=== PATIENT | female | born 1985 | race Caucasian/White ===

== ENCOUNTER 2020-09-15 16:41 | Emergency (ER) | payer OTHER, SELFPAY ==
--- NOTE | ~2020-09-15 | CT_ITS ---
EXAMINATION: CT CHEST WITHOUT CONTRAST CLINICAL INFORMATION: abnormal CT abd, large pleural loculation COMPARISON: CT abdomen pelvis 09/15/2020. Chest x-ray 11/14/2017 TECHNIQUE: Multidetector volumetric CT imaging of the chest was done. Axial MIP volume rendering provided. Sagittal and coronal reformatted images were obtained. This CT examination was performed using dose optimization techniques as appropriate, variously including the following: *Automated exposure control *Adjustment of mA and/or kV according to patient size (this includes techniques or standardized protocols for targeted exams where dose is matched to indication/reason for exam; i.e. extremities or head) *Use of iterative reconstruction technique DLP: 353 mGy-cm FINDINGS: PLEURA/LUNGS: Redemonstration of the cystic structure at the posterior left medial pleural space. This measures approximately 10 x 7.7 cm. This has a density measurement of 13 Hounsfield units, just above simple fluid. The septations are not apparent on this noncontrast study, better seen on the prior CT abdomen study which did use IV contrast. There are pleural calcifications associated with this lesion at the posterior lower lung base. There is overlying left basilar dependent atelectasis. Lungs are otherwise normally aerated. No interstitial lung disease. No suspicious pleural lesions. No bronchiectasis. The central bronchial airways are open. MEDIASTINUM: No mediastinal mass or significant lymphadenopathy. Heart size is normal. No pericardial effusion. Thyroid is unremarkable. CHEST WALL/AXILLA: No axillary lymphadenopathy. There is a well-defined round nodule in the left breast just deep to the skin line. Measures 1.5 cm. This is at the 6:00 position to the nipple. This is about 6.5 cm from the nipple. There is an adjacent ovoid density in the same region measuring about 1 x 2 cm. Consider breast ultrasound for further evaluation. UPPER ABDOMEN: Unremarkable. OSSEOUS STRUCTURES: Unremarkable. CT/CT chest wo con IMPRESSION: 1. Redemonstration of a loculated pleural-based fluid collection posterior left lung base. There are associated small pleural calcifications. Compressive atelectasis at left lung base. 2. Nodule at about 6:00 position within the left breast. Ultrasound of breasts suggested for further assessment.
--- NOTE | ~2020-09-15 | CT_ITS ---
EXAMINATION: CT ABDOMEN AND PELVIS WITH CONTRAST CLINICAL INFORMATION: Left-sided abdominal pain COMPARISON: Ultrasound 08/05/2014, chest x-ray 11/14/2017, rib radiographs 10/24/2009 TECHNIQUE: Multidetector volumetric images were obtained from the superior aspect of the liver through the pubic symphysis following administration 85 mL of Omnipaque 350 intravenous contrast. Sagittal and coronal reformatted images were obtained on the technologist's workstation. Oral contrast: No This CT examination was performed using dose optimization techniques as appropriate, variously including the following: *Automated exposure control *Adjustment of mA and/or kV according to patient size (this includes techniques or standardized protocols for targeted exams where dose is matched to indication/reason for exam; i.e. extremities or head) *Use of iterative reconstruction technique DLP: 677 mGy-cm FINDINGS: LUNG BASES: There is a multiloculated/septated cystic structure in the left posterior medial pleural space. There are some peripheral calcifications and some overlying atelectasis. This measures 10.3 x 6.9 cm transaxial by 7.4 cm craniocaudal. Comparing the medical nurse topogram to prior rib radiograph 10/24/2009, this finding is new although there was abnormal fluid adjacent the spleen described on the ultrasound 08/05/2014. There is no feeding vessel from the aorta to suggest a sequestration. LIVER, GALLBLADDER, AND BILIARY TREE: There is ill-defined low density adjacent the fissure of the falciform ligament consistent with focal hepatic steatosis. No suspicious or concerning focal liver lesion. The hepatic and portal veins enhance normally. No biliary ductal dilatation. The gallbladder is unremarkable with no evidence of radiopaque gallstones, gallbladder wall thickening, or obvious pericholecystic inflammatory changes. PANCREAS: Normal. SPLEEN: Normal. ADRENAL GLANDS: No adrenal mass. KIDNEYS AND URETERS: The kidneys are normal in size, shape, and attenuation. No hydronephrosis, hydroureter, or calculi seen. No perinephric stranding. BLADDER: Unremarkable. GASTROINTESTINAL TRACT: The small and large bowel are unremarkable. The appendix is unremarkable. ABDOMINAL WALL: Small fat-containing umbilical hernia. LYMPH NODES: Normal. VASCULAR: Unremarkable. PELVIC VISCERA: The uterus and adnexa are unremarkable. OSSEOUS STRUCTURES: Severe degenerative disc disease at L5-S1. CT/CT abdomen pelvis w con IMPRESSION: No acute CT findings in the abdomen or pelvis. There is a multiloculated/septated cystic structure in left posterior medial pleural space, measuring 10.3 x 6.9 x 7.4 cm with septations and peripheral calcifications. This finding appears to be new from the rib radiographs 10/24/2009 but there was a cystic abnormality adjacent the spleen on the ultrasound 08/05/2014. Recommend clinical correlation. This could represent an infectious or inflammatory loculated pleural effusion. With the calcifications, unusual etiologies such as echinoccal or hydatid disease could be considered in the appropriate clinical setting.
[2020-09-15 18:53] VITALS: BP 122/69; PULSE 79; RESP 18; TEMP 36.2; O2SAT 100; BMI 32.3
[2020-09-15 19:35] LABS: MANUAL DIFF FLAG NO
[2020-09-15 19:38] LABS: Basophils Absolute Auto 0.1 X10*3/uL (0.0-0.2); Basophils Percent Auto 0.5 % (0-2); Eosinophils Absolute Auto 0.1 X10*3/uL (0.0-0.4); Hematocrit 41.7 % (37-47); Hemoglobin 13.8 g/dl (12.0-16.0); Imm Gran Abs Auto 0.03 X10*3/uL (0.00-0.03); Imm Gran Pct Auto 0.3 % (0.0-0.4); Lymphocytes Absolute Auto 3.5 X10*3/uL (1.2-4.9); Lymphocytes Percent Auto 31.8 % (20-40); Mean Corpuscular HGB Conc 33.1 g/dl (31.0-35.0); Mean Corpuscular Hemoglobin 31.6 pg (27.0-33.0); Mean Corpuscular Volume 95.4 fL (80-98); Monocytes Absolute Auto 0.8 X10*3/uL (0.1-1.2); Neutrophils Absolute Auto 6.5 X10*3/uL (2.0-8.3); Neutrophils Percent Auto 59.4 % (45-73); Platelet Count 374 X10*3/uL (160-400); Red Blood Count 4.37 X10*6/uL (4.20-5.50); Red Cell Distribution Width 13.2 % (11.0-16.0)
[2020-09-15 20:15] LABS: Alanine Aminotransferase 34 U/L (0-31); Albumin Level 4.3 g/dL (3.5-5.0); Alkaline Phosphatase 112 U/L (39-117); Anion Gap 12 (12-20); Aspartate Amino Transferase 21 U/L (5-31); Bilirubin Total 0.8 mg/dL (0.0-1.0); Blood Urea Nitrogen 11 mg/dL (9-16); Calcium 9.3 mg/dL (8.4-10.2); Carbon Dioxide 27 mmol/L (22-29); Chloride 104 mmol/L (96-108); Estimated Glomerular Filt Rate > 60; Glucose Random 75 mg/dL (60-115); Potassium 3.9 mmol/L (3.3-5.1); Sodium 139 mmol/L (135-145); Total Protein 7.2 g/dL (6.5-8.0)
--- NOTE | 2020-09-15 20:31 | ED.ABDPAIN ---
HPI - Abdominal Pain General Chief Complaint: Abdominal Pain Stated Complaint: abdominal pain Time Seen by Provider: 09/15/20 20:24 History of Present Illness HPI narrative: 34-year-old female with history of hypertension and seizures who presents to the emergency department with left upper abdominal pain/left flank pain for 1 week. Patient states over the last week her pain has been getting worse. Denies fevers, chest pain, cough, shortness of breath. Denies changes in bowel or bladder habits. Admits to nausea but denies vomiting. Due to concerning continued discomfort she felt she needed to be seen. Admits to daily marijuana use he is smoking denies any other drug or alcohol use. Denies chance of . Related Data Allergies Allergy/AdvReac Type Severity Reaction Status Date / Time No Known Allergies Allergy Unverified 01/13/20 15:27 Review of Systems Review of Systems Constitutional : No Weight loss, No Fever, No Chills, No Night Sweats, No Fatigue, No Malaise ENT/Mouth : No Hearing loss, No Ear Pain, No Nasal Congestion, No Sinus Pain, No Hoarseness, No sore throat, No Rhinorrhea, No Swallowing Difficulty Eyes: No Eye Pain, No Swelling, No Redness, No Foreign Body, No Discharge, No Vision Changes Cardiovascular : No Chest Pain, No SOB, No Dyspnea on Exertion, No Orthopnea, No Edema, No Palpitations Respiratory : No Cough, No Sputum, No Wheezing, No Smoke Exposure, No Dyspnea Gastrointestinal : + Nausea, No Vomiting, No Diarrhea, No Constipation, + abdominal Pain, +flank pain, No Hematochezia, No Melena Genitourinary : no irregular bleeding, No Dysuria, No Urinary Frequency, No Hematuria, No Urinary Incontinence, No Urgency, No Flank Pain, No Urinary Flow Changes, No Hesitancy Musculoskeletal : No joint pain, No Myalgias, No Joint Swelling Skin : No Skin Lesions, No rash Neuro : No Weakness, No Numbness, No Paresthesias, No Loss of Consciousness, No Dizziness, No Headache Psych : No Anxiety/Panic, No Depression, No SI/HI/AH/VH, No Social Issues, Heme/Lymph: No Bruising, No Bleeding,No Lymphadenopathy Endocrine : No Polyuria, No Polydipsia, No Temperature Intolerance Physical Exam Vital Signs: Vital Signs: Last Vital Signs Temp 97.2 F 09/15/20 18:53 Pulse 60 09/16/20 01:34 Resp 16 09/16/20 01:34 BP 124/73 09/16/20 01:34 Pulse Ox 98 09/16/20 01:34 Body Mass Index 32.3 vital signs have been reviewed as normal and appeared to be correct. Blood pressure normal. Heart rate normal. Respiration rate normal. Temperature normal. Oxygen saturation normal. Appearance: Alert. Oriented X3. Mild acute distress. Head: Normal external exam. Normocephalic. Atraumatic. No Ruiz signs noted. No raccoon eyes noted Eyes: PERRLA. EOMI. Conjunctiva and sclera normal. Eyelids normal. ENT: EAC normal. TM's Normal. Pharynx normal. Uvula midline. Moist mucous membranes. No trismus noted. No drooling noted. No muffled voice noted. Neck: Normal inspection. Neck supple. FROM. No adenopathy. Thyroid Normal. No meningeal signs. No neck mass noted. CVS: Normal heart rate and rhythm. Heart sound normal. No murmurs noted. Pulses normal throughout. Respiratory: No respiratory distress. Painless inspiration. Breath sounds normal. No wheezes/rales/rhonchi noted. Chest nontender. No accessory muscle usage noted or decreased air movement noted. Abdomen: Soft , moderate tenderness to left upper abdomen as well as left flank. No guarding or signs of peritonitis. Bowel sounds normal in all 4 quadrants. No distention noted. No organomegaly noted. No visible injury noted. Back: + left CVA tenderness. negative right CVA tenderness Full range of motion noted. Skin: Skin warm and dry. Normal skin color. Normal skin turgor. No rashes/lesions/lacerations noted. Extremities: No lower extremity edema. Extremities exhibit normal range of motion. Extremities nontender. Neuro: Oriented X 3. No motor deficit. No sensory deficit. Reflexes normal. Course Reevaluation(s) Reevaluation #1: CT scan of the abdomen pelvis with evidence of large abnormal appearing cystic structure in the left medial pleural space will proceed with CT chest noncon to further classify abnormal findings. Patient remains hemodynamically stable. Reevaluation #2: Patient's CT chests returning with confirmation complex pleural effusion in the left medial lung will consult thoracic surgery for additional recommendations patient remains hemodynamically stable will continue to monitor Reevaluation #3: Thoracic surgery feels the patient would benefit from transfer to [facility] as Dr. New is not on-call over the weekend here and patient will likely require pigtail placement for fluid drainage and cultures. Will contact [facility] to facilitate transfer. Patient remains hemodynamically stable Additional Reevaluation(s): Patient accepted to [facility] by Dr. Bearden. Will proceed with transfer patient remains hemodynamically stable. MDM - Abdominal Pain MDM Narrative Medical decision making narrative: Patient's vital signs are stable and she is afebrile patient presenting to the ED for a week of left upper quadrant/left flank abdominal pain. Patient denies any urinary symptoms or changes in bowel habits. Although concern does remain for kidney stone. Will check basic blood work as well as urinalysis. Patient will likely require CT imaging however will continue to monitor decide which type of imaging pending the above. Will medicate with IV morphine for pain, IV Zofran for nausea and IV fluids for hydration. Patient denies any chest pain, shortness of breath. Given the absence of fever lower suspicion for infectious etiology. Will continue to monitor and reassess pending the above. Medical Records Attestation: I reviewed the patient's medical records. Lab Data Attestation: I reviewed the patient's lab results. Result diagrams: 09/15/20 19:28 09/15/20 19:28 Labs: Lab Results 09/15/20 09/15/20 09/15/20 Range/Units 19:28 19:28 19:28 WBC 11.0 H (4.8-10.8) X10*3/uL RBC 4.37 (4.20-5.50) X10*6/uL Hgb 13.8 (12.0-16.0) g/dl Hct 41.7 (37-47) % MCV 95.4 (80-98) fL MCH 31.6 (27.0-33.0) pg MCHC 33.1 (31.0-35.0) g/dl RDW 13.2 (11.0-16.0) % Plt Count 374 (160-400) X10*3/uL MPV 9.0 L (9.4-12.3) fL Immature Gran % (Auto) 0.3 (0.0-0.4) % Neut % (Auto) 59.4 (45-73) % Lymph % (Auto) 31.8 (20-40) % Kent % (Auto) 7.0 (2-11) % Eos % (Auto) 1.0 (0-4) % Baso % (Auto) 0.5 (0-2) % Lymph # (Auto) 3.5 (1.2-4.9) X10*3/uL Kent # (Auto) 0.8 (0.1-1.2) X10*3/uL Eos # (Auto) 0.1 (0.0-0.4) X10*3/uL Baso # (Auto) 0.1 (0.0-0.2) X10*3/uL Abs Immat Gran (auto) 0.03 (0.00-0.03) X10*3/uL Absolute Neuts (auto) 6.5 (2.0-8.3) X10*3/uL Absolute Nucleated RBC 0.000 (0.0-0.012) X10*3/uL Nucleated RBC % (auto) 0.0 (0.0-0.2) /100WBC Hold Blue Top SEE NOTE Sodium 139 (135-145) mmol/L Potassium 3.9 (3.3-5.1) mmol/L Chloride 104 (96-108) mmol/L Carbon Dioxide 27 (22-29) mmol/L Anion Gap 12 (12-20) BUN 11 (9-16) mg/dL Creatinine 0.73 (0.5-1.4) mg/dL Estim Creat Clear Calc 122.0 Estimated GFR > 60 Random Glucose 75 (60-115) mg/dL Calcium 9.3 (8.4-10.2) mg/dL Total Bilirubin 0.8 (0.0-1.0) mg/dL AST 21 (5-31) U/L ALT 34 H (0-31) U/L Alkaline Phosphatase 112 (39-117) U/L Total Protein 7.2 (6.5-8.0) g/dL Albumin 4.3 (3.5-5.0) g/dL Lipase 11 (8-78) U/L Urine Color Urine Appearance Urine pH (5.0-8.0) Ur Specific Enfield (1.005-1.025) Urine Protein (NEG-TRACE) MG/DL Urine Glucose (UA) (NEG) MG/DL Urine Ketones (NEG) MG/DL Urine Blood (NEG) Urine Nitrite (NEG) Ur Leukocyte Esterase (NEG) Urine Test (NEGATIVE) 09/15/20 09/15/20 Range/Units 20:48 20:48 WBC (4.8-10.8) X10*3/uL RBC (4.20-5.50) X10*6/uL Hgb (12.0-16.0) g/dl Hct (37-47) % MCV (80-98) fL MCH (27.0-33.0) pg MCHC (31.0-35.0) g/dl RDW (11.0-16.0) % Plt Count (160-400) X10*3/uL MPV (9.4-12.3) fL Immature Gran % (Auto) (0.0-0.4) % Neut % (Auto) (45-73) % Lymph % (Auto) (20-40) % Kent % (Auto) (2-11) % Eos % (Auto) (0-4) % Baso % (Auto) (0-2) % Lymph # (Auto) (1.2-4.9) X10*3/uL Kent # (Auto) (0.1-1.2) X10*3/uL Eos # (Auto) (0.0-0.4) X10*3/uL Baso # (Auto) (0.0-0.2) X10*3/uL Abs Immat Gran (auto) (0.00-0.03) X10*3/uL Absolute Neuts (auto) (2.0-8.3) X10*3/uL Absolute Nucleated RBC (0.0-0.012) X10*3/uL Nucleated RBC % (auto) (0.0-0.2) /100WBC Hold Blue Top Sodium (135-145) mmol/L Potassium (3.3-5.1) mmol/L Chloride (96-108) mmol/L Carbon Dioxide (22-29) mmol/L Anion Gap (12-20) BUN (9-16) mg/dL Creatinine (0.5-1.4) mg/dL Estim Creat Clear Calc Estimated GFR Random Glucose (60-115) mg/dL Calcium (8.4-10.2) mg/dL Total Bilirubin (0.0-1.0) mg/dL AST (5-31) U/L ALT (0-31) U/L Alkaline Phosphatase (39-117) U/L Total Protein (6.5-8.0) g/dL Albumin (3.5-5.0) g/dL Lipase (8-78) U/L Urine Color YELLOW Urine Appearance CLEAR Urine pH 6.0 (5.0-8.0) Ur Specific Enfield >= 1.030 H (1.005-1.025) Urine Protein NEG (NEG-TRACE) MG/DL Urine Glucose (UA) NEG (NEG) MG/DL Urine Ketones 15 (NEG) MG/DL Urine Blood NEG (NEG) Urine Nitrite NEG (NEG) Ur Leukocyte Esterase NEG (NEG) Urine Test NEGATIVE (NEGATIVE) Discharge Plan Discharge Clinical Impression: Loculated pleural effusion, Chest wall pain Patient Disposition: [facility] Transfer Details: Transfer to [facility] -Accepted by Dr. Bearden Print Language: Faroese [facility] Past Medical History Attestation statement: The following information was validated with the patient. Source: old records reviewed and nursing notes reviewed Medical History (Updated 09/16/20 @ 01:53 by ALECIA Hilario) Hypertension Seizures Social History Social History Alcohol intake: never Smoking Status: Never smoker Use of substances other than those prescribed or required for medical reasons: No Advance Directives: No Advance Directives Information Provided: Yes
[2020-09-15 20:55] LABS: Glucose Urine UA NEG (NEG); Leukocyte Esterase Urine NEG (NEG); Nitrite Urine NEG (NEG); Specific Gravity - Urine >= 1.030 (1.005-1.025); Urine Blood NEG (NEG); Urine Ketones 15 MG/DL (NEG); Urine Protein NEG (NEG-TRACE)
[2020-09-15 20:56] LABS: Appearance Urine CLEAR; Color Urine YELLOW; UPreg QC Valid YES; Urine Pregnancy NEGATIVE (NEGATIVE)
[2020-09-15 21:05] LABS: Lipase 11 U/L (8-78)
[2020-09-15] MEDS: ondansetron HCL 4 MG/2 ML VIAL IVPUSH (21:06)
[2020-09-15] MEDS: 0.9 % Sodium Chloride 1,000 ML 999 ML IV (21:06)
[2020-09-15 21:07] VITALS: RESP 18
[2020-09-15] MEDS: Morphine Sulfate 4 MG/ML CARTRIDGE IVPUSH ×2 (21:07→23:20)
[2020-09-15] MEDS: iohexoL 350 MG/ML 100 ML INFUS..BTL IV (21:26)
--- NOTE | 2020-09-16 01:16 | PC.NURSE ---
Plan to transfer pt by ambulance to [facility] to consult with thoracic surgery.
--- NOTE | 2020-09-16 01:23 | PC.NURSE ---
Per ER PA, no BCX required prior to ABX administration.
[2020-09-16] MEDS: Piperacillin Sodium/Tazobactam 3.375 GM in 0.9 % Sodium Chloride 50 ML IV (01:26)
[2020-09-16 01:34] VITALS: BP 124/73; PULSE 60; RESP 16; O2SAT 98
[2020-09-16] MEDS: vancomycin HCL 1,500 MG in 0.9 % Sodium Chloride 500 ML 333.33 MG IV (01:56)
--- NOTE | 2020-09-16 02:06 | PC.NURSE ---
Report given to THUY Rios at [facility]. EMS at bedside preparing pt for transport.
== END 2020-09-16 02:14 | disposition short-term general hospital (02) ==
PROVIDERS: Emergency Medicine; Physician Assistant; Emergency Provider Student in an Organized Health Care Education/Training Program
DX: J90 Pleural effusion, not elsewhere classified (principal); R07.89 Other chest pain; R10.12 Left upper quadrant pain; Z79.899 Other long term (current) drug therapy
CPT/HCPCS: 36415; 71250; 74177; 80053; 81003; 81025; 83690; 85025; 96361; 96365; 96375; 99285; J2270; J2405; J2543; J3370; Q9967

== ENCOUNTER 2020-11-11 13:05 | Emergency (ER) | payer MEDICAID, SELFPAY ==
[2020-11-11 13:09] VITALS: BP 139/85; PULSE 89; RESP 20; TEMP 36.1; O2SAT 98; BMI 33.9
--- NOTE | 2020-11-11 13:20 | ED.ANXIETY ---
HPI - Anxiety General Chief Complaint: Anxiety Stated Complaint: anxiety Time Seen by Provider: 11/11/20 13:18 Source: patient Mode of arrival: ambulatory Limitations: no limitations History of Present Illness complaint: anxiety Onset (ago): day(s) Symptoms: sense of impending doom Severity: moderate Quality: constant Place: home and work History of similar episodes: Yes Provoking factors: work/job stress Relieving factors: nothing Exacerbating factors: thinking about event Associated symptoms: other (mild nausea this AM) Related Data Previous Rx's Medication Instructions Recorded hydroxyzine HCl 50 mg PO TID PRN #30 tab 11/11/20 Allergies Allergy/AdvReac Type Severity Reaction Status Date / Time No Known Allergies Allergy Unverified 01/13/20 15:27 Review of Systems Review of Systems: Constitutional : No Fever, No Chills ENT/Mouth : No Ear Pain, No Nasal Congestion, No sore throat Eyes: No Eye Pain, No Swelling, No Redness Cardiovascular : No Chest Pain, No SOB Respiratory : No Cough, No Sputum, No Dyspnea Gastrointestinal : No Vomiting, No Diarrhea, No Hematochezia, No Melena Genitourinary : No Dysuria, No Urinary Frequency, No Hematuria Musculoskeletal : No Myalgias Skin : No Skin Lesions, No rash Neuro : No Weakness, No Numbness, No Paresthesias, No Dizziness, No Headache Psych : positive Anxiety, positive Depression, no SI/HI \ PMFSH Past Medical History Attestation statement: The following information was validated with the patient. Medical History Anxiety Hypertension Seizures Social History Social History (Updated 11/11/20 @ 13:45 by Tricia Fagan DO) Alcohol intake: never Patient Tobacco Use Status: Never used Tobacco Advance Directives: No Advance Directives Information Provided: Yes Physical Exam Vital Signs: Vital Signs: Last Vital Signs Temp 96.9 F 11/11/20 13:09 Pulse 89 11/11/20 13:09 Resp 20 11/11/20 13:09 BP 139/85 11/11/20 13:09 Pulse Ox 98 11/11/20 13:09 Body Mass Index 33.9 Appearance: Alert. Oriented X3. No acute distress. Anxious and tearful Eyes: Pupils equal, round and reactive to light. ENT: Pharynx normal. Neck: Normal inspection. Neck supple. CVS: Normal heart rate and rhythm. Respiratory: No respiratory distress. Breath sounds normal. Abdomen: Soft and non-tender. Skin: Skin warm and dry. Normal skin color. Normal skin turgor. Extremities: No lower extremity edema. Neuro: Oriented X 3. No motor deficit. No sensory deficit. Psych: pos anxiety no SI/HI MDM - Anxiety MDM Narrative Medical decision making narrative: 34 yo female with hx of seizures and anxiety just Rx zoloft but due to stress at work here with panic attacks, did not take her keppra this AM as well due to stress, no SI/HI, does not want to go inpatient for psych just asking for PRN relief, will give atarax and dose her with her home keppra, plans to follow up as outpatient Discharge Plan Discharge Clinical Impression: Acute anxiety Patient Disposition: Home, Self-Care Instructions: Panic Attack (ED) Additional Instructions: return to ED for any worsening symptoms or concerns Prescriptions: New hydroxyzine HCl 50 mg tablet 50 mg PO TID PRN (Reason: anxiety) Qty: 30 RF: 0 Stand Alone Forms: Work/School Release
[2020-11-11] MEDS: hydrOXYzine HCL 50 MG TABLET PO (13:47)
[2020-11-11] MEDS: levETIRAcetam 1,000 MG TABLET 1000 MG PO (13:47)
== END 2020-11-11 14:29 | disposition home or self-care (01) ==
PROVIDERS: Emergency Provider Emergency Medicine
DX: F41.9 Anxiety disorder, unspecified (principal); I10 Essential (primary) hypertension
CPT/HCPCS: 99283

== ENCOUNTER 2021-02-10 13:19 | Emergency (ER) | payer MEDICAID, SELFPAY ==
[2021-02-10 13:50] VITALS: BP 109/58; PULSE 80; RESP 16; TEMP 36.7; O2SAT 98; BMI 33.9
== END 2021-02-10 18:09 | disposition left against medical advice (07) ==
PROVIDERS: Emergency Provider Emergency Medicine
DX: R07.9 Chest pain, unspecified (principal)
CPT/HCPCS: 99281; 99282

== ENCOUNTER 2021-08-28 13:32 | Emergency (ER) | payer OTHER, SELFPAY ==
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
[2021-08-28 13:48] VITALS: BP 137/74; BP 152/90; PULSE 103; PULSE 110; RESP 16; TEMP 36.7; O2SAT 100; O2SAT 97; BMI 35.5
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
[2021-08-28] MEDS: Ketorolac Tromethamine 30 MG/ML VIAL IM (15:27)
[2021-08-28] MEDS: Acetaminophen 325 MG TABLET 975 MG PO (15:27)
== END 2021-08-28 17:03 | disposition home or self-care (01) ==
PROVIDERS: Emergency Provider Emergency Medicine
DX: S16.1XXA Strain of muscle, fascia and tendon at neck level, initial encounter (principal); M25.512 Pain in left shoulder; R51.9 Headache, unspecified; V43.52XA Car driver injured in collision with other type car in traffic accident, initial encounter; Y93.9 Activity, unspecified; Y92.410 Unspecified street and highway as the place of occurrence of the external cause; Y99.9 Unspecified external cause status; Z79.899 Other long term (current) drug therapy
CPT/HCPCS: 70450; 72125; 73030; 96372; 99284; J1885

== ENCOUNTER 2022-01-12 08:47 | Emergency (ER) | payer MEDICAID, SELFPAY ==
--- NOTE | ~2022-01-12 | XR_ITS ---
EXAMINATION: XR CHEST CLINICAL INFORMATION: Chest pain COMPARISON: None TECHNIQUE: 2 views of the chest were obtained. FINDINGS: No significant abnormality is noted involving the heart, lungs, mediastinum, bony thorax or soft tissues. XR/XR chest 2V IMPRESSION: Unremarkable examination.
--- NOTE | 2022-01-12 08:50 | ECG_ITS ---
Test Reason : chest pain Blood Pressure : / mmHG Vent. Rate : 083 BPM Atrial Rate : 083 BPM P-R Int : 154 ms QRS Dur : 072 ms QT Int : 352 ms P-R-T Axes : 029 036 028 degrees QTc Int : 413 ms Normal sinus rhythm with sinus arrhythmia Low voltage QRS Borderline ECG When compared with ECG of 05-FEB-2018 18:53, Heart rate has decreased Referred By: Generic ED Physician Electronically Signed By:CARMELLA WATKINS
[2022-01-12 08:51] VITALS: BP 119/65; PULSE 100; RESP 16; TEMP 36; O2SAT 97; BMI 38.7
[2022-01-12 10:13] VITALS: BP 110/62; PULSE 86; RESP 19; TEMP 36.8; O2SAT 98
[2022-01-12 10:33] LABS: MANUAL DIFF FLAG NO
[2022-01-12 10:36] LABS: Basophils Absolute Auto 0.1 X10*3/uL (0.0-0.2); Basophils Percent Auto 0.5 % (0-2); Eosinophils Absolute Auto 0.2 X10*3/uL (0.0-0.4); Eosinophils Percent Auto 1.7 % (0-4); Hematocrit 46.2 % (37.0-47.0); Hemoglobin 15.4 g/dl (12.0-16.0); Imm Gran Abs Auto 0.05 X10*3/uL (0.00-0.03); Imm Gran Pct Auto 0.4 % (0.0-0.4); Lymphocytes Absolute Auto 2.6 X10*3/uL (1.2-4.9); Lymphocytes Percent Auto 20.9 % (20-40); Mean Corpuscular HGB Conc 33.3 g/dl (31.0-35.0); Mean Corpuscular Hemoglobin 31.6 pg (27.0-33.0); Mean Corpuscular Volume 94.9 fL (80.0-98.0); Mean Platelet Volume 9.2 fL (9.4-12.3); Monocytes Absolute Auto 0.8 X10*3/uL (0.1-1.2); Monocytes Percent Auto 6.3 % (2-11); Neutrophils Absolute Auto 8.7 x10*3/uL (2.0-8.3); Neutrophils Percent Auto 70.2 % (45-73); Platelet Count 376 X10*3/uL (160-400); Red Blood Count 4.87 X10*6/uL (4.20-5.50); Red Cell Distribution Width 13.3 % (11.0-16.0); White Blood Count 12.4 X10*3/uL (4.8-10.8)
--- NOTE | 2022-01-12 10:37 | ED.CHESTPAIN ---
HPI - Chest Pain General Chief Complaint: Chest Pain Stated Complaint: CHEST PAIN Time Seen by Provider: 01/12/22 09:22 Source: patient Mode of arrival: ambulatory Limitations: no limitations History of Present Illness HPI narrative: patient presents emergency department for evaluation of chest pain. Patient reports that chest pain has been present since last night. First noticed this while she was sitting and crocheting. It is described as an intermittent jabbing sensation lasting a few minutes and this resolves, however there is also a constant chest tightness that has been present since onset. Unable to identify exacerbating or alleviating factors. Pain at times radiates to the left arm, has associated nausea but no vomiting. Denies fevers, chills, cough, upper respiratory symptoms, shortness of breath, difficulty breathing, abdominal pain. Denies personal history of DVT/ PE, personal history of cancer, recent prolonged immobilization. Related Data Previous Rx's Medication Instructions Recorded hydroxyzine HCl 50 mg tablet 50 mg PO TID PRN anxiety #30 tabs 11/11/20 Allergies Allergy/AdvReac Type Severity Reaction Status Date / Time No Known Allergies Allergy Verified 01/12/22 08:51 Review of Systems Review of Systems: Constitutional : No Weight loss, No Fever, No Chills ENT/Mouth :? No sore throat, No Rhinorrhea Eyes: No Eye Pain, No Swelling Cardiovascular : pos Chest Pain, no SOB, no Dyspnea on Exertion, No Orthopnea, No Edema, No Palpitations Respiratory : No Cough, No Sputum Gastrointestinal : pos Nausea, No Vomiting, No Diarrhea, No abdominal Pain, No Hematochezia, No Melena Genitourinary : No Dysuria, No Urinary Frequency Musculoskeletal : No joint pain, No Myalgias, No Joint Swelling Skin : No Skin Lesions, No rash Neuro : No Weakness, No Numbness, No Dizziness, No Headache Psych : No Anxiety/Panic, No Depression Heme/Lymph: No Bruising, No Lymphadenopathy Endocrine : No Polyuria, No Polydipsia Yes all other systems are reviewed and are negative [facility] Past Medical History Attestation statement: The following information was validated with the patient. Source: old records reviewed Medical History Anxiety Hypertension Seizures Social History Social History Alcohol intake: current Alcohol intake frequency: holidays/special occasions only Patient Tobacco Use Status: Never used Tobacco Use of substances other than those prescribed or required for medical reasons: No Advance Directives: No Advance Directives Information Provided: No Physical Exam Vital Signs: Vital Signs: Last Vital Signs Temp 98.2 F 01/12/22 10:13 Pulse 86 01/12/22 10:13 Resp 19 01/12/22 10:13 BP 110/62 01/12/22 10:13 Pulse Ox 98 01/12/22 10:13 O2 Del Method 01/12/22 10:13 BMI result Body Mass Index 38.7 Appearance: Alert.?Oriented to person, place and time. No acute distress.?Normal affect. Eyes: Pupils equal, round and reactive to light.? ENT: Pharynx normal.?? Neck: Normal inspection.? Neck supple.?? CVS: Heart sounds normal. Normal heart rate and rhythm.? Pulses normal.?? Chest wall tenderness upon palpation. Respiratory: No respiratory distress.? Lung sounds clear to auscultation bilaterally?? Abdomen: Soft and non-tender. Normoactive bowel sounds. No pulsatile mass.?? Skin: Skin warm and dry.? Normal skin color.? ? Extremities: No lower extremity edema.? No calf ttp? Neuro: Moves all extremities spontaneously. Sensation intact bilaterally. CN II-XII intact. No focal neuro deficits. Ambulates with normal steady gait. Course Course Course Narrative: Patient is a 36-year-old female with a past medical history of hypertension, seizures, pleural effusion presenting to emergency department evaluation of chest pain. She is overall well-appearing. Physical exam is unremarkable lung sounds are clear, mild chest wall tenderness upon palpation, no crepitus. Vital signs are stable without tachycardia, tachypnea, hypoxia, or fever. Will obtain CBC to evaluate for leukocytosis/ anemia, CMP to evaluate for abnormal electrolytes /abnormal renal function/ abnormal hepatic function, EKG and troponin to evaluate for ischemia/ACS. Chest x-ray to evaluate for consolidation/ infiltrate/ mass/ pulmonary congestion. Disposition pending results Reevaluation(s) Reevaluation #1: Labs overall unremarkable. Mild leukocytosis likely secondary to inflammatory reaction. Troponin <3.5, EKG reveals normal sinus rhythm, no acute ischemic findings, unlikely ACS. Chest x-ray with no acute cardiopulmonary abnormalities. Not consistent with pleural effusion, consolidation, pneumonia. PERC negative, unlikely PE. Discussed these findings with patient. Advised discharge home, Tylenol/ ibuprofen as needed for pain, follow-up with primary care provider within 2 days. Reviewed worsening signs symptoms return back to emergency department for. All questions were answered, and patient was discharged home in stable condition. MDM - Chest Pain Medical Records Data Attestation: I reviewed the patient's medical records. Lab Data Attestation: I reviewed the patient's lab results. Result diagrams: 01/12/22 10:29 01/12/22 10:29 Labs: Lab Results 01/12/22 01/12/22 01/12/22 Range/Units 10:29 10: 10:29 WBC 12.4 H (4.8-10.8) X10*3/uL RBC 4.87 (4.20-5.50) X10*6/uL Hgb 15.4 (12.0-16.0) g/dl Hct 46.2 (37.0-47.0) % MCV 94.9 (80.0-98.0) fL MCH 31.6 (27.0-33.0) pg MCHC 33.3 (31.0-35.0) g/dl RDW 13.3 (11.0-16.0) % Plt Count 376 (160-400) X10*3/uL MPV 9.2 L (9.4-12.3) fL Immature Gran % (Auto) 0.4 (0.0-0.4) % Neut % (Auto) 70.2 (45-73) % Lymph % (Auto) 20.9 (20-40) % [place] % (Auto) 6.3 (2-11) % Eos % (Auto) 1.7 (0-4) % Baso % (Auto) 0.5 (0-2) % Lymph # (Auto) 2.6 (1.2-4.9) X10*3/uL [place] # (Auto) 0.8 (0.1-1.2) X10*3/uL Eos # (Auto) 0.2 (0.0-0.4) X10*3/uL Baso # (Auto) 0.1 (0.0-0.2) X10*3/uL Abs Immat Gran (auto) 0.05 H (0.00-0.03) X10*3/uL Absolute Neuts (auto) 8.7 H (2.0-8.3) x10*3/uL Absolute Nucleated RBC 0.000 (0.0-0.012) X10*3/uL Nucleated RBC % (auto) 0.0 (0.0-0.2) /100WBC Sodium 139 (135-145) mmol/L Potassium 4.1 (3.3-5.1) mmol/L Chloride 104 (96-108) mmol/L Carbon Dioxide 23 (22-29) mmol/L Anion Gap 16 (12-20) BUN 11 (9-16) mg/dL Creatinine 0.78 (0.5-1.4) mg/dL Estim Creat Clear Calc 123.3 Estimated GFR > 60 Random Glucose 107 (60-115) mg/dL Calcium 9.2 (8.4-10.2) mg/dL Total Bilirubin 0.5 (0.0-1.0) mg/dL AST 20 (5-31) U/L ALT 39 H (0-31) U/L Alkaline Phosphatase 111 (39-117) U/L Troponin I High Sens < 3.5 (<3.5-17.0) ng/L Total Protein 7.6 (6.5-8.0) g/dL Albumin 4.5 (3.5-5.0) g/dL Imaging Data Chest x-ray: Radiologist's impression: FINDINGS: No significant abnormality is noted involving the heart, lungs, mediastinum, bony thorax or soft tissues. XR/XR chest 2V IMPRESSION: Unremarkable examination. ECG Data ECG #1: Attestation: I personally reviewed and interpreted this ECG as follows: ECG interpretation date: 01/12/22 Prior ECG tracings: available for review Interpretation: Rate: 83 Rhythm:? normal sinus rhythm Normal P waves.? Normal NATALIE.?? Normal QRS complex.?? ST T wave :?? no ST elevation, no ST depression, no T-wave inversion qTC: 413 prior studies:? January 2018 The study has been interpreted contemporaneously by me. Discharge Plan Discharge Clinical Impression: Chest pain Patient Disposition: Home, Self-Care Instructions: Noncardiac Chest Pain (ED) Additional Instructions: Your blood work was all normal today. Your chest x-ray was normal. Your EKG was normal. You can take ibuprofen 200 mg, 3 tablets (600mg) every 6-8 hours as needed for pain, in addition to Tylenol 500 mg, 2 tablets (1,000mg) every 4-6 hours as needed for pain, but not to exceed 3 doses daily (3,000mg).? Please follow-up with your primary care doctor within 2 days regarding your pain. You may return to the emergency department with any new or worsening symptoms or concerns. Prescriptions: No Action hydroxyzine HCl 50 mg tablet 50 mg PO TID PRN (Reason: anxiety) Qty: 30 0RF Stand Alone Forms: Work/School Release Interventions: ED Discharge Assessment Last Done: 01/12/22 11:12 Discharge Date/Time: 01/12/22 11:12
[2022-01-12 10:51] LABS: Alanine Aminotransferase 39 U/L (0-31); Albumin Level 4.5 g/dL (3.5-5.0); Alkaline Phosphatase 111 U/L (39-117); Anion Gap 16 (12-20); Aspartate Amino Transferase 20 U/L (5-31); Bilirubin Total 0.5 mg/dL (0.0-1.0); Blood Urea Nitrogen 11 mg/dL (9-16); Calcium 9.2 mg/dL (8.4-10.2); Carbon Dioxide 23 mmol/L (22-29); Chloride 104 mmol/L (96-108); Creatinine Clr Calc Pharmacy 123.3; Estimated Glomerular Filt Rate > 60; Glucose Random 107 mg/dL (60-115); Potassium 4.1 mmol/L (3.3-5.1); Sodium 139 mmol/L (135-145); Total Protein 7.6 g/dL (6.5-8.0)
[2022-01-12 10:57] LABS: Troponin-I High Sensitivity < 3.5 ng/L (<3.5-17.0)
== END 2022-01-12 11:12 | disposition home or self-care (01) ==
PROVIDERS: Physician Assistant; Emergency Provider Internal Medicine
DX: R07.9 Chest pain, unspecified (principal); I10 Essential (primary) hypertension
CPT/HCPCS: 36415; 71046; 80053; 84484; 85025; 93005; 99283; 99284

== ENCOUNTER 2022-10-19 11:05 | Emergency (ER) | payer OTHER, SELFPAY ==
--- NOTE | 2022-10-19 11:12 | ED_ITS ---
HPI - Abdominal Pain General Chief Complaint: Abdominal Pain Stated Complaint: abd pain headache nausea Time Seen by Provider: 10/19/22 12:37 Source: patient, RN notes reviewed and old records reviewed Mode of arrival: ambulatory History of Present Illness HPI narrative: 36-year-old female with a past medical history of anxiety, HTN, seizures, ovarian cysts, presenting to the ED complaining of left lower quadrant abdominal pain, and nausea since last night. Admits pain mildly improved after BM yesterday. Denies fever, chills, vomiting, diarrhea/constipation, melena/hematochezia, hematuria/dysuria or vaginal bleeding/discharge MD elicited complaint: abdominal pain Related Data Previous Rx's Medication Instructions Recorded hydroxyzine HCl 50 mg tablet 50 mg PO TID PRN anxiety #30 tabs 11/11/20 Allergies Allergy/AdvReac Type Severity Reaction Status Date / Time No Known Allergies Allergy Verified 10/19/22 11:13 Review of Systems Review of Systems Constitutional: No Fever, No Chills, No Fatigue, No Malaise ENT/Mouth: No Ear Pain, No Nasal Congestion, No sore throat, No Rhinorrhea, No Swallowing Difficulty Eyes: No Eye Pain, No Swelling, No Redness Cardiovascular: No Chest Pain, No SOB, No Edema, No Palpitations Respiratory: No Cough, No Sputum, No Dyspnea Gastrointestinal: + Nausea, No Vomiting, No Diarrhea, No Constipation, + Abdominal pain, No Hematochezia, No Melena Genitourinary: No Dysuria, No Hematuria, No Flank Pain Musculoskeletal: No joint pain, No Myalgias, No Joint Swelling Skin: No Skin Lesions, No rash Neuro: No Weakness, No Headache Yes all other systems are reviewed and are negative Constitutional: Reports as per [facility] Past Medical History Attestation statement: The following information was validated with the patient. Source: old records reviewed Medical History Anxiety Hypertension Seizures Social History Social History Alcohol intake: current Alcohol intake frequency: holidays/special occasions only Patient Tobacco Use Status: Never used Tobacco Smoked in Last 30 Days: No Use of substances other than those prescribed or required for medical reasons: No Advance Directives: No Advance Directives Information Provided: No Patient : No Physical Exam ED Vital Signs: Vital Signs - 24 hr 10/19/22 11:13 10/19/22 12:52 Temperature 96.9 F 97.8 F Pulse Rate 70 72 Respiratory Rate 16 18 Blood Pressure 123/63 108/63 Pulse Oximetry 98 97 Oxygen Delivery Method Room Air Room Air BMI result Body Mass Index 32.3 Const General: cooperative, healthy appearing and no acute distress Orientation/consciousness: patient oriented x3 Limitations: no limitations HENMT Head: Yes normal to inspection and Yes atraumatic Ears: hearing grossly normal bilaterally General nose exam: Normal external nose present Face and sinus: Yes normal facial exam Eyes General: appearance normal, both eyes and all related structures EOM: EOMs intact bilaterally Neck Neck: Yes normal visual inspection and Yes no meningeal signs Resp Effort & Inspection: normal respiratory effort and no respiratory distress Cardio Rate: regular rate GI Inspection: Yes normal to inspection Palpation (GI): Soft to palpation, Tenderness to palpation present (GI) in the LLQ; with no rebound tenderness, no guarding and not rigid General: Yes no CVA tenderness Back/Spine/Pelvis Back: no CVA tenderness Skin Rashes: no rashes Wounds: no wounds Neuro General: patient oriented x3, tone normal and no meningeal signs Gait exam (Neuro): Normal gait present Extrem General: Yes normal to inspection Course Course Course Narrative: This is an RME: Additional HPI, ROS, PE not included below will be deferred to primary provider. Patient is a 36 year old female presents to ED with complaints of mid lower ABD pain, sudden onset last night, self resolved, and this morning awoke with pain again. Also c/o nausea, and headache. Denies constipation, diarrhea, vomiting, dysuria, urinary frequency, urgency, hesitancy, back/ flank pain. Reports similar pains in the past, unknown etiology. Reports currently on antibiotics for a dental infection (10 day course), 2 days remaining. -1422--mild leukocytosis of 10.9. Labs otherwise reassuring, chronically elevated ALT. UA and negative > CT when to take patient for imaging however patient now refusing states her symptoms have resolved and would like to be discharged home. Results discussed with patient including worrisome signs and symptoms and strict return precautions, and when to return to the emergency department. They verbalized understanding and feel safe for discharge at this time. Medical Decision Making Medical Decision Making MDM Narrative: 36-year-old female with a past medical history of anxiety, HTN, seizures, ovarian cysts, presenting to the ED complaining of left lower quadrant abdominal pain, and nausea since last night. On exam vital signs stable, NAD, nontoxic appearing, abdomen soft with LLQ tenderness, no rebound or guarding, no CVAT. Concern for diverticulitis vs possible appendicitis vs constipation vs colitis vs UTI. Lower suspicion for pyelo, ovarian cyst/torsion, or appendic itis/cholecystitis/lithiasis Plan: Labs, UA, CT AP, IVF, Toradol/Zofran, re-evaluate Please refer to course for remaining clinical decision making, interpretation of labs/imaging results, and discussions with consultants and/or family members. Differential Diagnosis Differential Diagnoses: The differential diagnosis associated with the presentation includes As above Admission/Observation Consideration of admission/observation: Escalation of care including ad mission/observation considered Lab Data [facility] Lab Attestation statement: I reviewed the patient's lab results. 10/19/22 11:32 10/19/22 11:32 Labs: Lab Results 10/19/22 10/19/22 10/19/22 Range/Units 11:32 11:32 11:33 WBC 10.9 H (4.8-10.8) X10*3/uL RBC 4.64 (4.20-5.50) X10*6/uL Hgb 14.6 (12.0-16.0) g/dl Hct 44.2 (37.0-47.0) % MCV 95.3 (80.0-98.0) fL MCH 31.5 (27.0-33.0) pg MCHC 33.0 (31.0-35.0) g/dl RDW 13.6 (11.0-16.0) % Plt Count 377 (160-400) X10*3/uL MPV 9.2 L (9.4-12.3) fL Immature Gran % (Auto) 0.4 (0.0-0.4) % Neut % (Auto) 64.8 (45-73) % Lymph % (Auto) 25.8 (20-40) % [place] % (Auto) 7.2 (2-11) % Eos % (Auto) 1.3 (0-4) % Baso % (Auto) 0.5 (0-2) % Lymph # (Auto) 2.8 (1.2-4.9) X10*3/uL [place] # (Auto) 0.8 (0.1-1.2) X10*3/uL Eos # (Auto) 0.1 (0.0-0.4) X10*3/uL Baso # (Auto) 0.1 (0.0-0.2) X10*3/uL Abs Immat Gran (auto) 0.04 H (0.00-0.03) X10*3/uL Absolute Neuts (auto) 7.1 (2.0-8.3) x10*3/uL Absolute Nucleated RBC 0.000 (0.0-0.012) X10*3/uL Nucleated RBC % (auto) 0.0 (0.0-0.2) /100WBC Sodium 140 (135-145) mmol/L Potassium 3.7 (3.3-5.1) mmol/L Chloride 107 (96-108) mmol/L Carbon Dioxide 24 (22-29) mmol/L Anion Gap 13 (12-20) BUN 10 (9-16) mg/dL Creatinine 0.68 (0.5-1.4) mg/dL Estim Creat Clear Calc 128.4 Estimated GFR > 60 Random Glucose 87 (60-115) mg/dL Calcium 8.9 (8.4-10.2) mg/dL Magnesium 2.0 (1.6-2.6) mg/dL Total Bilirubin 0.8 (0.0-1.0) mg/dL AST 23 (5-31) U/L ALT 48 H (0-31) U/L Alkaline Phosphatase 94 (39-117) U/L Total Protein 6.9 (6.5-8.0) g/dL Albumin 4.2 (3.5-5.0) g/dL Lipase 18 (8-78) U/L Urine Color Yellow Urine Appearance Clear Urine pH 7.5 (5.0-9.0) Ur Specific [place] 1.010 (1.005-1.025) Urine Protein Negative (Neg-Trace) mg/dL Urine Glucose (UA) Negative (Negative) mg/dL Urine Ketones Negative (Negative) mg/dL Urine Blood Negative (Negative) Urine Nitrite Negative (Negative) Ur Leukocyte Esterase Negative (Negative) Urine Test (NEGATIVE) 10/19/22 Range/Units 11:33 WBC (4.8-10.8) X10*3/uL RBC (4.20-5.50) X10*6/uL Hgb (12.0-16.0) g/dl Hct (37.0-47.0) % MCV (80.0-98.0) fL MCH (27.0-33.0) pg MCHC (31.0-35.0) g/dl RDW (11.0-16.0) % Plt Count (160-400) X10*3/uL MPV (9.4-12.3) fL Immature Gran % (Auto) (0.0-0.4) % Neut % (Auto) (45-73) % Lymph % (Auto) (20-40) % [place] % (Auto) (2-11) % Eos % (Auto) (0-4) % Baso % (Auto) (0-2) % Lymph # (Auto) (1.2-4.9) X10*3/uL [place] # (Auto) (0.1-1.2) X10*3/uL Eos # (Auto) (0.0-0.4) X10*3/uL Baso # (Auto) (0.0-0.2) X10*3/uL Abs Immat Gran (auto) (0.00-0.03) X10*3/uL Absolute Neuts (auto) (2.0-8.3) x10*3/uL Absolute Nucleated RBC (0.0-0.012) X10*3/uL Nucleated RBC % (auto) (0.0-0.2) /100WBC Sodium (135-145) mmol/L Potassium (3.3-5.1) mmol/L Chloride (96-108) mmol/L Carbon Dioxide (22-29) mmol/L Anion Gap (12-20) BUN (9-16) mg/dL Creatinine (0.5-1.4) mg/dL Estim Creat Clear Calc Estimated GFR Random Glucose (60-115) mg/dL Calcium (8.4-10.2) mg/dL Magnesium (1.6-2.6) mg/dL Total Bilirubin (0.0-1.0) mg/dL AST (5-31) U/L ALT (0-31) U/L Alkaline Phosphatase (39-117) U/L Total Protein (6.5-8.0) g/dL Albumin (3.5-5.0) g/dL Lipase (8-78) U/L Urine Color Urine Appearance Urine pH (5.0-9.0) Ur Specific [place] (1.005-1.025) Urine Protein (Neg-Trace) mg/dL Urine Glucose (UA) (Negative) mg/dL Urine Ketones (Negative) mg/dL Urine Blood (Negative) Urine Nitrite (Negative) Ur Leukocyte Esterase (Negative) Urine Test NEGATIVE (NEGATIVE) Radiology Impression Discussion of test interpretation with radiology: I have reviewed the radiologist's reading. External Record Review External record reviewed: Inpatient record, Office record, Outpatient record, Prior outpatient labs, Prior outpatient radiology, Primary care record and Outside ED record Tests considered The following testing was considered but not selected: As above Prescription Management I considered prescription management with: Pain Medication and Antibiotic Medications Administered Discontinued Medications Generic Name Dose Route Start Last Admin Trade Name Freq PRN Reason Stop Dose Admin Sodium Chloride 1,000 mls @ 999 mls/hr 10/19/22 13:00 10/19/22 13:17 Ns IV 10/19/22 14:00 999 mls/hr .Q1H1M QUNETIN Administration Ketorolac Tromethamine 15 mg 10/19/22 12:48 10/19/22 13:17 Ketorolac Tromethamine 15 Mg/Ml Vial IVPUSH 10/19/22 12:49 15 mg ONCE ONE Administration Ondansetron HCl 4 mg 10/19/22 12:48 10/19/22 13:17 Ondansetron Hcl 4 Mg/2 Ml Vial IVPUSH 10/19/22 12:49 4 mg ONCE ONE Administration Discharge Plan Discharge Clinical Impression: Abdominal pain Patient Disposition: Home, Self-Care Instructions: Abdominal Pain (ED) Additional Instructions: Your blood work and urine are reassuring Your refused a CT scan today If your symptoms recur, persist, worsen you have fever, persistent nausea/vomiting or diarrhea return to the emergency department Prescriptions: No Action hydroxyzine HCl 50 mg tablet 50 mg PO TID PRN (Reason: anxiety) Qty: 30 0RF Referrals: [facility] [Provider Group] (as needed) Eleuterio Richards PA-C [Primary Care Provider] - Interventions: ED Discharge Assessment Last Done: 10/19/22 14:31 Discharge Date/Time: 10/19/22 14:31
[2022-10-19 11:13] VITALS: BP 123/63; PULSE 70; RESP 16; TEMP 36.1; O2SAT 98; BMI 32.3
[2022-10-19 11:39] LABS: MANUAL DIFF FLAG NO
[2022-10-19 11:40] LABS: Basophils Absolute Auto 0.1 X10*3/uL (0.0-0.2); Basophils Percent Auto 0.5 % (0-2); Eosinophils Absolute Auto 0.1 X10*3/uL (0.0-0.4); Eosinophils Percent Auto 1.3 % (0-4); Hematocrit 44.2 % (37.0-47.0); Hemoglobin 14.6 g/dl (12.0-16.0); Imm Gran Abs Auto 0.04 X10*3/uL (0.00-0.03); Imm Gran Pct Auto 0.4 % (0.0-0.4); Lymphocytes Absolute Auto 2.8 X10*3/uL (1.2-4.9); Lymphocytes Percent Auto 25.8 % (20-40); Mean Corpuscular Hemoglobin 31.5 pg (27.0-33.0); Mean Corpuscular Volume 95.3 fL (80.0-98.0); Mean Platelet Volume 9.2 fL (9.4-12.3); Monocytes Absolute Auto 0.8 X10*3/uL (0.1-1.2); Monocytes Percent Auto 7.2 % (2-11); Neutrophils Absolute Auto 7.1 x10*3/uL (2.0-8.3); Neutrophils Percent Auto 64.8 % (45-73); Platelet Count 377 X10*3/uL (160-400); Red Blood Count 4.64 X10*6/uL (4.20-5.50); Red Cell Distribution Width 13.6 % (11.0-16.0); White Blood Count 10.9 X10*3/uL (4.8-10.8)
[2022-10-19 11:42] LABS: Appearance Urine Clear; Color Urine Yellow; Glucose Urine UA Negative (Negative); Leukocyte Esterase Urine Negative (Negative); Nitrite Urine Negative (Negative); PH 7.5 (5.0-9.0); Urine Blood Negative (Negative); Urine Ketones Negative (Negative); Urine Protein Negative (Neg-Trace)
[2022-10-19 12:03] LABS: Alanine Aminotransferase 48 U/L (0-31); Albumin Level 4.2 g/dL (3.5-5.0); Alkaline Phosphatase 94 U/L (39-117); Anion Gap 13 (12-20); Aspartate Amino Transferase 23 U/L (5-31); Bilirubin Total 0.8 mg/dL (0.0-1.0); Blood Urea Nitrogen 10 mg/dL (9-16); Calcium 8.9 mg/dL (8.4-10.2); Carbon Dioxide 24 mmol/L (22-29); Chloride 107 mmol/L (96-108); Creatinine Clr Calc Pharmacy 128.4; Estimated Glomerular Filt Rate > 60; Glucose Random 87 mg/dL (60-115); Lipase 18 U/L (8-78); Potassium 3.7 mmol/L (3.3-5.1); Sodium 140 mmol/L (135-145); Total Protein 6.9 g/dL (6.5-8.0)
[2022-10-19 12:05] LABS: UPreg QC Valid YES; Urine Pregnancy NEGATIVE (NEGATIVE)
--- OUTSIDE RECORDS SUMMARY | 2022-10-19 12:44 | XMS_ITS | Continuity of Care Document ---
Author Name Unknown Organization [facility] Address [address] [place] [address]- Care Team Providers Care Therapeutic Sales Specialist Name Role Phone Eleuterio Capellan Primary Care Physi sampson Encounter [facility] Date(s): 09/16/22 - 10/16/22 [facility] [address] [place] [address]- Attending Physician: Admtr, [id number] Admitting Physician: Admtr, Ar8 Referring Physician: Admtr, Ar8 Allergies, Adverse Reactions, Alerts No Known Allergies Immunizations Given and Recorded Vaccine Date Status Refusal Reason influenza virus vaccine, inactivated 04/03/22 Give n influenza virus vaccine, inactivated 1 02/13/21 Gi kriss SARS-CoV-2 (COVID-19) mRNA-1273 vaccine 03/31/21 R ecorded SARS-CoV-2 (COVID-19) mRNA-1273 vaccine 09/24/20 R ecorded SARS-CoV-2 (COVID-19) mRNA-1273 vaccine 08/27/20 R ecorded tetanus/diphtheria/pertussis, acel(Tdap) 11/06/20 Given 1Result Comment: [facility]# ON THE [address]OX [phone] Medications clindamycin topical 2% cream See Instructions, Apply to affected areas twice daily., # 40 Gm, 1 Refills, Maintenance, 09/11/22 12:34:00 EDT, [facility], Partial fill upon patient request if the prescription is for a schedule II opioid drug., Apply to affected areas... Start Date: 09/11/22 Status: Ordered Freestyle Lite Lancets See Instructions, # 200 each, Refills 11, Tot. Refills 11, Maintenance, DX: R73.03 TEST BS 1-3 TIMES A WEEK, 04/15/22 15:12:00 EST, Supply, 168, cm, 04/04/22 13:15:00 EST, Height, 92.4, kg, 10/02/20 9:03:00 EDT, Dry Weight Start Date: 04/15/22 Stop Date: 04/10/23 Status: Ordered Freestyle Lite Monitor See Instructions, # 1 each, Refills 0, Tot. Refills 0, Maintenance, DX: R73.03 TEST BS 1-3 TIMES A WEEK, 03/09/21 14:43:00 EST, Supply, 168, cm, 03/09/21 12:58:00 EST, Height, 92.4, kg, 10/02/20 9:03:00 EDT, Dry Weight Start Date: 03/09/21 Status: Ordered Freestyle Lite Test Strips See Instructions, # 200 each, Refills 11, Tot. Refills 11, Maintenance, DX: R73.03 TEST BS 1-3 TIMES A WEEK, 04/15/22 15:11:00 EST, Supply, 168, cm, 04/04/22 13:15:00 EST, Height, 92.4, kg, 10/02/20 9:03:00 EDT, Dry Weight Start Date: 04/15/22 Stop Date: 04/10/23 Status: Ordered levETIRAcetam 1000 mg oral tablet See Instructions, TAKE ONE TABLET BY MOUTH TWICE A DAY, # 60 tablet, 2 Refills, Maintenance, 09/11/22 11:57:00 EDT, [facility], 168, cm, 09/11/22 11:28:00 EDT, Height, 92.4, kg, 10/02/20 9:03:00 EDT, Dry Weight Start Date: 09/11/22 Status: Ordered loratadine 10 mg oral tablet 10 mg, 1, tablet, By Mouth, Daily, # 30 tablet, Refills 5, Tot. Refills 5, Maintenance, 09/11/22 11:57:00 EDT, Route to Pharmacy Electronically, [facility], Partial fill upon patient request if the prescription is for a schedule II opioi... Start Date: 09/11/22 Status: Ordered meclizine 25 mg oral tablet 1 tablet = 25 mg, By Mouth, 3 times a day, PRN for dizziness, # 15 tablet, 0 Refills, Maintenance, 04/04/22 13:29:00 EST, Tablet, [facility], Partial fill upon patient request if the prescription is for a schedule II opioid drug., 168, c... Start Date: 04/04/22 Status: Ordered omeprazole 20 mg oral delayed release tablet 1 tablet = 20 mg, By Mouth, 2 times a day, # 30 tablet, 0 Refills, Maintenance, 02/27/21 10:32:00 EDT, EC Tablet, [facility], Partial fill upon patient request if the prescription is for a schedule II opioid drug., 168, cm, 02/27/21 9:52... Start Date: 02/27/21 Status: Ordered riboflavin 400 mg oral capsule 1 capsule = 400 mg, By Mouth, Daily, # 30 capsule, 5 Refills, Maintenance, 04/03/22 16:30:00 EST, [facility], Partial fill upon patient request if the prescription is for a scheduleII opioid drug., 168, cm, 04/03/22 15:19:00 EST, Height... Start Date: 04/03/22 Status: Ordered rosuvastatin 10 mg oral tablet 1 tablet, By Mouth, Daily, # 30 tablet, 5 Refills, Maintenance, 09/11/22 11:57:00 EDT, [facility], 168, cm, 09/11/22 11:28:00 EDT, Height, 92.4, kg, 10/02/20 9:03:00 EDT, Dry Weight Start Date: 09/11/22 Status: Ordered Ventolin HFA 108 mcg/inh inhalation aerosol with adapter 2 puffs, Inhalation, 4 times a day, PRN for wheezing, # 18 Gm, 2 Refills, Maintenance, 09/02/22 16:26:00 EDT, Aerosol, [facility], Partial fill upon patient request if the prescription is for a schedule II opioid drug., 168, cm, 06/06/22... Start Date: 09/02/22 Status: Ordered Problem List Condition Confirmation Course Effective Dates Status Health Status Informant Anxiety Confirmed Active Asthma Confirmed Active Familial hypercholesteremia Confirmed 02/27/21 Active Chronic GERD Confirmed Active Hidradenitis suppurativa Confirmed Active Insomnia Confirmed Active Migraine headache Confirmed Active Obese class I Confirmed Active Obesity Confirmed Active [place]-Schlatter's disease Confirmed Active Pilonidal cyst Confirmed Active Seizure Confirmed Active Fatty liver Confirmed Active Vertigo Confirmed Active Social History Social History Type Response Smoking Status Former smoker, quit more than 30 days ago entered on: 11/06/20 Sex Patient Care team information Care Team Personnel Name: Eleuterio Capellan Position: [facility] PCO Associate Professional Member Role: PCP Address: Address: [address] [place] [address] [place] [address]- Care Team Related Persons Name: ROCIO GAINES Address: home [address] [place] [address] Name: RANDALL AHN Address: [place] [address]
--- OUTSIDE RECORDS SUMMARY | 2022-10-19 12:44 | XMS_ITS | Continuity of Care Document ---
Author Name Unknown Organization [facility] Address [address] [place] [address]- Care Team Providers Care Flat Cutter Name Role Phone Eleuterio Capellan Primary Care Physi sampson Encounter [facility] Date(s): 01/16/22 - 02/15/22 [facility] [address] [place] [address]- Allergies, Adverse Reactions, Alerts No Known Allergies Immunizations Given and Recorded Vaccine Date Status Refusal Reason SARS-CoV-2 (COVID-19) mRNA-1273 vaccine 03/31/21 R ecorded SARS-CoV-2 (COVID-19) mRNA-1273 vaccine 09/24/20 R ecorded SARS-CoV-2 (COVID-19) mRNA-1273 vaccine 08/27/20 R ecorded influenza virus vaccine, inactivated 1 02/13/21 Gi kriss tetanus/diphtheria/pertussis, acel(Tdap) 11/06/20 Given 1Result Comment: [facility]# ON THE [address]OX [phone] Medications Freestyle Lite Lancets See Instructions, # 200 each, Refills 5, Tot. Refills 5, Maintenance, DX: R73.03 TEST BS 1-3 TIMES A WEEK, 03/09/21 14:49:00 EST, Supply, 168, cm, 03/09/21 12:58:00 EST, Height, 92.4, kg, 10/02/20 9:03:00 EDT, Dry Weight Start Date: 03/09/21 Stop Date: 09/05/21 Status: Ordered Freestyle Lite Monitor See Instructions, # 1 each, Refills 0, Tot. Refills 0, Maintenance, DX: R73.03 TEST BS 1-3 TIMES A WEEK, 03/09/21 14:43:00 EST, Supply, 168, cm, 03/09/21 12:58:00 EST, Height, 92.4, kg, 10/02/20 9:03:00 EDT, Dry Weight Start Date: 03/09/21 Status: Ordered Freestyle Lite Test Strips See Instructions, # 200 each, Refills 5, Tot. Refills 5, Maintenance, DX: R73.03 TEST BS 1-3 TIMES A WEEK, 03/09/21 14:49:00 EST, Supply, 168, cm, 03/09/21 12:58:00 EST, Height, 92.4, kg, 10/02/20 9:03:00 EDT, Dry Weight Start Date: 03/09/21 Stop Date: 09/05/21 Status: Ordered levETIRAcetam 1000 mg oral tablet 1 tablet = 1,000 mg, By Mouth, 2 times a day, # 60 tablet, 2 Refills, Maintenance, 10/04/21 18:56:00 EDT, Tablet, [facility], Partial fill upon patient request if the prescription is for a schedule II opioid drug., 168, cm, 06/11/21 15:5... Start Date: 10/04/21 Status: Ordered loratadine 10 mg oral tablet 10 mg, 1, tablet, By Mouth, Daily, # 30 tablet, Refills 11, Tot. Refills 11, Maintenance, 01/17/22 8:31:00 EDT, Route to Pharmacy Electronically, [facility], Partial fill upon patient request if the prescription is for a schedule II opio... Start Date: 01/17/22 Status: Ordered naproxen 500 mg oral tablet 1 tablet = 500 mg, By Mouth, 2 times a day, # 60 tablet, 0 Refills, Acute 03/27/22 21:00:00 EST, 01/22/22 14:39:00 EDT, Tablet, [facility], Partial fill upon patient request if the prescription is for a schedule II opioid drug., 168, cm,... Start Date: 01/22/22 Stop Date: 03/27/22 Status: Ordered omeprazole 20 mg oral delayed release tablet 1 tablet = 20 mg, By Mouth, 2 times a day, # 30 tablet, 0 Refills, Maintenance, 02/27/21 10:32:00 EDT, EC Tablet, [facility], Partial fill upon patient request if the prescription is for a schedule II opioid drug., 168, cm, 02/27/21 9:52... Start Date: 02/27/21 Status: Ordered ProAir HFA 90 mcg/inh inhalation aerosol with adapter 2, puffs, Inhalation, Every 6 hours, PRN, # 1 each, Refills 2, Tot. Refills 2, Maintenance, 01/17/22 8:29:00 EDT, Aerosol, Route to Pharmacy Electronically, [id number], [facility], 168, cm, 01/17/22 8:13:00 EDT,... Start Date: 01/17/22 Status: Ordered rosuvastatin 10 mg oral tablet 1 tablet = 10 mg, By Mouth, Daily, # 30 tablet, 5 Refills, Maintenance, 01/17/22 8:46:00 EDT, Tablet, [facility], Partial fill upon patient request if the prescription is for a schedule II opioid drug., 168, cm, 01/17/22 8:13:00 EDT, Hei... Start Date: 01/17/22 Status: Ordered Problem List Condition Confirmation Course Effective Dates Status Health Status Informant Anxiety Confirmed Active Asthma Confirmed Active Breast lump left Confirmed 02/27/21 Active Chest wall pain Confirmed Active Chronic headaches Confirmed Active Dizziness Confirmed Active Familial hypercholesteremia Confirmed 02/27/21 Active Chronic GERD Confirmed Active Hypercholesterolemia Confirmed Active Hyperlipemia Confirmed Active Impaired fasting glucose Confirmed 02/27/21 Active Insomnia Confirmed Active Lump in armpit Confirmed Active Migraine headache Confirmed Active Obese class I Confirmed Active Obesity Confirmed Active [place]-Schlatter's disease Confirmed Active Immunity status testing Confirmed Active Pilonidal cyst Confirmed Active Seizure Confirmed Active Snores Confirmed Active Fatty liver Confirmed Active Poor dentition Confirmed Active Screening for tuberculosis Confirmed Active Social History Social History Type Response Smoking Status Former smoker, quit more than 30 days ago entered on: 11/06/20 Sex Patient Care team information Personnel Name: Eleuterio Capellan Address: Address: [address] [place], [place] [address], [place] [address]
--- OUTSIDE RECORDS SUMMARY | 2022-10-19 12:44 | XMS_ITS | Continuity of Care Document ---
Author Name Unknown Organization [facility] Address [address] [place] [address]- Care Team Providers Care Supervisor Wood Crew Name Role Phone Not on Staff, PCP Primary Care Physician Unavail able Encounter [facility] [place](s[place] 09/16/20 - 09/16/[address] [address]- Encounter Diagnosis Lung mass(Final) - 09/16/20 Discharge Disposition: A-D/C Home Attending Physician: Stas Urban DO Admitting Physician: Stas Urban DO Referring Physician: Not on Staff, Referring MD Allergies, Adverse Reactions, Alerts Substance Reaction Severity Status NKA Active Medications Keppra 500 mg oral tablet 2 tablet = 1,000 mg, By Mouth, 2 times a day, # 360 tablet, 0 Refills, Maintenance, 09/16/20 7:55:00 EDT, Tablet, Partial fill upon patient request if the prescription is for a schedule II opioid drug. Start Date: 09/16/20 Status: Ordered MorPHINE Inj 4 mg, Injection, IV Push Slowly, STAT, 09/16/20 10:02:00 EDT, Stop date 09/16/20 10:02:00 EDT Start Date: 09/16/20 Stop Date: 09/16/20 Status: Completed Results Radiology Reports * Exam Date Time Procedure Performing Provider Status 09/16/20 9:04 AM Chest 2 Views Frontal and Lat Matt Clayton; Ewa (Verified) Notes: (Chest 2 Views Frontal and Lat) Reason For Exam: Chest Pain;Other: RESULT: Chest 2 Views Frontal and Lat Examination: Chest performed on 09/16/2020. History: Shortness of breath and chest pain Findings: Frontal and lateral views of the chest are submitted without comparison. The cardiac and mediastinal silhouettes are within normal limits. There is a rounded masslike posterior mediastinal opacity, best seen on the lateral view, projecting at the left lung base on the frontal radiograph. The osseous and soft tissue structures are unremarkable. Impression: Masslike opacity at the left lung base. While this could represent an infectious process such as round pneumonia, a posterior mediastinal mass cannot be excluded. Cross-sectional imaging may be obtained for further evaluation. A Yellow message has been communicated via the QBE system on 09/16/2020 9:09 AM, Message ID [id number]. WSN: [id number] Ordering Physician: Dusty Kaye Dictated By: Deepti Haddad MD Dictated Date/Time: 09/16/20 9:09 am Reviewed By: Deepti Haddad MD Signed By: Deepti Haddad MD Signed Date/Time: 09/16/20 9:09 am Transcribed By: EUGENIO Transcribed Date/Time: 09/16/20 9:07 am Vital Signs Most recent to oldest [Reference Range]: 1 2 3 Oxygen Saturation [94-100 %] 98 % (09/16/20 3:07 PM) 99 % (09/16/20 12:00 PM) 98 % (09/16/20 10:09 AM) Pulse Rate [55-90 bpm] 68 bpm (09/16/20 3:07 PM) 65 bpm (09/16/20 12:00 PM) 64 bpm (09/16/20 10:09 AM) Blood Pressure [90-138/55-84 mm Hg] 120/60mm Hg (09/16/20 3:07 PM) 119/57mm Hg (09/16/20 12:00 PM) 110/66mm Hg (09/16/20 10:09 AM) Respiratory Rate [16-30 br/min] 16 br/min (09/16/20 3:07 PM) 14 br/min *L* (09/16/20 12:00 PM) 18 br/min (09/16/20 11:03 AM) Temperature [96.8-100.4 DegF] 97.5 DegF (09/16/20 10:09 AM) 98.2 DegF (09/16/20 8:12 AM) Mode of Delivery (Oxygen) Room air (09/16/20 3:07 PM) Room air (09/16/20 12:00 PM) Room air (09/16/20 10:09 AM) Blood pressure sites Arm, left (09/16/20 3:07 PM) Arm, left (09/16/20 12:00 PM) Arm, right (09/16/20 10:09 AM) Temperature Route Oral (09/16/20 10:09 AM) Oral (09/16/20 8:12 AM)
--- OUTSIDE RECORDS SUMMARY | 2022-10-19 12:44 | XMS_ITS | Continuity of Care Document ---
Author Name Unknown Organization [facility] Juan Address [address] [place] [address]- Care Team Providers Care Rn Chronic Name Role Phone Marlys HERNANDEZ, Octavia Primary Care Physician [place] [facility] [place]21 [facility] Adult [address] [place] [address]- Allergies, Adverse Reactions, Alerts No Known Allergies Immunizations Given and Recorded Vaccine Date Status Refusal Reason SARS-CoV-2 (COVID-19) mRNA-1273 vaccine 03/31/21 R ecorded SARS-CoV-2 (COVID-19) mRNA-1273 vaccine 09/24/20 R ecorded SARS-CoV-2 (COVID-19) mRNA-1273 vaccine 08/27/20 R ecorded influenza virus vaccine, inactivated 1 02/13/21 Gi kriss tetanus/diphtheria/pertussis, acel(Tdap) 11/06/20 Given 1Result Comment: [facility]# ON THE [address] 51907-627-25 Medications diclofenac 1% topical gel 1 application, Topically, 4 times a day, # 100 Gm, 0 Refills, Maintenance, 11/22/20 8:28:00 EDT, Gel, [facility], Partial fill upon patient request if the prescription is for a schedule II opioid drug., 168, cm, 11/22/20 7:54:00 EDT, Hei... Start Date: 11/22/20 Status: Ordered Diflucan 150 mg oral tablet See Instructions, 1 tablet By Mouth , If symptoms not improve in 72 hours can take another, # 2 tablet, 0 Refills, Maintenance, 04/17/21 14:42:00 EST, Tablet, [facility], Partial fill upon patient request if the prescription is for a justine... Start Date: 04/17/21 Status: Ordered Freestyle Lite Lancets See Instructions, [...] a day, # 60 tablet, 0 Refills, Maintenance, 01/25/21 14:32:00 EDT, Tablet, [facility], Partial fill upon patient request if the prescription is for a schedule II opioid drug., 168, cm, 12/12/20 16:2... Start Date: 01/25/21 Status: Ordered naproxen 250 mg oral tablet 1, tablet, By Mouth, 2 times a day with meals, # 28 tablet, Refills 0, Route to Pharmacy Electronically, [facility], 168, cm, 03/09/21 12:58:00 EST, Height, 92.4, kg, 10/02/20 9:03:00 EDT, Dry Weight Start Date: 03/12/21 Status: Ordered omeprazole 20 mg oral delayed release tablet 1 tablet = 20 mg, By Mouth, 2 times a day, # 30 tablet, 0 Refills, Maintenance, 02/27/21 10:32:00 EDT, EC Tablet, [facility], Partial fill upon patient request if the prescription is for a schedule II opioid drug., 168, cm, 02/27/21 9:52... Start Date: 02/27/21 Status: Ordered ProAir HFA 90 mcg/inh inhalation aerosol with adapter 2, puffs, Inhalation, Every 6 hours, PRN, # 8.5 Gm, Refills 2, Tot. Refills 2, Maintenance, 11/06/20 14:25:00 EDT, Aerosol, Route to Pharmacy Electronically, [id number], [facility], 168, cm, 11/06/20 14:02:00 ED... Start Date: 11/06/20 Status: Ordered rosuvastatin 10 mg oral tablet 1 tablet = 10 mg, By Mouth, Daily, # 30 tablet, 5 Refills, Maintenance, 03/14/21 8:10:00 EST, Tablet, [facility], Partial fill upon patient request if the prescription is for a schedule II opioid drug., 168, cm, 03/09/21 12:58:00 EST, He... Start Date: 03/14/21 Status: Ordered Problem List Condition Effective Dates Status Health Status Inform ant Anxiety(Confirmed) Active Asthma(Confirmed) Active Breast lump left(Confirmed) 02/27/21 Active Chest wall pain(Confirmed) Active Chronic headaches(Confirmed) Active Dizziness(Confirmed) Active Familial hypercholesteremia(Confirmed) 02/27/21 Active Chronic GERD(Confirmed) Active Hypercholesterolemia(Confirmed) Active Hyperlipemia(Confirmed) Active Impaired fasting glucose(Confirmed) 02/27/21 Active Insomnia(Confirmed) Active Lump in armpit(Confirmed) Active Migraine headache(Confirmed) Active Obese class II(Confirmed) Active Obesity(Confirmed) Active Carlos-Schlatter's disease(Confirmed) Active Immunity status testing(Confirmed) Active Pilonidal cyst(Confirmed) Active Seizure(Confirmed) Active Snores(Confirmed) Active Fatty liver(Confirmed) Active Poor dentition(Confirmed) Active Screening for tuberculosis(Confirmed) Active Social History Social History Type Response Smoking Status Former smoker, quit more than 30 days ago entered on: 11/06/20 Sex
--- OUTSIDE RECORDS SUMMARY | 2022-10-19 12:44 | XMS_ITS | Continuity of Care Document ---
Author Name Unknown Organization [facility] Juan Address [address] [place] [address]- Care Team Providers Care Bag Bailer Name Role Phone Marlys HERNANDEZ, Octavia Primary Care Physician [phone] [place] [facility] [place] 03/12/21 - 04/11/21 [facility] Adult [address] [place] [address]- Allergies, Adverse Reactions, Alerts Substance Reaction Severity Status NKA Active Immunizations Given and Recorded Vaccine Date Status Refusal Reason SARS-CoV-2 (COVID-19) mRNA-1273 vaccine 03/31/21 R ecorded SARS-CoV-2 (COVID-19) mRNA-1273 vaccine 09/24/20 R ecorded SARS-CoV-2 (COVID-19) mRNA-1273 vaccine 08/27/20 R ecorded influenza virus vaccine, inactivated 1 02/13/21 Gi kriss tetanus/diphtheria/pertussis, acel(Tdap) 11/06/20 Given 1Result Comment: [facility]# ON THE [address] 68367-646-17 Medications Augmentin 875 mg-125 mg oral tablet 1 tablet, By Mouth, Every 12 hours, for 7 days, # 14 tablet, 0 Refills, Acute 04/16/21 13:58:00 EST, 04/09/21 13:58:00 EST, Tablet, [facility], Partial fill upon patient request if the prescription is for a schedule II opioid drug., 168,... Start Date: 04/09/21 Stop Date: 04/16/21 Status: Ordered diclofenac 1% topical gel 1 application, Topically, 4 times a day, # 100 Gm, 0 Refills, Maintenance, 11/22/20 8:28:00 EDT, Gel, [facility], Partial fill upon patient request if the prescription is for a schedule II opioid drug., 168, cm, 11/22/20 7:54:00 EDT, Hei... Start Date: 11/22/20 Status: Ordered Freestyle Lite Lancets See Instructions, [...] 14:25:00 EDT, Aerosol, Route to Pharmacy Electronically, [id number], [facility], 168, cm, 11/06/20 14:02:00 ED... Start Date: 11/06/20 Status: Ordered rosuvastatin 10 mg oral tablet 1 tablet = 10 mg, By Mouth, Daily, # 30 tablet, 5 Refills, Maintenance, 03/14/21 8:10:00 EST, Tablet, [facility], [...] Active Obese class II(Confirmed) Active Obesity(Confirmed) Active [place]-Schlatter's disease(Confirmed) Active Immunity status testing(Confirmed) Active Pilonidal cyst(Confirmed) Active Seizure(Confirmed) Active Snores(Confirmed) Active Fatty liver(Confirmed) Active Poor dentition(Confirmed) Active Screening for tuberculosis(Confirmed) Active Social History Social History Type Response Smoking Status Former smoker, quit more than 30 days ago entered on: 11/06/20 Sex
--- OUTSIDE RECORDS SUMMARY | 2022-10-19 12:44 | XMS_ITS | Continuity of Care Document ---
Author Name Unknown Organization [facility] Juan Address [address] [place] [address]- Care Team Providers Care Pharmacy Resource Tech Name Role Phone Marlys HERNANDEZ, Octavia Primary Care Physician [phone] Encounter [facility] [place] Date(s): 12/13/20 - 01/12/21 [facility] Adult [address] [place] [address]- Allergies, Adverse Reactions, Alerts Substance Reaction Severity Status NKA Active Immunizations Given and Recorded Vaccine Date Status Refusal Reason tetanus/diphtheria/pertussis, acel(Tdap) 11/06/20 Given SARS-CoV-2 (COVID-19) mRNA-1273 vaccine 09/24/20 R ecorded SARS-CoV-2 (COVID-19) mRNA-1273 vaccine 08/27/20 R ecorded Medications diclofenac 1% topical gel 1 application, Topically, 4 times a day, # 100 Gm, 0 Refills, Maintenance, 11/22/20 8:28:00 EDT, Gel, [facility], Partial fill upon patient request if the prescription is for a schedule II opioid drug., 168, cm, 11/22/20 7:54:00 EDT, Hei... Start Date: 11/22/20 Status: Ordered Keppra 500 mg oral tablet 2 tablet = 1,000 mg, By Mouth, 2 times a day, # 360 tablet, 0 Refills, Maintenance, 09/16/20 7:55:00 EDT, Tablet, Partial fill upon patient request if the prescription is for a schedule II opioid drug. Start Date: 09/16/20 Status: Ordered ProAir HFA 90 mcg/inh inhalation aerosol with adapter 2, puffs, Inhalation, Every 6 hours, PRN, # 8.5 Gm, Refills 2, Tot. Refills 2, Maintenance, 11/06/20 14:25:00 EDT, Aerosol, Route to Pharmacy Electronically, [id number], [facility], 168, cm, 11/06/20 14:02:00 ED... Start Date: 11/06/20 Status: Ordered Zoloft 25 mg oral tablet 1 tablet = 25 mg, By Mouth, Daily, # 30 tablet, 0 Refills, Maintenance, 11/06/20 14:34:00 EDT, Tablet, [facility], Partial fill upon patient request if the prescription is for a schedule II opioid drug., 168, cm, 11/06/20 14:02:00 EDT, H... Start Date: 11/06/20 Status: Ordered Problem List Condition Effective Dates Status Health Status Inform ant Anxiety(Confirmed) Active Asthma(Confirmed) Active Chronic GERD(Confirmed) Active Hyperlipemia(Confirmed) Active Insomnia(Confirmed) Active Migraine headache(Confirmed) Active Obesity(Confirmed) Active Carlos-Schlatter's disease(Confirmed) Active Encounter to establish care(Confirmed) Active Seizure(Confirmed) Active Snores(Confirmed) Active Poor dentition(Confirmed) Active Social History Social History Type Response Smoking Status Former smoker, quit more than 30 days ago entered on: 11/06/20 Sex
--- OUTSIDE RECORDS SUMMARY | 2022-10-19 12:44 | XMS_ITS | Continuity of Care Document ---
Author Name Unknown Organization [facility] [place] Juan Address [address] [place] [address]- Care Team Providers Care Tire Man Name Role Phone Marlys HERNANDEZ, Octavia Primary Care Physician [place] [facility] [place] 10/04/21 - 11/03/21 [facility] [place] Adult [address] [place] [address]- Allergies, Adverse Reactions, Alerts No Known Allergies Immunizations Given and Recorded Vaccine Date Status Refusal Reason SARS-CoV-2 (COVID-19) mRNA-1273 vaccine 03/31/21 R ecorded SARS-CoV-2 (COVID-19) mRNA-1273 vaccine 09/24/20 R ecorded SARS-CoV-2 (COVID-19) mRNA-1273 vaccine 08/27/20 R ecorded influenza virus vaccine, inactivated 1 02/13/21 Gi kriss tetanus/diphtheria/pertussis, acel(Tdap) 11/06/20 Given 1Result Comment: [facility]# ON THE [address] 87095-264-57 Medications cyclobenzaprine 10 mg oral tablet 10 mg, By Mouth, Every 8 hours, PRN, Muscle Spasms, # 21 tablet, Refills 0, Tot. Refills 0, Maintenance, Pain , Moderate, 06/11/21 16:25:00 EST, Route to Pharmacy Electronically, [facility], Partial fill upon patient request if the presc... Start Date: 06/11/21 Status: Ordered diclofenac 1% topical gel 1 [...] 06/11/21 15:5... Start Date: 10/04/21 Status: Ordered naproxen 500 mg (as sodium) oral tablet, extended release 1 tablet = 500 mg, By Mouth, 2 times a day, PRN as needed for arthritis, Take 1 tablet every 12 hours as needed for pain, # 30 tablet, 0 Refills, Maintenance, 06/11/21 16:31:00 EST, ER Tablet, [facility], Partial fill upon patient reques... Start Date: 06/11/21 Status: Ordered naproxen 500 mg oral tablet 1 tablet, By Mouth, Every 12 hours, WITH FOOD., # 15 tablet, 0 Refills, [facility], 168, cm, 04/09/21 13:38:00 EST, Height, 92.4, kg, 10/02/20 9:03:00 EDT, Dry Weight Start Date: 05/21/21 Status: Ordered omeprazole 20 mg oral delayed release tablet 1 tablet = 20 mg, By Mouth, 2 times a day, # 30 tablet, 0 Refills, Maintenance, 02/27/21 10:32:00 EDT, EC Tablet, [facility], Partial fill upon patient request if the prescription is for a schedule II opioid drug., 168, cm, 02/27/21 9:52... Start Date: 02/27/21 Status: Ordered ProAir HFA 90 mcg/inh inhalation aerosol with adapter 2, puffs, Inhalation, Every 6 hours, PRN, # 8.5 Gm, Refills 2, Tot. Refills 2, Maintenance, 11/06/20 14:25:00 EDT, Aerosol, Route to Pharmacy Electronically, [id number], [facility], 168, cm, 11/06/20 14:02:00 ED... Start Date: 11/06/20 Status: Ordered rosuvastatin 10 mg oral tablet 1 tablet = 10 mg, By Mouth, Daily, # 30 tablet, 5 Refills, Maintenance, 03/14/21 8:10:00 EST, Tablet, [facility], Partial fill upon patient request if the prescription is for a schedule II opioid drug., 168, cm, 03/09/21 12:58:00 EST, Margarito... Start Date: 03/14/21 Status: Ordered Problem List [...] Active Obese class II(Confirmed) Active Obesity(Confirmed) Active [place]-Schlatter's disease(Confirmed) Active Immunity status testing(Confirmed) Active Pilonidal cyst(Confirmed) Active Seizure(Confirmed) Active Snores(Confirmed) Active Fatty liver(Confirmed) Active Poor dentition(Confirmed) Active Screening for tuberculosis(Confirmed) Active Social History Social History Type Response Smoking Status Former smoker, quit more than 30 days ago entered on: 11/06/20 Sex
--- OUTSIDE RECORDS SUMMARY | 2022-10-19 12:44 | XMS_ITS | Continuity of Care Document ---
Author Name Unknown Organization [facility] Juan Address [address] [place] [address]- Care Team Providers Care Door Framer Name Role Phone Marlys HERNANDEZ, Octavia Primary Care Physician [phone] Encounter [facility] [place] Date(s): 12/10/21 - 01/09/22 [facility] Adult [address] [place] [address]- Allergies, Adverse Reactions, Alerts No Known Allergies Immunizations Given and Recorded Vaccine Date Status Refusal Reason SARS-CoV-2 (COVID-19) mRNA-1273 vaccine 03/31/21 R ecorded SARS-CoV-2 (COVID-19) mRNA-1273 vaccine 09/24/20 R ecorded SARS-CoV-2 (COVID-19) mRNA-1273 vaccine 08/27/20 R ecorded influenza virus vaccine, inactivated 1 02/13/21 Gi kriss tetanus/diphtheria/pertussis, acel(Tdap) 11/06/20 Given 1Result Comment: [facility]# ON THE [address] 18378-907-63 Medications cyclobenzaprine 10 mg oral tablet 10 [...] # 15 tablet, 0 Refills, [facility], 168, cm, 04/09/21 13:38:00 EST, Height, 92.4, kg, 10/02/20 9:03:00 EDT, Dry Weight Start Date: 05/21/21 Status: Ordered omeprazole 20 mg oral delayed release tablet 1 tablet = 20 mg, By Mouth, 2 times a day, # 30 tablet, 0 Refills, Maintenance, 02/27/21 10:32:00 EDT, EC Tablet, [facility], Partial fill upon patient request if the prescription is for a schedule II opioid drug., 168, cm, 02/27/21 9:52... Start Date: 02/27/21 Status: Ordered ProAir HFA 90 mcg/inh inhalation aerosol with adapter 2, puffs, Inhalation, Every 6 hours, PRN, # 8.5 Gm, Refills 2, Tot. Refills 2, Maintenance, 11/06/20 14:25:00 EDT, Aerosol, Route to Pharmacy Electronically, [id number], [facility], 168, cm, 11/06/20 14:02:00 ED... [...] Active Obese class II(Confirmed) Active Obesity(Confirmed) Active [place]-Schlatter's disease(Confirmed) Active Immunity status testing(Confirmed) Active Pilonidal cyst(Confirmed) Active Seizure(Confirmed) Active Snores(Confirmed) Active Fatty liver(Confirmed) Active Poor dentition(Confirmed) Active Screening for tuberculosis(Confirmed) Active Social History Social History Type Response Smoking Status Former smoker, quit more than 30 days ago entered on: 11/06/20 Sex Care Team Personnel Name: Octavia Frankel NP Address: [address] [place] [id number]
--- OUTSIDE RECORDS SUMMARY | 2022-10-19 12:44 | XMS_ITS | Continuity of Care Document ---
Author Name Unknown Organization [facility] Address Unknown Care Team Providers Care Product/Device Technologist Name Role Phone Octavia Frankel NP Primary Care Physician [phone] Encounter [facility] [place] Date(s): 04/09/21 - 05/09/21 [facility] Allergies, Adverse Reactions, Alerts Substance Reaction Severity Status NKA Active Immunizations Given and Recorded Vaccine Date Status Refusal Reason SARS-CoV-2 (COVID-19) mRNA-1273 vaccine 03/31/21 R ecorded SARS-CoV-2 (COVID-19) mRNA-1273 vaccine 09/24/20 R ecorded SARS-CoV-2 (COVID-19) mRNA-1273 vaccine 08/27/20 R ecorded influenza virus vaccine, inactivated 1 02/13/21 Gi kriss tetanus/diphtheria/pertussis, acel(Tdap) 11/06/20 Given 1Result Comment: [facility]# ON THE [address]OX [phone] Medications diclofenac 1% topical gel 1 application, [...] 14:25:00 EDT, Aerosol, Route to Pharmacy Electronically, [id number], [facility], 168, cm, 11/06/20 14:02:00 ED... Start Date: 11/06/20 Status: Ordered rosuvastatin 10 mg oral tablet 1 tablet = 10 mg, By Mouth, Daily, # 30 tablet, 5 Refills, Maintenance, 03/14/21 8:10:00 EST, Tablet, [facility], Partial fill upon patient request [...] Active Obese class II(Confirmed) Active Obesity(Confirmed) Active [place]-Schlatter's disease(Confirmed) Active Immunity status testing(Confirmed) Active Pilonidal cyst(Confirmed) Active Seizure(Confirmed) Active Snores(Confirmed) Active Fatty liver(Confirmed) Active Poor dentition(Confirmed) Active Screening for tuberculosis(Confirmed) Active Social History Social History Type Response Smoking Status Former smoker, quit more than 30 days ago entered on: 11/06/20 Sex
--- OUTSIDE RECORDS SUMMARY | 2022-10-19 12:44 | XMS_ITS | Continuity of Care Document ---
Author Name Unknown Organization [facility] Pedrito Brooke Juan lt Address [address] [place] [address]- Care Team Providers Care Front End Loader Driver Name Role Phone Eleuterio Capellan Primary Care Physi sampson [place] [facility] [place]22 [facility] Adult [address] [place] [address]- Attending Physician: Eleuterio Capellan Allergies, Adverse Reactions, Alerts No Known Allergies Immunizations Given and Recorded Vaccine Date Status Refusal Reason influenza virus vaccine, inactivated 04/03/22 Give n influenza virus vaccine, inactivated 1 02/13/21 Gi kriss SARS-CoV-2 (COVID-19) mRNA-1273 vaccine 03/31/21 R ecorded SARS-CoV-2 (COVID-19) mRNA-1273 vaccine 09/24/20 R ecorded SARS-CoV-2 (COVID-19) mRNA-1273 vaccine 08/27/20 R ecorded tetanus/diphtheria/pertussis, acel(Tdap) 11/06/20 Given 1Result Comment: [facility]# ON THE [address] [phone] Medications Freestyle Lite Lancets See Instructions, # [...] Date: 04/15/22 Stop Date: 04/10/23 Status: Ordered Keppra 1000 mg oral tablet 1 tablet = 1,000 mg, By Mouth, 2 times a day, # 60 tablet, 2 Refills, Maintenance, 04/04/22 15:05:00 EST, Tablet, [facility], Partial fill upon patient request if the prescription is for a schedule II opioid drug., 168, cm, 04/04/22 13:1... Start Date: 04/04/22 Status: Ordered loratadine 10 mg oral tablet 10 mg, 1, tablet, By Mouth, Daily, # 30 tablet, Refills 11, Tot. Refills 11, Maintenance, 01/17/22 8:31:00 EDT, Route to Pharmacy Electronically, [facility], Partial fill upon patient request if the prescription is for a schedule II opio... Start Date: 01/17/22 Status: Ordered meclizine 25 mg oral tablet [...] is for a schedule II opioid drug., Fabián, yareli, 02/27/21 9:52... Start Date: 02/27/21 Status: Ordered predniSONE 20 mg oral tablet See Instructions, 3 tabs daily x1d, 2 tabs daily x 4d, 1 tab daily x 4d, 1/2 tab daily x 4d, # 17 tablet, 0 Refills, Acute 05/20/22 9:52:00 EST, 04/19/22 9:52:00 EST, [facility], Partial fill upon patient request if the prescription is f... Start Date: 04/19/22 Stop Date: 05/20/22 Status: Ordered riboflavin 400 mg oral capsule 1 capsule = 400 mg, By Mouth, Daily, # 30 capsule, 5 Refills, Maintenance, 04/03/22 16:30:00 EST, [facility], Partial fill upon patient request if the prescription is for a scheduleII opioid drug., 168, yareli, 04/03/22 15:19:00 EST, Height... Start Date: 04/03/22 Status: Ordered rosuvastatin 10 mg oral tablet 1 tablet = 10 mg, By Mouth, Daily, # 30 tablet, 5 Refills, Maintenance, 01/17/22 8:46:00 EDT, Tablet, [facility], Partial fill upon patient request if the prescription is for a schedule II opioid drug., 168, cm, 01/17/22 8:13:00 EDT, Hei... Start Date: 01/17/22 Status: Ordered Ventolin HFA 108 mcg/inh inhalation aerosol with adapter 2 puffs, Inhalation, 4 times a day, PRN for wheezing, # 18 Gm, 0 Refills, Maintenance, 03/20/22 11:52:00 EST, Aerosol, [facility], Partial fill upon patient request if the prescription is for a schedule II opioid drug., Fabián, cm, 01/17/22... Start Date: 03/20/22 Status: Ordered Problem List Condition Confirmation Course Effective Dates Status Health Status Informant Anxiety Confirmed Active Asthma Confirmed Active Familial hypercholesteremia Confirmed 02/27/21 Active Chronic GERD Confirmed Active Hidradenitis suppurativa Confirmed Active Insomnia Confirmed Active Migraine headache Confirmed Active Obese class I Confirmed Active Obesity Confirmed Active [place]-Schlatter's disease Confirmed Active Pilonidal cyst Confirmed Active Seizure Confirmed Active Fatty liver Confirmed Active Vertigo Confirmed Active Social History Social History Type Response Smoking Status Former smoker, quit more than 30 days ago entered on: 11/06/20 Sex Patient Care team information Care Team Personnel Name: Eleuterio Capellan Position: [facility] PCO Associate Professional Member Role: PCP Address: Address: [address] [place] [address] [place] [address]- Care Team Related Persons Name: ROCIO GAINES Address: home [address] [place] [address] Name: RANDALL AHN Address: [place] [address]
--- OUTSIDE RECORDS SUMMARY | 2022-10-19 12:45 | XMS_ITS | Continuity of Care Document ---
Author Name Unknown Organization [facility] [place] Juan Address [address] [place] [address]- Care Team Providers Care Volunteer Manager Name Role Phone Marlys HERNANDEZ, Octavia Primary Care Physician [place] [facility] [place] 03/09/21 - 04/08/21 [facility] [place] Adult [address] [place] [address]- Allergies, Adverse Reactions, Alerts Substance Reaction Severity Status NKA Active Immunizations Given and Recorded Vaccine Date Status Refusal Reason influenza virus vaccine, inactivated 1 02/13/21 Gi kriss tetanus/diphtheria/pertussis, acel(Tdap) 11/06/20 Given SARS-CoV-2 (COVID-19) mRNA-1273 vaccine 09/24/20 R ecorded SARS-CoV-2 (COVID-19) mRNA-1273 vaccine 08/27/20 R ecorded 1Result Comment: [facility]# ON THE [address] 90606-037-14 Medications diclofenac 1% topical gel 1 application, [...] 0, Route to Pharmacy Electronically, [facility], 168, cm, 03/09/21 12:58:00 EST, [...] 14:25:00 EDT, Aerosol, Route to Pharmacy Electronically, [id number], [facility], 168, cm, [...] Familial hypercholesteremia(Confirmed) 02/27/21 Active Chronic GERD(Confirmed) Active Hyperlipemia(Confirmed) Active Impaired fasting glucose(Confirmed) 02/27/21 Active Insomnia(Confirmed) Active Lump in armpit(Confirmed) Active Migraine headache(Confirmed) Active Obese class II(Confirmed) Active Obesity(Confirmed) Active [place]-Schlatter's disease(Confirmed) Active Immunity status testing(Confirmed) Active Pilonidal cyst(Confirmed) Active Seizure(Confirmed) Active Snores(Confirmed) Active Fatty liver(Confirmed) Active Poor dentition(Confirmed) Active Screening for tuberculosis(Confirmed) Active Social History Social History Type Response Smoking Status Former smoker, quit more than 30 days ago entered on: 11/06/20 Sex
--- OUTSIDE RECORDS SUMMARY | 2022-10-19 12:45 | XMS_ITS | Continuity of Care Document ---
Author Name Unknown Organization [facility] Juan Address [address] [place] [address]- Care Team Providers Care Cookie Breaker Name Role Phone Marlys HERNANDEZ, Octavia Primary Care Physician Encounter [facility] [place] Date(s): 11/06/20 - 01/11/21 [facility] Adult [address] [place] [address]- Attending Physician: Octavia Frankel NP Referring Physician: Alisha LOZADA, Castillo Collado Allergies, Adverse Reactions, Alerts Substance Reaction Severity [...] 14:25:00 EDT, Aerosol, Route to Pharmacy Electronically, [id number], [facility], 168, cm, [...] Insomnia(Confirmed) Active Migraine headache(Confirmed) Active Obesity(Confirmed) Active [place]-Schlatter's disease(Confirmed) Active Encounter to establish care(Confirmed) Active Seizure(Confirmed) Active Snores(Confirmed) Active Poor dentition(Confirmed) Active Social History Social History Type Response Smoking Status Former smoker, quit more than 30 days ago entered on: 11/06/20 Sex
--- OUTSIDE RECORDS SUMMARY | 2022-10-19 12:45 | XMS_ITS | Continuity of Care Document ---
Author Name Unknown Organization [facility] [place] Juan lt Address [address] [place] [address]- Care Team Providers Care Automated Manufacturing Instructor Name Role Phone Eleuterio Capellan Primary Care Physi sampson [place] [facility] [place] [facility] Adult [address] [place] [address]- Attending Physician: Eleuterio Capellan Allergies, Adverse Reactions, Alerts No Known Allergies Immunizations Given and Recorded Vaccine Date Status Refusal Reason influenza virus vaccine, inactivated 04/03/22 Give n influenza virus vaccine, inactivated 1 02/13/21 Gi kriss SARS-CoV-2 (COVID-19) mRNA-1273 vaccine 03/31/21 R ecorded SARS-CoV-2 (COVID-19) mRNA-1273 vaccine 09/24/20 R ecorded SARS-CoV-2 (COVID-19) mRNA-1273 vaccine 08/27/20 R ecorded tetanus/diphtheria/pertussis, acel(Tdap) 11/06/20 Given 1Result Comment: [facility]# ON THE [address] [phone] Medications Freestyle Lite Lancets See Instructions, # [...] 168, c... Start Date: 04/04/22 Status: Ordered nystatin topical 575731 u/gm powder 1 application, Topically, 2 times a day, # 30 Gm, 0 Refills, Acute 05/04/22 16:31:00 EST, 04/03/22 16:31:00 EST, Powder, [facility], Partial fill upon patient request if the prescription is for a schedule II opioid drug., 1 application T... Start Date: 04/03/22 Stop Date: 05/04/22 Status: Ordered omeprazole 20 mg oral delayed [...] a schedule II opioid drug., 168, cm, 01/17/22... Start Date: 03/20/22 Status: Ordered Problem List Condition Confirmation Course Effective Dates Status Health Status Informant Anxiety Confirmed Active Asthma Confirmed Active Familial hypercholesteremia Confirmed 02/27/21 Active Chronic GERD Confirmed Active Hidradenitis suppurativa Confirmed Active Insomnia Confirmed Active Migraine headache Confirmed Active Obese class I Confirmed Active Obesity Confirmed Active [place]-Schlatter's disease Confirmed Active Pilonidal cyst Confirmed Active Seizure Confirmed Active Fatty liver Confirmed Active Vertigo Confirmed Active Vital Signs Most recent to oldest [Reference Range]: 1 Height 168 cm (04/19/22 9:11 AM) Weight 96.5 kg (04/19/22 9:11 AM) Oxygen Saturation [94-100 %] 96 % (04/19/22 9:11 AM) Pulse Rate [55-90 bpm] 92 bpm *H* (04/19/22 9:11 AM) Body Mass Index [18.5-24.99 kg/m2] 34.19 kg/m2 *>HHI* (04/19/22 9:11 AM) Blood Pressure [90-138/55-84 mm Hg] 103/ 70mm Hg (04/19/22 9:11 AM) Temperature [96.8-100.4 DegF] 96.9 DegF (04/19/22 9:11 AM) Mode of Delivery (Oxygen) Room air (04/19/22 9:11 AM) Blood pressure sites Arm, right (04/19/22 9:11 AM) Temperature Route Temporal (04/19/22 9:11 AM) Weight Obtained Via Standing scale (04/19/22 9:11 AM) Social History Social History Type Response Smoking Status Former smoker, quit more than 30 days ago entered on: 11/06/20 Sex Note * Tresa Castillo: PERFORM, SIGN, VERIFY Event Display: Patient Education/Instruction Authored Date: [id number] [facility] *DONNELL Caballero Clinical Summary Name APPLE GAINES Age 36 Years 1985 PCP Eleuterio Capellan PCP Visit Date 04/19/2022 09:07:00 Additional Instructions: Scheduled Appointments?? Future Appointments ?No Future Appointments Scheduled Follow-Up Instructions ?? With: Address: When: Eleuterio Capellan Within 1 month Diagnosis Unspecified asthma with (acute) exacerbation Medications: Please continue your medications until treatment is completed or stopped by your provider. Discuss any questions related to medications with your provider. New Medications [facility], [address], [place] [id number], [phone] PredniSONE (predniSONE 20 mg oral tablet) 3 tabs daily x1d, 2 tabs daily x 4d, 1 tab daily x 4d, 1/2 tab daily x 4d. Refills: 0. Next Dose: Medications to Continue with No Changes These medications were not printed or sent to your pharmacy Albuterol (Ventolin HFA 108 mcg/inh inhalation aerosol with adapter) 2 puff(s) Inhalation 4 times aday as needed for wheezing. Refills: 0. Next Dose: Durable Medical Equipment (Freestyle Lite Lancets) DX: R73.03 TEST BS 1-3 TIMES A WEEK. Refills: 11. Next Dose: Durable Medical Equipment (Freestyle Lite Monitor) DX: R73.03 TEST BS 1-3 TIMES A WEEK. Refills: 0. Next Dose: Durable Medical Equipment (Freestyle Lite Test Strips) DX: R73.03 TEST BS 1-3 TIMES A WEEK. Refills: 11. Next Dose: levETIRAcetam (Keppra 1000 mg oral tablet) 1 tab(s) Oral twice a day. Refills: 2. Next Dose: Loratadine (loratadine 10 mg oral tablet) 1 tab(s) Oral Daily. Refills: 11. Next Dose: Meclizine (meclizine 25 mg oral tablet) 1 tab(s) Oral 3 times a day as needed for dizziness. Refills: 0. Next Dose: Nystatin Topical (nystatin topical 418567 u/gm powder) 1 olegario Topically twice a day. Refills: 0. Next Dose: Omeprazole (omeprazole 20 mg oral delayed release tablet) 1 tab(s) Oral twice a day. Refills: 0. Next Dose: Riboflavin (riboflavin 400 mg oral capsule) 1 capsule Oral Daily. Refills: 5. Next Dose: Rosuvastatin (rosuvastatin 10 mg oral tablet) 1 tab(s) Oral Daily. Refills: 5. Next Dose: Allergy Info:?? NKA Medications Given This Visit Future Orders ?Chest 2 Views Frontal and Lat? Order Date:04/19/22?- Complete on or after?04/19/22 Vital Signs Height 168 cm Weight 96.5 kg BMI 34.19 kg/m2 Blood Pressure 103 mm Hg/70 mm Hg Temperature 96.9 DegF Pulse Rate 92 bpm Respiratory Rate 02 Sat Mode of Delivery 96 %/Room air You can now view a summary of your hospital visit from the comfort of your home through a free online portal called [employer]. [employer] is a website that allows you to securely view your medical information including discharge summary, medications and follow-up visits. ??You can alsosend a secure electronic message to your doctor???s office to request appointments, renew medications or just ask a question. You can enroll at [email or web address] or register during your next office visit. Disclaimer:?? The information provided is of a general nature and is intended to be used in conjunction with the recommendations and advice of your health care practitioner. ??Every effort has been made to ensure that the information provided is accurate and complete at the time it is provided to you however, as your needs change, or, as new ??information becomes available, different or additional instructions may be required. If you have questions, please consult with your primary care provider or pharmacist, as appropriate. ??This information is not intended to serve as substitution for assessment and evaluation by a qualified health care provider. If you do not have a primary care provider, you may find a [facility] provider by calling [email or web address] Link at [phone]. For information about the plan of care including goals and instructions for your diagnosis, please see the patient education orders section of this document. Patient Education Materials?? The content of this educational material or handout may have been modified, supplemented, or adapted from its original content and format to support your individualized medical care. * Iris Torrez RN: VERIFY, PERFORM, SIGN Event Display: Clinical Summary Authored Date: Patient: APPLE GAINES Age: 36 years Sex: Female : 1985 Associated Diagnoses: None Author: Iris Torrez RN Visit Information Type of Visit Action Taken: albuterol sulfate 2.5mg /3ml given in office [id number] pt tolerated well From: Eleuterio Capellan To: Iris Torrez RN; Sent: 04/19/2022 10:17:35 EST Subject: General Message Caller Name: APPLE GAINES; Caller Number: C Ct, Gave verbal orders for in office nebulizer for this patient. Here's written request. Thanks! . Patient Care team information Care Team Personnel Name: Eleuterio Capellan Position: S PCO Associate Professional Member Role: PCP Address: Address: [address] [place] [address]- Care Team Related Persons Name: ROCIO GAINES Address: home [address] [place] [address] Name: RANDALL AHN Address: [place] [address]
--- OUTSIDE RECORDS SUMMARY | 2022-10-19 12:45 | XMS_ITS | Continuity of Care Document ---
Author Name Unknown Organization [facility] ter Address [address] [place] [address]- Care Team Providers Care Carrier Loader Name Role Phone Octavia Frankel NP Primary Care Physician [place] [facility] [place] - 04/04/[address] [address] Attending Physician: All HERNANDEZ, Aida Epps Admitting Physician: All HERNANDEZ, Aida Epps Referring Physician: All HERNANDEZ, Aida Epps Allergies, Adverse Reactions, Alerts Substance Reaction Severity Status NKA Active Immunizations Given and Recorded Vaccine Date Status Refusal Reason influenza virus vaccine, inactivated 1 02/13/21 Gi kriss tetanus/diphtheria/pertussis, acel(Tdap) 11/06/20 Given SARS-CoV-2 (COVID-19) mRNA-1273 vaccine 09/24/20 R ecorded SARS-CoV-2 (COVID-19) mRNA-1273 vaccine 08/27/20 R ecorded 1Result Comment: [facility]# ON THE [address] 66148-838-20 Medications diclofenac 1% topical gel 1 application, [...] Refills, Maintenance, 02/27/21 10:32:00 EDT, EC Tablet, [facility], Partial fill upon patient request if the prescription is for a schedule II opioid drug., Fabián, yareli, 02/27/21 9:52... Start Date: 02/27/21 Status: Ordered ProAir HFA 90 mcg/inh inhalation aerosol with adapter 2, puffs, Inhalation, Every 6 hours, PRN, # 8.5 Gm, Refills 2, Tot. Refills 2, Maintenance, 11/06/20 14:25:00 EDT, Aerosol, Route to Pharmacy Electronically, [id number], [facility], 168, cm, 11/06/20 14:02:00 ED... Start Date: 11/06/20 Status: Ordered rosuvastatin 10 mg oral tablet 1 tablet = 10 mg, By Mouth, Daily, # 30 tablet, 5 Refills, Maintenance, 03/14/21 8:10:00 EST, Tablet, [facility], Partial fill upon patient request if the prescription is for a schedule II opioid drug., 168, yareli, 03/09/21 12:58:00 EST, He... Start Date: 03/14/21 [...] Active Obese class II(Confirmed) Active Obesity(Confirmed) Active [place]-Schlatter's disease(Confirmed) Active Immunity status testing(Confirmed) Active Pilonidal cyst(Confirmed) Active Seizure(Confirmed) Active Snores(Confirmed) Active Fatty liver(Confirmed) Active Poor dentition(Confirmed) Active Screening for tuberculosis(Confirmed) Active Social History Social History Type Response Smoking Status Former smoker, quit more than 30 days ago entered on: 11/06/20 Sex
--- OUTSIDE RECORDS SUMMARY | 2022-10-19 12:45 | XMS_ITS | Continuity of Care Document ---
Author Name Unknown Organization [facility] Address [address] [place] [address], [address] [place] [address]- Care Team Providers Care Street Sweeper Name Role Phone Octavia Frankel NP Primary Care Physician [place] [facility] [place] [place] - 11/18/20 [facility] [address] [place] [address], [address] [place], [place] [address] Attending Physician: AdmFabian martinez Admitting Physician: AdmFabian martinez Referring Physician: Admtr ArGabby Allergies, Adverse Reactions, Alerts Substance Reaction Severity Status NKA Active Immunizations Given and Recorded Vaccine Date Status Refusal Reason tetanus/diphtheria/pertussis, acel(Tdap) 11/06/20 Given SARS-CoV-2 (COVID-19) mRNA-1273 vaccine 09/24/20 R ecorded SARS-CoV-2 (COVID-19) mRNA-1273 vaccine 08/27/20 R ecorded Medications gabapentin 300 mg oral capsule 300 mg, 1, capsule, By Mouth, 3 times a day, # 63 capsule, Refills 0, Tot. Refills 0, Maintenance, 10/03/20 10:20:00 EDT, Route to Pharmacy Electronically, [facility], Partial fill uponpatient request if the prescription is for a schedu... Start Date: 10/03/20 Stop Date: 10/24/20 Status: Ordered Keppra 500 mg oral tablet [...] 14:25:00 EDT, Aerosol, Route to Pharmacy Electronically, [id number], [facility], 168, cm, [...] Insomnia(Confirmed) Active Migraine headache(Confirmed) Active Obesity(Confirmed) Active [place]-Schlatter's disease(Confirmed) Active Encounter to establish care(Confirmed) Active Seizure(Confirmed) Active Snores(Confirmed) Active Poor dentition(Confirmed) Active Social History Social History Type Response Smoking Status Former smoker, quit more than 30 days ago entered on: 11/06/20 Sex
--- OUTSIDE RECORDS SUMMARY | 2022-10-19 12:45 | XMS_ITS | Continuity of Care Document ---
Author Name Unknown Organization [facility] Juan Address [address] [place] [address]- Care Team Providers Care Public Safety Teacher Name Role Phone Marlys HERNANDEZ, Octavia Primary Care Physician [place] [facility] [place] Date(s): 01/25/21 - 02/24/21 [facility] Adult [address] [place] [address]- Allergies, Adverse Reactions, Alerts Substance Reaction Severity Status NKA Active Immunizations Given and Recorded Vaccine Date Status Refusal Reason influenza virus vaccine, inactivated 1 02/13/21 Gi kriss tetanus/diphtheria/pertussis, acel(Tdap) 11/06/20 Given SARS-CoV-2 (COVID-19) mRNA-1273 vaccine 09/24/20 R ecorded SARS-CoV-2 (COVID-19) mRNA-1273 vaccine 08/27/20 R ecorded 1Result Comment: [facility]# ON THE [address] [phone] Medications diclofenac 1% topical gel 1 application, Topically, 4 times a day, # 100 Gm, 0 Refills, Maintenance, 11/22/20 8:28:00 EDT, Gel, [facility], Partial fill upon patient request if the prescription is for a schedule II opioid drug., 168, cm, 11/22/20 7:54:00 EDT, Hei... Start Date: 11/22/20 Status: Ordered levETIRAcetam 1000 mg oral tablet 1 tablet = 1,000 mg, By Mouth, 2 times a day, # 60 tablet, 0 Refills, Maintenance, 01/25/21 14:32:00 EDT, Tablet, [facility], Partial fill upon patient request if the prescription is for a schedule II opioid drug., 168, cm, 12/12/20 16:2... Start Date: 01/25/21 Status: Ordered ProAir HFA 90 mcg/inh inhalation aerosol with adapter 2, puffs, Inhalation, Every 6 hours, PRN, # 8.5 Gm, Refills 2, Tot. Refills 2, Maintenance, 11/06/20 14:25:00 EDT, Aerosol, Route to Pharmacy Electronically, [id number], [facility], 168, yareli, 11/06/20 14:02:00 ED... Start Date: 11/06/20 Status: Ordered Zoloft 25 mg oral tablet 1 tablet = 25 mg, By Mouth, Daily, # 30 tablet, 0 Refills, Maintenance, 11/06/20 14:34:00 EDT, Tablet, [facility], Partial fill upon patient request if the prescription is for a schedule II opioid drug., 168yareli, 11/06/20 14:02:00 EDT, H... Start Date: 11/06/20 Status: Ordered Problem List Condition Effective Dates Status Health Status Inform ant Anxiety(Confirmed) Active Asthma(Confirmed) Active Chronic GERD(Confirmed) Active Hyperlipemia(Confirmed) Active Insomnia(Confirmed) Active Migraine headache(Confirmed) Active Obesity(Confirmed) Active [place]-Schlatter's disease(Confirmed) Active Encounter to establish care(Confirmed) Active Seizure(Confirmed) Active Snores(Confirmed) Active Poor dentition(Confirmed) Active Social History Social History Type Response Smoking Status Former smoker, quit more than 30 days ago entered on: 11/06/20 Sex
--- OUTSIDE RECORDS SUMMARY | 2022-10-19 12:45 | XMS_ITS | Continuity of Care Document ---
Author Name Unknown Organization [facility] Juan Address [address] [place] [address]- Care Team Providers Care Food Management Aide Name Role Phone Marlys HERNANDEZ, Octavia Primary Care Physician [phone] [place] [facility] [place]21 [facility] Adult [address] [place] [address]- Attending Physician: Maggi Nelson NP Referring Physician: Octavia Frankel NP Allergies, Adverse Reactions, Alerts Substance Reaction Severity Status NKA Active Immunizations Given and Recorded Vaccine Date Status Refusal Reason influenza virus vaccine, inactivated 1 02/13/21 Gi kriss tetanus/diphtheria/pertussis, acel(Tdap) 11/06/20 Given SARS-CoV-2 (COVID-19) mRNA-1273 vaccine 09/24/20 R ecorded SARS-CoV-2 (COVID-19) mRNA-1273 vaccine 08/27/20 R ecorded 1Result Comment: [facility]# ON THE [address] 64640-461-85 Medications diclofenac 1% topical gel 1 application, [...] 14:25:00 EDT, Aerosol, Route to Pharmacy Electronically, [id number], [facility], 168, cm, [...] Poor dentition(Confirmed) Active Screening for tuberculosis(Confirmed) Active Vital Signs Most recent to oldest [Reference Range]: 1 Height 168 cm (03/09/21 12:58 PM) Weight 99.3 kg (03/09/21 12:58 PM) Oxygen Saturation [94-100 %] 99 % (03/09/21 12:58 PM) Pulse Rate [55-90 bpm] 93 bpm *H* (03/09/21 12:58 PM) Body Mass Index [18.5-24.99] 35.18 *>HHI* (03/09/21 12:58 PM) Blood Pressure [90-138/55-84 mm Hg] 98/7 2mm Hg (03/09/21 12:58 PM) Temperature [96.8-100.4 DegF] 98.5 DegF (03/09/21 12:58 PM) Mode of Delivery (Oxygen) Room air (03/09/21 12:58 PM) Blood pressure sites Arm, left (03/09/21 12:58 PM) Temperature Route Oral (03/09/21 12:58 PM) Weight Obtained Via Standing scale (03/09/21 12:58 PM) Social History Social History Type Response Smoking Status Former smoker, quit more than 30 days ago entered on: 11/06/20 Sex
--- OUTSIDE RECORDS SUMMARY | 2022-10-19 12:45 | XMS_ITS | Continuity of Care Document ---
Author Name Unknown Organization [facility] Juan Address [address] [place] [address]- Care Team Providers Care Online Banking Specialist Name Role Phone Marlys HERNANDEZ, Octavia Primary Care Physician [phone] [place] [facility] [place]/17/21 - 05/17/21 [facility] Adult [address] [place] [address]- Allergies, Adverse Reactions, Alerts No Known Allergies Immunizations Given and Recorded Vaccine Date Status Refusal Reason SARS-CoV-2 (COVID-19) mRNA-1273 vaccine 03/31/21 R ecorded SARS-CoV-2 (COVID-19) mRNA-1273 vaccine 09/24/20 R ecorded SARS-CoV-2 (COVID-19) mRNA-1273 vaccine 08/27/20 R ecorded influenza virus vaccine, inactivated 1 02/13/21 Gi kriss tetanus/diphtheria/pertussis, acel(Tdap) 11/06/20 Given 1Result Comment: [facility]# ON THE BOX 30581-026-15 Medications diclofenac 1% topical gel 1 application, [...] Refills, Maintenance, 02/27/21 10:32:00 EDT, EC Tablet, [facility], Partial fill upon patient request if the prescription is for a schedule II opioid drug., 168, cm, 02/27/21 9:52... Start Date: 02/27/21 Status: Ordered ProAir HFA 90 mcg/inh inhalation aerosol with adapter 2, puffs, Inhalation, Every 6 hours, PRN, # 8.5 Gm, Refills 2, Tot. Refills 2, Maintenance, 11/06/20 14:25:00 EDT, Aerosol, Route to Pharmacy Electronically, [id number], [facility], 168, cm, 11/06/20 14:02:00 ED... Start Date: 11/06/20 Status: Ordered rosuvastatin 10 mg oral tablet 1 tablet = 10 mg, By Mouth, Daily, # 30 tablet, 5 Refills, Maintenance, 03/14/21 8:10:00 EST, Tablet, [facility], Partial fill upon patient request [...]
--- OUTSIDE RECORDS SUMMARY | 2022-10-19 12:45 | XMS_ITS | Continuity of Care Document ---
Author Name Unknown Organization [facility] Juan Address [address] [place] [address]- Care Team Providers Care Natural Fabricator Name Role Phone Marlys HERNANDEZ, Octavia Primary Care Physician Encounter [facility] [place] Date(s): 03/09/21 - 04/26/21 [facility] Adult [address] [place] [address]- Attending Physician: Octavia Frankel NP Referring Physician: Castillo Brito MD Allergies, Adverse Reactions, Alerts Substance Reaction Severity Status NKA Active Immunizations Given and Recorded Vaccine Date Status Refusal Reason SARS-CoV-2 (COVID-19) mRNA-1273 vaccine 03/31/21 R ecorded SARS-CoV-2 (COVID-19) mRNA-1273 vaccine 09/24/20 R ecorded SARS-CoV-2 (COVID-19) mRNA-1273 vaccine 08/27/20 R ecorded influenza virus vaccine, inactivated 1 02/13/21 Gi kriss tetanus/diphtheria/pertussis, acel(Tdap) 11/06/20 Given 1Result Comment: [facility]# ON THE [address] 12149-011-97 Medications diclofenac 1% topical gel 1 application, [...] 14:25:00 EDT, Aerosol, Route to Pharmacy Electronically, [id number], [facility], 168, cm, [...] Active Obese class II(Confirmed) Active Obesity(Confirmed) Active [place]-Schlatter's disease(Confirmed) Active Immunity status testing(Confirmed) Active Pilonidal cyst(Confirmed) Active Seizure(Confirmed) Active Snores(Confirmed) Active Fatty liver(Confirmed) Active Poor dentition(Confirmed) Active Screening for tuberculosis(Confirmed) Active Social History Social History Type Response Smoking Status Former smoker, quit more than 30 days ago entered on: 11/06/20 Sex
--- OUTSIDE RECORDS SUMMARY | 2022-10-19 12:45 | XMS_ITS | Continuity of Care Document ---
Author Name Unknown Organization [facility] Juan Address [address] [place] [address]- Care Team Providers Care Resaw Tailer Name Role Phone Eleuterio Capellan Primary Care Physi sampson Encounter [facility] [place] ACCT R [id number] Date(s): 04/04/22 - 04/11/22 [facility] Adult [address] [place] [address]- Encounter Diagnosis Vertigo(Discharge Diagnosis) - 04/04/22 Attending Physician: Octavia Frankel NP Allergies, Adverse Reactions, Alerts No Known Allergies Immunizations Given and Recorded Vaccine Date Status Refusal Reason influenza virus vaccine, inactivated 04/03/22 Give n influenza virus vaccine, inactivated 1 02/13/21 Gi kriss SARS-CoV-2 (COVID-19) mRNA-1273 vaccine 03/31/21 R ecorded SARS-CoV-2 (COVID-19) mRNA-1273 vaccine 09/24/20 R ecorded SARS-CoV-2 (COVID-19) mRNA-1273 vaccine 08/27/20 R ecorded tetanus/diphtheria/pertussis, acel(Tdap) 11/06/20 Given 1Result Comment: [facility] [place]# ON THE [address] 42434-391-45 Medications Freestyle Lite Lancets See Instructions, # [...] Date: 03/09/21 Stop Date: 09/05/21 Status: Ordered Keppra 1000 mg oral tablet [...] Start Date: 04/04/22 Status: Ordered nystatin topical 909187 u/gm powder 1 application, Topically, 2 times [...] is for a schedule II opioid drug., yareli Lockwood, 02/27/21 9:52... Start Date: 02/27/21 Status: Ordered riboflavin 400 mg oral capsule 1 capsule = 400 mg, By Mouth, Daily, # 30 capsule, 5 Refills, Maintenance, 04/03/22 16:30:00 EST, [facility], Partial fill upon patient request if the prescription is for a scheduleII opioid drug., yareli Lockwood, 04/03/22 15:19:00 EST, Height... Start Date: 04/03/22 Status: Ordered rosuvastatin 10 mg oral tablet 1 tablet = 10 mg, By Mouth, Daily, # 30 tablet, 5 Refills, Maintenance, 01/17/22 8:46:00 EDT, Tablet, [facility], Partial fill upon patient request if the prescription is for a schedule II opioid drug., yareli Lockwood, 01/17/22 8:13:00 EDT, Hei... Start Date: 01/17/22 Status: Ordered Ventolin HFA 108 mcg/inh inhalation aerosol with adapter 2 puffs, Inhalation, 4 times a day, PRN for wheezing, # 18 Gm, 0 Refills, Maintenance, 03/20/22 11:52:00 EST, Aerosol, [facility], Partial fill upon patient request if the prescription is for a schedule II opioid drug., yareli Lockwood, 01/17/22... Start Date: 03/20/22 Status: Ordered Problem List Condition Confirmation Course Effective Dates Status Health Status Informant Anxiety Confirmed Active Asthma Confirmed Active Familial hypercholesteremia Confirmed 02/27/21 Active Chronic GERD Confirmed Active Hidradenitis suppurativa Confirmed Active Insomnia Confirmed Active Migraine headache Confirmed Active Obese class I Confirmed Active Obesity Confirmed Active [place]-Schlatter's disease Confirmed Active Pilonidal cyst Confirmed Active Seizure Confirmed Active Fatty liver Confirmed Active Vertigo Confirmed Active Diagnosis Diagnosis Type Effective Dates Health Status Clini riky Service Informant Vertigo Discharge Diagnosis 04/04/22 Vital Signs Most recent to oldest [Reference Range]: 1 Height 168 cm (04/04/22 1:15 PM) Social History Social History Type Response Smoking Status Former smoker, quit more than 30 days ago entered on: 11/06/20 Sex Patient Care team information Care Team Personnel Name: Eleuterio Capellan Position: [facility] Associate Professional Member Role: PCP Address: Address: [address] [place] [address] [place] [address]- Care Team Related Persons Name: ROCIO GAINES Address: home [address] [place] [address] Name: RANDALL AHN Address: [place] [address]
--- OUTSIDE RECORDS SUMMARY | 2022-10-19 12:45 | XMS_ITS | Continuity of Care Document ---
Author Name Unknown Organization [facility] Juan Address [address] [place] [address]- Care Team Providers Care Assistant Professor Of History Name Role Phone Marlys HERNANDEZ, Octavia Primary Care Physician [phone] [place] [facility] [place]21 - 07/08/21 [facility] Adult [address] [place] [address]- Allergies, Adverse Reactions, Alerts No Known Allergies Immunizations Given and Recorded Vaccine Date Status Refusal Reason SARS-CoV-2 (COVID-19) mRNA-1273 vaccine 03/31/21 R ecorded SARS-CoV-2 (COVID-19) mRNA-1273 vaccine 09/24/20 R ecorded SARS-CoV-2 (COVID-19) mRNA-1273 vaccine 08/27/20 R ecorded influenza virus vaccine, inactivated 1 02/13/21 Gi kriss tetanus/diphtheria/pertussis, acel(Tdap) 11/06/20 Given 1Result Comment: [facility]# ON THE [address]OX 67055-612-41 Medications cyclobenzaprine 10 mg oral tablet 10 [...] 16:2... Start Date: 01/25/21 Status: Ordered naproxen 500 mg (as sodium) [...] # 15 tablet, 0 Refills, [facility], 168, cm, 04/09/21 13:38:00 EST, [...] 14:25:00 EDT, Aerosol, Route to Pharmacy Electronically, [id number], [facility], 168, cm, [...] Active Obese class II(Confirmed) Active Obesity(Confirmed) Active [place]-Schlatter's disease(Confirmed) Active Immunity status testing(Confirmed) Active Pilonidal cyst(Confirmed) Active Seizure(Confirmed) Active Snores(Confirmed) Active Fatty liver(Confirmed) Active Poor dentition(Confirmed) Active Screening for tuberculosis(Confirmed) Active Social History Social History Type Response Smoking Status Former smoker, quit more than 30 days ago entered on: 11/06/20 Sex
--- OUTSIDE RECORDS SUMMARY | 2022-10-19 12:45 | XMS_ITS | Continuity of Care Document ---
Author Name Unknown Organization [facility] Address [address] [address]- Care Team Providers Care High School Librarian Name Role Phone Marlys HERNANDEZ, Octavia Primary Care Physician [phone] Encounter [facility] [place] Date(s): 03/12/21 - 03/19/21 [facility] [address] [address]- Attending Physician: Octavia Frankel NP Admitting Physician: Octavia Frankel NP Referring Physician: Octavia Frankel NP Allergies, Adverse Reactions, Alerts Substance Reaction Severity Status NKA Active Immunizations Given and Recorded Vaccine Date Status Refusal Reason influenza virus vaccine, inactivated 1 02/13/21 Gi kriss tetanus/diphtheria/pertussis, acel(Tdap) 11/06/20 Given SARS-CoV-2 (COVID-19) mRNA-1273 vaccine 09/24/20 R ecorded SARS-CoV-2 (COVID-19) mRNA-1273 vaccine 08/27/20 R ecorded 1Result Comment: [facility]# ON THE [address] 05960-839-43 Medications diclofenac 1% topical gel 1 application, [...] 14:25:00 EDT, Aerosol, Route to Pharmacy Electronically, [id number], [facility], 168, yareli, 11/06/20 14:02:00 ED... Start Date: 11/06/20 Status: Ordered rosuvastatin 10 mg oral tablet 1 tablet = 10 mg, By Mouth, Daily, # 30 tablet, 5 Refills, Maintenance, 03/14/21 8:10:00 EST, Tablet, [facility], Partial fill upon patient request [...] Active Obese class II(Confirmed) Active Obesity(Confirmed) Active [place]-Schlatter's disease(Confirmed) Active Immunity status testing(Confirmed) Active Pilonidal cyst(Confirmed) Active Seizure(Confirmed) Active Snores(Confirmed) Active Fatty liver(Confirmed) Active Poor dentition(Confirmed) Active Screening for tuberculosis(Confirmed) Active Social History Social History Type Response Smoking Status Former smoker, quit more than 30 days ago entered on: 11/06/20 Sex
--- OUTSIDE RECORDS SUMMARY | 2022-10-19 12:45 | XMS_ITS | Continuity of Care Document ---
Author Name Unknown Organization [facility] Juan Address [address] [place] [address]- Care Team Providers Care Lan Engineer Name Role Phone Eleuterio Capellan Primary Care Physi sampson En[place] [facility] [place] [id number] Date(s): 03/05/22 - 04/12/22 [facility] Adult [address] [place] [address]- Attending Physician: Eleuterio Capellan Referring Physician: Octavia Frankel NP Allergies, Adverse Reactions, Alerts No Known Allergies Immunizations Given and Recorded Vaccine Date Status Refusal Reason influenza virus vaccine, inactivated 04/03/22 Give n influenza virus vaccine, inactivated 1 02/13/21 Gi kriss SARS-CoV-2 (COVID-19) mRNA-1273 vaccine 03/31/21 R ecorded SARS-CoV-2 (COVID-19) mRNA-1273 vaccine 09/24/20 R ecorded SARS-CoV-2 (COVID-19) mRNA-1273 vaccine 08/27/20 R ecorded tetanus/diphtheria/pertussis, acel(Tdap) 11/06/20 Given 1Result Comment: [facility]# ON THE [address] 47183-640-88 Medications Freestyle Lite Lancets See Instructions, # [...] Start Date: 04/04/22 Status: Ordered nystatin topical 517608 u/gm powder 1 application, Topically, 2 times [...] class I Confirmed Active Obesity Confirmed Active [place]-Schlatter's disease Confirmed Active Pilonidal cyst Confirmed Active Seizure Confirmed Active Fatty liver Confirmed Active Vertigo Confirmed Active Social History Social History Type Response Smoking Status Former smoker, quit more than 30 days ago entered on: 11/06/20 Sex Patient Care team information Care Team Personnel Name: Eleuterio Capellan Position: [facility] PCO Associate Professional Member Role: PCP Address: Address: [address] [place] [address] [place] [address]- Care Team Related Persons Name: ROCIO GAINES Address: home [address] [place] [address] Name: RANDALL AHN Address: [place] [address]
--- OUTSIDE RECORDS SUMMARY | 2022-10-19 12:45 | XMS_ITS | Continuity of Care Document ---
Author Name Unknown Organization [facility] Address [address] [place], [place] [address]memo guardado, [address] [place] [address]- Care Team Providers Care Top Taper Machine Name Role Phone Not on Staff, PCP Primary Care Physician Unavail able [place] [facility] [place] 09[place]28[place]20 [facility] [address] [place] [address] Drive, [address] [place], [place] [address] Attending Physician: Roma Parsons MD Allergies, Adverse Reactions, Alerts Substance Reaction Severity Status NKA Active Medications Ativan 0.5 mg oral tablet 0.5 tablet = 0.25 mg, By Mouth, 2 times a day, PRN as needed for anxiety, Take half a tablet up to two times a day, as needed for anxiety., # 5 tablet, 0 Refills, Acute 10/02/20 16:43:00 EDT, 09/28/20 16:43:00 EDT, Tablet, [facility], Pa... Start Date: 09/28/20 Stop Date: 10/02/20 Status: Ordered Keppra 500 mg oral tablet 2 tablet = 1,000 mg, By Mouth, 2 times a day, # 360 tablet, 0 Refills, Maintenance, 09/16/20 7:55:00 EDT, Tablet, Partial fill upon patient request if the prescription is for a schedule II opioid drug. Start Date: 09/16/20 Status: Ordered Vital Signs Most recent to oldest [Reference Range]: 1 Weight 95.45 kg (09/21/20 4:45 PM) Oxygen Saturation [94-100 %] 98 % (09/21/20 4:45 PM) Pulse Rate [55-90 bpm] 97 bpm *H* (09/21/20 4:45 PM) Blood Pressure [90-138/55-84 mm Hg] 118/ 74mm Hg (09/21/20 4:45 PM) Temperature [96.8-100.4 DegF] 98.6 DegF (09/21/20 4:45 PM) Mode of Delivery (Oxygen) Room air (09/21/20 4:45 PM) Blood pressure sites Arm, right (09/21/20 4:45 PM) Temperature Route Temporal (09/21/20 4:45 PM) Weight Obtained Via Patient/family state d (09/21/20 4:45 PM)
--- OUTSIDE RECORDS SUMMARY | 2022-10-19 12:45 | XMS_ITS | Continuity of Care Document ---
Author Name Unknown Organization [facility] Juan Address [address] [place] [address]- Care Team Providers Care Supervisor Drapery Hanging Name Role Phone Marlys HERNANDEZ, Octavia Primary Care Physician [phone] [place] [facility] [place]s): 12/17/21 - 01/16/22 [facility] [place] Adult [address] [place] [address]- Allergies, Adverse Reactions, Alerts No Known Allergies Immunizations Given and Recorded Vaccine Date Status Refusal Reason SARS-CoV-2 (COVID-19) mRNA-1273 vaccine 03/31/21 R ecorded SARS-CoV-2 (COVID-19) mRNA-1273 vaccine 09/24/20 R ecorded SARS-CoV-2 (COVID-19) mRNA-1273 vaccine 08/27/20 R ecorded influenza virus vaccine, inactivated 1 02/13/21 Gi kriss tetanus/diphtheria/pertussis, acel(Tdap) 11/06/20 Given 1Result Comment: [facility]# ON THE [address] 54007-270-83 Medications cyclobenzaprine 10 mg oral tablet 10 [...] # 15 tablet, 0 Refills, [facility], 168, cm, 04/09/21 13:38:00 EST, Height, 92.4, kg, 10/02/20 9:03:00 EDT, Dry Weight Start Date: 05/21/21 Status: Ordered omeprazole 20 mg oral delayed release tablet 1 tablet = 20 mg, By Mouth, 2 times a day, # 30 tablet, 0 Refills, Maintenance, 02/27/21 10:32:00 EDT, EC Tablet, [facility], Partial fill upon patient request if the prescription is for a schedule II opioid drug., 168, cm, 02/27/21 9:52... Start Date: 02/27/21 Status: Ordered ProAir HFA 90 mcg/inh inhalation aerosol with adapter 2, puffs, Inhalation, Every 6 hours, PRN, # 8.5 Gm, Refills 2, Tot. Refills 2, Maintenance, 11/06/20 14:25:00 EDT, Aerosol, Route to Pharmacy Electronically, [id number], [facility], 168, cm, 11/06/20 14:02:00 ED... [...] Active Obese class II(Confirmed) Active Obesity(Confirmed) Active [place]-Schlatter's disease(Confirmed) Active Immunity status testing(Confirmed) Active Pilonidal cyst(Confirmed) Active Seizure(Confirmed) Active Snores(Confirmed) Active Fatty liver(Confirmed) Active Poor dentition(Confirmed) Active Screening for tuberculosis(Confirmed) Active Social History Social History Type Response Smoking Status Former smoker, quit more than 30 days ago entered on: 11/06/20 Sex Care Team Personnel Name: Octavia Frankel NP Address: [address] [place] [id number]
--- OUTSIDE RECORDS SUMMARY | 2022-10-19 12:45 | XMS_ITS | Continuity of Care Document ---
Author Name Unknown Organization [facility] Juan Address [address] [place] [address]- Care Team Providers Care Cleaner Housekeeping Name Role Phone Marlys HERNANDEZ, Octavia Primary Care Physician [place] [facility] [place](s): 10/01/21 - 10/31/21 [facility] Adult [address] [place] [address]- Allergies, Adverse Reactions, Alerts No Known Allergies Immunizations Given and Recorded Vaccine Date Status Refusal Reason SARS-CoV-2 (COVID-19) mRNA-1273 vaccine 03/31/21 R ecorded SARS-CoV-2 (COVID-19) mRNA-1273 vaccine 09/24/20 R ecorded SARS-CoV-2 (COVID-19) mRNA-1273 vaccine 08/27/20 R ecorded influenza virus vaccine, inactivated 1 02/13/21 Gi kriss tetanus/diphtheria/pertussis, acel(Tdap) 11/06/20 Given 1Result Comment: [facility]# ON THE BOX 68508-521-61 Medications cyclobenzaprine 10 mg oral tablet 10 [...] # 15 tablet, 0 Refills, [facility], 168, cm, 04/09/21 13:38:00 EST, Height, 92.4, kg, 10/02/20 9:03:00 EDT, Dry Weight Start Date: 05/21/21 Status: Ordered omeprazole 20 mg oral delayed release tablet 1 tablet = 20 mg, By Mouth, 2 times a day, # 30 tablet, 0 Refills, Maintenance, 02/27/21 10:32:00 EDT, EC Tablet, [facility], Partial fill upon patient request if the prescription is for a schedule II opioid drug., 168, cm, 02/27/21 9:52... Start Date: 02/27/21 Status: Ordered ProAir HFA 90 mcg/inh inhalation aerosol with adapter 2, puffs, Inhalation, Every 6 hours, PRN, # 8.5 Gm, Refills 2, Tot. Refills 2, Maintenance, 11/06/20 14:25:00 EDT, Aerosol, Route to Pharmacy Electronically, [id number], [facility], 168, cm, 11/06/20 14:02:00 ED... [...] Active Obese class II(Confirmed) Active Obesity(Confirmed) Active [place]-Schlatter's disease(Confirmed) Active Immunity status testing(Confirmed) Active Pilonidal cyst(Confirmed) Active Seizure(Confirmed) Active Snores(Confirmed) Active Fatty liver(Confirmed) Active Poor dentition(Confirmed) Active Screening for tuberculosis(Confirmed) Active Social History Social History Type Response Smoking Status Former smoker, quit more than 30 days ago entered on: 11/06/20 Sex
--- OUTSIDE RECORDS SUMMARY | 2022-10-19 12:45 | XMS_ITS | Continuity of Care Document ---
Author Name Unknown Organization [facility] Juan lt Address [address] [place] [address]- Care Team Providers Care Quality Process Lead Name Role Phone Eleuterio Capellan Primary Care Physi sampson Encounter [facility] [place] Date(s): 06/19/22 - 07/19/22 [facility] Adult [address] [place] [address]- Attending Physician: AdmFabian martinez Admitting Physician: AdmtrFabian Referring Physician: Admtr, Ar8 Allergies, Adverse Reactions, Alerts No Known Allergies Immunizations Given and Recorded Vaccine Date Status Refusal Reason influenza virus vaccine, inactivated 04/03/22 Give n influenza virus vaccine, inactivated 1 02/13/21 Gi kriss SARS-CoV-2 (COVID-19) mRNA-1273 vaccine 03/31/21 R ecorded SARS-CoV-2 (COVID-19) mRNA-1273 vaccine 09/24/20 R ecorded SARS-CoV-2 (COVID-19) mRNA-1273 vaccine 08/27/20 R ecorded tetanus/diphtheria/pertussis, acel(Tdap) 11/06/20 Given 1Result Comment: [facility]# ON THE [address] 48933-819-79 Medications Freestyle Lite Lancets See Instructions, # [...] Daily, # 30 tablet, 5 Refills, Maintenance, 05/22/22 15:38:00 EST, [facility], 168, cm, 04/19/22 9:11:00 EST, Height, 92.4, kg, 10/02/20 9:03:00 EDT, Dry Weight Start Date: 05/22/22 Status: Ordered tiZANidine 4 mg oral tablet 4 mg, 1, tablet, By Mouth, Every 8 hours, # 30 tablet, Refills 0, Tot. Refills 0, Maintenance, 07/02/22 16:22:00 EST, Route to Pharmacy Electronically, [facility], Partial fill uponpatient request if the prescription is for a schedule I... Start Date: 07/02/22 Status: Ordered Ventolin HFA 108 mcg/inh inhalation aerosol with adapter 2 puffs, Inhalation, 4 times a day, PRN for wheezing, # 18 Gm, 2 Refills, Maintenance, 06/06/22 13:28:00 EST, Aerosol, [facility], Partial fill upon patient request if the prescription is for a schedule II opioid drug., 168, cm, 06/06/22... Start Date: 06/06/22 Status: Ordered Problem List Condition Confirmation Course [...] Care Team Personnel Name: Eleuterio Capellan Position: [facility] PCO Associate Professional Member Role: PCP Address: Address: [address] [place] [address] [place] [address]- Care Team Related Persons Name: ROCIO GAINES Address: home [address] [place] [address] Name: RANDALL AHN Address: [place] [address]
--- OUTSIDE RECORDS SUMMARY | 2022-10-19 12:45 | XMS_ITS | Continuity of Care Document ---
Author Name Unknown Organization [facility] Juan lt Address [address] [place] [address]- Care Team Providers Care Hospital Superintendent Name Role Phone Eleuterio Capellan Primary Care Physi sampson [place] [facility] [place] 03/20/22 - 04/19/22 [facility] Adult [address] [place] [address]- Allergies, Adverse Reactions, Alerts No Known Allergies Immunizations Given and Recorded Vaccine Date Status Refusal Reason influenza virus vaccine, inactivated 04/03/22 Give n influenza virus vaccine, inactivated 1 02/13/21 Gi kriss SARS-CoV-2 (COVID-19) mRNA-1273 vaccine 03/31/21 R ecorded SARS-CoV-2 (COVID-19) mRNA-1273 vaccine 09/24/20 R ecorded SARS-CoV-2 (COVID-19) mRNA-1273 vaccine 08/27/20 R ecorded tetanus/diphtheria/pertussis, acel(Tdap) 11/06/20 Given 1Result Comment: [facility]# ON THE [address] 32913-026-08 Medications Freestyle Lite Lancets See Instructions, # [...] Start Date: 04/04/22 Status: Ordered nystatin topical 269693 u/gm powder 1 application, Topically, 2 times [...] class I Confirmed Active Obesity Confirmed Active [place]-Schlatter's disease Confirmed Active Pilonidal cyst Confirmed Active Seizure Confirmed Active Fatty liver Confirmed Active Vertigo Confirmed Active Social History Social History Type Response Smoking Status Former smoker, quit more than 30 days ago entered on: 11/06/20 Sex Patient Care team information Care Team Personnel Name: Eleuterio Capellan Position: S PCO Associate Professional Member Role: PCP Address: Address: [address] [facility] [place] [address]- Care Team Related Persons Name: ROCIO GAINES Address: home [address] [place] [address] Name: RANDALL AHN Address: [place] [address]
--- OUTSIDE RECORDS SUMMARY | 2022-10-19 12:45 | XMS_ITS | Continuity of Care Document ---
Author Name Unknown Organization [facility] Address [address] [place] [address]- Care Team Providers Care Health And Wellness Instructor Name Role Phone Not on Staff, PCP Primary Care Physician Unavail able Encounter [facility] Date(s): 09/29/20 - 10/29/20 [facility] [address] [place] [address] Allergies, Adverse Reactions, Alerts Substance Reaction Severity Status NKA Active Medications gabapentin 300 mg oral capsule 300 mg, 1, capsule, By Mouth, 3 times a day, # 63 capsule, Refills 0, Tot. Refills 0, Maintenance, 10/03/20 10:20:00 EDT, Route to Pharmacy Electronically, [facility], Partial fill uponpatient request [...]
--- OUTSIDE RECORDS SUMMARY | 2022-10-19 12:45 | XMS_ITS | Continuity of Care Document ---
Author Name Unknown Organization [facility] Juan Address [address] [place] [address]- Care Team Providers Care Lurer Name Role Phone Eleuterio Capellan Primary Care Physi sampson Encounter [facility] Date(s): 01/17/22 - 02/16/22 [facility] Adult [address] [place] [address]- Attending Physician: Admtr, Ar8 Admitting Physician: Admtr, Ar8 Referring Physician: Admtr, Ar8 Allergies, Adverse Reactions, Alerts No Known Allergies Immunizations Given and Recorded Vaccine Date Status Refusal Reason SARS-CoV-2 (COVID-19) mRNA-1273 vaccine 03/31/21 R ecorded SARS-CoV-2 (COVID-19) mRNA-1273 vaccine 09/24/20 R ecorded SARS-CoV-2 (COVID-19) mRNA-1273 vaccine 08/27/20 R ecorded influenza virus vaccine, inactivated 1 02/13/21 Gi kriss tetanus/diphtheria/pertussis, acel(Tdap) 11/06/20 Given 1Result Comment: [facility]# ON THE [address] 60196-459-70 Medications Freestyle Lite Lancets See Instructions, # [...] 8:29:00 EDT, Aerosol, Route to Pharmacy Electronically, [id number], [facility], 168, cm, 01/17/22 8:13:00 EDT,... Start Date: 01/17/22 Status: Ordered rosuvastatin 10 mg oral tablet 1 tablet = 10 mg, By Mouth, Daily, # 30 tablet, 5 Refills, Maintenance, 01/17/22 8:46:00 EDT, Tablet, [facility], Partial fill upon patient request if the prescription is for a schedule II opioid drug., 168, yareli, 01/17/22 8:13:00 EDT, Hei... Start Date: 01/17/22 [...] class I Confirmed Active Obesity Confirmed Active [place]-Schlatter's disease Confirmed Active Immunity status testing Confirmed Active Pilonidal cyst Confirmed Active Seizure Confirmed Active Snores Confirmed Active Fatty liver Confirmed Active Poor dentition Confirmed Active Screening for tuberculosis Confirmed Active Social History Social History Type Response Smoking Status Former smoker, quit more than 30 days ago entered on: 11/06/20 Sex Patient Care team information Personnel Name: Eleuterio Capellan Address: Address: [address] [facility] [place], [place] [address]
--- OUTSIDE RECORDS SUMMARY | 2022-10-19 12:45 | XMS_ITS | Continuity of Care Document ---
Author Name Unknown Organization [facility] Juan Address [address] [place] [address]- Care Team Providers Care Consulting Manager Name Role Phone Octavia Frankel NP Primary Care Physician Encounter [facility] [place] Date(s): 01/25/21 - 03/01/21 [facility] Adult [address] [place] [address]- Attending Physician: Octavia Frankel NP Allergies, Adverse Reactions, Alerts Substance Reaction Severity Status NKA Active Immunizations Given and Recorded Vaccine Date Status Refusal Reason influenza virus vaccine, inactivated 1 02/13/21 Gi kriss tetanus/diphtheria/pertussis, acel(Tdap) 11/06/20 Given SARS-CoV-2 (COVID-19) mRNA-1273 vaccine 09/24/20 R ecorded SARS-CoV-2 (COVID-19) mRNA-1273 vaccine 08/27/20 R ecorded 1Result Comment: [facility]# ON THE [address] 77227-281-11 Medications diclofenac 1% topical gel 1 application, [...] a schedule II opioid drug., yareli Lockwood, 12/12/20 16:2... Start Date: 01/25/21 Status: Ordered naproxen 500 mg (as sodium) oral tablet, extended release 1 tablet = 500 mg, By Mouth, 2 times a day, PRN as needed for arthritis, Take 1 tablet every 12 hours as needed for pain, # 15 tablet, 0 Refills, Maintenance, 02/27/21 13:30:00 EDT, ER Tablet, [facility], Partial fill upon patient reques... Start Date: 02/27/21 Status: Ordered naproxen 500 mg oral tablet 1 tablet = 500 mg, By Mouth, Every 12 hours, # 15 tablet, 0 Refills, Acute 03/16/21 10:00:00 EST, 02/28/21 15:34:00 EDT, [facility], Partial fill upon patient request if the prescription is for a schedule II opioid drug., yareli Lockwood, ... Start Date: 02/28/21 Stop Date: 03/16/21 Status: Ordered omeprazole 20 mg oral delayed [...] 14:25:00 EDT, Aerosol, Route to Pharmacy Electronically, [id number], [facility], yareli Lockwood, 11/06/20 14:02:00 ED... Start Date: 11/06/20 Status: [...] Lump in armpit(Confirmed) Active Migraine headache(Confirmed) Active Obesity(Confirmed) Active [place]-Schlatter's disease(Confirmed) Active Immunity status testing(Confirmed) Active Pilonidal cyst(Confirmed) Active Seizure(Confirmed) Active Snores(Confirmed) Active Fatty liver(Confirmed) Active Poor dentition(Confirmed) Active Screening for tuberculosis(Confirmed) Active Social History Social History Type Response Smoking Status Former smoker, quit more than 30 days ago entered on: 11/06/20 Sex
--- OUTSIDE RECORDS SUMMARY | 2022-10-19 12:46 | XMS_ITS | Continuity of Care Document ---
Author Name Unknown Organization [facility] Address Unknown Care Team Providers Care Lawyers Name Role Phone Octavia Frankel NP Primary Care Physician [phone] Encounter [facility] Date(s): 03/28/21 - 04/27/21 [facility] Attending Physician: Admtr, Fabian Admitting Physician: Admtr, Ar8 Referring Physician: Admtr, Ar8 Allergies, Adverse Reactions, Alerts Substance Reaction Severity Status NKA Active Immunizations Given and Recorded Vaccine Date Status Refusal Reason SARS-CoV-2 (COVID-19) mRNA-1273 vaccine 03/31/21 R ecorded SARS-CoV-2 (COVID-19) mRNA-1273 vaccine 09/24/20 R ecorded SARS-CoV-2 (COVID-19) mRNA-1273 vaccine 08/27/20 R ecorded influenza virus vaccine, inactivated 1 02/13/21 Gi kriss tetanus/diphtheria/pertussis, acel(Tdap) 11/06/20 Given 1Result Comment: [facility]# ON THE [address] 60855-246-05 Medications diclofenac 1% topical gel 1 application, [...] tablet, Refills 0, Route to Pharmacy Electronically, [facility], 168, cm, 03/09/21 12:58:00 EST, [...] 14:25:00 EDT, Aerosol, Route to Pharmacy Electronically, [id number], [facility], 168, cm, 11/06/20 14:02:00 ED... Start Date: 11/06/20 Status: Ordered rosuvastatin 10 mg oral tablet 1 tablet = 10 mg, By Mouth, Daily, # 30 tablet, 5 Refills, Maintenance, 03/14/21 8:10:00 EST, Tablet, [facility], Partial fill upon patient request [...]
--- OUTSIDE RECORDS SUMMARY | 2022-10-19 12:46 | XMS_ITS | Continuity of Care Document ---
Author Name Unknown Organization [facility] Juan Address [address] [place] [address]- Care Team Providers Care Affirmative Action Officer Name Role Phone Octavia Frankel NP Primary Care Physician [phone] Encounter [facility] Date(s): 12/18/21 - 12/25/21 [facility] Adult [address] [place] [address]- Encounter Diagnosis Cough(Discharge Diagnosis) - 12/18/21 Attending Physician: Octavia Frankel NP Allergies, Adverse Reactions, Alerts No Known Allergies Immunizations Given and Recorded Vaccine Date Status Refusal Reason SARS-CoV-2 (COVID-19) mRNA-1273 vaccine 03/31/21 R ecorded SARS-CoV-2 (COVID-19) mRNA-1273 vaccine 09/24/20 R ecorded SARS-CoV-2 (COVID-19) mRNA-1273 vaccine 08/27/20 R ecorded influenza virus vaccine, inactivated 1 02/13/21 Gi kriss tetanus/diphtheria/pertussis, acel(Tdap) 11/06/20 Given 1Result Comment: [facility]# ON THE [address] 96726-832-79 Medications cyclobenzaprine 10 mg oral tablet 10 [...] a schedule II opioid drug., Fabián, cm, 06/11/21 15:5... Start Date: 10/04/21 Status: [...] 14:25:00 EDT, Aerosol, Route to Pharmacy Electronically, [id number], [facility], 168, cm, [...] Poor dentition(Confirmed) Active Screening for tuberculosis(Confirmed) Active Diagnosis Diagnosis Type Effective Dates Health Status Clini riky Service Informant Cough Discharge Diagnosis 12/18/21 Vital Signs Most recent to oldest [Reference Range]: 1 Height 168 cm (12/18/21 9:49 AM) Social History Social History Type Response Smoking Status Former smoker, quit more than 30 days ago entered on: 11/06/20 Sex Care Team Personnel Name: Octavia Frankel NP Address: [address] [place] [address] [place], [place] [address]
--- OUTSIDE RECORDS SUMMARY | 2022-10-19 12:46 | XMS_ITS | Continuity of Care Document ---
Author Name Unknown Organization [facility] Address [address] [place] [address]- Care Team Providers Care Teacher Early Childhood Development Name Role Phone Marlys HERNANDEZ, Octavia Primary Care Physician [phone] Encounter [facility] Date(s): 12/29/20 - 01/28/21 [facility] [address] [place] [address]- Allergies, Adverse Reactions, Alerts Substance Reaction Severity [...] a schedule II opioid drug., yareli Lockwood, 11/22/20 7:54:00 EDT, Hei... Start Date: 11/22/20 [...] 14:25:00 EDT, Aerosol, Route to Pharmacy Electronically, [id number], [facility], 168, cm, [...] Insomnia(Confirmed) Active Migraine headache(Confirmed) Active Obesity(Confirmed) Active [place]-Schlatter's disease(Confirmed) Active Encounter to establish care(Confirmed) Active Seizure(Confirmed) Active Snores(Confirmed) Active Poor dentition(Confirmed) Active Social History Social History Type Response Smoking Status Former smoker, quit more than 30 days ago entered on: 11/06/20 Sex
--- OUTSIDE RECORDS SUMMARY | 2022-10-19 12:46 | XMS_ITS | Continuity of Care Document ---
Author Name Unknown Organization [facility] Address [address] [place] [address] Dar[address]ado, [address] [place] [address]- Care Team Providers Care Fish Cutter Name Role Phone Not on Staff, PCP Primary Care Physician Unavail able Encounter [facility] Date(s): 09/28/20 - 10/28/20 [facility] [address] [place] [address], [address] [place], [place] [address] Allergies, Adverse Reactions, Alerts Substance Reaction Severity Status NKA Active Medications gabapentin 300 mg oral capsule 300 mg, 1, capsule, By Mouth, 3 times a day, # 63 capsule, Refills 0, Tot. Refills 0, Maintenance, 10/03/20 10:20:00 EDT, Route to Pharmacy Electronically, [facility], Partial fill uponpatient request [...]
--- OUTSIDE RECORDS SUMMARY | 2022-10-19 12:46 | XMS_ITS | Continuity of Care Document ---
Author Name Unknown Organization [facility] Address Unknown Care Team Providers Care Home Aide Name Role Phone Marlys HERNANDEZ, Octavia Primary Care Physician [phone] [place] [facility] [place] 03/01/21 - 04/27/21 [facility] Attending Physician: Wendy Carr NP Referring Physician: Octavia Frankel NP Allergies, Adverse Reactions, Alerts Substance Reaction Severity Status NKA Active Immunizations Given and Recorded Vaccine Date Status Refusal Reason SARS-CoV-2 (COVID-19) mRNA-1273 vaccine 03/31/21 R ecorded SARS-CoV-2 (COVID-19) mRNA-1273 vaccine 09/24/20 R ecorded SARS-CoV-2 (COVID-19) mRNA-1273 vaccine 08/27/20 R ecorded influenza virus vaccine, inactivated 1 02/13/21 Gi kriss tetanus/diphtheria/pertussis, acel(Tdap) 11/06/20 Given 1Result Comment: [facility]# ON THE [address] 83661-563-14 Medications diclofenac 1% topical gel 1 application, [...] Refills, Maintenance, 02/27/21 10:32:00 EDT, EC Tablet, [facility], Partial fill upon patient request if the prescription is for a schedule II opioid drug., 168, cm, 02/27/21 9:52... Start Date: 02/27/21 Status: Ordered ProAir HFA 90 mcg/inh inhalation aerosol with adapter 2, puffs, Inhalation, Every 6 hours, PRN, # 8.5 Gm, Refills 2, Tot. Refills 2, Maintenance, 11/06/20 14:25:00 EDT, Aerosol, Route to Pharmacy Electronically, [id number], [facility], 168, cm, 11/06/20 14:02:00 ED... Start Date: 11/06/20 Status: Ordered rosuvastatin 10 mg oral tablet 1 tablet = 10 mg, By Mouth, Daily, # 30 tablet, 5 Refills, Maintenance, 03/14/21 8:10:00 EST, Tablet, [facility], Partial fill upon patient request [...] Active Obese class II(Confirmed) Active Obesity(Confirmed) Active [place]-Schlatter's disease(Confirmed) Active Immunity status testing(Confirmed) Active Pilonidal cyst(Confirmed) Active Seizure(Confirmed) Active Snores(Confirmed) Active Fatty liver(Confirmed) Active Poor dentition(Confirmed) Active Screening for tuberculosis(Confirmed) Active Social History Social History Type Response Smoking Status Former smoker, quit more than 30 days ago entered on: 11/06/20 Sex
--- OUTSIDE RECORDS SUMMARY | 2022-10-19 12:46 | XMS_ITS | Continuity of Care Document ---
Author Name Unknown Organization [facility] Juan Address [address] [place] [address]- Care Team Providers Care Chief Of Vital Statistics Name Role Phone Marlys HERNANDEZ, Octavia Primary Care Physician Encounter [facility] [place] Date(s): 04/16/21 - 05/16/21 [facility] Adult [address] [place] [address]- Attending Physician: Admtr, Jamin8 Admitting Physician: Admtr Ar8 Referring Physician: Admtr, Ar8 Allergies, Adverse Reactions, Alerts No Known Allergies Immunizations Given and Recorded Vaccine Date Status Refusal Reason SARS-CoV-2 (COVID-19) mRNA-1273 vaccine 03/31/21 R ecorded SARS-CoV-2 (COVID-19) mRNA-1273 vaccine 09/24/20 R ecorded SARS-CoV-2 (COVID-19) mRNA-1273 vaccine 08/27/20 R ecorded influenza virus vaccine, inactivated 1 02/13/21 Gi kriss tetanus/diphtheria/pertussis, acel(Tdap) 11/06/20 Given 1Result Comment: [facility]# ON THE [address] 87641-130-37 Medications diclofenac 1% topical gel 1 application, [...] 14:25:00 EDT, Aerosol, Route to Pharmacy Electronically, [id number], [facility], 168, cm, [...] Active Obese class II(Confirmed) Active Obesity(Confirmed) Active [place]-Schlatter's disease(Confirmed) Active Immunity status testing(Confirmed) Active Pilonidal cyst(Confirmed) Active Seizure(Confirmed) Active Snores(Confirmed) Active Fatty liver(Confirmed) Active Poor dentition(Confirmed) Active Screening for tuberculosis(Confirmed) Active Social History Social History Type Response Smoking Status Former smoker, quit more than 30 days ago entered on: 11/06/20 Sex
--- OUTSIDE RECORDS SUMMARY | 2022-10-19 12:46 | XMS_ITS | Continuity of Care Document ---
Author Name Unknown Organization [facility] Juan Address [address] [place] [address]- Care Team Providers Care Hog Confinement System Manager Name Role Phone Marlys HERNANDEZ, Octavia Primary Care Physician [phone] Encounter [facility] Date(s): 12/14/21 - 01/13/22 [facility] Adult [address] [place] [address]- Allergies, Adverse Reactions, Alerts No Known Allergies Immunizations Given and Recorded Vaccine Date Status Refusal Reason SARS-CoV-2 (COVID-19) mRNA-1273 vaccine 03/31/21 R ecorded SARS-CoV-2 (COVID-19) mRNA-1273 vaccine 09/24/20 R ecorded SARS-CoV-2 (COVID-19) mRNA-1273 vaccine 08/27/20 R ecorded influenza virus vaccine, inactivated 1 02/13/21 Gi kriss tetanus/diphtheria/pertussis, acel(Tdap) 11/06/20 Given 1Result Comment: [facility]# ON THE [address] 23763-309-79 Medications cyclobenzaprine 10 mg oral tablet 10 [...] # 15 tablet, 0 Refills, [facility], 168, cm, 04/09/21 13:38:00 EST, Height, 92.4, kg, 10/02/20 9:03:00 EDT, Dry Weight Start Date: 05/21/21 Status: Ordered omeprazole 20 mg oral delayed release tablet 1 tablet = 20 mg, By Mouth, 2 times a day, # 30 tablet, 0 Refills, Maintenance, 02/27/21 10:32:00 EDT, EC Tablet, [facility], Partial fill upon patient request if the prescription is for a schedule II opioid drug., 168, cm, 02/27/21 9:52... Start Date: 02/27/21 Status: Ordered ProAir HFA 90 mcg/inh inhalation aerosol with adapter 2, puffs, Inhalation, Every 6 hours, PRN, # 8.5 Gm, Refills 2, Tot. Refills 2, Maintenance, 11/06/20 14:25:00 EDT, Aerosol, Route to Pharmacy Electronically, [id number], [facility], 168, cm, 11/06/20 14:02:00 ED... [...] Active Obese class II(Confirmed) Active Obesity(Confirmed) Active [place]-Schlatter's disease(Confirmed) Active Immunity status testing(Confirmed) Active Pilonidal cyst(Confirmed) Active Seizure(Confirmed) Active Snores(Confirmed) Active Fatty liver(Confirmed) Active Poor dentition(Confirmed) Active Screening for tuberculosis(Confirmed) Active Social History Social History Type Response Smoking Status Former smoker, quit more than 30 days ago entered on: 11/06/20 Sex Care Team Personnel Name: Octavia Frankel NP Address: [address] [place] [address]
--- OUTSIDE RECORDS SUMMARY | 2022-10-19 12:46 | XMS_ITS | Continuity of Care Document ---
Author Name Unknown Organization [facility] Juan Address [address] [place] [address]- Care Team Providers Care Dry Transfer Worker Name Role Phone Marlys HERNANDEZ, Octavia Primary Care Physician Encounter [facility] Date(s): 08/30/21 - 09/29/21 [facility] Adult [address] [place] [address]- Allergies, Adverse Reactions, Alerts No Known Allergies Immunizations Given and Recorded Vaccine Date Status Refusal Reason SARS-CoV-2 (COVID-19) mRNA-1273 vaccine 03/31/21 R ecorded SARS-CoV-2 (COVID-19) mRNA-1273 vaccine 09/24/20 R ecorded SARS-CoV-2 (COVID-19) mRNA-1273 vaccine 08/27/20 R ecorded influenza virus vaccine, inactivated 1 02/13/21 Gi kriss tetanus/diphtheria/pertussis, acel(Tdap) 11/06/20 Given 1Result Comment: [facility]# ON THE [address] 39036-082-64 Medications cyclobenzaprine 10 mg oral tablet 10 [...] 2 times a day, # 60 tablet, 1 Refills, Maintenance, 07/23/21 12:24:00 EDT, Tablet, [facility], Partial fill upon patient request if the prescription is for a schedule II opioid drug., 168, cm, 06/11/21 15:5... Start Date: 07/23/21 Status: Ordered naproxen 500 mg (as sodium) [...] a schedule II opioid drug., Fabián, cm, 02/27/21 9:52... Start Date: 02/27/21 Status: Ordered ProAir HFA 90 mcg/inh inhalation aerosol with adapter 2, puffs, Inhalation, Every 6 hours, PRN, # 8.5 Gm, Refills 2, Tot. Refills 2, Maintenance, 11/06/20 14:25:00 EDT, Aerosol, Route to Pharmacy Electronically, [id number], [facility], 168, cm, 11/06/20 14:02:00 ED... Start Date: 11/06/20 Status: Ordered rosuvastatin 10 mg oral tablet 1 tablet = 10 mg, By Mouth, Daily, # 30 tablet, 5 Refills, Maintenance, 03/14/21 8:10:00 EST, Tablet, [facility], Partial fill upon patient request if the prescription is for a schedule II opioid drug., 168, cm, 03/09/21 12:58:00 E[place]ito... Start Date: 03/14/21 Status: Ordered Problem List [...]
--- OUTSIDE RECORDS SUMMARY | 2022-10-19 12:46 | XMS_ITS | Continuity of Care Document ---
Author Name Unknown Organization [facility] Juan Address [address] [place] [address]- Care Team Providers Care Director Of Accounts Receivable Name Role Phone Octavia Frankel NP Primary Care Physician [phone] [place] [facility] [place](s[place] 10/01/21 - 11/01/21 [facility] Adult [address] [place] [address]- Attending Physician: Octavia Frankel NP Allergies, Adverse Reactions, Alerts No Known Allergies Immunizations Given and Recorded Vaccine Date Status Refusal Reason SARS-CoV-2 (COVID-19) mRNA-1273 vaccine 03/31/21 R ecorded SARS-CoV-2 (COVID-19) mRNA-1273 vaccine 09/24/20 R ecorded SARS-CoV-2 (COVID-19) mRNA-1273 vaccine 08/27/20 R ecorded influenza virus vaccine, inactivated 1 02/13/21 Gi kriss tetanus/diphtheria/pertussis, acel(Tdap) 11/06/20 Given 1Result Comment: [place]# ON THE BOX 17232-751-45 Medications cyclobenzaprine 10 mg oral tablet 10 [...] 14:25:00 EDT, Aerosol, Route to Pharmacy Electronically, [id number], [facility], 168, cm, [...]
--- OUTSIDE RECORDS SUMMARY | 2022-10-19 12:46 | XMS_ITS | Continuity of Care Document ---
Author Name Unknown Organization [facility] Juan Address [address] [place] [address]- Care Team Providers Care It Applications Analyst Name Role Phone Marlys HERNANDEZ, Octavia Primary Care Physician [phone] Encounter [facility] [place] Date(s): 11/22/20 - 11/29/20 [facility] Adult [address] [place] [address]- Encounter Diagnosis Lower back pain(Discharge Diagnosis) - 11/22/20 Suprapubic pressure(Discharge Diagnosis) - 11/22/20 Attending Physician: Argenis Waggoner NP Referring Physician: Octavia Frankel NP Allergies, [...] opioid drug. Start Date: 09/16/20 Status: Ordered naproxen 250 mg oral tablet 250 mg, 1, tablet, By Mouth, 2 times a day, for 14 days, with food, # 28 tablet, Refills 0, Tot. Refills 0, Acute 12/06/20 8:26:00 EDT, 11/22/20 8:26:00 EDT, Route to Pharmacy Electronically, [facility], Partial fill upon patient request... Start Date: 11/22/20 Stop Date: 12/06/20 Status: Ordered ProAir HFA 90 mcg/inh inhalation aerosol with adapter 2, puffs, Inhalation, Every 6 hours, PRN, # 8.5 Gm, Refills 2, Tot. Refills 2, Maintenance, 11/06/20 14:25:00 EDT, Aerosol, Route to Pharmacy Electronically, [id number], [facility], 168, cm, 11/06/20 14:02:00 ED... Start Date: 11/06/20 Status: Ordered Zoloft 25 mg oral tablet 1 tablet = 25 mg, By Mouth, Daily, # 30 tablet, 0 Refills, Maintenance, 11/06/20 14:34:00 EDT, Tablet, [facility], Partial fill upon patient request if the prescription is for a schedule II opioid drug., 168, cm, 11/06/20 14:02:00 EDT, H... Start Date: 11/06/20 Status: Ordered Problem List Condition Effective Dates Status Health Status Inform ant Anxiety(Confirmed) Active Asthma(Confirmed) Active Chronic GERD(Confirmed) Active Hyperlipemia(Confirmed) Active Insomnia(Confirmed) Active Migraine headache(Confirmed) Active Obesity(Confirmed) Active [place]-Schlatter's disease(Confirmed) Active Encounter to establish care(Confirmed) Active Seizure(Confirmed) Active Snores(Confirmed) Active Poor dentition(Confirmed) Active Diagnosis Diagnosis Type Effective Dates Health Status Clinical Service Informant Lower back pain Discharge Diagnosis 11/22/20 Suprapubic pressure Discharge Diagnosis 11/22/20 Vital Signs Most recent to oldest [Reference Range]: 1 Height 168 cm (11/22/20 7:54 AM) Weight 96.3 kg (11/22/20 7:54 AM) Oxygen Saturation [94-100 %] 98 % (11/22/20 7:54 AM) Pulse Rate [55-90 bpm] 88 bpm (11/22/20 7:54 AM) Body Mass Index [18.5-24.99] 34.12 *>HHI* (11/22/20 7:54 AM) Blood Pressure [90-138/55-84 mm Hg] 112/ 80mm Hg (11/22/20 7:54 AM) Mode of Delivery (Oxygen) Room air (11/22/20 7:54 AM) Blood pressure sites Arm, left (11/22/20 7:54 AM) Weight Obtained Via Standing scale (11/22/20 7:54 AM) Social History Social History Type Response Smoking Status Former smoker, quit more than 30 days ago entered on: 11/06/20 Sex
--- OUTSIDE RECORDS SUMMARY | 2022-10-19 12:46 | XMS_ITS | Continuity of Care Document ---
Author Name Unknown Organization [facility] Address [address] [place] [address]- Care Team Providers Care Bicycle Ii Assembler Name Role Phone Marlys HERNANDEZ, Octavia Primary Care Physician [place] [facility] [place] 11/12/21 - 12/12/21 [facility] Adult [address] [place] [address]- Allergies, Adverse Reactions, Alerts No Known Allergies Immunizations Given and Recorded Vaccine Date Status Refusal Reason SARS-CoV-2 (COVID-19) mRNA-1273 vaccine 03/31/21 R ecorded SARS-CoV-2 (COVID-19) mRNA-1273 vaccine 09/24/20 R ecorded SARS-CoV-2 (COVID-19) mRNA-1273 vaccine 08/27/20 R ecorded influenza virus vaccine, inactivated 1 02/13/21 Gi kriss tetanus/diphtheria/pertussis, acel(Tdap) 11/06/20 Given 1Result Comment: [facility]# ON THE BOX 44772-850-88 Medications cyclobenzaprine 10 mg oral tablet 10 [...] 14:25:00 EDT, Aerosol, Route to Pharmacy Electronically, [id number], [facility], 168, cm, 11/06/20 14:02:00 ED... Start Date: 11/06/20 Status: Ordered rosuvastatin 10 mg oral tablet 1 tablet = 10 mg, By Mouth, Daily, # 30 tablet, 5 Refills, Maintenance, 03/14/21 8:10:00 EST, Tablet, [facility], Partial fill upon patient request if the prescription is for a schedule II opioid drug., 168, cm, 03/09/21 12:58:00 Shilpa DAWSON. Start Date: 03/14/21 Status: Ordered Problem List [...] Active Obese class II(Confirmed) Active Obesity(Confirmed) Active [place]-Schlatter's disease(Confirmed) Active Immunity status testing(Confirmed) Active Pilonidal cyst(Confirmed) Active Seizure(Confirmed) Active Snores(Confirmed) Active Fatty liver(Confirmed) Active Poor dentition(Confirmed) Active Screening for tuberculosis(Confirmed) Active Social History Social History Type Response Smoking Status Former smoker, quit more than 30 days ago entered on: 11/06/20 Sex
--- OUTSIDE RECORDS SUMMARY | 2022-10-19 12:46 | XMS_ITS | Continuity of Care Document ---
Author Name Unknown Organization [facility] ter Address [address] [place] [address]- Care Team Providers Care Factory Maintenance Manager Name Role Phone Octavia Frankel NP Primary Care Physician [place] [facility] [place] Date(s): 02/06/21 - 03/14/[address] [address] Attending Physician: Alla Molina MD Admitting Physician: Alla Molina MD Referring Physician: Alla Molina MD Allergies, Adverse Reactions, Alerts Substance Reaction Severity Status NKA Active Immunizations Given and Recorded Vaccine Date Status Refusal Reason influenza virus vaccine, inactivated 1 02/13/21 Gi kriss tetanus/diphtheria/pertussis, acel(Tdap) 11/06/20 Given SARS-CoV-2 (COVID-19) mRNA-1273 vaccine 09/24/20 R ecorded SARS-CoV-2 (COVID-19) mRNA-1273 vaccine 08/27/20 R ecorded 1Result Comment: [facility]# ON THE BOX 64652-575-27 Medications diclofenac 1% topical gel 1 application, [...] WEEK, 03/09/21 14:49:00 EST, Supply, 168, cm, 11/12/21 12:58:00 EST, Height, 92.4, kg, 10/02/20 9:03:00 [...] Refills, Maintenance, 02/27/21 10:32:00 EDT, EC Tablet, [facility], Partial fill upon patient request if the prescription is for a schedule II opioid drug., Fabiányareli, 02/27/21 9:52... Start Date: 02/27/21 Status: Ordered ProAir HFA 90 mcg/inh inhalation aerosol with adapter 2, puffs, Inhalation, Every 6 hours, PRN, # 8.5 Gm, Refills 2, Tot. Refills 2, Maintenance, 11/06/20 14:25:00 EDT, Aerosol, Route to Pharmacy Electronically, [id number], [facility], 168, yareli, 11/06/20 14:02:00 ED... Start Date: 11/06/20 Status: Ordered rosuvastatin 10 mg oral tablet 1 tablet = 10 mg, By Mouth, Daily, # 30 tablet, 5 Refills, Maintenance, 03/14/21 8:10:00 EST, Tablet, [facility], Partial fill upon patient request if the prescription is for a schedule II opioid drug., Fabián, yareli, 03/09/21 12:58:00 EST, He... Start Date: [...]
--- OUTSIDE RECORDS SUMMARY | 2022-10-19 12:46 | XMS_ITS | Continuity of Care Document ---
Author Name Unknown Organization [facility] Juan Address [address] [place] [address]- Care Team Providers Care Fire Alarm Repairer Name Role Phone Octavia Frankel NP Primary Care Physician Encounter [facility] [place] Date(s): 11/06/20 - 11/13/20 [facility] Adult [address] [place] [address]- Encounter Diagnosis Encounter to establish care(Discharge Diagnosis) - 11/06/20 [place]-Schlatter's disease(Discharge Diagnosis) - 11/06/20 Chronic GERD(Discharge Diagnosis) - 11/06/20 Obesity(Discharge Diagnosis) - 11/06/20 Poor dentition(Discharge Diagnosis) - 11/06/20 Seizure(Discharge Diagnosis) - 11/06/20 Asthma(Discharge Diagnosis) - 11/06/20 Snores(Discharge Diagnosis) - 11/06/20 Insomnia(Discharge Diagnosis) - 11/06/20 Hyperlipemia(Discharge Diagnosis) - 11/06/20 Migraine headache(Discharge Diagnosis) - 11/06/20 Anxiety(Discharge Diagnosis) - 11/06/20 Attending Physician: Octavia Frankel NP Allergies, Adverse [...] 10/03/20 10:20:00 EDT, Route to Pharmacy Electronically, [facility], Partial fill uponpatient request if [...] 14:25:00 EDT, Aerosol, Route to Pharmacy Electronically, [id number], [facility], 168, cm, [...] Effective Dates Health Status Clinical Service Informant Encounter to establish care Discharge Diagnosis 11/06/20 Migraine headache Discharge Diagnosis 11/06/20 Seizure Discharge Diagnosis 11/06/20 Hyperlipemia Discharge Diagnosis 11/06/20 Insomnia Discharge Diagnosis 11/06/20 Snores Discharge Diagnosis 11/06/20 Asthma Discharge Diagnosis 11/06/20 Chronic GERD Discharge Diagnosis 11/06/20 [place]-Schlatter's disease Discharge Diagnosis 11/06/20 Anxiety Discharge Diagnosis 11/06/20 Obesity Discharge Diagnosis 11/06/20 Poor dentition Discharge Diagnosis 11/06/20 Vital Signs Most recent to oldest [Reference Range]: 1 Height 168 cm (11/06/20 2:02 PM) Weight 95.5 kg (11/06/20 2:02 PM) Oxygen Saturation [94-100 %] 99 % (11/06/20 2:02 PM) Pulse Rate [55-90 bpm] 90 bpm (11/06/20 2:02 PM) Body Mass Index [18.5-24.99] 33.84 *>HHI* (11/06/20 2:02 PM) Blood Pressure [90-138/55-84 mm Hg] 116/ 78mm Hg (11/06/20 2:02 PM) Temperature [96.8-100.4 DegF] 98.2 DegF (11/06/20 2:02 PM) Blood pressure sites Arm, right (11/06/20 2:02 PM) Social History Social History Type Response Smoking Status Former smoker, quit more than 30 days ago entered on: 11/06/20 Sex
--- OUTSIDE RECORDS SUMMARY | 2022-10-19 12:46 | XMS_ITS | Continuity of Care Document ---
Author Name Unknown Organization [facility] Juan Address [address] [place] [address]- Care Team Providers Care Ham Sawyer Name Role Phone Eleuterio Capellan Primary Care Physi sampson [place] [facility] [place] - 04/10/22 [facility] Adult [address] [place] [address]- Encounter Diagnosis Asthma(Discharge Diagnosis) - 04/03/22 Chronic GERD(Discharge Diagnosis) - 04/03/22 Familial hypercholesteremia(Discharge Diagnosis) - 04/03/22 Obese class I(Discharge Diagnosis) - 04/03/22 Seizure(Discharge Diagnosis) - 04/03/22 Annual physical exam(Discharge Diagnosis) - 04/03/22 PCOS (polycystic ovarian syndrome)(Discharge Diagnosis) - 04/03/22 Hidradenitis suppurativa(Discharge Diagnosis) - 04/03/22 Migraine headache(Discharge Diagnosis) - 04/03/22 Candidiasis, intertriginous(Discharge Diagnosis) - 04/03/22 Attending Physician: Eleuterio Capellan Allergies, Adverse Reactions, Alerts No Known Allergies Immunizations Given and Recorded Vaccine Date Status Refusal Reason influenza virus vaccine, inactivated 04/03/22 Give n influenza virus vaccine, inactivated 1 02/13/21 Gi kriss SARS-CoV-2 (COVID-19) mRNA-1273 vaccine 03/31/21 R ecorded SARS-CoV-2 (COVID-19) mRNA-1273 vaccine 09/24/20 R ecorded SARS-CoV-2 (COVID-19) mRNA-1273 vaccine 08/27/20 R ecorded tetanus/diphtheria/pertussis, acel(Tdap) 11/06/20 Given 1Result Comment: [facility]# ON THE BOX 18711-581-68 Medications Freestyle Lite Lancets See Instructions, # [...] Start Date: 04/04/22 Status: Ordered nystatin topical 062084 u/gm powder 1 application, Topically, 2 times [...] prescription is for a scheduleII opioid drug., Fabián, cm, 04/03/22 15:19:00 EST, Height... Start Date: 04/03/22 Status: Ordered rosuvastatin 10 mg oral tablet 1 tablet = 10 mg, By Mouth, Daily, # 30 tablet, 5 Refills, Maintenance, 01/17/22 8:46:00 EDT, Tablet, [facility], Partial fill upon patient request if the prescription is for a schedule II opioid drug., Fabián cm, 01/17/22 8:13:00 EDTJung... Start Date: 01/17/22 Status: Ordered Ventolin HFA [...] class I Confirmed Active Obesity Confirmed Active [place]-Schlatter's disease Confirmed Active Pilonidal cyst Confirmed Active Seizure Confirmed Active Fatty liver Confirmed Active Vertigo Confirmed Active Diagnosis Diagnosis Type Effective Dates Health Status Clinical Service Informant Asthma Discharge Diagnosis 04/03/22 Chronic GERD Discharge Diagnosis 04/03/22 Familial hypercholesteremia Discharge Diagnosis 04/03/22 Obese class I Discharge Diagnosis 04/03/22 Seizure Discharge Diagnosis 04/03/22 Annual physical exam Discharge Diagnosis 04/03/22 PCOS (polycystic ovarian syndrome) Discharge Diagnosis 04/03/22 Hidradenitis suppurativa Discharge Diagnosis 04/03/22 Migraine headache Discharge Diagnosis 04/03/22 Candidiasis, intertriginous Discharge Diagnosis 04/03/22 Vital Signs Most recent to oldest [Reference Range]: 1 Height 168 cm (04/03/22 3:19 PM) Weight 98.5 kg (04/03/22 3:19 PM) Oxygen Saturation [94-100 %] 100 % (04/03/22 3:19 PM) Pulse Rate [55-90 bpm] 102 bpm *H* (04/03/22 3:19 PM) Body Mass Index [18.5-24.99 kg/m2] 34.9 kg/m2 *>HHI* (04/03/22 3:19 PM) Blood Pressure [90-138/55-84 mm Hg] 109/ 67mm Hg (04/03/22 3:19 PM) Temperature [96.8-100.4 DegF] 97.4 DegF (04/03/22 3:19 PM) Mode of Delivery (Oxygen) Room air (04/03/22 3:19 PM) Blood pressure sites Arm, right (04/03/22 3:19 PM) Temperature Route Temporal (04/03/22 3:19 PM) Weight Obtained Via Standing scale (04/03/22 3:19 PM) Social History Social History Type Response Smoking Status Former smoker, quit more than 30 days ago entered on: 11/06/20 Sex Patient Care team information Care Team Personnel Name: Eleuterio Capellan Position: [facility] Associate Professional Member Role: PCP Address: Address: [address] [place] [address]- Care Team Related Persons Name: ROCIO GAINES Address: home [address] [place] [address] Name: RANDALL AHN Address: [place] [address]
--- OUTSIDE RECORDS SUMMARY | 2022-10-19 12:46 | XMS_ITS | Continuity of Care Document ---
Author Name Unknown Organization [facility] Juan Address [address] [place] [address]- Care Team Providers Care Web Solutions Architect Name Role Phone Eleuterio Capellan Primary Care Physi sampson [place] [facility] [place] 01/21/22 - 02/20/22 [facility] Adult [address] [place] [address]- Allergies, Adverse Reactions, Alerts No Known Allergies Immunizations Given and Recorded Vaccine Date Status Refusal Reason SARS-CoV-2 (COVID-19) mRNA-1273 vaccine 03/31/21 R ecorded SARS-CoV-2 (COVID-19) mRNA-1273 vaccine 09/24/20 R ecorded SARS-CoV-2 (COVID-19) mRNA-1273 vaccine 08/27/20 R ecorded influenza virus vaccine, inactivated 1 02/13/21 Gi kriss tetanus/diphtheria/pertussis, acel(Tdap) 11/06/20 Given 1Result Comment: [facility]# ON THE BOX 25754-846-92 Medications Freestyle Lite Lancets See Instructions, # [...] 8:29:00 EDT, Aerosol, Route to Pharmacy Electronically, [id number], [facility], 168, cm, 01/17/22 [...] class I Confirmed Active Obesity Confirmed Active [place]-Schlatter's disease Confirmed Active Immunity status testing Confirmed Active Pilonidal cyst Confirmed Active Seizure Confirmed Active Snores Confirmed Active Fatty liver Confirmed Active Poor dentition Confirmed Active Screening for tuberculosis Confirmed Active Social History Social History Type Response Smoking Status Former smoker, quit more than 30 days ago entered on: 11/06/20 Sex Patient Care team information Personnel Name: Eleuterio Capellan Address: Address: [address] [place] [address], [place] [address]-
--- OUTSIDE RECORDS SUMMARY | 2022-10-19 12:46 | XMS_ITS | Continuity of Care Document ---
Author Name Unknown Organization [facility] ter Address [address] [place] [address]- Care Team Providers Care Acid Pump Operator Name Role Phone Octavia Frankel NP Primary Care Physician [place] [facility] [place] - 04/14/[address] [address] Attending Physician: All HERNANDEZ, Aida Epps Admitting [...] kriss tetanus/diphtheria/pertussis, acel(Tdap) 11/06/20 Given 1Result Comment: [facility]# ON THE BOX 25160-884-12 Medications Augmentin 875 mg-125 mg oral tablet [...] 14:25:00 EDT, Aerosol, Route to Pharmacy Electronically, [id number], [facility], 168, cm, [...] Active Obese class II(Confirmed) Active Obesity(Confirmed) Active [place]-Schlatter's disease(Confirmed) Active Immunity status testing(Confirmed) Active Pilonidal cyst(Confirmed) Active Seizure(Confirmed) Active Snores(Confirmed) Active Fatty liver(Confirmed) Active Poor dentition(Confirmed) Active Screening for tuberculosis(Confirmed) Active Social History Social History Type Response Smoking Status Former smoker, quit more than 30 days ago entered on: 11/06/20 Sex
--- OUTSIDE RECORDS SUMMARY | 2022-10-19 12:46 | XMS_ITS | Continuity of Care Document ---
Author Name Unknown Organization [facility] Juan Address [address] [place] [address]- Care Team Providers Care Online Project Manager Name Role Phone Eleuterio Capellan Primary Care Physi sampson Encounter [facility] [place] Date(s): 07/30/22 - 08/29/22 [facility] Adult [address] [place] [address]- Allergies, Adverse Reactions, Alerts No Known Allergies Immunizations Given and Recorded Vaccine Date Status Refusal Reason influenza virus vaccine, inactivated 04/03/22 Give n influenza virus vaccine, inactivated 1 02/13/21 Gi kriss SARS-CoV-2 (COVID-19) mRNA-1273 vaccine 03/31/21 R ecorded SARS-CoV-2 (COVID-19) mRNA-1273 vaccine 09/24/20 R ecorded SARS-CoV-2 (COVID-19) mRNA-1273 vaccine 08/27/20 R ecorded tetanus/diphtheria/pertussis, acel(Tdap) 11/06/20 Given 1Result Comment: [facility]# ON THE BOX 39754-223-44 Medications Freestyle Lite Lancets See Instructions, # [...] DAY, # 60 tablet, 2 Refills, Maintenance, 07/30/22 12:37:00 EDT, [facility], 168, cm, 06/06/22 12:52:00 EST, Height, 92.4, kg, 10/02/20 9:03:00 EDT, Dry Weight Start Date: 07/30/22 Status: Ordered loratadine 10 mg oral tablet 10 mg, 1, tablet, By Mouth, Daily, # 30 tablet, Refills 5, Tot. Refills 5, Maintenance, 08/21/22 6:47:00 EDT, Route to Pharmacy Electronically, [facility], Partial fill upon patientrequest if the prescription is for a schedule II opioid... Start Date: 08/21/22 Status: Ordered meclizine 25 mg oral tablet [...] Associate Professional Member Role: PCP Address: Address: [address] [place] [address] Adult [place], [place] [address] Care Team Related Persons Name: ROCIO GAINES Address: home [address] [place] [address] Name: RANDALL AHN Address: [place] [address]
--- OUTSIDE RECORDS SUMMARY | 2022-10-19 12:46 | XMS_ITS | Continuity of Care Document ---
Author Name Unknown Organization [facility] Juan Address [address] [place] [address]- Care Team Providers Care Decommissioning Well Site Manager Name Role Phone Marlys HERNANDEZ, Octavia Primary Care Physician Encounter [facility] [place] Date(s): 10/02/21 - 11/01/21 [facility] Adult [address] [place] [address]- Attending Physician: AdmJamin [email or web address] Admitting Physician: AdmtrFabian Referring Physician: Admtr, Ar8 Allergies, Adverse Reactions, Alerts No Known Allergies Immunizations Given and Recorded Vaccine Date Status Refusal Reason SARS-CoV-2 (COVID-19) mRNA-1273 vaccine 03/31/21 R ecorded SARS-CoV-2 (COVID-19) mRNA-1273 vaccine 09/24/20 R ecorded SARS-CoV-2 (COVID-19) mRNA-1273 vaccine 08/27/20 R ecorded influenza virus vaccine, inactivated 1 02/13/21 Gi kriss tetanus/diphtheria/pertussis, acel(Tdap) 11/06/20 Given 1Result Comment: [facility]# ON THE BOX 64072-504-30 Medications cyclobenzaprine 10 mg oral tablet 10 [...] 14:25:00 EDT, Aerosol, Route to Pharmacy Electronically, [id number], [facility], 168, cm, [...] Active Obese class II(Confirmed) Active Obesity(Confirmed) Active [place]-Schlatter's disease(Confirmed) Active Immunity status testing(Confirmed) Active Pilonidal cyst(Confirmed) Active Seizure(Confirmed) Active Snores(Confirmed) Active Fatty liver(Confirmed) Active Poor dentition(Confirmed) Active Screening for tuberculosis(Confirmed) Active Social History Social History Type Response Smoking Status Former smoker, quit more than 30 days ago entered on: 11/06/20 Sex
--- OUTSIDE RECORDS SUMMARY | 2022-10-19 12:46 | XMS_ITS | Continuity of Care Document ---
Author Name Unknown Organization [facility] Juan Address [address] [place] [address]- Care Team Providers Care Auto Body Mechanic Name Role Phone Octavia Frankel NP Primary Care Physician [place] [facility] [place]/27/21 - 03/06/21 [facility] Adult [address] [place] [address]- Encounter Diagnosis Chronic GERD(Discharge Diagnosis) - 02/27/21 Pilonidal cyst(Discharge Diagnosis) - 02/27/21 Dizziness(Discharge Diagnosis) - 02/27/21 Chronic headaches(Discharge Diagnosis) - 02/27/21 Chest wall pain(Discharge Diagnosis) - 02/27/21 Immunity status testing(Discharge Diagnosis) - 02/27/21 Lump in armpit(Discharge Diagnosis) - 02/27/21 Screening for tuberculosis(Discharge Diagnosis) - 02/27/21 Attending Physician: Octavia Frankel NP Allergies, Adverse Reactions, Alerts Substance Reaction Severity Status NKA Active Immunizations Given and Recorded Vaccine Date Status Refusal Reason influenza virus vaccine, inactivated 1 02/13/21 Gi kriss tetanus/diphtheria/pertussis, acel(Tdap) 11/06/20 Given SARS-CoV-2 (COVID-19) mRNA-1273 vaccine 09/24/20 R ecorded SARS-CoV-2 (COVID-19) mRNA-1273 vaccine 08/27/20 R ecorded 1Result Comment: [facility]# ON THE [address] 93452-661-84 Medications diclofenac 1% topical gel 1 application, [...] 14:25:00 EDT, Aerosol, Route to Pharmacy Electronically, [id number], [facility], 168, cm, [...] armpit(Confirmed) Active Migraine headache(Confirmed) Active Obesity(Confirmed) Active [place]-Schlatter's disease(Confirmed) Active Immunity status testing(Confirmed) Active Pilonidal cyst(Confirmed) Active Seizure(Confirmed) Active Snores(Confirmed) Active Fatty liver(Confirmed) Active Poor dentition(Confirmed) Active Screening for tuberculosis(Confirmed) Active Diagnosis Diagnosis Type Effective Dates Health Status Clinical Service Informant Chronic GERD Discharge Diagnosis 02/27/21 Pilonidal cyst Discharge Diagnosis 02/27/21 Dizziness Discharge Diagnosis 02/27/21 Chronic headaches Discharge Diagnosis 02/27/21 Chest wall pain Discharge Diagnosis 02/27/21 Immunity status testing Discharge Diagnosis 02/27/21 Lump in armpit Discharge Diagnosis 02/27/21 Screening for tuberculosis Discharge Diagnosis 02/27/21 Vital Signs Most recent to oldest [Reference Range]: 1 Height 168 cm (02/27/21 9:52 AM) Weight 100.8 kg (02/27/21 9:52 AM) Oxygen Saturation [94-100 %] 98 % (02/27/21 9:52 AM) Pulse Rate [55-90 bpm] 66 bpm (02/27/21 9:52 AM) Body Mass Index [18.5-24.99] 35.71 *>HHI* (02/27/21 9:52 AM) Blood Pressure [90-138/55-84 mm Hg] 109/ 59mm Hg (02/27/21 9:52 AM) Blood pressure sites Arm, right (02/27/21 9:52 AM) Social History Social History Type Response Smoking Status Former smoker, quit more than 30 days ago entered on: 11/06/20 Sex
--- OUTSIDE RECORDS SUMMARY | 2022-10-19 12:46 | XMS_ITS | Continuity of Care Document ---
Author Name Unknown Organization [facility] Juan Address [address] [place] [address]- Care Team Providers Care Package Checker Name Role Phone Eleuterio Capellan Primary Care Physi sampson Encounter [facility] Date(s): 01/22/22 - 02/21/22 [facility] Adult [address] [place] [address]- Allergies, Adverse Reactions, Alerts No Known Allergies Immunizations Given and Recorded Vaccine Date Status Refusal Reason SARS-CoV-2 (COVID-19) mRNA-1273 vaccine 03/31/21 R ecorded SARS-CoV-2 (COVID-19) mRNA-1273 vaccine 09/24/20 R ecorded SARS-CoV-2 (COVID-19) mRNA-1273 vaccine 08/27/20 R ecorded influenza virus vaccine, inactivated 1 02/13/21 Gi kriss tetanus/diphtheria/pertussis, acel(Tdap) 11/06/20 Given 1Result Comment: [facility]# ON THE BOX 05962-107-59 Medications Freestyle Lite Lancets See Instructions, # [...] 8:29:00 EDT, Aerosol, Route to Pharmacy Electronically, [id number], [facility], 168, cm, 01/17/22 [...] class I Confirmed Active Obesity Confirmed Active [place]-Schlatter's disease Confirmed Active Immunity status testing Confirmed Active Pilonidal cyst Confirmed Active Seizure Confirmed Active Snores Confirmed Active Fatty liver Confirmed Active Poor dentition Confirmed Active Screening for tuberculosis Confirmed Active Social History Social History Type Response Smoking Status Former smoker, quit more than 30 days ago entered on: 11/06/20 Sex Patient Care team information Personnel Name: Eleuterio Capellan Address: Address: [address] [place] [address], [place] [address]-
--- OUTSIDE RECORDS SUMMARY | 2022-10-19 12:46 | XMS_ITS | Continuity of Care Document ---
Author Name Unknown Organization [facility] Juna Address [address] [place] [address]- Care Team Providers Care Shaper Hand Name Role Phone Marlys HERNANDEZ, Octavia Primary Care Physician [phone] Encounter [facility] [place] Date(s): 02/13/21 - 03/15/21 [facility] Adult [address] [place] [address]- Allergies, Adverse Reactions, Alerts Substance Reaction Severity Status NKA Active Immunizations Given and Recorded Vaccine Date Status Refusal Reason influenza virus vaccine, inactivated 1 02/13/21 Gi kriss tetanus/diphtheria/pertussis, acel(Tdap) 11/06/20 Given SARS-CoV-2 (COVID-19) mRNA-1273 vaccine 09/24/20 R ecorded SARS-CoV-2 (COVID-19) mRNA-1273 vaccine 08/27/20 R ecorded 1Result Comment: [facility]# ON THE [address] 54558-998-77 Medications diclofenac 1% topical gel 1 application, [...] 0, Route to Pharmacy Electronically, [facility], 168, cm, 03/09/21 12:58:00 EST, [...] 14:25:00 EDT, Aerosol, Route to Pharmacy Electronically, [id number], [facility], 168, cm, [...] Active Obese class II(Confirmed) Active Obesity(Confirmed) Active [place]-Schlatter's disease(Confirmed) Active Immunity status testing(Confirmed) Active Pilonidal cyst(Confirmed) Active Seizure(Confirmed) Active Snores(Confirmed) Active Fatty liver(Confirmed) Active Poor dentition(Confirmed) Active Screening for tuberculosis(Confirmed) Active Social History Social History Type Response Smoking Status Former smoker, quit more than 30 days ago entered on: 11/06/20 Sex
--- OUTSIDE RECORDS SUMMARY | 2022-10-19 12:46 | XMS_ITS | Continuity of Care Document ---
Author Name Unknown Organization [facility] Juan Address [address] [place] [address]- Care Team Providers Care Adjunct Professor Of Law Name Role Phone Eleuterio Capellan Primary Care Physi sampson En[place] [facility] [place] Date(s): 06/17/22 - 07/17/22 [facility] Adult [address] [place] [address]- Allergies, Adverse Reactions, Alerts No Known Allergies Immunizations Given and Recorded Vaccine Date Status Refusal Reason influenza virus vaccine, inactivated 04/03/22 Give n influenza virus vaccine, inactivated 1 02/13/21 Gi kriss SARS-CoV-2 (COVID-19) mRNA-1273 vaccine 03/31/21 R ecorded SARS-CoV-2 (COVID-19) mRNA-1273 vaccine 09/24/20 R ecorded SARS-CoV-2 (COVID-19) mRNA-1273 vaccine 08/27/20 R ecorded tetanus/diphtheria/pertussis, acel(Tdap) 11/06/20 Given 1Result Comment: [facility]# [address] THE [address] 86998-351-95 Medications Freestyle Lite Lancets See Instructions, # [...] Associate Professional Member Role: PCP Address: Address: [address] [place] [address] Adult Medicine [place], [place] [address] Care Team Related Persons Name: ROCIO GAINES Address: home [address] [place] [address] Name: RANDALL AHN Address: [place] [address]
--- OUTSIDE RECORDS SUMMARY | 2022-10-19 12:46 | XMS_ITS | Continuity of Care Document ---
Author Name Unknown Organization [facility] Juan lt Address [address] [place] [address]- Care Team Providers Care Information Management Officer Name Role Phone Eleuterio Capellan Primary Care Physi sampson Encounter [facility] [place] Date(s): 04/16/22 - 05/16/22 [facility] Adult [address] [place] [address]- Allergies, Adverse Reactions, Alerts No Known Allergies Immunizations Given and Recorded Vaccine Date Status Refusal Reason influenza virus vaccine, inactivated 04/03/22 Give n influenza virus vaccine, inactivated 1 02/13/21 Gi kriss SARS-CoV-2 (COVID-19) mRNA-1273 vaccine 03/31/21 R ecorded SARS-CoV-2 (COVID-19) mRNA-1273 vaccine 09/24/20 R ecorded SARS-CoV-2 (COVID-19) mRNA-1273 vaccine 08/27/20 R ecorded tetanus/diphtheria/pertussis, acel(Tdap) 11/06/20 Given 1Result Comment: [facility]# ON THE [address] 58512-047-99 Medications Freestyle Lite Lancets See Instructions, # [...] class I Confirmed Active Obesity Confirmed Active [place]-Schlatter's disease Confirmed Active Pilonidal cyst Confirmed Active Seizure Confirmed Active Fatty liver Confirmed Active Vertigo Confirmed Active Social History Social History Type Response Smoking Status Former smoker, quit more than 30 days ago entered on: 11/06/20 Sex Patient Care team information Care Team Personnel Name: Eleuterio Capellan Position: S PCO Associate Professional Member Role: PCP Address: Address: [address] [place] [address] [place] [address]- Care Team Related Persons Name: ROCIO GAINES Address: home [address] [place] [address] Name: RANDALL AHN Address: [place] [address]
--- OUTSIDE RECORDS SUMMARY | 2022-10-19 12:46 | XMS_ITS | Continuity of Care Document ---
Author Name Unknown Organization [facility] Juan Address [address] [place] [address]- Care Team Providers Care Securities Attorney Name Role Phone Eleuterio Capellan Primary Care Physi sampson Encounter [facility] [place] Date(s): 06/17/22 - 07/19/22 [facility] Adult [address] [place] [address]- Attending Physician: Eleuterio Capellan Allergies, Adverse Reactions, Alerts No Known Allergies Immunizations Given and Recorded Vaccine Date Status Refusal Reason influenza virus vaccine, inactivated 04/03/22 Give n influenza virus vaccine, inactivated 1 02/13/21 Gi kriss SARS-CoV-2 (COVID-19) mRNA-1273 vaccine 03/31/21 R ecorded SARS-CoV-2 (COVID-19) mRNA-1273 vaccine 09/24/20 R ecorded SARS-CoV-2 (COVID-19) mRNA-1273 vaccine 08/27/20 R ecorded tetanus/diphtheria/pertussis, acel(Tdap) 11/06/20 Given 1Result Comment: [facility]# ON THE [address] 33390-228-57 Medications Freestyle Lite Lancets See Instructions, # [...] Care Team Personnel Name: Eleuterio Capellan Position: [facility] PCO Associate Professional Member Role: PCP Address: Address: [address] [place] [address] [place] [address]- Care Team Related Persons Name: ROCIO GAINES Address: home [address] [place] [address] Name: RANDALL AHN Address: [place] [address]
--- OUTSIDE RECORDS SUMMARY | 2022-10-19 12:46 | XMS_ITS | Continuity of Care Document ---
Author Name Unknown Organization [facility] Address [address] [place] [address] [address], [address] [place] [address]- Care Team Providers Care Coin Machine Assembler Name Role Phone Not on Staff, PCP Primary Care Physician Unavail able En[place] [facility] [place] Date(s): 10/19/20 - 10/26/20 [facility] [address] [place] [address], [address] [place], [place] [address] Attending Physician: Roma Parsons MD Allergies, Adverse Reactions, Alerts Substance Reaction Severity Status NKA Active Medications gabapentin 300 mg oral capsule 300 mg, 1, capsule, By Mouth, 3 times a day, # 63 capsule, Refills 0, Tot. Refills 0, Maintenance, 10/03/20 10:20:00 EDT, Route to Pharmacy Electronically, [facility], Partial fill uponpatient request [...] oldest [Reference Range]: 1 Height 168 cm (10/19/20 12:51 PM) Weight 95.6 kg (10/19/20 12:51 PM) Oxygen Saturation [94-100 %] 98 % (10/19/20 12:51 PM) Pulse Rate [55-90 bpm] 91 bpm *H* (10/19/20 12:51 PM) Body Mass Index [18.5-24.99] 33.87 *>HHI* (10/19/20 12:51 PM) Blood Pressure [90-138/55-84 mm Hg] 120/ 76mm Hg (10/19/20 12:51 PM) Temperature [96.8-100.4 DegF] 97.9 DegF (10/19/20 12:51 PM) Mode of Delivery (Oxygen) Room air (10/19/20 12:51 PM) Blood pressure sites Arm, right (10/19/20 12:51 PM) Temperature Route Temporal (10/19/20 12:51 PM) Weight Obtained Via Standing scale (10/19/20 12:51 PM)
--- OUTSIDE RECORDS SUMMARY | 2022-10-19 12:46 | XMS_ITS | Continuity of Care Document ---
Author Name Unknown Organization [facility] Address [address] [place] [address]- Care Team Providers Care Implementation Analyst Name Role Phone Eleuterio Capellan Primary Care Physi sampson En[facility] [place] Date(s): 08/26/22 - 09/25/22 [facility] [address] [place], [place] [address] Allergies, Adverse Reactions, Alerts No Known Allergies Immunizations Given and Recorded Vaccine Date Status Refusal Reason influenza virus vaccine, inactivated 04/03/22 Give n influenza virus vaccine, inactivated 1 02/13/21 Gi kriss SARS-CoV-2 (COVID-19) mRNA-1273 vaccine 03/31/21 R ecorded SARS-CoV-2 (COVID-19) mRNA-1273 vaccine 09/24/20 R ecorded SARS-CoV-2 (COVID-19) mRNA-1273 vaccine 08/27/20 R ecorded tetanus/diphtheria/pertussis, acel(Tdap) 11/06/20 Given 1Result Comment: [facility]# ON THE BOX 37813-608-68 Medications clindamycin topical 2% cream See Instructions, Apply to affected areas twice daily., # 40 Gm, 1 Refills, Maintenance, 09/11/22 12:34:00 EDT, [facility], Partial fill upon patient request if the prescription is for a schedule II opioid drug., Apply to affected areas... Start Date: 09/11/22 Status: Ordered cyclobenzaprine 10 mg oral tablet 10 mg, 1, tablet, By Mouth, 3 times a day, PRN, # 42 tablet, Refills 0, Tot. Refills 0, Acute 10/12/22 12:00:00 EDT, Spasm for spasm, 09/11/22 11:59:00 EDT, Route to Pharmacy Electronically, [facility], Partial fill upon patient reques... Start Date: 09/11/22 Stop Date: 10/12/22 Status: Ordered Freestyle Lite Lancets See Instructions, [...] class I Confirmed Active Obesity Confirmed Active [place]-Schlatter's disease Confirmed Active Pilonidal cyst Confirmed Active Seizure Confirmed Active Fatty liver Confirmed Active Vertigo Confirmed Active Social History Social History Type Response Smoking Status Former smoker, quit more than 30 days ago entered on: 11/06/20 Sex Patient Care team information Care Team Personnel Name: Eleuterio Capellan Position: S PCO Associate Professional Member Role: PCP Address: Address: [address] [place] [address] [place] [address]- Care Team Related Persons Name: ROCIO GAINES Address: home [address] [place] [address] Name: RANDALL AHN Address: [place] [address]
--- OUTSIDE RECORDS SUMMARY | 2022-10-19 12:46 | XMS_ITS | Continuity of Care Document ---
Author Name Unknown Organization [facility] Juan Address [address] [place] [address]- Care Team Providers Care Mortgage Manager Name Role Phone Marlys HERNANDEZ, Octavia Primary Care Physician Encounter [facility] [place] Date(s): 02/13/21 - 03/15/21 [facility] Adult [address] [place] [address]- Allergies, Adverse Reactions, Alerts Substance Reaction Severity Status NKA Active Immunizations Given and Recorded Vaccine Date Status Refusal Reason influenza virus vaccine, inactivated 1 02/13/21 Gi kriss tetanus/diphtheria/pertussis, acel(Tdap) 11/06/20 Given SARS-CoV-2 (COVID-19) mRNA-1273 vaccine 09/24/20 R ecorded SARS-CoV-2 (COVID-19) mRNA-1273 vaccine 08/27/20 R ecorded 1Result Comment: [facility]# ON THE BOX 76688-247-72 Medications diclofenac 1% topical gel 1 application, [...] 14:25:00 EDT, Aerosol, Route to Pharmacy Electronically, [id number], [facility], 168, cm, [...] Active Obese class II(Confirmed) Active Obesity(Confirmed) Active [place]-Schlatter's disease(Confirmed) Active Immunity status testing(Confirmed) Active Pilonidal cyst(Confirmed) Active Seizure(Confirmed) Active Snores(Confirmed) Active Fatty liver(Confirmed) Active Poor dentition(Confirmed) Active Screening for tuberculosis(Confirmed) Active Social History Social History Type Response Smoking Status Former smoker, quit more than 30 days ago entered on: 11/06/20 Sex
--- OUTSIDE RECORDS SUMMARY | 2022-10-19 12:46 | XMS_ITS | Continuity of Care Document ---
Author Name Unknown Organization [facility] Juan Address [address] [place] [address]- Care Team Providers Care Yeast Fermentation Attendant Name Role Phone Eleuterio Capellan Primary Care Physi sampson [place] [facility] [place](s[place] 07/02/22 - 08/01/22 [facility] Adult [address] [place] [address]- Allergies, Adverse Reactions, Alerts No Known Allergies Immunizations Given and Recorded Vaccine Date Status Refusal Reason influenza virus vaccine, inactivated 04/03/22 Give n influenza virus vaccine, inactivated 1 02/13/21 Gi kriss SARS-CoV-2 (COVID-19) mRNA-1273 vaccine 03/31/21 R ecorded SARS-CoV-2 (COVID-19) mRNA-1273 vaccine 09/24/20 R ecorded SARS-CoV-2 (COVID-19) mRNA-1273 vaccine 08/27/20 R ecorded tetanus/diphtheria/pertussis, acel(Tdap) 11/06/20 Given 1Result Comment: [facility]# ON THE [address] 57011-037-26 Medications Freestyle Lite Lancets See Instructions, # [...] class I Confirmed Active Obesity Confirmed Active [place]-Schlatter's disease Confirmed Active Pilonidal cyst Confirmed Active Seizure Confirmed Active Fatty liver Confirmed Active Vertigo Confirmed Active Social History Social History Type Response Smoking Status Former smoker, quit more than 30 days ago entered on: 11/06/20 Sex Patient Care team information Care Team Personnel Name: Eleuterio Capellan Position: S PCO Associate Professional Member Role: PCP Address: Address: [address] [place] [address] Medicine [place], [place] [address] Care Team Related Persons Name: ROCIO GAINES Address: home [address] [place] [address] Name: RANDALL AHN Address: [place] [address]
--- OUTSIDE RECORDS SUMMARY | 2022-10-19 12:46 | XMS_ITS | Continuity of Care Document ---
Author Name Unknown Organization [facility] Address [address] [place] [address]- Care Team Providers Care Bankruptcy Attorney Name Role Phone Eleuterio Capellan Primary Care Physi sampson En[place] [facility] [place] Date(s): 04/23/22 - 05/23/22 [facility] [address] [place] [address] [id number] Allergies, Adverse Reactions, Alerts No Known Allergies Immunizations Given and Recorded Vaccine Date Status Refusal Reason influenza virus vaccine, inactivated 04/03/22 Give n influenza virus vaccine, inactivated 1 02/13/21 Gi kriss SARS-CoV-2 (COVID-19) mRNA-1273 vaccine 03/31/21 R ecorded SARS-CoV-2 (COVID-19) mRNA-1273 vaccine 09/24/20 R ecorded SARS-CoV-2 (COVID-19) mRNA-1273 vaccine 08/27/20 R ecorded tetanus/diphtheria/pertussis, acel(Tdap) 11/06/20 Given 1Result Comment: [facility]# ON THE BOX 13106-813-99 Medications Freestyle Lite Lancets See Instructions, # [...] Dry Weight Start Date: 05/22/22 Status: Ordered Ventolin HFA 108 mcg/inh inhalation [...] class I Confirmed Active Obesity Confirmed Active [place]-Schlatter's disease Confirmed Active Pilonidal cyst Confirmed Active Seizure Confirmed Active Fatty liver Confirmed Active Vertigo Confirmed Active Social History Social History Type Response Smoking Status Former smoker, quit more than 30 days ago entered on: 11/06/20 Sex Patient Care team information Care Team Personnel Name: Eleuterio Capellan Position: S PCO Associate Professional Member Role: PCP Address: Address: [address] [place] [address]- [place] Care Team Related Persons Name: ROCIO GAINES Address: home [address] [place] [address] Name: RANDALL AHN Address: [place] [address]
--- OUTSIDE RECORDS SUMMARY | 2022-10-19 12:46 | XMS_ITS | Continuity of Care Document ---
Author Name Unknown Organization [facility] Juan Address [address] [place] [address]- Care Team Providers Care Cruise Consultant Name Role Phone Marlys HERNANDEZ, Octavia Primary Care Physician [phone] Encounter [facility] [place] Date(s): 12/17/21 - 01/16/22 [facility] Adult [address] [place] [address]- Allergies, Adverse Reactions, Alerts No Known Allergies Immunizations Given and Recorded Vaccine Date Status Refusal Reason SARS-CoV-2 (COVID-19) mRNA-1273 vaccine 03/31/21 R ecorded SARS-CoV-2 (COVID-19) mRNA-1273 vaccine 09/24/20 R ecorded SARS-CoV-2 (COVID-19) mRNA-1273 vaccine 08/27/20 R ecorded influenza virus vaccine, inactivated 1 02/13/21 Gi kriss tetanus/diphtheria/pertussis, acel(Tdap) 11/06/20 Given 1Result Comment: [facility]# ON THE BOX 78241-175-98 Medications cyclobenzaprine 10 mg oral tablet 10 [...] # 15 tablet, 0 Refills, [facility], 168, cm, 04/09/21 13:38:00 EST, Height, 92.4, kg, 10/02/20 9:03:00 EDT, Dry Weight Start Date: 05/21/21 Status: Ordered omeprazole 20 mg oral delayed release tablet 1 tablet = 20 mg, By Mouth, 2 times a day, # 30 tablet, 0 Refills, Maintenance, 02/27/21 10:32:00 EDT, EC Tablet, [facility], Partial fill upon patient request if the prescription is for a schedule II opioid drug., 168, cm, 02/27/21 9:52... Start Date: 02/27/21 Status: Ordered ProAir HFA 90 mcg/inh inhalation aerosol with adapter 2, puffs, Inhalation, Every 6 hours, PRN, # 8.5 Gm, Refills 2, Tot. Refills 2, Maintenance, 11/06/20 14:25:00 EDT, Aerosol, Route to Pharmacy Electronically, [id number], [facility], 168, cm, 11/06/20 14:02:00 ED... [...] Active Obese class II(Confirmed) Active Obesity(Confirmed) Active [place]-Schlatter's disease(Confirmed) Active Immunity status testing(Confirmed) Active Pilonidal cyst(Confirmed) Active Seizure(Confirmed) Active Snores(Confirmed) Active Fatty liver(Confirmed) Active Poor dentition(Confirmed) Active Screening for tuberculosis(Confirmed) Active Social History Social History Type Response Smoking Status Former smoker, quit more than 30 days ago entered on: 11/06/20 Sex Care Team Personnel Name: Octavia Frankel NP Address: [address] [place] [id number]
--- OUTSIDE RECORDS SUMMARY | 2022-10-19 12:46 | XMS_ITS | Continuity of Care Document ---
Author Name Unknown Organization [facility] Address [address] [place] [address]- Care Team Providers Care Telegraph Plant Maintainer Name Role Phone Marlys HERNANDEZ, Octavia Primary Care Physician [place] [facility] [place] 12/14/20 - 01/13/[address] [address]- Allergies, Adverse Reactions, Alerts Substance Reaction Severity [...] 14:25:00 EDT, Aerosol, Route to Pharmacy Electronically, [id number], [facility], 168, cm, [...]
--- OUTSIDE RECORDS SUMMARY | 2022-10-19 12:46 | XMS_ITS | Continuity of Care Document ---
Author Name Unknown Organization [facility] Juan Address [address] [place] [address]- Care Team Providers Care Hotel Reservationist Name Role Phone Marlys HERNANDEZ, Octavia Primary Care Physician [phone] [place] [facility] [place](s[place] 06/11/21 - 07/11/21 [facility] Adult [address] [place] [address]- Attending Physician: Admtr, Ar8 Admitting Physician: Admtr, [...] Given 1Result Comment: [facility]# ON THE [address] [phone] Medications cyclobenzaprine 10 mg oral tablet 10 [...] 14:25:00 EDT, Aerosol, Route to Pharmacy Electronically, [id number], [facility], 168, cm, 11/06/20 14:02:00 ED... Start Date: 11/06/20 Status: Ordered rosuvastatin 10 mg oral tablet 1 tablet = 10 mg, By Mouth, Daily, # 30 tablet, 5 Refills, Maintenance, 03/14/21 8:10:00 EST, Tablet, [facility], Partial fill upon patient request if the prescription is for a schedule II opioid drug., 168, cm, 03/09/21 12:58:00 EST, [facility].. Start Date: 03/14/21 Status: Ordered Problem List [...]
--- OUTSIDE RECORDS SUMMARY | 2022-10-19 12:46 | XMS_ITS | Continuity of Care Document ---
Author Name Unknown Organization [facility] Juan Address [address] [place] [address]- Care Team Providers Care Director Of Teaching And Learning Name Role Phone Marlys HERNANDEZ, Octavia Primary Care Physician Encounter [facility] Date(s): 03/09/21 - 04/08/21 [facility] Adult [address] [place] [address]- Allergies, Adverse Reactions, Alerts Substance Reaction Severity Status NKA Active Immunizations Given and Recorded Vaccine Date Status Refusal Reason influenza virus vaccine, inactivated 1 02/13/21 Gi kriss tetanus/diphtheria/pertussis, acel(Tdap) 11/06/20 Given SARS-CoV-2 (COVID-19) mRNA-1273 vaccine 09/24/20 R ecorded SARS-CoV-2 (COVID-19) mRNA-1273 vaccine 08/27/20 R ecorded 1Result Comment: [facility]# ON THE [address] 02209-517-72 Medications diclofenac 1% topical gel 1 application, [...] 14:25:00 EDT, Aerosol, Route to Pharmacy Electronically, [id number], [facility], 168, cm, [...] Active Obese class II(Confirmed) Active Obesity(Confirmed) Active [place]-Schlatter's disease(Confirmed) Active Immunity status testing(Confirmed) Active Pilonidal cyst(Confirmed) Active Seizure(Confirmed) Active Snores(Confirmed) Active Fatty liver(Confirmed) Active Poor dentition(Confirmed) Active Screening for tuberculosis(Confirmed) Active Social History Social History Type Response Smoking Status Former smoker, quit more than 30 days ago entered on: 11/06/20 Sex
--- OUTSIDE RECORDS SUMMARY | 2022-10-19 12:47 | XMS_ITS | Continuity of Care Document ---
Author Name Unknown Organization [facility] Juan Address [address] [place] [address]- Care Team Providers Care Crime Lab Technician Name Role Phone Marlys HERNANDEZ, Octavia Primary Care Physician [phone] Encounter [facility] Date(s): 02/26/21 - 03/28/21 [facility] Adult [address] [place] [address]- Allergies, Adverse Reactions, Alerts Substance Reaction Severity Status NKA Active Immunizations Given and Recorded Vaccine Date Status Refusal Reason influenza virus vaccine, inactivated 1 02/13/21 Gi kriss tetanus/diphtheria/pertussis, acel(Tdap) 11/06/20 Given SARS-CoV-2 (COVID-19) mRNA-1273 vaccine 09/24/20 R ecorded SARS-CoV-2 (COVID-19) mRNA-1273 vaccine 08/27/20 R ecorded 1Result Comment: [facility]# ON THE [address] [phone] Medications diclofenac 1% topical gel 1 application, [...] 14:25:00 EDT, Aerosol, Route to Pharmacy Electronically, [id number], [facility], 168, cm, 11/06/20 14:02:00 ED... Start Date: 11/06/20 Status: Ordered rosuvastatin 10 mg oral tablet 1 tablet = 10 mg, By Mouth, Daily, # 30 tablet, 5 Refills, Maintenance, 03/14/21 8:10:00 EST, Tablet, [facility], Partial fill upon patient request [...] Active Obese class II(Confirmed) Active Obesity(Confirmed) Active [place]-Schlatter's disease(Confirmed) Active Immunity status testing(Confirmed) Active Pilonidal cyst(Confirmed) Active Seizure(Confirmed) Active Snores(Confirmed) Active Fatty liver(Confirmed) Active Poor dentition(Confirmed) Active Screening for tuberculosis(Confirmed) Active Social History Social History Type Response Smoking Status Former smoker, quit more than 30 days ago entered on: 11/06/20 Sex
--- OUTSIDE RECORDS SUMMARY | 2022-10-19 12:47 | XMS_ITS | Continuity of Care Document ---
Author Name Unknown Organization [facility] Juan Address [address] [place] [address]- Care Team Providers Care Shank Tapper Name Role Phone Marlys HERNANDEZ, Octavia Primary Care Physician Encounter [facility] [place] Date(s): 04/09/21 - 05/16/21 [facility] Adult [address] [place] [address]- Attending Physician: Octavia Frankel NP Referring Physician: Castillo Brito MD Allergies, Adverse Reactions, Alerts No Known Allergies Immunizations Given and Recorded Vaccine Date Status Refusal Reason SARS-CoV-2 (COVID-19) mRNA-1273 vaccine 03/31/21 R ecorded SARS-CoV-2 (COVID-19) mRNA-1273 vaccine 09/24/20 R ecorded SARS-CoV-2 (COVID-19) mRNA-1273 vaccine 08/27/20 R ecorded influenza virus vaccine, inactivated 1 02/13/21 Gi kriss tetanus/diphtheria/pertussis, acel(Tdap) 11/06/20 Given 1Result Comment: [facility]# ON THE [address] 39867-381-27 Medications diclofenac 1% topical gel 1 application, [...] 14:25:00 EDT, Aerosol, Route to Pharmacy Electronically, [id number], [facility], 168, cm, [...] Active Obese class II(Confirmed) Active Obesity(Confirmed) Active [place]-Schlatter's disease(Confirmed) Active Immunity status testing(Confirmed) Active Pilonidal cyst(Confirmed) Active Seizure(Confirmed) Active Snores(Confirmed) Active Fatty liver(Confirmed) Active Poor dentition(Confirmed) Active Screening for tuberculosis(Confirmed) Active Social History Social History Type Response Smoking Status Former smoker, quit more than 30 days ago entered on: 11/06/20 Sex
--- OUTSIDE RECORDS SUMMARY | 2022-10-19 12:47 | XMS_ITS | Continuity of Care Document ---
Author Name Unknown Organization [facility] Juan Address [address] [place] [address]- Care Team Providers Care Airplane Designer Name Role Phone Marlys HERNANDEZ, Octavia Primary Care Physician [phone] [place] [facility] [place] 04/09/21 - 05/09/21 [facility] Adult [address] [place] [address]- Allergies, Adverse Reactions, Alerts Substance Reaction Severity Status NKA Active Immunizations Given and Recorded Vaccine Date Status Refusal Reason SARS-CoV-2 (COVID-19) mRNA-1273 vaccine 03/31/21 R ecorded SARS-CoV-2 (COVID-19) mRNA-1273 vaccine 09/24/20 R ecorded SARS-CoV-2 (COVID-19) mRNA-1273 vaccine 08/27/20 R ecorded influenza virus vaccine, inactivated 1 02/13/21 Gi kriss tetanus/diphtheria/pertussis, acel(Tdap) 11/06/20 Given 1Result Comment: [facility]# ON THE [address] 93362-868-06 Medications diclofenac 1% topical gel 1 application, [...] 14:25:00 EDT, Aerosol, Route to Pharmacy Electronically, [id number], [facility], 168, cm, 11/06/20 14:02:00 [...]
--- OUTSIDE RECORDS SUMMARY | 2022-10-19 12:47 | XMS_ITS | Continuity of Care Document ---
Author Name Unknown Organization [facility] Juan Address [address] [place] [address]- Care Team Providers Care Investigations Consultant Name Role Phone Eleuterio Capellan Primary Care Physi sampson [place] [facility] 03/14[place]22 - 04/13/22 [facility] Adult [address] [place] [address]- Allergies, Adverse Reactions, Alerts No Known Allergies Immunizations Given and Recorded Vaccine Date Status Refusal Reason influenza virus vaccine, inactivated 04/03/22 Give n influenza virus vaccine, inactivated 1 02/13/21 Gi kriss SARS-CoV-2 (COVID-19) mRNA-1273 vaccine 03/31/21 R ecorded SARS-CoV-2 (COVID-19) mRNA-1273 vaccine 09/24/20 R ecorded SARS-CoV-2 (COVID-19) mRNA-1273 vaccine 08/27/20 R ecorded tetanus/diphtheria/pertussis, acel(Tdap) 11/06/20 Given 1Result Comment: [facility]# ON THE [address] 99329-482-60 Medications Freestyle Lite Lancets See Instructions, # [...] Start Date: 04/04/22 Status: Ordered nystatin topical 126657 u/gm powder 1 application, Topically, 2 times [...] class I Confirmed Active Obesity Confirmed Active [place]-Schlatter's disease Confirmed Active Pilonidal cyst Confirmed Active Seizure Confirmed Active Fatty liver Confirmed Active Vertigo Confirmed Active Social History Social History Type Response Smoking Status Former smoker, quit more than 30 days ago entered on: 11/06/20 Sex Patient Care team information Care Team Personnel Name: Eleuterio Capellan Position: [facility] PCO Associate Professional Member Role: PCP Address: Address: [address] [place] [address] [place] [address]- Care Team Related Persons Name: ROCIO GAINES Address: home [address] [place] [address] Name: RANDALL AHN Address: [place] [address]
--- OUTSIDE RECORDS SUMMARY | 2022-10-19 12:47 | XMS_ITS | Continuity of Care Document ---
Author Name Unknown Organization [facility] Juan lt Address [address] [place] [address]- Care Team Providers Care Propagator Name Role Phone Eleuterio Capellan Primary Care Physi sampson [place] [facility] [place] Date(s): 03/20/22 - 04/24/22 [facility] Adult [address] [place] [address]- Attending Physician: Eleuterio Capellan Allergies, Adverse Reactions, Alerts No Known Allergies Immunizations Given and Recorded Vaccine Date Status Refusal Reason influenza virus vaccine, inactivated 04/03/22 Give n influenza virus vaccine, inactivated 1 02/13/21 Gi kriss SARS-CoV-2 (COVID-19) mRNA-1273 vaccine 03/31/21 R ecorded SARS-CoV-2 (COVID-19) mRNA-1273 vaccine 09/24/20 R ecorded SARS-CoV-2 (COVID-19) mRNA-1273 vaccine 08/27/20 R ecorded tetanus/diphtheria/pertussis, acel(Tdap) 11/06/20 Given 1Result Comment: [facility]# ON THE [address] 95354-625-65 Medications Freestyle Lite Lancets See Instructions, # [...] Start Date: 04/04/22 Status: Ordered nystatin topical 868714 u/gm powder 1 application, Topically, 2 times [...] class I Confirmed Active Obesity Confirmed Active [place]-Schlatter's disease Confirmed Active Pilonidal cyst Confirmed Active Seizure Confirmed Active Fatty liver Confirmed Active Vertigo Confirmed Active Social History Social History Type Response Smoking Status Former smoker, quit more than 30 days ago entered on: 11/06/20 Sex Patient Care team information Care Team Personnel Name: Eleuterio Capellan Position: [facility] PCO Associate Professional Member Role: PCP Address: Address: [address] [facility] [place] [address]- Care Team Related Persons Name: ROCIO GAINES Address: home [address] [place] [address] Name: RANDALL AHN Address: [place] [address]
--- OUTSIDE RECORDS SUMMARY | 2022-10-19 12:47 | XMS_ITS | Continuity of Care Document ---
Author Name Unknown Organization [facility] Address [address] [place] [address]- Care Team Providers Care Residential Property Manager Name Role Phone Octavia Frankel NP Primary Care Physician Encounter 02/27/21 - 03/06/21 [facility] [address] [place], [place] [address] Attending Physician: Octavia Frankel NP Admitting Physician: Octavia Frankel NP Referring Physician: Octavia Frankel NP Allergies, Adverse Reactions, Alerts Substance Reaction Severity Status NKA Active Immunizations Given and Recorded Vaccine Date Status Refusal Reason influenza virus vaccine, inactivated 1 02/13/21 Gi kriss tetanus/diphtheria/pertussis, acel(Tdap) 11/06/20 Given SARS-CoV-2 (COVID-19) mRNA-1273 vaccine 09/24/20 R ecorded SARS-CoV-2 (COVID-19) mRNA-1273 vaccine 08/27/20 R ecorded 1Result Comment: [facility]# ON THE [address] 86728-060-97 Medications diclofenac 1% topical gel 1 application, [...] 14:25:00 EDT, Aerosol, Route to Pharmacy Electronically, [id number], [facility], [place]li [place], 11/06/20 14:02:00 ED... [...]
--- OUTSIDE RECORDS SUMMARY | 2022-10-19 12:47 | XMS_ITS | Continuity of Care Document ---
Author Name Unknown Organization [facility] Juan Address [address] [place] [address]- Care Team Providers Care Quality Controller Name Role Phone Marlys HERNANDEZ, Octavia Primary Care Physician [phone] [place] [facility] [place] 01/25/21 - 02/24/21 [facility] Adult [address] [place] [address]- Allergies, Adverse Reactions, Alerts Substance Reaction Severity Status NKA Active Immunizations Given and Recorded Vaccine Date Status Refusal Reason influenza virus vaccine, inactivated 1 02/13/21 Gi kriss tetanus/diphtheria/pertussis, acel(Tdap) 11/06/20 Given SARS-CoV-2 (COVID-19) mRNA-1273 vaccine 09/24/20 R ecorded SARS-CoV-2 (COVID-19) mRNA-1273 vaccine 08/27/20 R ecorded 1Result Comment: [facility]# ON THE [address] 25972-473-43 Medications diclofenac 1% topical gel 1 application, [...] 14:25:00 EDT, Aerosol, Route to Pharmacy Electronically, [id number], [facility], 168, yareli, [...] Insomnia(Confirmed) Active Migraine headache(Confirmed) Active Obesity(Confirmed) Active [place]-Schlatter's disease(Confirmed) Active Encounter to establish care(Confirmed) Active Seizure(Confirmed) Active Snores(Confirmed) Active Poor dentition(Confirmed) Active Social History Social History Type Response Smoking Status Former smoker, quit more than 30 days ago entered on: 11/06/20 Sex
--- OUTSIDE RECORDS SUMMARY | 2022-10-19 12:47 | XMS_ITS | Continuity of Care Document ---
Author Name Unknown Organization [facility] Address [address] [place] [address]- Care Team Providers Care State Auditor Name Role Phone Marlys HERNANDEZ, Octavia Primary Care Physician [phone] Encounter [facility] [place] Date(s): 05/04/21 - 06/03/[address] [address]- Attending Physician: Fabian Castanon Admitting Physician: AdmFabian martinez Referring Physician: AdmtrFabian Allergies, Adverse Reactions, Alerts No Known Allergies Immunizations Given and Recorded Vaccine Date Status Refusal Reason SARS-CoV-2 (COVID-19) mRNA-1273 vaccine 03/31/21 R ecorded SARS-CoV-2 (COVID-19) mRNA-1273 vaccine 09/24/20 R ecorded SARS-CoV-2 (COVID-19) mRNA-1273 vaccine 08/27/20 R ecorded influenza virus vaccine, inactivated 1 02/13/21 Gi kriss tetanus/diphtheria/pertussis, acel(Tdap) 11/06/20 Given 1Result Comment: [facility]# ON THE [address] 55154-435-76 Medications diclofenac 1% topical gel 1 application, [...] Date: 01/25/21 Status: Ordered naproxen 500 mg oral tablet [...] 14:25:00 EDT, Aerosol, Route to Pharmacy Electronically, [id number], [facility], 168, cm, [...]
--- OUTSIDE RECORDS SUMMARY | 2022-10-19 12:47 | XMS_ITS | Continuity of Care Document ---
Author Name Unknown Organization [facility] Juan Address [address] [place] [address]- Care Team Providers Care Berry Picker Machine Operator Name Role Phone Eleuterio Capellan Primary Care Physi sampson Encounter [facility] Date(s): 01/17/22 - 02/16/22 [facility] Adult [address] [place] [address]- Allergies, Adverse Reactions, Alerts No Known Allergies Immunizations Given and Recorded Vaccine Date Status Refusal Reason SARS-CoV-2 (COVID-19) mRNA-1273 vaccine 03/31/21 R ecorded SARS-CoV-2 (COVID-19) mRNA-1273 vaccine 09/24/20 R ecorded SARS-CoV-2 (COVID-19) mRNA-1273 vaccine 08/27/20 R ecorded influenza virus vaccine, inactivated 1 02/13/21 Gi kriss tetanus/diphtheria/pertussis, acel(Tdap) 11/06/20 Given 1Result Comment: [facility]# ON THE [address] 78955-884-88 Medications Freestyle Lite Lancets See Instructions, # [...] 8:29:00 EDT, Aerosol, Route to Pharmacy Electronically, [id number], [facility], 168, cm, 01/17/22 [...] class I Confirmed Active Obesity Confirmed Active [place]-Schlatter's disease Confirmed Active Immunity status testing Confirmed Active Pilonidal cyst Confirmed Active Seizure Confirmed Active Snores Confirmed Active Fatty liver Confirmed Active Poor dentition Confirmed Active Screening for tuberculosis Confirmed Active Social History Social History Type Response Smoking Status Former smoker, quit more than 30 days ago entered on: 11/06/20 Sex Patient Care team information Personnel Name: Eleuterio Capellan Address: Address: [address] [place], [place] [address], [place] [address]
--- OUTSIDE RECORDS SUMMARY | 2022-10-19 12:47 | XMS_ITS | Continuity of Care Document ---
Author Name Unknown Organization [facility] Juan Address [address] [place] [address]- Care Team Providers Care Scout Sniper Name Role Phone Eleuterio Capellan Primary Care Physi sampson Encounter [facility] [place] Date(s): 05/22/22 - 06/21/22 [facility] Adult [address] [place] [address]- Allergies, Adverse Reactions, Alerts No Known Allergies Immunizations Given and Recorded Vaccine Date Status Refusal Reason influenza virus vaccine, inactivated 04/03/22 Give n influenza virus vaccine, inactivated 1 02/13/21 Gi kriss SARS-CoV-2 (COVID-19) mRNA-1273 vaccine 03/31/21 R ecorded SARS-CoV-2 (COVID-19) mRNA-1273 vaccine 09/24/20 R ecorded SARS-CoV-2 (COVID-19) mRNA-1273 vaccine 08/27/20 R ecorded tetanus/diphtheria/pertussis, acel(Tdap) 11/06/20 Given 1Result Comment: [facility]# ON THE B[address] 63975-094-88 Medications Freestyle Lite Lancets See Instructions, # [...] class I Confirmed Active Obesity Confirmed Active [place]-Schlatter's disease Confirmed Active Pilonidal cyst Confirmed Active Seizure Confirmed Active Fatty liver Confirmed Active Vertigo Confirmed Active Social History Social History Type Response Smoking Status Former smoker, quit more than 30 days ago entered on: 11/06/20 Sex Patient Care team information Care Team Personnel Name: Eleuterio Capellan Position: [facility] PCO Associate Professional Member Role: PCP Address: Address: [address] [facility] [place] [address]- Care Team Related Persons Name: ROCIO GAINES Address: home [address] [place] [address] Name: RANDALL AHN Address: [place] [address]
--- OUTSIDE RECORDS SUMMARY | 2022-10-19 12:47 | XMS_ITS | Continuity of Care Document ---
Author Name Unknown Organization [facility] Juan Address [address] [place] [address]- Care Team Providers Care Cloth Sander Name Role Phone Marlys HERNANDEZ, Octavia Primary Care Physician [phone] Encounter [facility] Date(s): 01/21/21 - 02/20/21 [facility] Adult [address] [place] [address]- Allergies, Adverse Reactions, Alerts Substance Reaction Severity Status NKA Active Immunizations Given and Recorded Vaccine Date Status Refusal Reason influenza virus vaccine, inactivated 1 02/13/21 Gi kriss tetanus/diphtheria/pertussis, acel(Tdap) 11/06/20 Given SARS-CoV-2 (COVID-19) mRNA-1273 vaccine 09/24/20 R ecorded SARS-CoV-2 (COVID-19) mRNA-1273 vaccine 08/27/20 R ecorded 1Result Comment: [facility]# ON THE BOX 90418-706-20 Medications diclofenac 1% topical gel 1 application, [...] a schedule II opioid drug., 168, yareli, 12/12/20 16:2... Start Date: 01/25/21 Status: Ordered ProAir HFA 90 mcg/inh inhalation aerosol with adapter 2, puffs, Inhalation, Every 6 hours, PRN, # 8.5 Gm, Refills 2, Tot. Refills 2, Maintenance, 11/06/20 14:25:00 EDT, Aerosol, Route to Pharmacy Electronically, [id number], [facility], 168, yareli, 11/06/20 14:02:00 ED... Start Date: 11/06/20 Status: Ordered Zoloft 25 mg oral tablet 1 tablet = 25 mg, By Mouth, Daily, # 30 tablet, 0 Refills, Maintenance, 11/06/20 14:34:00 EDT, Tablet, [facility], Partial fill upon patient request if the prescription is for a schedule II opioid drug., 168, yareli, 11/06/20 14:02:00 EDT, H... Start Date: 11/06/20 [...]
--- OUTSIDE RECORDS SUMMARY | 2022-10-19 12:47 | XMS_ITS | Continuity of Care Document ---
Author Name Unknown Organization [facility] Juan Address [address] [place] [address]- Care Team Providers Care Fashion Consultant Name Role Phone Eleuterio Capellan Primary Care Physi sampson Encounter [facility] Date(s): 01/16/22 - 02/15/22 [facility] Adult [address] [place] [address]- Allergies, Adverse Reactions, Alerts No Known Allergies Immunizations Given and Recorded Vaccine Date Status Refusal Reason SARS-CoV-2 (COVID-19) mRNA-1273 vaccine 03/31/21 R ecorded SARS-CoV-2 (COVID-19) mRNA-1273 vaccine 09/24/20 R ecorded SARS-CoV-2 (COVID-19) mRNA-1273 vaccine 08/27/20 R ecorded influenza virus vaccine, inactivated 1 02/13/21 Gi kriss tetanus/diphtheria/pertussis, acel(Tdap) 11/06/20 Given 1Result Comment: [facility]# ON THE BOX 88349-973-53 Medications Freestyle Lite Lancets See Instructions, # [...] 8:29:00 EDT, Aerosol, Route to Pharmacy Electronically, [id number], [facility], 168, cm, 01/17/22 [...] class I Confirmed Active Obesity Confirmed Active [place]-Schlatter's disease Confirmed Active Immunity status testing Confirmed Active Pilonidal cyst Confirmed Active Seizure Confirmed Active Snores Confirmed Active Fatty liver Confirmed Active Poor dentition Confirmed Active Screening for tuberculosis Confirmed Active Social History Social History Type Response Smoking Status Former smoker, quit more than 30 days ago entered on: 11/06/20 Sex Patient Care team information Personnel Name: Eleuterio Capellan Address: Address: [address] [place], [place] [address], [place] [address]
--- OUTSIDE RECORDS SUMMARY | 2022-10-19 12:47 | XMS_ITS | Continuity of Care Document ---
Author Name Unknown Organization [facility] ter Address [address] [place] [address]- Care Team Providers Care Platform Consultant Name Role Phone Not on Staff, PCP Primary Care Physician Unavail able Encounter [facility] [place] Date(s): 10/02/20 - 10/03/[address] [address]- Discharge Disposition: A-D/C Home Attending Physician: Roma Parsons MD Admitting Physician: Roma Parsons MD Referring Physician: Roma Parsons MD Allergies, Adverse Reactions, Alerts Substance Reaction Severity Status NKA Active Medications acetaminophen 325 mg oral tablet 975 mg, 3, tablet, By Mouth, Every 8 hours, for 7 days, # 63 tablet, Refills 0, Tot. Refills 0, Acute 10/10/20 10:20:00 EDT, 10/03/20 10:20:00 EDT, Route to Pharmacy Electronically, [facility], Partial fill upon patient request if the pr... Start Date: 10/03/20 Stop Date: 10/10/20 Status: Ordered docusate-senna 50 mg-187 mg oral tablet 1 tablet, By Mouth, 2 times a day, for 7 days, # 14 tablet, 0 Refills, Acute 10/10/20 10:20:00 EDT,10/03/20 10:20:00 EDT, Tablet, [facility], Partial fill upon patient request if the prescription is for a schedule II opioid drug., 1 tab... Start Date: 10/03/20 Stop Date: 10/10/20 Status: Ordered gabapentin 300 mg oral capsule 300 mg, 1, capsule, By Mouth, 3 times a day, # 63 capsule, Refills 0, Tot. Refills 0, Maintenance, 10/03/20 10:20:00 EDT, Route to Pharmacy Electronically, [facility], Partial fill uponpatient request if the prescription is for a schedu... Start Date: 10/03/20 Stop Date: 10/24/20 Status: Ordered Gabapentin Capsule 300 mg, Capsule, By Mouth, 10/03/20 15:00:00 EDT Start Date: 10/03/20 Stop Date: 10/03/20 Status: Completed Keppra 500 mg oral tablet 2 tablet = 1,000 mg, By Mouth, 2 times a day, # 360 tablet, 0 Refills, Maintenance, 09/16/20 7:55:00 EDT, Tablet, Partial fill upon patient request if the prescription is for a schedule II opioid drug. Start Date: 09/16/20 Status: Ordered oxyCODONE 5 mg oral tablet 5 mg, 1, tablet, By Mouth, Every 4 hours, PRN, for 7 days, # 42 tablet, Refills 0, Tot. Refills 0, Acute 10/10/20 10:20:00 EDT, Pain , Moderate, 10/03/20 10:20:00 EDT, Route to Pharmacy Electronically, [facility], Partial fill upon patie... Start Date: 10/03/20 Stop Date: 10/10/20 Status: Ordered OxyCODONE IR Tablet 5 mg, Tablet, By Mouth, patient may refuse, Hold for: Sedation or Sleep, 10/03/20 14:00:00 EDT Start Date: 10/03/20 Stop Date: 10/03/20 Status: Completed Results Radiology Reports * Exam Date Time Procedure Performing Provider Status 10/03/20 6:48 AM Chest 2 Views Frontal and Lat Mariama Tavares; Auth (Verified) Notes: (Chest 2 Views Frontal and Lat) Reason For Exam: s/p left VATS mediastinal mass resection;Postop RESULT: Chest 2 Views Frontal and Lat Chest 2 Views Frontal and Lat REASON: Postop; s p left VATS mediastinal mass resection; Clinical Question(s): Pleural Effusion COMPARISON: 10/02/2020 FINDINGS: LINES AND TUBES: Unchanged apically directed left thoracostomy tube. LUNGS AND PLEURA: Slight left basilar airspace opacity Trace left pleural effusion. No pleural effusion. No pneumothorax. HEART, MEDIASTINUM AND YENNI: Heart is normal in size. Normal upper mediastinal and hilar contour. BONES AND SOFT TISSUES: No acute abnormality. IMPRESSION: Unchanged apically directed left thoracostomy tube. No pneumothorax. Trace left effusion and adjacent airspace disease, may be atelectasis. I have personally reviewed the images and I agree with this report. WSN: [id number] Ordering Physician: Yennifer Goode Dictated By: Rohan Minor DO Dictated Date/Time: 10/03/20 11:12 a Reviewed By: Sulaiman Beard MD Signed By: Sulaiman Beard MD Signed Date/Time: 10/03/20 11:17 am Transcribed By: EUGENIO Transcribed Date/Time: 10/03/20 10:58 am * Exam Date Time Procedure Performing Provider Status 10/02/20 2:02 PM Chest Portable Matt Clayton; Auth (Verified) Notes: (Chest Portable) Reason For Exam: Postop RESULT: Chest Portable Chest Portable CLINICAL INDICATION: Postop resection of left lower lobe cystic lesion. COMPARISON: Chest x-ray and chest CT, 09/16/2020. FINDINGS: There is a left-sided chest tube with tip in the left upper lung field. The cardiac silhouette is within normal limits. Prior left lower lobe mass has been resected. There is no pleural effusion, focal consolidation, or definite pneumothorax. No acute osseous abnormality is noted. IMPRESSION: Status post resection of left lower lobe mass. There is a left chest tube in place without definitepneumothorax. WSN: [id number] Ordering Physician: Yennifer Goode Dictated By: Rebeca Estevez MD Dictated Date/Time: 10/02/20 2:29 pm Reviewed By: Rebeca Estevez MD Signed By: Rebeca Estevez MD Signed Date/Time: 10/02/20 2:29 pm Transcribed By: EUGENIO Transcribed Date/Time: 10/02/20 2:25 pm Vital Signs Most recent to oldest [Reference Range]: 1 2 3 Height 168 cm (10/02/20 8:26 AM) 168 cm (09/29/20 11:54 AM) Weight 92.4 kg (10/02/20 8:26 AM) 95.5 kg (09/29/20 11:54 AM) Oxygen Saturation [94-100 %] 96 % (10/03/20 11:00 AM) 100 % (10/03/20 7:00 AM) 98 % (10/03/20 2:50 AM) Pulse Rate [55-90 bpm] 75 bpm (10/03/20 11:00 AM) 63 bpm (10/03/20 7:00 AM) 97 bpm *H* (10/03/20 2:50 AM) Body Mass Index [18.5-24.99] 32.74 *>HHI* (10/02/20 8:26 AM) 33.84 *>HHI* (09/29/20 11:54 AM) Blood Pressure [90-138/55-84 mm Hg] 120/68mm Hg (10/03/20 11:00 AM) 123/78mm Hg (10/03/20 7:00 AM) 109/77mm Hg (10/03/20 2:50 AM) Respiratory Rate [16-30 br/min] 20 br/min (10/03/20 1:15 PM) 20 br/min (10/03/20 1:15 PM) 18 br/min (10/03/20 11:00 AM) Temperature [96.8-100.4 DegF] 98 DegF (10/03/20 11:00 AM) 98.1 DegF (10/03/20 7:00 AM) 98.4 DegF (10/03/20 2:50 AM) Liters per Minute 6 L/min (10/02/20 1:30 PM) Mode of Delivery (Oxygen) Room air (10/03/20 11:00 AM) Room air (10/03/20 7:00 AM) Room air (10/03/20 2:50 AM) Blood pressure sites Arm, left (10/03/20 11:00 AM) Arm, left (10/03/20 7:00 AM) Arm, left (10/03/20 2:50 AM) Temperature Route Oral (10/03/20 11:00 AM) Oral (10/03/20 7:00 AM) Oral (10/03/20 2:50 AM) Dry Weight 92.4 kg (10/02/20 8:26 AM) 95.5 kg (09/29/20 11:54 AM) Weight Obtained Via Standing scale (10/02/20 8:26 AM) Patient/family stated (09/29/20 11:54 AM) Dry Weight Obtained Via Standing scale (10/02/20 8:26 AM) Patient/family stated (09/29/20 11:54 AM)
--- OUTSIDE RECORDS SUMMARY | 2022-10-19 12:47 | XMS_ITS | Continuity of Care Document ---
Author Name Unknown Organization [facility] Juan Address [address] [place] [address]- Care Team Providers Care Cheesemaker Name Role Phone Eleuterio Capellan Primary Care Physi sampson Encounter [facility] [place] Date(s): 07/02/22 - 08/01/22 [facility] Adult [address] [place] [address]- Allergies, Adverse Reactions, Alerts No Known Allergies [...] Comment: [facility]# [address] THE [address] 02350-637-61 Medications Freestyle Lite Lancets See Instructions, # [...] class I Confirmed Active Obesity Confirmed Active [place]-Schlatter's disease Confirmed Active Pilonidal cyst Confirmed Active Seizure Confirmed Active Fatty liver Confirmed Active Vertigo Confirmed Active Social History Social History Type Response Smoking Status Former smoker, quit more than 30 days ago entered on: 11/06/20 Sex Patient Care team information Care Team Personnel Name: Eleuterio Capellan Position: S PCO Associate Professional Member Role: PCP Address: Address: [address] [place] [address] [place], [place] [address] Care Team Related Persons Name: ROCIO GAINES Address: home [address] [place] [address] Name: RANDALL AHN Address: [place] [address]
--- OUTSIDE RECORDS SUMMARY | 2022-10-19 12:47 | XMS_ITS | Continuity of Care Document ---
Author Name Unknown Organization [facility] Address [address] [place] [address] [address], [address] [place] [address]- Care Team Providers Care Wet Roller Name Role Phone Not on Staff, PCP Primary Care Physician Unavail able Encounter [facility] [place] Date(s): 10/05/20 - 11/04/20 [facility] [address] [place] [address], [address] [place] [address]- Allergies, Adverse Reactions, Alerts Substance Reaction Severity Status NKA Active Medications gabapentin 300 mg oral capsule 300 mg, 1, capsule, By Mouth, 3 times a day, # 63 capsule, Refills 0, Tot. Refills 0, Maintenance, 10/03/20 10:20:00 EDT, Route to Pharmacy Electronically, [facility], Partial fill uponpatient request if [...]
--- OUTSIDE RECORDS SUMMARY | 2022-10-19 12:47 | XMS_ITS | Continuity of Care Document ---
Author Name Unknown Organization [facility] Juan Address [address] [place] [address]- Care Team Providers Care United [place] Attorney Name Role Phone Marlys HERNANDEZ, Octavia Primary Care Physician Encounter [facility] Date(s): 12/17/21 - 01/16/22 [facility] Adult [address] [place] [address]- Allergies, Adverse Reactions, Alerts No Known Allergies Immunizations Given and Recorded Vaccine Date Status Refusal Reason SARS-CoV-2 (COVID-19) mRNA-1273 vaccine 03/31/21 R ecorded SARS-CoV-2 (COVID-19) mRNA-1273 vaccine 09/24/20 R ecorded SARS-CoV-2 (COVID-19) mRNA-1273 vaccine 08/27/20 R ecorded influenza virus vaccine, inactivated 1 02/13/21 Gi kriss tetanus/diphtheria/pertussis, acel(Tdap) 11/06/20 Given 1Result Comment: [facility]# ON THE [address] 10493-684-40 Medications cyclobenzaprine 10 mg oral tablet 10 [...] # 15 tablet, 0 Refills, [facility], 168, cm, 04/09/21 13:38:00 EST, Height, 92.4, kg, 10/02/20 9:03:00 EDT, Dry Weight Start Date: 05/21/21 Status: Ordered omeprazole 20 mg oral delayed release tablet 1 tablet = 20 mg, By Mouth, 2 times a day, # 30 tablet, 0 Refills, Maintenance, 02/27/21 10:32:00 EDT, EC Tablet, [facility], Partial fill upon patient request if the prescription is for a schedule II opioid drug., 168, cm, 02/27/21 9:52... Start Date: 02/27/21 Status: Ordered ProAir HFA 90 mcg/inh inhalation aerosol with adapter 2, puffs, Inhalation, Every 6 hours, PRN, # 8.5 Gm, Refills 2, Tot. Refills 2, Maintenance, 11/06/20 14:25:00 EDT, Aerosol, Route to Pharmacy Electronically, [id number], [facility], 168, cm, 11/06/20 14:02:00 ED... [...] Active Obese class II(Confirmed) Active Obesity(Confirmed) Active [place]-Schlatter's disease(Confirmed) Active Immunity status testing(Confirmed) Active Pilonidal cyst(Confirmed) Active Seizure(Confirmed) Active Snores(Confirmed) Active Fatty liver(Confirmed) Active Poor dentition(Confirmed) Active Screening for tuberculosis(Confirmed) Active Social History Social History Type Response Smoking Status Former smoker, quit more than 30 days ago entered on: 11/06/20 Sex Care Team Personnel Name: Octavia Frankel NP Address: [address] [place] [id number]
--- OUTSIDE RECORDS SUMMARY | 2022-10-19 12:47 | XMS_ITS | Continuity of Care Document ---
Author Name Unknown Organization [facility] Address [address] [address]- Care Team Providers Care Neonatal Nurse Practitioner Name Role Phone Octavia Frankel NP Primary Care Physician [place] [facility] [place] [id number] Date(s): 03/12/21 - 04/11/21 [facility] [address] [address]- Attending Physician: Admtr, Jamin8 Admitting Physician: Admtr, Jamin8 Referring Physician: Admtr, Ar8 Allergies, Adverse Reactions, Alerts Substance Reaction Severity Status NKA Active Immunizations Given and Recorded Vaccine Date Status Refusal Reason SARS-CoV-2 (COVID-19) mRNA-1273 vaccine 03/31/21 R ecorded SARS-CoV-2 (COVID-19) mRNA-1273 vaccine 09/24/20 R ecorded SARS-CoV-2 (COVID-19) mRNA-1273 vaccine 08/27/20 R ecorded influenza virus vaccine, inactivated 1 02/13/21 Gi kriss tetanus/diphtheria/pertussis, acel(Tdap) 11/06/20 Given 1Result Comment: [facility]# ON THE [address] 57229-719-43 Medications Augmentin 875 mg-125 mg oral tablet [...] 14:25:00 EDT, Aerosol, Route to Pharmacy Electronically, [id number], [facility], 168, cm, [...]
--- OUTSIDE RECORDS SUMMARY | 2022-10-19 12:47 | XMS_ITS | Continuity of Care Document ---
Author Name Unknown Organization [facility] Juan Address [address] [place] [address]- Care Team Providers Care Services Account Manager Name Role Phone Marlys HERNANDEZ, Octavia Primary Care Physician [phone] Encounter [facility] Date(s): 01/26/21 - 02/25/21 [facility] Adult [address] [place] [address]- Allergies, Adverse Reactions, Alerts Substance Reaction Severity Status NKA Active Immunizations Given and Recorded Vaccine Date Status Refusal Reason influenza virus vaccine, inactivated 1 02/13/21 Gi kriss tetanus/diphtheria/pertussis, acel(Tdap) 11/06/20 Given SARS-CoV-2 (COVID-19) mRNA-1273 vaccine 09/24/20 R ecorded SARS-CoV-2 (COVID-19) mRNA-1273 vaccine 08/27/20 R ecorded 1Result Comment: [facility]# ON THE [address] 21709-617-78 Medications diclofenac 1% topical gel 1 application, [...] 14:25:00 EDT, Aerosol, Route to Pharmacy Electronically, [id number], [facility], 168, yareli, [...] Insomnia(Confirmed) Active Migraine headache(Confirmed) Active Obesity(Confirmed) Active [place]-Schlatter's disease(Confirmed) Active Encounter to establish care(Confirmed) Active Seizure(Confirmed) Active Snores(Confirmed) Active Poor dentition(Confirmed) Active Social History Social History Type Response Smoking Status Former smoker, quit more than 30 days ago entered on: 11/06/20 Sex
--- OUTSIDE RECORDS SUMMARY | 2022-10-19 12:47 | XMS_ITS | Continuity of Care Document ---
Author Name Unknown Organization [facility] Juan Address [address] [place] [address]- Care Team Providers Care Assistant Executive Housekeeper Name Role Phone Eleuterio Capellan Primary Care Physi sampson Encounter [facility] R [id number] Date(s): 04/19/22 - 06/20/22 [facility] Adult [address] [place] [address]- Attending Physician: Eleuterio Capellan Referring Physician: Marco Hoang MD Allergies, Adverse Reactions, Alerts No Known Allergies Immunizations Given and Recorded Vaccine Date Status Refusal Reason influenza virus vaccine, inactivated 04/03/22 Give n influenza virus vaccine, inactivated 1 02/13/21 Gi kriss SARS-CoV-2 (COVID-19) mRNA-1273 vaccine 03/31/21 R ecorded SARS-CoV-2 (COVID-19) mRNA-1273 vaccine 09/24/20 R ecorded SARS-CoV-2 (COVID-19) mRNA-1273 vaccine 08/27/20 R ecorded tetanus/diphtheria/pertussis, acel(Tdap) 11/06/20 Given 1Result Comment: [facility]# ON THE [address] 26608-616-49 Medications Freestyle Lite Lancets See Instructions, # [...] class I Confirmed Active Obesity Confirmed Active [place]-Schlatter's disease Confirmed Active Pilonidal cyst Confirmed Active Seizure Confirmed Active Fatty liver Confirmed Active Vertigo Confirmed Active Social History Social History Type Response Smoking Status Former smoker, quit more than 30 days ago entered on: 11/06/20 Sex Patient Care team information Care Team Personnel Name: Eleuterio Capellan Position: S PCO Associate Professional Member Role: PCP Address: Address: [address] [place] [address]- Care Team Related Persons Name: ROCIO GAINES Address: home [address] [place] [address] Name: RANDALL AHN Address: [place] [address]
--- OUTSIDE RECORDS SUMMARY | 2022-10-19 12:47 | XMS_ITS | Continuity of Care Document ---
Author Name Unknown Organization [facility] Juan Address [address] [place] [address]- Care Team Providers Care Optical Systems Engineer Name Role Phone Marlys HERNANDEZ, Octavia Primary Care Physician [phone] Encounter [facility] Date(s): 02/28/21 - 03/30/21 [facility] Adult [address] [place] [address]- Allergies, Adverse Reactions, Alerts Substance Reaction Severity Status NKA Active Immunizations Given and Recorded Vaccine Date Status Refusal Reason influenza virus vaccine, inactivated 1 02/13/21 Gi kriss tetanus/diphtheria/pertussis, acel(Tdap) 11/06/20 Given SARS-CoV-2 (COVID-19) mRNA-1273 vaccine 09/24/20 R ecorded SARS-CoV-2 (COVID-19) mRNA-1273 vaccine 08/27/20 R ecorded 1Result Comment: [facility]# ON THE [address] 24381-450-00 Medications diclofenac 1% topical gel 1 application, [...] 14:25:00 EDT, Aerosol, Route to Pharmacy Electronically, [id number], [facility], 168, cm, 11/06/20 14:02:00 ED... Start Date: 11/06/20 Status: Ordered rosuvastatin 10 mg oral tablet 1 tablet = 10 mg, By Mouth, Daily, # 30 tablet, 5 Refills, Maintenance, 03/14/21 8:10:00 EST, Tablet, [facility], Partial fill upon patient request [...] Active Obese class II(Confirmed) Active Obesity(Confirmed) Active [place]-Schlatter's disease(Confirmed) Active Immunity status testing(Confirmed) Active Pilonidal cyst(Confirmed) Active Seizure(Confirmed) Active Snores(Confirmed) Active Fatty liver(Confirmed) Active Poor dentition(Confirmed) Active Screening for tuberculosis(Confirmed) Active Social History Social History Type Response Smoking Status Former smoker, quit more than 30 days ago entered on: 11/06/20 Sex
--- OUTSIDE RECORDS SUMMARY | 2022-10-19 12:47 | XMS_ITS | Continuity of Care Document ---
Author Name Unknown Organization [facility] Juan Address [address] [place] [address]- Care Team Providers Care Lining Machine Operator Name Role Phone Marlys HERNANDEZ, Octavia Primary Care Physician En[place] [facility] [place](s): 01/17/22 - 01/24/22 [facility] Adult [address] [place] [address]- Encounter Diagnosis Lumbar radiculopathy(Discharge Diagnosis) - 01/17/22 Hypercholesterolemia(Discharge Diagnosis) - 01/17/22 Asthma(Discharge Diagnosis) - 01/17/22 Low back pain(Discharge Diagnosis) - 01/17/22 Attending Physician: Feliz HERNANDEZ, Gaye Hernandez Allergies, Adverse Reactions, Alerts No Known Allergies Immunizations Given and Recorded Vaccine Date Status Refusal Reason SARS-CoV-2 (COVID-19) mRNA-1273 vaccine 03/31/21 R ecorded SARS-CoV-2 (COVID-19) mRNA-1273 vaccine 09/24/20 R ecorded SARS-CoV-2 (COVID-19) mRNA-1273 vaccine 08/27/20 R ecorded influenza virus vaccine, inactivated 1 02/13/21 Gi kriss tetanus/diphtheria/pertussis, acel(Tdap) 11/06/20 Given 1Result Comment: [facility]# ON THE [address] 51588-529-78 Medications cyclobenzaprine 10 mg oral tablet 10 mg, 1, tablet, By Mouth, 3 times a day, PRN, for 10 days, # 30 tablet, Refills 0, Tot. Refills 0, Acute 01/27/22 8:28:00 EDT, for spasm, 01/17/22 8:28:00 EDT, Route to Pharmacy Electronically, [facility], Partial fill upon patient req... Start Date: 01/17/22 Stop Date: 01/27/22 Status: Ordered Freestyle Lite Lancets See Instructions, [...] 8:29:00 EDT, Aerosol, Route to Pharmacy Electronically, [id number], [facility], 168, cm, 01/17/22 [...] class I Confirmed Active Obesity Confirmed Active [place]-Schlatter's disease Confirmed Active Immunity status testing Confirmed Active Pilonidal cyst Confirmed Active Seizure Confirmed Active Snores Confirmed Active Fatty liver Confirmed Active Poor dentition Confirmed Active Screening for tuberculosis Confirmed Active Diagnosis Diagnosis Type Effective Dates Health Status Clinical Service Informant Lumbar radiculopathy Discharge Diagnosis 01/17/22 Non-Specified Hypercholesterolemia Discharge Diagnosis 01/17/22 Asthma Discharge Diagnosis 01/17/22 Low back pain Discharge Diagnosis 01/17/22 Vital Signs Most recent to oldest [Reference Range]: 1 Height 168 cm (01/17/22 8:13 AM) Weight 98.5 kg (01/17/22 8:13 AM) Oxygen Saturation [94-100 %] 97 % (01/17/22 8:13 AM) Pulse Rate [55-90 bpm] 81 bpm (01/17/22 8:13 AM) Body Mass Index [18.5-24.99 kg/m2] 34.9 kg/m2 *>HHI* (01/17/22 8:13 AM) Blood Pressure [90-138/55-84 mm Hg] 103/ 71mm Hg (01/17/22 8:13 AM) Temperature [96.8-100.4 DegF] 97.1 DegF (01/17/22 8:13 AM) Blood pressure sites Arm, right (01/17/22 8:13 AM) Temperature Route Temporal (01/17/22 8:13 AM) Weight Obtained Via Standing scale (01/17/22 8:13 AM) Social History Social History Type Response Smoking Status Former smoker, quit more than 30 days ago entered on: 11/06/20 Sex Patient Care team information Personnel Name: Octavia Frankel NP Address: Address: [address] [place] [address]-
--- OUTSIDE RECORDS SUMMARY | 2022-10-19 12:47 | XMS_ITS | Continuity of Care Document ---
Author Name Unknown Organization [facility] Address [address] [place] [address]- Care Team Providers Care Media Assistant Name Role Phone Marlys HERNANDEZ, Octavia Primary Care Physician En[place] [facility] [place] Date(s): 02/03/21 - 06/03/[address] [address]- Attending Physician: Alla Molina MD Admitting Physician: Alla Molina MD Referring Physician: Octavia Frankel NP Allergies, Adverse Reactions, Alerts No Known Allergies Immunizations Given and Recorded Vaccine Date Status Refusal Reason SARS-CoV-2 (COVID-19) mRNA-1273 vaccine 03/31/21 R ecorded SARS-CoV-2 (COVID-19) mRNA-1273 vaccine 09/24/20 R ecorded SARS-CoV-2 (COVID-19) mRNA-1273 vaccine 08/27/20 R ecorded influenza virus vaccine, inactivated 1 02/13/21 Gi kriss tetanus/diphtheria/pertussis, acel(Tdap) 11/06/20 Given 1Result Comment: [facility]# ON THE [address] 21499-131-83 Medications diclofenac 1% topical gel 1 application, [...] 14:25:00 EDT, Aerosol, Route to Pharmacy Electronically, [id number], [facility], 168, cm, [...] Active Obese class II(Confirmed) Active Obesity(Confirmed) Active [place]-Schlatter's disease(Confirmed) Active Immunity status testing(Confirmed) Active Pilonidal cyst(Confirmed) Active Seizure(Confirmed) Active Snores(Confirmed) Active Fatty liver(Confirmed) Active Poor dentition(Confirmed) Active Screening for tuberculosis(Confirmed) Active Social History Social History Type Response Smoking Status Former smoker, quit more than 30 days ago entered on: 11/06/20 Sex
--- OUTSIDE RECORDS SUMMARY | 2022-10-19 12:47 | XMS_ITS | Continuity of Care Document ---
Author Name Unknown Organization [facility] Juan Address [address] [place] [address]- Care Team Providers Care Winding Inspector Name Role Phone Marlys HERNANDEZ, Octavia Primary Care Physician [phone] Encounter [facility] [place] Date(s): 02/28/21 - 03/30/21 [facility] Adult [address] [place] [address]- Allergies, Adverse Reactions, Alerts Substance Reaction Severity Status NKA Active Immunizations Given and Recorded Vaccine Date Status Refusal Reason influenza virus vaccine, inactivated 1 02/13/21 Gi kriss tetanus/diphtheria/pertussis, acel(Tdap) 11/06/20 Given SARS-CoV-2 (COVID-19) mRNA-1273 vaccine 09/24/20 R ecorded SARS-CoV-2 (COVID-19) mRNA-1273 vaccine 08/27/20 R ecorded 1Result Comment: [facility]# [address] THE [address] 70171-403-94 Medications diclofenac 1% topical gel 1 application, [...] 14:25:00 EDT, Aerosol, Route to Pharmacy Electronically, [id number], [facility], 168, cm, 11/06/20 14:02:00 ED... Start Date: 11/06/20 Status: Ordered rosuvastatin 10 mg oral tablet 1 tablet = 10 mg, By Mouth, Daily, # 30 tablet, 5 Refills, Maintenance, 03/14/21 8:10:00 EST, Tablet, [facility], Partial fill upon patient request [...] Active Obese class II(Confirmed) Active Obesity(Confirmed) Active Hen[place]-Schlatter's disease(Confirmed) Active Immunity status testing(Confirmed) Active Pilonidal cyst(Confirmed) Active Seizure(Confirmed) Active Snores(Confirmed) Active Fatty liver(Confirmed) Active Poor dentition(Confirmed) Active Screening for tuberculosis(Confirmed) Active Social History Social History Type Response Smoking Status Former smoker, quit more than 30 days ago entered on: 11/06/20 Sex
--- OUTSIDE RECORDS SUMMARY | 2022-10-19 12:47 | XMS_ITS | Continuity of Care Document ---
Author Name Unknown Organization [facility] Juan Address [address] [place] [address]- Care Team Providers Care Briar Shop Supervisor Name Role Phone Marlys HERNANDEZ, Octavia Primary Care Physician [place] [facility] [place] 02[place]13[place]21 - 02/20/21 [facility] Adult [address] [place] [address]- Encounter Diagnosis Chest wall pain(Discharge Diagnosis) - 02/13/21 Attending Physician: Not on Staff, Attending MD Allergies, Adverse Reactions, Alerts Substance Reaction Severity Status NKA Active Immunizations Given and Recorded Vaccine Date Status Refusal Reason influenza virus vaccine, inactivated 1 02/13/21 Gi kriss tetanus/diphtheria/pertussis, acel(Tdap) 11/06/20 Given SARS-CoV-2 (COVID-19) mRNA-1273 vaccine 09/24/20 R ecorded SARS-CoV-2 (COVID-19) mRNA-1273 vaccine 08/27/20 R ecorded 1Result Comment: [facility]# ON THE [address] 73916-524-46 Medications diclofenac 1% topical gel 1 application, [...] 14:25:00 EDT, Aerosol, Route to Pharmacy Electronically, [id number], [facility], 168, cm, [...] Insomnia(Confirmed) Active Migraine headache(Confirmed) Active Obesity(Confirmed) Active Malcom-Schlatter's disease(Confirmed) Active Encounter to establish care(Confirmed) Active Seizure(Confirmed) Active Snores(Confirmed) Active Poor dentition(Confirmed) Active Diagnosis Diagnosis Type Effective Dates Health Status Cl inical Service Informant Chest wall pain Discharge Diagnosis 02/13/21 Vital Signs Most recent to oldest [Reference Range]: 1 Height 168 cm (02/13/21 3:07 PM) Weight 100.3 kg (02/13/21 3:07 PM) Pulse Rate [55-90 bpm] 78 bpm (02/13/21 3:07 PM) Body Mass Index [18.5-24.99] 35.54 *>HHI* (02/13/21 3:07 PM) Blood Pressure [90-138/55-84 mm Hg] 102/ 64mm Hg (02/13/21 3:07 PM) Temperature [96.8-100.4 DegF] 97.9 DegF (02/13/21 3:07 PM) Blood pressure sites Arm, left (02/13/21 3:07 PM) Temperature Route Oral (02/13/21 3:07 PM) Weight Obtained Via Standing scale (02/13/21 3:07 PM) Social History Social History Type Response Smoking Status Former smoker, quit more than 30 days ago entered on: 11/06/20 Sex
--- OUTSIDE RECORDS SUMMARY | 2022-10-19 12:47 | XMS_ITS | Continuity of Care Document ---
Author Name Unknown Organization [facility] [place] Juan Address [address] [place] [address]- Care Team Providers Care Alignment Specialist Name Role Phone Marlys HERNANDEZ, Octavia Primary Care Physician Encounter [facility] [place] Date(s): 12/18/20 - 01/17/21 [facility] [place] Adult [address] [place] [address]- Attending Physician: Admtr, Jamin8 Admitting Physician: AdmtrFabian Referring Physician: Admtr, Ar8 [...] 14:25:00 EDT, Aerosol, Route to Pharmacy Electronically, [id number], [facility], 168, cm, [...]
--- OUTSIDE RECORDS SUMMARY | 2022-10-19 12:47 | XMS_ITS | Continuity of Care Document ---
Author Name Unknown Organization [facility] Juan lt Address [address] [place] [address]- Care Team Providers Care Fast Food Restaurant Manager Name Role Phone Eleuterio Capellan Primary Care Physi sampson Encounter [facility] [place] Date(s): 08/30/22 - 09/29/22 [facility] Adult [address] [place] [address]- Allergies, Adverse Reactions, Alerts No Known Allergies Immunizations Given and Recorded Vaccine Date Status Refusal Reason influenza virus vaccine, inactivated 04/03/22 Give n influenza virus vaccine, inactivated 1 02/13/21 Gi kriss SARS-CoV-2 (COVID-19) mRNA-1273 vaccine 03/31/21 R ecorded SARS-CoV-2 (COVID-19) mRNA-1273 vaccine 09/24/20 R ecorded SARS-CoV-2 (COVID-19) mRNA-1273 vaccine 08/27/20 R ecorded tetanus/diphtheria/pertussis, acel(Tdap) 11/06/20 Given 1Result Comment: [facility]# ON THE [address] 83088-799-01 Medications clindamycin topical 2% cream See Instructions, [...] class I Confirmed Active Obesity Confirmed Active [place]-Schlatter's disease Confirmed Active Pilonidal cyst Confirmed Active Seizure Confirmed Active Fatty liver Confirmed Active Vertigo Confirmed Active Social History Social History Type Response Smoking Status Former smoker, quit more than 30 days ago entered on: 11/06/20 Sex Patient Care team information Care Team Personnel Name: Eleuterio Capellan Position: S PCO Associate Professional Member Role: PCP Address: Address: [address] [place] [address] [place] [address]- Care Team Related Persons Name: ROCIO GAINES Address: home [address] [place] [address] Name: RANDALL AHN Address: [place] [address]
--- OUTSIDE RECORDS SUMMARY | 2022-10-19 12:47 | XMS_ITS | Continuity of Care Document ---
Author Name Unknown Organization [facility] Juan Address [address] [place] [address]- Care Team Providers Care Pressroom Worker Name Role Phone Marlys HERNANDEZ, Octavia Primary Care Physician [phone] En[place] [facility] [place] Date(s): 03/21/21 - 04/20/21 [facility] Adult [address] [place] [address]- Allergies, Adverse Reactions, Alerts Substance Reaction Severity Status NKA Active Immunizations Given and Recorded Vaccine Date Status Refusal Reason SARS-CoV-2 (COVID-19) mRNA-1273 vaccine 03/31/21 R ecorded SARS-CoV-2 (COVID-19) mRNA-1273 vaccine 09/24/20 R ecorded SARS-CoV-2 (COVID-19) mRNA-1273 vaccine 08/27/20 R ecorded influenza virus vaccine, inactivated 1 02/13/21 Gi kriss tetanus/diphtheria/pertussis, acel(Tdap) 11/06/20 Given 1Result Comment: [facility]# ON THE [address] 69410-623-22 Medications diclofenac 1% topical gel 1 application, [...] 14:25:00 EDT, Aerosol, Route to Pharmacy Electronically, [id number], [facility], 168, cm, 11/06/20 14:02:00 [...]
--- OUTSIDE RECORDS SUMMARY | 2022-10-19 12:47 | XMS_ITS | Continuity of Care Document ---
Author Name Unknown Organization [facility] Address [address] [place] [address]- Care Team Providers Care Speech Pathology Teacher Name Role Phone Marlys HERNANDEZ, Octavia Primary Care Physician Encounter [facility] Date(s): 03/25/21 - 04/24/21 [facility] [address] [place] [id number] Allergies, Adverse Reactions, Alerts Substance Reaction Severity Status NKA Active Immunizations Given and Recorded Vaccine Date Status Refusal Reason SARS-CoV-2 (COVID-19) mRNA-1273 vaccine 03/31/21 R ecorded SARS-CoV-2 (COVID-19) mRNA-1273 vaccine 09/24/20 R ecorded SARS-CoV-2 (COVID-19) mRNA-1273 vaccine 08/27/20 R ecorded influenza virus vaccine, inactivated 1 02/13/21 Gi kriss tetanus/diphtheria/pertussis, acel(Tdap) 11/06/20 Given 1Result Comment: [facility]# ON THE [address] 28986-735-82 Medications diclofenac 1% topical gel 1 application, [...] 14:25:00 EDT, Aerosol, Route to Pharmacy Electronically, [id number], [facility], 168, cm, 11/06/20 14:02:00 ED... Start Date: 11/06/20 Status: Ordered rosuvastatin 10 mg oral tablet 1 tablet = 10 mg, By Mouth, Daily, # 30 tablet, 5 Refills, Maintenance, 03/14/21 8:10:00 EST, Tablet, [facility], Partial fill upon patient request [...]
--- OUTSIDE RECORDS SUMMARY | 2022-10-19 12:47 | XMS_ITS | Continuity of Care Document ---
Author Name Unknown Organization [facility] Juan Address [address] [place] [address]- Care Team Providers Care Algologist Name Role Phone Marlys HERNANDEZ, Octavia Primary Care Physician En[place] [facility] [place] Date(s): 08/02/21 - 09/01/21 [facility] Adult [address] [place] [address]- Allergies, Adverse Reactions, Alerts No Known Allergies Immunizations Given and Recorded Vaccine Date Status Refusal Reason SARS-CoV-2 (COVID-19) mRNA-1273 vaccine 03/31/21 R ecorded SARS-CoV-2 (COVID-19) mRNA-1273 vaccine 09/24/20 R ecorded SARS-CoV-2 (COVID-19) mRNA-1273 vaccine 08/27/20 R ecorded influenza virus vaccine, inactivated 1 02/13/21 Gi kriss tetanus/diphtheria/pertussis, acel(Tdap) 11/06/20 Given 1Result Comment: [facility]# ON THE [address] 85843-652-14 Medications cyclobenzaprine 10 mg oral tablet 10 [...] 14:25:00 EDT, Aerosol, Route to Pharmacy Electronically, [id number], [facility], 168, cm, [...] Active Obese class II(Confirmed) Active Obesity(Confirmed) Active [place]-Schlatter's disease(Confirmed) Active Immunity status testing(Confirmed) Active Pilonidal cyst(Confirmed) Active Seizure(Confirmed) Active Snores(Confirmed) Active Fatty liver(Confirmed) Active Poor dentition(Confirmed) Active Screening for tuberculosis(Confirmed) Active Social History Social History Type Response Smoking Status Former smoker, quit more than 30 days ago entered on: 11/06/20 Sex
--- OUTSIDE RECORDS SUMMARY | 2022-10-19 12:47 | XMS_ITS | Continuity of Care Document ---
Author Name Unknown Organization [facility] Juan Address [address] [place] [address]- Care Team Providers Care Swaging Machine Operator Name Role Phone Marlys HERNANDEZ, Octavia Primary Care Physician [phone] [place] [facility] [place] 04/09/21 - 04/16/21 [facility] Adult [address] [place] [address]- Encounter Diagnosis Abscess of leg(Discharge Diagnosis) - 04/09/21 Attending Physician: Joe Paniagua MD Referring Physician: Argenis Waggoner NP Allergies, Adverse Reactions, Alerts Substance Reaction Severity Status NKA Active Immunizations Given and Recorded Vaccine Date Status Refusal Reason SARS-CoV-2 (COVID-19) mRNA-1273 vaccine 03/31/21 R ecorded SARS-CoV-2 (COVID-19) mRNA-1273 vaccine 09/24/20 R ecorded SARS-CoV-2 (COVID-19) mRNA-1273 vaccine 08/27/20 R ecorded influenza virus vaccine, inactivated 1 02/13/21 Gi kriss tetanus/diphtheria/pertussis, acel(Tdap) 11/06/20 Given 1Result Comment: [facility]# ON THE [address] 33981-116-82 Medications diclofenac 1% topical gel 1 application, [...] 14:25:00 EDT, Aerosol, Route to Pharmacy Electronically, [id number], [facility], 168, cm, [...] Dates Health Status Cl inical Service Informant Abscess of leg Discharge Diagnosis 04/09/21 Vital Signs Most recent to oldest [Reference Range]: 1 Height 168 cm (04/09/21 1:38 PM) Weight 99.4 kg (04/09/21 1:38 PM) Oxygen Saturation [94-100 %] 100 % (04/09/21 1:38 PM) Pulse Rate [55-90 bpm] 99 bpm *H* (04/09/21 1:38 PM) Body Mass Index [18.5-24.99] 35.22 *>HHI* (04/09/21 1:38 PM) Blood Pressure [90-138/55-84 mm Hg] 102/ 64mm Hg (04/09/21 1:38 PM) Temperature [96.8-100.4 DegF] 97.8 DegF (04/09/21 1:38 PM) Blood pressure sites Arm, left (04/09/21 1:38 PM) Social History Social History Type Response Smoking Status Former smoker, quit more than 30 days ago entered on: 11/06/20 Sex
--- OUTSIDE RECORDS SUMMARY | 2022-10-19 12:47 | XMS_ITS | Continuity of Care Document ---
Author Name Unknown Organization [facility] Juan Address [address] [place] [address]- Care Team Providers Care Chicken Cleaner Name Role Phone Eleuterio Capellan Primary Care Physi sampson [place] [facility] [place]22 - 06/30/22 [facility] Adult [address] [place] [address]- Allergies, Adverse Reactions, Alerts No Known Allergies Immunizations Given and Recorded Vaccine Date Status Refusal Reason influenza virus vaccine, inactivated 04/03/22 Give n influenza virus vaccine, inactivated 1 02/13/21 Gi kriss SARS-CoV-2 (COVID-19) mRNA-1273 vaccine 03/31/21 R ecorded SARS-CoV-2 (COVID-19) mRNA-1273 vaccine 09/24/20 R ecorded SARS-CoV-2 (COVID-19) mRNA-1273 vaccine 08/27/20 R ecorded tetanus/diphtheria/pertussis, acel(Tdap) 11/06/20 Given 1Result Comment: [facility]# ON THE [address] 76465-508-02 Medications Freestyle Lite Lancets See Instructions, # [...] class I Confirmed Active Obesity Confirmed Active [place]-Schlatter's disease Confirmed Active Pilonidal cyst Confirmed Active Seizure Confirmed Active Fatty liver Confirmed Active Vertigo Confirmed Active Social History Social History Type Response Smoking Status Former smoker, quit more than 30 days ago entered on: 11/06/20 Sex Patient Care team information Care Team Personnel Name: Eleuterio Capellan Position: [facility] PCO Associate Professional Member Role: PCP Address: Address: [address] [facility] [place] [address]- Care Team Related Persons Name: ROCIO GAINES Address: home [address] [place] [address] Name: RANDALL AHN Address: [place] [address]
--- OUTSIDE RECORDS SUMMARY | 2022-10-19 12:47 | XMS_ITS | Continuity of Care Document ---
Author Name Unknown Organization [facility] Juan Address [address] [place] [address]- Care Team Providers Care Mobile Equipment Servicer Name Role Phone Marlys HERNANDEZ, Octavia Primary Care Physician [phone] Encounter [facility] Date(s): 10/01/21 - 10/31/21 [facility] Adult [address] [place] [address]- Allergies, Adverse Reactions, Alerts No Known Allergies Immunizations Given and Recorded Vaccine Date Status Refusal Reason SARS-CoV-2 (COVID-19) mRNA-1273 vaccine 03/31/21 R ecorded SARS-CoV-2 (COVID-19) mRNA-1273 vaccine 09/24/20 R ecorded SARS-CoV-2 (COVID-19) mRNA-1273 vaccine 08/27/20 R ecorded influenza virus vaccine, inactivated 1 02/13/21 Gi kriss tetanus/diphtheria/pertussis, acel(Tdap) 11/06/20 Given 1Result Comment: [facility]# ON THE [address] 02153-485-47 Medications cyclobenzaprine 10 mg oral tablet 10 [...] # 15 tablet, 0 Refills, [facility], 168, cm, 04/09/21 13:38:00 EST, Height, 92.4, kg, 10/02/20 9:03:00 EDT, Dry Weight Start Date: 05/21/21 Status: Ordered omeprazole 20 mg oral delayed release tablet 1 tablet = 20 mg, By Mouth, 2 times a day, # 30 tablet, 0 Refills, Maintenance, 02/27/21 10:32:00 EDT, EC Tablet, [facility], Partial fill upon patient request if the prescription is for a schedule II opioid drug., 168, cm, 02/27/21 9:52... Start Date: 02/27/21 Status: Ordered ProAir HFA 90 mcg/inh inhalation aerosol with adapter 2, puffs, Inhalation, Every 6 hours, PRN, # 8.5 Gm, Refills 2, Tot. Refills 2, Maintenance, 11/06/20 14:25:00 EDT, Aerosol, Route to Pharmacy Electronically, [id number], [facility], 168, cm, 11/06/20 14:02:00 ED... [...] Active Obese class II(Confirmed) Active Obesity(Confirmed) Active Kimberly-Schlatter's disease(Confirmed) Active Immunity status testing(Confirmed) Active Pilonidal cyst(Confirmed) Active Seizure(Confirmed) Active Snores(Confirmed) Active Fatty liver(Confirmed) Active Poor dentition(Confirmed) Active Screening for tuberculosis(Confirmed) Active Social History Social History Type Response Smoking Status Former smoker, quit more than 30 days ago entered on: 11/06/20 Sex
--- OUTSIDE RECORDS SUMMARY | 2022-10-19 12:47 | XMS_ITS | Continuity of Care Document ---
Author Name Unknown Organization [facility] Juan lt Address [address] [place] [address]- Care Team Providers Care Flavoring Oil Filterer Name Role Phone Eleuterio Capellan Primary Care Physi sampson [place] [facility] [place]21/22 - 09/20/22 [facility] Adult [address] [place] [address]- Allergies, Adverse Reactions, Alerts No Known Allergies [...] Comment: [facility]# ON THE [address] 94634-669-94 Medications clindamycin topical 2% cream See Instructions, [...] Associate Professional Member Role: PCP Address: Address: [address] [place] [address] [place] [address]- Care Team Related Persons Name: ROCIO GAINES Address: home [address] [place] [address] Name: RANDALL AHN Address: [place] [address]
--- OUTSIDE RECORDS SUMMARY | 2022-10-19 12:47 | XMS_ITS | Continuity of Care Document ---
Author Name Unknown Organization [facility] Juan Address [address] [place] [address]- Care Team Providers Care Cornice Upholsterer Name Role Phone Eleuterio Capellan Primary Care Physi sampson [place] [facility] [place] 02/25/22 - 03/27/22 [facility] Adult [address] [place] [address]- Allergies, Adverse Reactions, Alerts No Known Allergies Immunizations Given and Recorded Vaccine Date Status Refusal Reason SARS-CoV-2 (COVID-19) mRNA-1273 vaccine 03/31/21 R ecorded SARS-CoV-2 (COVID-19) mRNA-1273 vaccine 09/24/20 R ecorded SARS-CoV-2 (COVID-19) mRNA-1273 vaccine 08/27/20 R ecorded influenza virus vaccine, inactivated 1 02/13/21 Gi kriss tetanus/diphtheria/pertussis, acel(Tdap) 11/06/20 Given 1Result Comment: [facility]# ON THE [address] 68647-812-16 Medications Freestyle Lite Lancets See Instructions, # [...] day, # 60 tablet, 0 Refills, Maintenance, 03/22/22 12:01:00 EST, Tablet, [facility], Partial fill upon patient request if the prescription is for a schedule II opioid drug., 168, cm, 01/17/22 8:13... Start Date: 03/22/22 Status: Ordered levETIRAcetam 1000 mg oral tablet [...] II opio... Start Date: 01/17/22 Status: Ordered omeprazole 20 mg oral delayed release tablet 1 tablet = 20 mg, By Mouth, 2 times a day, # 30 tablet, 0 Refills, Maintenance, 02/27/21 10:32:00 EDT, EC Tablet, [facility], Partial fill upon patient request if the prescription is for a schedule II opioid drug., 168, cm, 02/27/21 9:52... Start Date: 02/27/21 Status: Ordered rosuvastatin 10 mg oral tablet [...] Obesity Confirmed Active [place]-Schlatter's disease Confirmed Active Immunity status testing Confirmed [...] Associate Professional Member Role: PCP Address: Address: [address] [place] [address] [place] Care Team Related Persons Name: ROCIO GAINES Address: home [address] [place] [address] Name: RANDALL AHN Address: [place] [address]
--- OUTSIDE RECORDS SUMMARY | 2022-10-19 12:47 | XMS_ITS | Continuity of Care Document ---
Author Name Unknown Organization [facility] Juan Address [address] [place] [address]- Care Team Providers Care Belt Cleaner Name Role Phone Marlys HERNANDEZ, Octavia Primary Care Physician [phone] [place] [facility] [place]30/[place] - 09/29/21 [facility] Adult [address] [place] [address]- Allergies, Adverse Reactions, Alerts No Known Allergies Immunizations Given and Recorded Vaccine Date Status Refusal Reason SARS-CoV-2 (COVID-19) mRNA-1273 vaccine 03/31/21 R ecorded SARS-CoV-2 (COVID-19) mRNA-1273 vaccine 09/24/20 R ecorded SARS-CoV-2 (COVID-19) mRNA-1273 vaccine 08/27/20 R ecorded influenza virus vaccine, inactivated 1 02/13/21 Gi kriss tetanus/diphtheria/pertussis, acel(Tdap) 11/06/20 Given 1Result Comment: [facility]# ON THE [address] 44915-073-80 Medications cyclobenzaprine 10 mg oral tablet 10 [...] 14:25:00 EDT, Aerosol, Route to Pharmacy Electronically, [id number], [facility], 168, cm, [...]
--- OUTSIDE RECORDS SUMMARY | 2022-10-19 12:47 | XMS_ITS | Continuity of Care Document ---
Author Name Unknown Organization [facility] Juan Address [address] [place] [address]- Care Team Providers Care Checker/Stocker Name Role Phone Octavia Frankel NP Primary Care Physician [place] [facility] [place] 06[place]11/21 - 06/18/21 [facility] Adult [address] [place] [address]- Encounter Diagnosis Lumbar radiculopathy(Discharge Diagnosis) - 06/11/21 Attending Physician: Octavia Frankel NP Allergies, Adverse Reactions, Alerts No Known Allergies Immunizations Given and Recorded Vaccine Date Status Refusal Reason SARS-CoV-2 (COVID-19) mRNA-1273 vaccine 03/31/21 R ecorded SARS-CoV-2 (COVID-19) mRNA-1273 vaccine 09/24/20 R ecorded SARS-CoV-2 (COVID-19) mRNA-1273 vaccine 08/27/20 R ecorded influenza virus vaccine, inactivated 1 02/13/21 Gi kriss tetanus/diphtheria/pertussis, acel(Tdap) 11/06/20 Given 1Result Comment: [facility]# ON THE B[address] 65619-822-00 Medications cyclobenzaprine 10 mg oral tablet 10 [...] 14:25:00 EDT, Aerosol, Route to Pharmacy Electronically, [id number], [facility], 168, cm, [...] Active Obese class II(Confirmed) Active Obesity(Confirmed) Active [place]-Schlatter's disease(Confirmed) Active Immunity status testing(Confirmed) Active Pilonidal cyst(Confirmed) Active Seizure(Confirmed) Active Snores(Confirmed) Active Fatty liver(Confirmed) Active Poor dentition(Confirmed) Active Screening for tuberculosis(Confirmed) Active Diagnosis Diagnosis Type Effective Dates Health Status Clinical Service Informant Lumbar radiculopathy Discharge Diagnosis 06/11/21 Vital Signs Most recent to oldest [Reference Range]: 1 Height 168 cm (06/11/21 3:53 PM) Weight 102.0 kg (06/11/21 3:53 PM) Oxygen Saturation [94-100 %] 100 % (06/11/21 3:53 PM) Pulse Rate [55-90 bpm] 96 bpm *H* (06/11/21 3:53 PM) Body Mass Index [18.5-24.99] 36.14 *>HHI* (06/11/21 3:53 PM) Blood Pressure [90-138/55-84 mm Hg] 123/ 77mm Hg (06/11/21 3:53 PM) Blood pressure sites Arm, right (06/11/21 3:53 PM) Social History Social History Type Response Smoking Status Former smoker, quit more than 30 days ago entered on: 11/06/20 Sex
--- OUTSIDE RECORDS SUMMARY | 2022-10-19 12:48 | XMS_ITS | Continuity of Care Document ---
Author Name Unknown Organization [facility] Juan Address [address] [place] [address]- Care Team Providers Care Cleaner Window Name Role Phone Marlys HERNANDEZ, Octavia Primary Care Physician En[facility] [place] Date(s): 12/13/20 - 01/12/21 [facility] Adult [address] [place] [address]- Allergies, Adverse Reactions, Alerts Substance Reaction Severity [...] 14:25:00 EDT, Aerosol, Route to Pharmacy Electronically, [id number], [facility], 168, cm, [...]
--- OUTSIDE RECORDS SUMMARY | 2022-10-19 12:48 | XMS_ITS | Continuity of Care Document ---
Author Name Unknown Organization [facility] Juan Address [address] [place] [address]- Care Team Providers Care Front Office Agent Name Role Phone Marlys HERNANDEZ, Octavia Primary Care Physician Encounter [facility] Date(s): 12/14/21 - 01/13/22 [facility] Adult [address] [place] [address]- Allergies, Adverse Reactions, Alerts No Known Allergies Immunizations Given and Recorded Vaccine Date Status Refusal Reason SARS-CoV-2 (COVID-19) mRNA-1273 vaccine 03/31/21 R ecorded SARS-CoV-2 (COVID-19) mRNA-1273 vaccine 09/24/20 R ecorded SARS-CoV-2 (COVID-19) mRNA-1273 vaccine 08/27/20 R ecorded influenza virus vaccine, inactivated 1 02/13/21 Gi kriss tetanus/diphtheria/pertussis, acel(Tdap) 11/06/20 Given 1Result Comment: [facility]# ON THE [address] 41379-058-56 Medications cyclobenzaprine 10 mg oral tablet 10 [...] # 15 tablet, 0 Refills, [facility], 168, cm, 04/09/21 13:38:00 EST, Height, 92.4, kg, 10/02/20 9:03:00 EDT, Dry Weight Start Date: 05/21/21 Status: Ordered omeprazole 20 mg oral delayed release tablet 1 tablet = 20 mg, By Mouth, 2 times a day, # 30 tablet, 0 Refills, Maintenance, 02/27/21 10:32:00 EDT, EC Tablet, [facility], Partial fill upon patient request if the prescription is for a schedule II opioid drug., 168, cm, 02/27/21 9:52... Start Date: 02/27/21 Status: Ordered ProAir HFA 90 mcg/inh inhalation aerosol with adapter 2, puffs, Inhalation, Every 6 hours, PRN, # 8.5 Gm, Refills 2, Tot. Refills 2, Maintenance, 11/06/20 14:25:00 EDT, Aerosol, Route to Pharmacy Electronically, [id number], [facility], 168, cm, 11/06/20 14:02:00 ED... [...] Active Obese class II(Confirmed) Active Obesity(Confirmed) Active [place]-Schlatter's disease(Confirmed) Active Immunity status testing(Confirmed) Active Pilonidal cyst(Confirmed) Active Seizure(Confirmed) Active Snores(Confirmed) Active Fatty liver(Confirmed) Active Poor dentition(Confirmed) Active Screening for tuberculosis(Confirmed) Active Social History Social History Type Response Smoking Status Former smoker, quit more than 30 days ago entered on: 11/06/20 Sex Care Team Personnel Name: Octavia Frankel NP Address: [address] [place] [id number]
--- OUTSIDE RECORDS SUMMARY | 2022-10-19 12:48 | XMS_ITS | Continuity of Care Document ---
Author Name Unknown Organization [facility] Juan Address [address] [place] [address]- Care Team Providers Care Parts Technician Name Role Phone Marlys HERNANDEZ, Octavia Primary Care Physician Encounter [facility] Date(s): 02/27/21 - 04/11/21 [facility] Adult [address] [place] [address]- Attending Physician: Octavia Frankel NP Referring Physician: [...] 1Result Comment: [facility]# [address] THE [address] [id number] Medications Augmentin 875 mg-125 mg oral tablet [...] day, # 100 Gm, 0 Refills, Maintenance, 07/28/21 8:28:00 EDT, Gel, [facility] [...] 14:25:00 EDT, Aerosol, Route to Pharmacy Electronically, [id number], [facility], 168, cm, [...] Active Obese class II(Confirmed) Active Obesity(Confirmed) Active [place]-Schlatter's disease(Confirmed) Active Immunity status testing(Confirmed) Active Pilonidal cyst(Confirmed) Active Seizure(Confirmed) Active Snores(Confirmed) Active Fatty liver(Confirmed) Active Poor dentition(Confirmed) Active Screening for tuberculosis(Confirmed) Active Social History Social History Type Response Smoking Status Former smoker, quit more than 30 days ago entered on: 11/06/20 Sex
[2022-10-19 12:52] VITALS: BP 108/63; PULSE 72; RESP 18; TEMP 36.6; O2SAT 97
[2022-10-19] MEDS: ondansetron HCL 4 MG/2 ML VIAL IVPUSH (13:17)
[2022-10-19] MEDS: 0.9 % Sodium Chloride 1,000 ML 999 ML IV (13:17)
[2022-10-19] MEDS: Ketorolac Tromethamine 15 MG/ML VIAL IVPUSH (13:17)
--- NOTE | 2022-10-19 14:32 | PC.NURSE ---
Pt declined to get CT. Pt educated on importance of getting CT but continued to decline stating No thanks, I'm ready to go. I feel better. Provider aware and spoke to Pt.
== END 2022-10-19 14:31 | disposition home or self-care (01) ==
PROVIDERS: Nurse Practitioner Family; Physician Assistant; Emergency Provider Emergency Medicine; PCP Internal Medicine Cardiovascular Disease
DX: R10.32 Left lower quadrant pain (principal); I10 Essential (primary) hypertension; Z79.899 Other long term (current) drug therapy
CPT/HCPCS: 36415; 80053; 81003; 81025; 83690; 83735; 85025; 96374; 96375; 99284; 99285; J1885; J2405

== ENCOUNTER 2022-10-31 01:46 | Emergency (ER) | payer OTHER, SELFPAY ==
[2022-10-31 01:58] VITALS: BP 148/88; PULSE 86; RESP 16; TEMP 36.3; O2SAT 97; BMI 32.3
--- NOTE | 2022-10-31 02:05 | PC.NURSE ---
pt has been experiencing a XIONG to the left side with a left ear pain X 3 days. Pt states the XIONG is like a pressure type of pain that comes and goes with medications. Pt associates some dizziness with nausea. Pt states she has a history of Migraines. Pt claims laying flat the headache gets worst.
[2022-10-31 02:50] VITALS: BP 137/85; PULSE 85; RESP 18; TEMP 36.6; O2SAT 98
--- NOTE | 2022-10-31 03:13 | ED.HA ---
HPI - Headache General Chief Complaint: Headache Stated Complaint: headache, ear pain Time Seen by Provider: 10/31/22 02:37 Source: patient Mode of arrival: ambulatory Limitations: no limitations History of Present Illness HPI Narrative: Patient with history of migraine headache been having headache for last 3 days with such with nausea and photosensitivity similar to that in the past tried naproxen without much relief no fever no chills no vomiting no head injury no URI symptoms complaining of left ear pain for last 5 days Related Data Previous Rx's Medication Instructions Recorded hydroxyzine HCl 50 mg tablet 50 mg PO TID PRN anxiety #30 tabs 11/11/20 [id number]-unkavzbixfkgs-cauoznlj 1 cap PO Q6H PRN headache #20 caps 10/31/22 50 mg-300 mg-40 mg capsule (Fioricet) ondansetron 4 mg disintegrating 4 mg PO Q6-8H PRN nausea and 10/31/22 tablet vomiting #10 tabs sumatriptan succinate 50 mg tablet 50 mg PO Q2H PRN migraine headache 10/31/22 (Imitrex) #10 tabs Allergies Allergy/AdvReac Type Severity Reaction Status Date / Time No Known Allergies Allergy Verified 10/19/22 11:13 Review of Systems Review of Systems: Yes all other systems are reviewed and are negative [facility] Past Medical History Medical History Anxiety Hypertension Seizures Social History Social History Alcohol intake: current Alcohol intake frequency: holidays/special occasions only Patient Tobacco Use Status: Never used Tobacco Smoked in Last 30 Days: Yes Advance Directives: No Advance Directives Information Provided: No Patient : No Physical Exam Vital Signs: Vital Signs: Last Vital Signs Temp 97.8 F 10/31/22 02:50 Pulse 85 10/31/22 02:50 Resp 18 10/31/22 02:50 BP 137/85 10/31/22 02:50 Pulse Ox 98 10/31/22 02:50 O2 Del Method Room Air 10/31/22 02:50 BMI result Body Mass Index 32.3 Appearance: Alert. Oriented X3. No acute distress. Eyes: PERRLA, No Nystagmus ENT: Pharynx normal. Oral Mucosa moist no temporal artery tenderness Neck: Normal inspection. Neck supple. CVS: Normal heart rate and rhythm. Pulses normal. Respiratory: No respiratory distress. Equal air entry bilateral, no wheezing/rales/rhonchi Abdomen: Soft and nontender. Bowel sounds are present, no mass palpable, no CVA tenderness Skin: Skin warm and dry. Normal skin color. Normal skin turgor. Extremities: No lower extremity edema. No calf tenderness Neuro: Oriented X 3. No motor deficit. No sensory deficit.No cerebellar signs , cranial nerves II-XII intact Medications Administered Discontinued Medications Generic Name Dose Route Start Last Admin Trade Name Freq PRN Reason Stop Dose Admin Acetaminophen/Butalbital/Caffeine 1 tab 10/31/22 04:02 10/31/22 04:34 Butalb/Acetamin/Caff 50/325/40 Tablet PO 10/31/22 04:03 1 tab ONCE ONE Administration Ketorolac Tromethamine 30 mg 10/31/22 04:34 10/31/22 04:52 Ketorolac Tromethamine 30 Mg/Ml Vial IVPUSH 10/31/22 04:35 30 mg ONCE ONE Administration Ondansetron HCl 4 mg 10/31/22 03:25 10/31/22 03:33 Ondansetron Odt 4 Mg Tab.Rapdis TRANSLINGU 10/31/22 03:26 4 mg ONCE ONE Administration Sumatriptan Succinate 6 mg 10/31/22 03:25 10/31/22 03:33 Sumatriptan Succinate 6 Mg/0.5 Ml Vial SUBCUT 10/31/22 03:26 6 mg ONCE ONE Administration Medical Decision Making Medical Decision Making [facility] Narrative: Patient with migraine headache felt better after Imitrex discharge patient home on Imitrex tablets and Fioricet Discharge Plan Discharge Clinical Impression: Migraine Patient Disposition: Home, Self-Care Instructions: Migraine Headache (ED) Additional Instructions: Take Imitrex 1 tablet at onset of headache may repeat in 2 hours if headache continues maximum 2 tablets in 24 hours Fioricet 1 tablet every 6 hours as needed for headache Follow-up with your PCP Prescriptions: New sumatriptan succinate [Imitrex] 50 mg tablet 50 mg PO Q2H PRN (Reason: migraine headache) Qty: 10 0RF Rx Instructions: do not exceed 2 doses per 24 hrs ondansetron 4 mg tablet,disintegrating 4 mg PO Q6-8H PRN (Reason: nausea and vomiting) Qty: 10 0RF mlhgtlpxxw-wflgdyxbeegca-zquw [Fioricet] 50-300-40 mg capsule 1 cap PO Q6H PRN (Reason: headache) Qty: 20 0RF No Action hydroxyzine HCl 50 mg tablet 50 mg PO TID PRN (Reason: anxiety) Qty: 30 0RF Stand Alone Forms: Work/School Release Interventions: ED Discharge Assessment Last Done: 10/31/22 05:08 Discharge Date/Time: 10/31/22 05:20
== END 2022-10-31 05:20 | disposition home or self-care (01) ==
PROVIDERS: Emergency Provider Internal Medicine
DX: G43.909 Migraine, unspecified, not intractable, without status migrainosus (principal); I10 Essential (primary) hypertension; Z79.899 Other long term (current) drug therapy
CPT/HCPCS: 96372; 96374; 99284; J1885; J3030

== ENCOUNTER 2022-11-01 20:22 | Emergency (ER) | payer OTHER, SELFPAY ==
--- NOTE | 2022-11-01 20:26 | ED.GENADULT ---
HPI - General Adult General Chief complaint: Dental/Oral Stated complaint: Dental pain Source: patient Mode of arrival: ambulatory Limitations: no limitations History of Present Illness HPI narrative: Patient is a 36 year old female presents w/ pain to left lower molar w/ radiation to L ear X4 days. Pain constant and severe in nature. No fevers, chills, CP,sob, difficulty controlling secretions, nausea, vomiting, abd pain, changes in voice, difficulty opening mouth. Apt with dentist and maybe friday. Related Data Previous Rx's Medication Instructions Recorded hydroxyzine HCl 50 mg tablet 50 mg PO TID PRN anxiety #30 tabs 11/11/20 fplslwumdw-nssfnbqwtuhou-kfdrdadg 1 cap PO Q6H PRN headache #20 caps 10/31/22 50 mg-300 mg-40 mg capsule (Fioricet) ondansetron 4 mg disintegrating 4 mg PO Q6-8H PRN nausea and 10/31/22 tablet vomiting #10 tabs sumatriptan succinate 50 mg tablet 50 mg PO Q2H PRN migraine headache 10/31/22 (Imitrex) #10 tabs amoxicillin 875 mg-potassium 1 tab PO BID 10 days #20 tabs 11/01/22 clavulanate 125 mg tablet morphine 15 mg immediate release 15 mg PO Q6H PRN pain 5 days #10 11/01/22 tablet tabs Allergies Allergy/AdvReac Type Severity Reaction Status Date / Time No Known Allergies Allergy Verified 10/19/22 11:13 Review of Systems Review of Systems: Constitutional : No Fever, No Chills ENT/Mouth : No swallowing difficulty, no change in voice, positive dental pain, positive jaw pain, positive facial swelling Eyes: No Eye Pain, No Swelling Cardiovascular : No Chest Pain, No SOB Respiratory : No Cough, No Sputum Gastrointestinal : No Nausea, No Vomiting, No Diarrhea Genitourinary : No Dysuria Musculoskeletal : No Myalgias Skin : No rash Neuro : No Weakness, No Numbness, No Headache Yes all other systems are reviewed and are negative [facility] Past Medical History Attestation statement: The following information was validated with the patient. Source: old records reviewed and nursing notes reviewed Medical History Anxiety Hypertension Seizures Social History Social History Alcohol intake: current Alcohol intake frequency: holidays/special occasions only Patient Tobacco Use Status: Never used Tobacco Physical Exam ED Vital Signs: vss Appearance: Alert.? Oriented X3.? No acute distress.? Head: Normocephalic, atraumatic, no step-offs or deformities Eyes: Pupils equal, round and reactive to light.? ENT: Pharynx normal.?multiple dental caries, hallitosis and a fractured left lower molar w/o abscess. Patient speaking in full sentences controlling secretions well. Neck: Normal inspection.? Neck supple.? CVS: Normal heart rate and rhythm.? Pulses normal.? Respiratory: No respiratory distress.? Breath sounds normal.? Abdomen: Soft and nontender.? Skin: Skin warm and dry.? Normal skin color.? Normal skin turgor.? Extremities: No lower extremity edema.? No calf ttp. 5/5 strength to bilateral upper and lower extremities Neuro: Oriented X 3.? No motor deficit.? No sensory deficit. CN 2-12 intact Course Reevaluation(s) Reevaluation #1: patient will be dc w/ morphine has tollerated in the past went over narcotic instructions. Educated patient on diagnosis and treatment plan, answered all question, patient verbalizes understanding. At this time patient will be discharged home, advised to return with new or worsening symptoms. Educated on worrisome signs and symptoms and when to return. At this time I feel comfortable discharge home. Time: 20:33 Medical Decision Making Medical Decision Making MDM Narrative: 36-year-old female presents with dental pain x4 days. Physical exam significant for Pharynx normal.?multiple dental caries, hallitosis and a fractured left lower molar w/o abscess. Patient speaking in full sentences controlling secretions well. Likely dental caries with dental fractures. No signs of abscess. No signs of threatened airway. No signs of sepsis. Plan discharge with antibiotics. Patient to see dentist Friday or . Differential Diagnosis Differential Diagnoses: The differential diagnosis associated with the presentation includes Likely dental caries with dental fractures. No signs of abscess. No signs of threatened airway. No signs of sepsis. Admission/Observation Consideration of admission/observation: Escalation of care including admission/observation considered not needed Core Measures AMI core measures followed: Yes Measure exclusions: not indicated Critical Care Time Critical Care Time Critical Care Time: No Discharge Plan Discharge Clinical Impression: Dental caries, Toothache, Fracture of tooth Patient Disposition: Home, Self-Care Instructions: Toothache (ED) Additional Instructions: Take your medications as prescribed. If you were prescribed antibiotics today, it is important that you take your medication to their entirety, do not skip any doses, do not finish them early. Follow-up with your primary care provider this week. Return to the emergency department with new or worsening symptoms. In case of emergency call 911 A narcotic has been sent to your pharmacy please take this as prescribed. Do not take more than the prescribed dose. Narcotic medications can cause addiction. Please do not mix them with alcohol. Do not take them while driving or operating machinery. Do not take them with any other narcotics. Do not share them with friends or family. They can cause constipation. Take them only for severe pain. Prescriptions: New morphine 15 mg tablet 15 mg PO Q6H PRN (Reason: pain) 5 Days Qty: 10 0RF Rx Instructions: Partial Fill upon patient request. amoxicillin-pot clavulanate 875-125 mg tablet 1 tab PO BID 10 Days Qty: 20 0RF No Action hydroxyzine HCl 50 mg tablet 50 mg PO TID PRN (Reason: anxiety) Qty: 30 0RF sumatriptan succinate [Imitrex] 50 mg tablet 50 mg PO Q2H PRN (Reason: migraine headache) Qty: 10 0RF Rx Instructions: do not exceed 2 doses per 24 hrs ondansetron 4 mg tablet,disintegrating 4 mg PO Q6-8H PRN (Reason: nausea and vomiting) Qty: 10 0RF yjwrtyphfv-weahqhambojwa-rhrj [Fioricet] 50-300-40 mg capsule 1 cap PO Q6H PRN (Reason: headache) Qty: 20 0RF Referrals: Physician,Unknown J [Primary Care Provider] - Stand Alone Forms: Work/School Release
[2022-11-01 20:36] VITALS: BP 134/74; PULSE 101; RESP 16; TEMP 36.6; O2SAT 98; BMI 32.3
--- NOTE | 2022-11-01 20:40 | PC.NURSE ---
reviewed discharge instructions with pt, pt verbalized understanding, pt assess and discharge by provider in triage
== END 2022-11-01 20:49 | disposition home or self-care (01) ==
LOC: HO.ED 20:41
PROVIDERS: Emergency Provider Internal Medicine; PCP Internal Medicine Cardiovascular Disease
DX: K03.81 Cracked tooth (principal); K02.9 Dental caries, unspecified
CPT/HCPCS: 99282; 99283

== ENCOUNTER 2022-11-23 11:51 | Emergency (ER) | payer OTHER, SELFPAY ==
[2022-11-23 12:01] VITALS: BP 132/84; PULSE 94; RESP 18; TEMP 36.2; O2SAT 95; BMI 33.2
--- NOTE | 2022-11-23 12:03 | ED_ITS ---
HPI - General Adult General Chief complaint: Dental/Oral Stated complaint: tooth ache Time Seen by Provider: 11/23/22 12:03 Source: patient Mode of arrival: ambulatory Limitations: no limitations History of Present Illness HPI narrative: Patient is a 36-year-old female presenting to the emergency department with co mplaint of left lower jaw pain for the past several weeks. States she is unsure how the tooth was damaged. Since that time pain has increased and over the past few days has begun to radiate to left ear. Denies fevers. Denies any throat swelling or difficulty swallowing. States has been attempting to make a dental appointment, does not have one scheduled at this time. Has taken Tylenol for th e pain with little relief. MD complaint: dental pain Onset (ago): week(s) Location: mouth Radiation: other (left ear) Severity: severe Quality: aching Pain Consistency: constant Relieving factors: none Exacerbating factors: eating Associated symptoms: denies other symptoms Treatments prior to arrival: other (Tylenol) Related Data Previous Rx's Medication Instructions Recorded hydroxyzine HCl 50 mg tablet 50 mg PO TID PRN anxiety #30 tabs 11/11/20 aicmjamswz-qukddhhjmzvjq-euehskcu 1 cap PO Q6H PRN headache #20 caps 10/31/22 50 mg-300 mg-40 mg capsule (Fioricet) ondansetron 4 mg disintegrating 4 mg PO Q6-8H PRN nausea and 10/31/22 tablet vomiting #10 tabs sumatriptan succinate 50 mg tablet 50 mg PO Q2H PRN migraine headache 10/31/22 (Imitrex) #10 tabs amoxicillin 875 mg-potassium 1 tab PO BID 10 days #20 tabs 11/01/22 clavulanate 125 mg tablet morphine 15 mg immediate release 15 mg PO Q6H PRN pain 5 days #10 11/01/22 tablet tabs amoxicillin 875 mg-potassium 1 tab PO BID #14 tabs 11/23/22 clavulanate 125 mg tablet fluconazole 150 mg tablet 150 mg PO Q3D 2 doses #2 tabs 11/23/22 (Diflucan) ibuprofen 600 mg tablet 600 mg PO Q8H PRN pain #14 tabs 11/23/22 Allergies Allergy/AdvReac Type Severity Reaction Status Date / Time No Known Allergies Allergy Verified 11/23/22 12:05 Review of Systems Review of Systems: As per HPI. Yes all other systems are reviewed and are negative Constitutional: Constitutional: Reports as per HPI [facility] Past Medical History Medical History Anxiety Hypertension Seizures Social History Social History Alcohol intake: current Alcohol intake frequency: holidays/special occasions only Patient Tobacco Use Status: Never used Tobacco Advance Directives: No Advance Directives Information Provided: No Physical Exam ED Vital Signs: Vital Signs - 24 hr 11/23/22 12:01 Temperature 97.2 F Pulse Rate 94 Respiratory Rate 18 Blood Pressure 132/84 Pulse Oximetry 95 Oxygen Delivery Method Room Air BMI result Body Mass Index 33.2 Vital signs have been reviewed and appear to be correct. Blood pressure normal. Heart rate normal. Respiratory rate normal. Temperature normal. Oxygen saturation normal. Const General: cooperative, healthy appearing and no acute distress Orientation/consciousness: oriented to person, oriented to place, oriented to time and patient oriented x3 Limitations: no limitations HENMT Head: Yes normocephalic and Yes atraumatic Ears: external ears normal General nose exam: Normal external nose present Face and sinus: Yes face symmetric Mouth: oropharynx normal and moist mucous membranes Teeth and gingiva: abnormal tooth and associated gingiva lower left tender, with associated gingival edema and enamel fractured; without associated gingival fluctuance and pulp not exposed and poor dentition Teeth image: 1. tenderness to palpation Throat: Yes posterior oropharynx normal, Yes uvula midline and No uvular edema Eyes Pupils: Equal, round and reactive pupils present Neck Neck: Yes normal visual inspection and Yes supple Resp Effort & Inspection: normal respiratory effort and able to speak in complete sentences Auscultation: clear to auscultation bilaterally Cardio Rate: regular rate Rhythm: regular rhythm Heart sounds: S1 normal heart sound present and S2 normal heart sound present GI Palpation (GI): Soft to palpation and nontender Auscultation: normoactive bowel sounds General: Yes no CVA tenderness Back/Spine/Pelvis Back: no CVA tenderness Skin General skin exam: elasticity normal and turgor normal Neuro General: oriented to person, oriented to place, oriented to time, patient elías ented x3, moves all extremities, no focal motor deficits and CN's II-XI intact bilaterally Cranial nerves: Yes Equal, round and reactive pupils present Cognition (Neuro): normal cognition Extrem General: Yes full ROM, Yes no pedal edema and Yes no calf tenderness Psych Mental Status: mental status grossly normal Affect: normal affect Thought process: Normal thought process present Medical Decision Making Medical Decision Making [facility] Narrative: Patient is a 36-year-old female presenting to the emergency department with complaint of left lower jaw pain for the past several weeks. On exam patient is awake, A+Ox3, VS WNL, afebrile, normal neurological exam without focal deficits, poor dentition, tooth #17 cracked, tender to palpation, surrounding gingiva edematous, no fluctuance, TM and EAC normal left ear, no mastoid tenderness. Given reported symptoms and physical exam findings, initial differential includ es dental pain, dental abscess, dental infection. Will discharge patient home on course of Augmentin, patient also requesting Diflucan. Instructed patient it is imperative she schedule a follow-up dental appointment as this tooth will require repair. Return precautions discussed at bedside. Advised patient to gargle with warm salt water several times daily. Patient verbalized understanding of and agreement with plan. Differential Diagnosis Differential Diagnoses: The differential diagnosis associated with the presentation includes As per MDM. External Record Review External record reviewed: Inpatient record, Office record and Outpatient record Prescription Management I considered prescription management with: Pain Medication and Antibiotic Discharge Plan Discharge Clinical Impression: Dental infection, Pain, dental Patient Disposition: Home, Self-Care Instructions: Toothache (ED) Additional Instructions: You were evaluated in the emergency department today for dental pain. You are being prescribed antibiotics for a dental infection. Please complete the full course of antibiotics as prescribed. You were provided with a list of dental clinics, please follow-up as possible for an appointment. Return to the emergency department if you develop worsening pain, drainage, fever 100.4? F or greater, swelling to throat, difficulty eating or swallowing, or any other concerning symptoms. Prescriptions: New amoxicillin-pot clavulanate 875-125 mg tablet 1 tab PO BID Qty: 14 0RF fluconazole [Diflucan] 150 mg tablet 150 mg PO Q3D Qty: 2 0RF Rx Instructions: Take one tab today. If you still have symptoms in 72 hours, take the second dose. ibuprofen 600 mg tablet 600 mg PO Q8H PRN (Reason: pain) Qty: 14 0RF No Action hydroxyzine HCl 50 mg tablet 50 mg PO TID PRN (Reason: anxiety) Qty: 30 0RF sumatriptan succinate [Imitrex] 50 mg tablet 50 mg PO Q2H PRN (Reason: migraine headache) Qty: 10 0RF Rx Instructions: do not exceed 2 doses per 24 hrs ondansetron 4 mg tablet,disintegrating 4 mg PO Q6-8H PRN (Reason: nausea and vomiting) Qty: 10 0RF xhfjsdwbmb-rccavhxucctyo-mpel [Fioricet] 50-300-40 mg capsule 1 cap PO Q6H PRN (Reason: headache) Qty: 20 0RF morphine 15 mg tablet 15 mg PO Q6H PRN (Reason: pain) 5 Days Qty: 10 0RF Rx Instructions: Partial Fill upon patient request. amoxicillin-pot clavulanate 875-125 mg tablet 1 tab PO BID 10 Days Qty: 20 0RF Interventions: ED Discharge Assessment Last Done: 11/23/22 12:24
--- NOTE | 2022-11-23 12:06 | PC.NURSE ---
Took Tylenol at 10:00am today (2 hours ago). Provider aware.
--- OUTSIDE RECORDS SUMMARY | 2022-11-23 12:13 | XMS_ITS | Continuity of Care Document ---
Author Name Unknown Organization [facility] Juan lt Address [address] [place] [address]- Care Team Providers Care Hand Silvering Supervisor Name Role Phone Eleuterio Capellan Primary Care Physi sampson [place] [facility] [place]): 11/08/22 - 11/15/22 [facility] Adult [address] [place] [address]- Attending Physician: Eleuterio Capellan Allergies, Adverse Reactions, [...] 11/06/20 Given 1Result Comment: [facility]# ON THE [address] [phone] Medications clindamycin topical 2% cream See Instructions, [...] 02/27/21 9:52... Start Date: 02/27/21 Status: Ordered propranolol 10 mg oral tablet See Instructions, May take up to 2 tablets 30mins to 1hr as needed for situational anxiety., # 20 tablet, Refills 0, Tot. Refills 0, Maintenance, 11/08/22 13:27:00 EDT, Instructions Replace Required Details, Route to Pharmacy Electronically, [facility] Start Date: 11/08/22 Status: Ordered riboflavin 400 mg oral capsule [...] day, PRN for wheezing, # 18 Gm, 5 Refills, Maintenance, 11/11/22 16:47:00 EDT, Aerosol, [facility], Partial fill upon patient request if the prescription is for a schedule II opioid drug., 168, cm, 11/08/22... Start Date: 11/11/22 Status: Ordered Problem List Condition Confirmation Course Effective Dates Status Health Status Informant Anxiety Confirmed Active Asthma Confirmed Active Familial hypercholesteremia Confirmed 02/27/21 Active Chronic GERD Confirmed Active Hidradenitis suppurativa Confirmed Active Insomnia Confirmed Active Migraine headache Confirmed Active Obese class I Confirmed Active Obesity Confirmed Active [place]-Schlatter's disease Confirmed Active Pilonidal cyst Confirmed Active Seizure Confirmed Active Fatty liver Confirmed Active Vertigo Confirmed Active Vital Signs Most recent to oldest [Reference Range]: 1 Height 168 cm (11/08/22 12:44 PM) Weight 94.8 kg (11/08/22 12:44 PM) Oxygen Saturation [94-100 %] 94 % (11/08/22 12:44 PM) Pulse Rate [55-90 bpm] 124 bpm *H* (11/08/22 12:44 PM) Body Mass Index [18.5-24.99 kg/m2] 33.59 kg/m2 *>HHI* (11/08/22 12:44 PM) Blood Pressure [90-138/55-84 mm Hg] 133/ 81mm Hg (11/08/22 12:44 PM) Temperature [96.8-100.4 DegF] 97.9 DegF (11/08/22 12:44 PM) Mode of Delivery (Oxygen) Room air (11/08/22 12:44 PM) Blood pressure sites Arm, right (11/08/22 12:44 PM) Temperature Route Temporal (11/08/22 12:44 PM) Weight Obtained Via Standing scale (11/08/22 12:44 PM) Social History Social History Type Response Smoking Status Former smoker, quit more than 30 days ago entered on: 11/06/20 Sex Patient Care team information Care Team Personnel Name: Eleuterio Capellan Position: S PCO Associate Professional Member Role: PCP Address: Address: [address] [facility] [place] [address]- Care Team Related Persons Name: ROCIO GAINES Address: home [address] [place] [address] Name: RANDALL AHN Address: [place] [address]
== END 2022-11-23 12:25 | disposition home or self-care (01) ==
PROVIDERS: Emergency Provider Student in an Organized Health Care Education/Training Program; PCP Internal Medicine Cardiovascular Disease
DX: K04.7 Periapical abscess without sinus (principal); K08.89 Other specified disorders of teeth and supporting structures; Z79.899 Other long term (current) drug therapy
CPT/HCPCS: 99282; 99283

== ENCOUNTER 2024-03-20 08:31 | Emergency (ER) | payer SELFPAY ==
--- NOTE | ~2024-03-20 | CT_ITS ---
EXAMINATION: CT HEAD WITHOUT CONTRAST CLINICAL INFORMATION: Seizure, headache, confusion COMPARISON: Head CT on 08/28/2021 TECHNIQUE: Contiguous axial imaging was performed from the skull base to vertex without intravenous administration of contrast. This CT examination was performed using dose optimization techniques as appropriate, variously including the following: *Automated exposure control *Adjustment of mA and/or kV according to patient size (this includes techniques or standardized protocols for targeted exams where dose is matched to indication/reason for exam; i.e. extremities or head) *Use of iterative reconstruction technique DLP: 618 mGy-cm RESULTS: There is no evidence of acute intracranial hemorrhage, acute large vessel infarct, midline shift or mass effect. The kovacs-white differentiation is preserved. The ventricles and sulci are within normal limits in size and configuration. There is no evidence of hydrocephalus. There are no extraaxial collections. Osseous structures are intact. Paranasal sinuses and mastoid air cells are well aerated. CT/CT head/brain wo IV con IMPRESSION: Unremarkable non-contrast CT of the brain. Electronically signed by: Ana Rosa Croft MD 03/20/2024 10:06 AM EUNICE
[2024-03-20 08:34] VITALS: BP 128/76; PULSE 85; RESP 18; TEMP 36.6; O2SAT 98; BMI 33.6
--- NOTE | 2024-03-20 08:53 | ED.GENADULT ---
HPI - General Adult General Chief complaint: General Medical Stated complaint: memory loss headache Time Seen by Provider: 03/20/24 08:41 Source: patient and family Mode of arrival: ambulatory Limitations: no limitations History of Present Illness ED Provider: DR. Cheung HPI narrative: 38-year-old female with history of seizure on Keppra (supposedly take 1000 mg b.i.d. patient is cutting down on her own to 1000 mg once daily because she is running out of health insurance), migraine headache, patient woke up from sleep was headache, feeling confused, wetting her pants, no tongue bite, no witnessed seizure by her significant other, patient woke up this morning in her bed no fall. Patient also complaining of having difficulty with her memory. Related Data Previous Rx's ?Medication ?Instructions ?Recorded hydroxyzine HCl 50 mg tablet 50 mg PO TID PRN anxiety #30 tabs 11/11/20 ynwtpwrfcg-dxqttzfsxapmi-iflxpayb 1 cap PO Q6H PRN headache #20 caps 10/31/22 50 mg-300 mg-40 mg capsule (Fioricet) ondansetron 4 mg disintegrating 4 mg PO Q6-8H PRN nausea and 10/31/22 tablet vomiting #10 tabs sumatriptan succinate 50 mg tablet 50 mg PO Q2H PRN migraine headache 10/31/22 (Imitrex) #10 tabs amoxicillin 875 mg-potassium 1 tab PO BID 10 days #20 tabs 11/01/22 clavulanate 125 mg tablet morphine 15 mg immediate release 15 mg PO Q6H PRN pain 5 days #10 11/01/22 tablet tabs amoxicillin 875 mg-potassium 1 tab PO BID #14 tabs 11/23/22 clavulanate 125 mg tablet fluconazole 150 mg tablet 150 mg PO Q3D 2 doses #2 tabs 11/23/22 (Diflucan) ibuprofen 600 mg tablet 600 mg PO Q8H PRN pain #14 tabs 11/23/22 levetiracetam 1,000 mg tablet 1,000 mg PO BID #60 tabs 03/20/24 (Keppra) Allergies Allergy/AdvReac Type Severity Reaction Status Date / Time No Known Allergies Allergy Verified 03/20/24 08:37 Review of Systems Review of Systems: all other systems are reviewed and are negative Constitutional: Reports as per HPI and Reports no additional constitutional complaints Eyes: Reports as per HPI and Reports no additional eye complaints Reports system reviewed and no additional complaints, except as documented Cardiovascular: Reports as per HPI and Reports no additional cardiovascular complaints Respiratory: Reports as per HPI and Reports no additional respiratory complaints Gastrointestinal: Reports as per HPI and Reports no additional gastrointestinal complaints Genitourinary: Reports no additional female genitourinary complaints Musculoskeletal: Reports no additional musculoskeletal complaints Skin/Breast: Reports system reviewed and no additional complaints, except as docu Psychiatric: Reports no additional psychiatric complaints Endocrine: Reports no additional endocrine complaints Hematologic/Lymphatic: Reports no additional hematologic/lymphatic complaints Allergic/Immunologic: Reports no additional allergic/immunologic complaints Reports system reviewed and no additional complaints, except as documented and Reports Abnormal speech present [facility] Past Medical History Medical History Anxiety Hypertension Seizures Social History Social History Alcohol intake: current Alcohol intake frequency: holidays/special occasions only Patient Tobacco Use Status: Never used Tobacco Smoked in Last 30 Days: No Use of substances other than those prescribed or required for medical reasons: Yes Substance Use Type: Marijuana Advance Directives: No Advance Directives Information Provided: Yes Do you have a plan to hurt others: No Plan Patient : No Physical Exam ED Vital Signs: Vital Signs - 24 hr 03/20/24 08:34 Temperature 97.9 F Pulse Rate 85 Respiratory Rate 18 Blood Pressure 128/76 Pulse Oximetry 98 Oxygen Delivery Method Room Air BMI result Body Mass Index 33.6 Vital signs have been reviewed and appear to be correct. Blood pressure elevated. Heart rate normal. Respiratory rate normal. Temperature normal. Oxygen saturation normal. Appearance: Alert. Oriented X3. No acute distress. Head: Normal external exam. Normocephalic. Atraumatic. No Ruiz signs noted. No raccoon eyes noted Eyes: PERRLA. EOMI. Conjunctiva and sclera normal. Eyelids normal. ENT: TM's Normal. Pharynx normal. Uvula midline. Moist mucous membranes. No trismus noted. No drooling noted. No muffled voice noted. Neck: Normal inspection. Neck supple. FROM. No adenopathy. Thyroid Normal. No meningeal signs. No neck mass noted. CVS: Normal heart rate and rhythm. Heart sound normal. No murmurs noted. Pulses normal throughout. Respiratory: No respiratory distress. Painless inspiration. Breath sounds normal. No wheezes/rales/rhonchi noted. Chest nontender. No accessory muscle usage noted or decreased air movement noted. Abdomen: Soft and nontender. Bowel sounds normal in all 4 quadrants. No distention noted. No organomegaly noted. No visible injury noted. Back: No CVA tenderness. Full range of motion noted. Skin: Skin warm and dry. Normal skin color. Normal skin turgor. No rashes/lesions/lacerations noted. Extremities: No lower extremity edema. Extremities exhibit normal range of motion. Extremities nontender. Neuro: Mental status: Normal attention, orientation, memory, and affect. Cranial nerves: Pupils are equal, round and reactive to light, EOMI, visual valero are fall, face is symmetric, facial sensations are normal. Motor examination normal muscle tone, strength to 4 extremities. DTR are +2, planter's are flexor. Sensory exam; normal coordination, no ataxia, gait stable. Cerebellar exam: Fzguca-sv-flyz and diph-xm-dtjp is normal. Extrapyramidal system: No tremors, no rigidity with normal facial expressions. Pronator drift not present Course Reevaluation(s) Reevaluation #1: Patient had nap in the emergency department feels better after the nap, patient is not confused, oriented, no headache, unremarkable labs and head CT with repeat neuro exam is unremarkable. Time: 12:50 Medications Administered Discontinued Medications Generic Name Dose Route Start Last Admin Trade Name Freq PRN Reason Stop Dose Admin Sodium Chloride 1,000 mls @ 999 mls/hr 03/20/24 08:51 03/20/24 12:03 Ns IV 03/20/24 09:51 Infused .Q1H1M ONE Infusion Ketorolac Tromethamine 15 mg 03/20/24 08:51 03/20/24 09:09 Ketorolac Tromethamine 15 Mg/Ml Vial IVPUSH 03/20/24 08:52 15 mg ONCE ONE Administration Levetiracetam 1,000 mg 03/20/24 08:51 03/20/24 09:09 Levetiracetam 1,000 Mg Tablet PO 03/20/24 08:52 1,000 mg ONCE ONE Administration Medical Decision Making Differential Diagnosis Differential Diagnoses: The differential diagnosis associated with the presentation includes ( Seizure, postictal state, postictal headache, intracranial bleed, electrolyte derangement, severe anemia.) Admission/Observation Consideration of admission/observation: Escalation of care including admission/observation considered Lab Data MDM Lab Attestation statement: I reviewed the patient's lab results. 03/20/24 08:43 03/20/24 08:43 Labs: Lab Results 03/20/24 Range/Units 08:43 WBC 10.1 (4.8-10.8) X10*3/uL RBC 4.59 (4.20-5.50) X10*6/uL Hgb 14.4 (12.0-16.0) g/dl Hct 43.8 (37.0-47.0) % MCV 95.4 (80.0-98.0) fL MCH 31.4 (27.0-33.0) pg MCHC 32.9 (31.0-35.0) g/dl RDW 14.1 (11.0-16.0) % Plt Count 384 (160-400) X10*3/uL MPV 9.2 L (9.4-12.3) fL Immature Gran % (Auto) 0.4 (0.0-0.4) % Neut % (Auto) 59.8 (45-73) % Lymph % (Auto) 29.4 (20-40) % Emery % (Auto) 7.8 (2-11) % Eos % (Auto) 2.0 (0-4) % Baso % (Auto) 0.6 (0-2) % Lymph # (Auto) 3.0 (1.2-4.9) X10*3/uL Emery # (Auto) 0.8 (0.1-1.2) X10*3/uL Eos # (Auto) 0.2 (0.0-0.4) X10*3/uL Baso # (Auto) 0.1 (0.0-0.2) X10*3/uL Abs Immat Gran (auto) 0.04 H (0.00-0.03) X10*3/uL Absolute Neuts (auto) 6.0 (2.0-8.3) x10*3/uL Absolute Nucleated RBC 0.000 (0.0-0.012) X10*3/uL Nucleated RBC % (auto) 0.0 (0.0-0.2) /100WBC Sodium 137 (135-145) mmol/L Potassium 4.1 (3.3-5.1) mmol/L Chloride 104 (96-108) mmol/L Carbon Dioxide 26 (22-29) mmol/L Anion Gap 11 L (12-20) BUN 9 (9-16) mg/dL Creatinine 0.85 (0.5-1.4) mg/dL Estim Creat Clear Calc 102.9 Estimated GFR > 60 Random Glucose 125 H (60-115) mg/dL Calcium 9.2 (8.4-10.2) mg/dL Total Bilirubin 0.4 (0.0-1.0) mg/dL AST 26 (5-31) U/L ALT 41 H (0-31) U/L Alkaline Phosphatase 96 (39-117) U/L Total Protein 6.8 (6.5-8.0) g/dL Albumin 4.0 (3.5-5.0) g/dL Independent Interpretation I performed an independent interpretation of an: CT Scan ( head: Unremarkable noncontrast CT of the brain.) Radiology Impression Discussion of test interpretation with radiology: I have reviewed the radiologist's reading. Discharge Plan Discharge Clinical Impression: Postictal headache, Post-ictal state Patient Disposition: Home, Self-Care Instructions: Recurrent Seizures in Adults (ED) Prescriptions: New levetiracetam [Keppra] 1,000 mg tablet 1,000 mg PO BID Qty: 60 0RF No Action hydroxyzine HCl 50 mg tablet 50 mg PO TID PRN (Reason: anxiety) Qty: 30 0RF sumatriptan succinate [Imitrex] 50 mg tablet 50 mg PO Q2H PRN (Reason: migraine headache) Qty: 10 0RF Rx Instructions: do not exceed 2 doses per 24 hrs ondansetron 4 mg tablet,disintegrating 4 mg PO Q6-8H PRN (Reason: nausea and vomiting) Qty: 10 0RF ghymmvykkm-cmestgnqcycbl-eguq [Fioricet] 50-300-40 mg capsule 1 cap PO Q6H PRN (Reason: headache) Qty: 20 0RF morphine 15 mg tablet 15 mg PO Q6H PRN (Reason: pain) 5 Days Qty: 10 0RF Rx Instructions: Partial Fill upon patient request. amoxicillin-pot clavulanate 875-125 mg tablet 1 tab PO BID 10 Days Qty: 20 0RF amoxicillin-pot clavulanate 875-125 mg tablet 1 tab PO BID Qty: 14 0RF fluconazole [Diflucan] 150 mg tablet 150 mg PO Q3D Qty: 2 0RF Rx Instructions: Take one tab today. If you still have symptoms in 72 hours, take the second dose. ibuprofen 600 mg tablet 600 mg PO Q8H PRN (Reason: pain) Qty: 14 0RF Stand Alone Forms: Work/School Release Print Language: Citizen Of [place]
[2024-03-20 08:54] LABS: MANUAL DIFF FLAG NO
[2024-03-20 08:57] LABS: Basophils Absolute Auto 0.1 X10*3/uL (0.0-0.2); Basophils Percent Auto 0.6 % (0-2); Eosinophils Absolute Auto 0.2 X10*3/uL (0.0-0.4); Hematocrit 43.8 % (37.0-47.0); Hemoglobin 14.4 g/dl (12.0-16.0); Imm Gran Abs Auto 0.04 X10*3/uL (0.00-0.03); Imm Gran Pct Auto 0.4 % (0.0-0.4); Lymphocytes Percent Auto 29.4 % (20-40); Mean Corpuscular HGB Conc 32.9 g/dl (31.0-35.0); Mean Corpuscular Hemoglobin 31.4 pg (27.0-33.0); Mean Corpuscular Volume 95.4 fL (80.0-98.0); Mean Platelet Volume 9.2 fL (9.4-12.3); Monocytes Absolute Auto 0.8 X10*3/uL (0.1-1.2); Monocytes Percent Auto 7.8 % (2-11); Neutrophils Percent Auto 59.8 % (45-73); Platelet Count 384 X10*3/uL (160-400); Red Blood Count 4.59 X10*6/uL (4.20-5.50); Red Cell Distribution Width 14.1 % (11.0-16.0); White Blood Count 10.1 X10*3/uL (4.8-10.8)
[2024-03-20] MEDS: levETIRAcetam 1,000 MG TABLET 1000 MG PO (09:09)
[2024-03-20] MEDS: Ketorolac Tromethamine 15 MG/ML VIAL IVPUSH (09:09)
[2024-03-20] MEDS: 0.9 % Sodium Chloride 1,000 ML 999 ML IV (09:09)
[2024-03-20 09:20] LABS: Alanine Aminotransferase 41 U/L (0-31); Alkaline Phosphatase 96 U/L (39-117); Anion Gap 11 (12-20); Aspartate Amino Transferase 26 U/L (5-31); Bilirubin Total 0.4 mg/dL (0.0-1.0); Blood Urea Nitrogen 9 mg/dL (9-16); Calcium 9.2 mg/dL (8.4-10.2); Carbon Dioxide 26 mmol/L (22-29); Chloride 104 mmol/L (96-108); Creatinine Clr Calc Pharmacy 102.9; Estimated Glomerular Filt Rate > 60; Glucose Random 125 mg/dL (60-115); Potassium 4.1 mmol/L (3.3-5.1); Sodium 137 mmol/L (135-145); Total Protein 6.8 g/dL (6.5-8.0)
--- NOTE | 2024-03-20 09:35 | PC.NURSE ---
patient a&ox3, vss, shelter monitor intact-sinus yehuda on monitor, iv inserted, labs previously drawn- ivf running per order, pt medicated per order, pt c/o 07/05 headache, pt rr equal/non labored- lungs clear, call hernandez within reach, will continue to monitor.
--- OUTSIDE RECORDS SUMMARY | 2024-03-20 09:40 | XMS_ITS | Continuity of Care Document ---
Author Organization [facility] Edwardo Juan lt Address [address] [place] [address]- Care Team Providers Care Slot Floorperson Name Role Phone Not on Staff, PCP Primary Care Physician Unavail able [facility]counter [facility] Date(s): 04/09/23 - 05/09/23 [facility] Adult [address] [place] [address]- Allergies, Adverse Reactions, Alerts No Known Allergies Immunizations Given and Recorded Vaccine Date Status Refusal Reason influenza virus vaccine, inactivated 04/03/22 Give n influenza virus vaccine, inactivated 1 02/13/21 Gi kriss SARS-CoV-2 (COVID-19) mRNA-1273 vaccine 03/31/21 R ecorded SARS-CoV-2 (COVID-19) mRNA-1273 vaccine 09/24/20 R ecorded SARS-CoV-2 (COVID-19) mRNA-1273 vaccine 08/27/20 R ecorded tetanus/diphtheria/pertussis, acel(Tdap) 11/06/20 Given 1Result Comment: [facility]# ON THE [address]OX [phone] Medications clindamycin topical 2% cream See Instructions, [...] Ordered levETIRAcetam 1000 mg oral tablet 1 tablet, By Mouth, 2 times a day, # 60 tablet, 2 Refills, Maintenance, 02/16/23 16:07:00 EDT, [facility], 168, cm, 11/08/22 12:44:00 EDT, Height Start Date: 02/16/23 Status: Ordered loratadine 10 mg oral tablet 10 mg, 1, tablet, By Mouth, Daily, # 30 tablet, Refills 5, Tot. Refills 5, Maintenance, 09/11/22 11:57:00 EDT, Route to Pharmacy Electronically, [facility], Partial fill upon [...] Care team information Care Team Personnel Name: Not on Staff, PCP Position: [facility] Physician (General Medicine) Member Role: PCP Care Team Related Persons Name: ROCIO GAINES Address: home [address] [place] [address] Name: RANDALL AHN Address: [place] [address]
--- OUTSIDE RECORDS SUMMARY | 2024-03-20 09:40 | XMS_ITS | Continuity of Care Document ---
Author Organization [facility] Edwardo Juan lt Address [address] [place] [address]- Care Team Providers Care User Experience Team Lead Name Role Phone Not on Staff, PCP Primary Care Physician Unavail able [facility]counter [facility] Date(s): 04/02/23 - 05/07/23 [facility] Adult [address] [place] [address]- Attending Physician: Marco Hoang MD Referring Physician: Eleuterio Capellan Allergies, Adverse Reactions, Alerts No Known Allergies Immunizations Given and Recorded Vaccine Date Status Refusal Reason influenza virus vaccine, inactivated 04/03/22 Give n influenza virus vaccine, inactivated 1 02/13/21 Gi kriss SARS-CoV-2 (COVID-19) mRNA-1273 vaccine 03/31/21 R ecorded SARS-CoV-2 (COVID-19) mRNA-1273 vaccine 09/24/20 R ecorded SARS-CoV-2 (COVID-19) mRNA-1273 vaccine 08/27/20 R ecorded tetanus/diphtheria/pertussis, acel(Tdap) 11/06/20 Given 1Result Comment: [facility]# ON THE [address] [id number] Medications clindamycin topical 2% cream See Instructions, [...] Personnel Name: Not on Staff, PCP Position: [facility] Physician (General Medicine) Member Role: PCP Care Team Related Persons Name: ROCIO GAINES Address: home [address] [place] [address] Name: RANDALL AHN Address: [place] [address]
--- OUTSIDE RECORDS SUMMARY | 2024-03-20 09:40 | XMS_ITS | Continuity of Care Document ---
Author Organization [facility] [place] Address [address] [place], [place] [address]memo guardado, [address] [place] [address]- Care Team Providers Care Perfusionist Name Role Phone Josh Dodson DO Primary Care Physician [phone] Encounter [facility] Date(s): 06/20/23 - 07/20/23 [facility] [address] [place] [address], [address] [place], [place] [address] Allergies, Adverse Reactions, Alerts No Known Allergies Immunizations Given and Recorded Vaccine Date Status Refusal Reason influenza virus vaccine, inactivated 04/03/22 Give n influenza virus vaccine, inactivated 1 02/13/21 Gi kriss SARS-CoV-2 (COVID-19) mRNA-1273 vaccine 03/31/21 R ecorded SARS-CoV-2 (COVID-19) mRNA-1273 vaccine 09/24/20 R ecorded SARS-CoV-2 (COVID-19) mRNA-1273 vaccine 08/27/20 R ecorded tetanus/diphtheria/pertussis, acel(Tdap) 11/06/20 Given 1Result Comment: [facility]# ON THE BOX 67476-121-61 Medications Abdominal binder Abdominal binder, See Instructions, # 1 each, Refills 0, Tot. Refills 0, Maintenance, to be used for rib instability/discomfort, 05/28/23 12:00:00 EST, Supply Start Date: 05/28/23 Status: Ordered clindamycin topical 2% cream See Instructions, Apply to affected areas twice daily., # 40 Gm, 1 Refills, Maintenance, 09/11/22 12:34:00 EDT, [facility], Partial fill upon patient request if the prescription is for a schedule II opioid drug., Apply to affected areas... Start Date: 09/11/22 Status: Ordered Freestyle Lite Lancets See Instructions, # 100 each, Refills 11, Tot. Refills 11, Maintenance, DX: R73.03 TEST BS ONCE DAILY, 06/17/23 11:40:00 EST, Supply, 168, cm, 05/14/23 16:50:00 EST, Height Start Date: 06/17/23 Stop Date: 06/11/24 Status: Ordered Freestyle Lite Monitor See Instructions, # 1 each, Refills 0, Tot. Refills 0, Maintenance, DX: R73.03 TEST BS 1-3 TIMES A WEEK, 03/09/21 14:43:00 EST, Supply, 168, cm, 03/09/21 12:58:00 EST, Height, 92.4, kg, 10/02/20 9:03:00 EDT, Dry Weight Start Date: 03/09/21 Status: Ordered Freestyle Lite Test Strips See Instructions, # 100 each, Refills 11, Tot. Refills 11, Maintenance, DX: R73.03 TEST BS ONCE DAILY, 06/17/23 11:43:00 EST, Supply, 168, cm, 05/14/23 16:50:00 EST, Height Start Date: 06/17/23 Stop Date: 06/11/24 Status: Ordered levETIRAcetam 1000 mg oral tablet 1 tablet, By Mouth, 2 times a day, # 60 tablet, 2 Refills, Maintenance, 05/20/23 18:54:00 EST, [facility], 168, cm, 05/14/23 16:50:00 EST, Height Start Date: 05/20/23 Status: Ordered loratadine 10 mg oral tablet [...] wheezing, # 18 Gm, 5 Refills, Maintenance, 05/20/23 18:56:00 EST, Aerosol, [facility], Partial fill upon patient request if the prescription is for a schedule II opioid drug., 168, cm, 05/14/23... Start Date: 05/20/23 Status: Ordered Problem List Condition Confirmation Course Effective Dates Status Health Status Informant Anxiety Confirmed Active Asthma Confirmed Active Familial hypercholesteremia Confirmed 02/27/21 Active Chronic GERD Confirmed Active Hidradenitis suppurativa Confirmed Active Insomnia Confirmed Active Migraine headache Confirmed Active Obesity Confirmed Active [place]-Schlatter's disease Confirmed Active Pilonidal cyst Confirmed Active Seizure Confirmed Active Severe obesity (BMI 35.0-39.9) with comorbidity Confirmed Active Fatty liver Confirmed Active Vertigo Confirmed Active Social History Social History Type Response Smoking Status Former smoker, quit more than 30 days ago entered on: 11/06/20 Sex Patient Care team information Care Team Personnel Name: Josh Dodson DO Position: [facility] Physician - Primary Care Member Role: PCP Address: Address: [address] [facility] [place] [address]- Care Team Related Persons Name: ROCIO GAINES Address: home [address] [place] [address] Name: RANDALL AHN Address: [place] [address]
--- OUTSIDE RECORDS SUMMARY | 2024-03-20 09:40 | XMS_ITS | Continuity of Care Document ---
Author Organization [facility] Juan Address [address] [place] [address]- Care Team Providers Care Hog Killer Name Role Phone Eleuterio Capellan Primary Care Physi sampson [place] [facility] 05[place]17[place]23 [facility] Adult [address] [place] [address]- Allergies, Adverse Reactions, Alerts No Known Allergies Immunizations Given and Recorded Vaccine Date Status Refusal Reason influenza virus vaccine, inactivated 04/03/22 Give n influenza virus vaccine, inactivated 1 02/13/21 Gi kriss SARS-CoV-2 (COVID-19) mRNA-1273 vaccine 03/31/21 R ecorded SARS-CoV-2 (COVID-19) mRNA-1273 vaccine 09/24/20 R ecorded SARS-CoV-2 (COVID-19) mRNA-1273 vaccine 08/27/20 R ecorded tetanus/diphtheria/pertussis, acel(Tdap) 11/06/20 Given 1Result Comment: [facility]# ON THE BOX [phone] Medications clindamycin topical 2% cream See Instructions, [...] Migraine headache Confirmed Active Obesity Confirmed Active [place]-Schlatter's disease Confirmed Active Pilonidal cyst Confirmed Active Seizure Confirmed Active Severe obesity (BMI 35.0-39.9) with comorbidity Confirmed Active Fatty liver Confirmed Active Vertigo Confirmed Active Social History Social History Type Response Smoking Status Former smoker, quit more than 30 days ago entered on: 11/06/20 Sex Patient Care team information Care Team Personnel Name: Eleuterio Capellan Position: [facility] PCO Associate Professional Member Role: PCP Address: Address: [address] [place] [address] Adult Medicine [place], [place] [address] Care Team Related Persons Name: ROCIO GAINES Address: home [address] [place] [address] Name: RANDALL AHN Address: [place] [address]
--- OUTSIDE RECORDS SUMMARY | 2024-03-20 09:41 | XMS_ITS | Continuity of Care Document ---
Author Organization [facility] Juan Address [address] [place] [address]- Care Team Providers Care Program Director Substance Abuse Name Role Phone Eleuterio Capellan Primary Care Physi sampson Encounter [facility] [place] Date(s): 11/12/22 - 12/12/22 [facility] Adult [address] [place] [address]- Allergies, Adverse Reactions, Alerts No Known Allergies Immunizations Given and Recorded Vaccine Date Status Refusal Reason influenza virus vaccine, inactivated 04/03/22 Give n influenza virus vaccine, inactivated 1 02/13/21 Gi kriss SARS-CoV-2 (COVID-19) mRNA-1273 vaccine 03/31/21 R ecorded SARS-CoV-2 (COVID-19) mRNA-1273 vaccine 09/24/20 R ecorded SARS-CoV-2 (COVID-19) mRNA-1273 vaccine 08/27/20 R ecorded tetanus/diphtheria/pertussis, acel(Tdap) 11/06/20 Given 1Result Comment: [facility]# ON THE BOX 80741-013-86 Medications clindamycin topical 2% cream See Instructions, [...] Refills, Maintenance, 09/11/22 11:57:00 EDT, [facility], 168, cm, 09/11/22 11:28:00 EDT, [...] class I Confirmed Active Obesity Confirmed Active [place]-Schlatter's disease Confirmed Active Pilonidal cyst Confirmed Active Seizure Confirmed Active Fatty liver Confirmed Active Vertigo Confirmed Active Social History Social History Type Response Smoking Status Former smoker, quit more than 30 days ago entered on: 11/06/20 Sex Patient Care team information Care Team Personnel Name: Eleuterio Capellan Position: [facility] PCO Associate Professional Member Role: PCP Address: Address: [address] [facility] [place], [place] [address] Care Team Related Persons Name: ROCIO GAINES Address: home [address] [place] [address] Name: RANDALL AHN Address: [place] [address]
--- OUTSIDE RECORDS SUMMARY | 2024-03-20 09:41 | XMS_ITS | Continuity of Care Document ---
Author Organization [facility] Address [address] [place], [place] [address]memo guardado, [address] [place] [address]- Care Team Providers Care Skin Carver Name Role Phone Eleuterio Capellan Primary Care Physi sampson Encounter [facility] [place] Date(s): 05/14/23 - 05/21/23 [facility] [address] [place] [address], [address] [place], [place] [address] Attending Physician: Roma Parsons MD Allergies, Adverse Reactions, Alerts No Known [...] [facility]# ON THE BOX 13212-750-28 Medications clindamycin topical 2% cream See Instructions, [...] Migraine headache Confirmed Active Obesity Confirmed Active [place]-Schlatter's disease Confirmed Active Pilonidal cyst Confirmed Active Seizure Confirmed Active Severe obesity (BMI 35.0-39.9) with comorbidity Confirmed Active Fatty liver Confirmed Active Vertigo Confirmed Active Vital Signs Most recent to oldest [Reference Range]: 1 Height 168 cm (05/14/23 4:50 PM) Weight 100.1 kg (05/14/23 4:50 PM) Oxygen Saturation [94-100 %] 98 % (05/14/23 4:50 PM) Pulse Rate [55-90 bpm] 86 bpm (05/14/23 4:50 PM) Body Mass Index [18.5-24.99 kg/m2] 35.47 kg/m2 *>HHI* (05/14/23 4:50 PM) Blood Pressure [90-138/55-84 mm Hg] 118/ 76mm Hg (05/14/23 4:50 PM) Temperature [96.8-100.4 DegF] 97.5 DegF (05/14/23 4:50 PM) Mode of Delivery (Oxygen) Room air (05/14/23 4:50 PM) Blood pressure sites Arm, left (05/14/23 4:50 PM) Temperature Route Temporal (05/14/23 4:50 PM) Social History Social History Type Response Smoking Status Former smoker, quit more than 30 days ago entered on: 11/06/20 Sex Patient Care team information Care Team Personnel Name: Eleuterio Capellan Position: [facility] PCO Associate Professional Member Role: PCP Address: Address: [address] [place] [address]- Care Team Related Persons Name: ROCIO GAINES Address: home [address] [place] [address] Name: RANDALL AHN Address: [place] [address]
--- OUTSIDE RECORDS SUMMARY | 2024-03-20 09:41 | XMS_ITS | Continuity of Care Document ---
Author Organization [facility] Address [address] [place] [address] Darryn guardado, [address] [place] [address]- Care Team Providers Care Freight Broker Name Role Phone Josh Dodson DO Primary Care Physician [place] [facility] [place]/14/23 - 12/12/23 [facility] [address] [place] [address] Drive [address] [place], [place] [address] Attending Physician: Roma Parsons MD Allergies, [...] ecorded tetanus/diphtheria/pertussis, acel(Tdap) 11/06/20 Given 1Result Comment: [facility]# ON THE BOX 53872-855-52 Medications Abdominal binder Abdominal binder, See Instructions, [...] List Condition Confirmation Course Effective Dates Status H ealth Status Informant GERD (gastroesophageal reflux disease) Confirmed Active ESTHER (generalized anxiety disorder) Confirmed Active Hidradenitis suppurativa Confirmed Active Insomnia Confirmed Active Bronchogenic cyst Confirmed Active Migraine headache Confirmed Active Mild intermittent asthma Confirmed Active Mixed hyperlipidemia Confirmed Active [place]-Schlatter's disease Confirmed Active Panic attacks Confirmed Active Physical exam Confirmed Active Pilonidal cyst Confirmed Active Seizure Confirmed Active Severe obesity (BMI 35.0-39.9) with comorbidity Confirmed Active Fatty liver Confirmed Active Vertigo Confirmed Active Social History Social History Type Response Smoking Status Former smoker, quit more than 30 days ago entered on: 11/06/20 Sex Patient Care team information Care Team Personnel Name: Josh Dodson DO Position: [facility] Physician - Primary Care Member Role: PCP Address: Address: [address] [place] [address]- Care Team Related Persons Name: ROCIO GAINES Address: home [address] [place] [address] Name: RANDALL AHN Address: [place] [address]
--- OUTSIDE RECORDS SUMMARY | 2024-03-20 09:42 | XMS_ITS | Continuity of Care Document ---
Author Organization [facility] Juan lt Address [address] [place] [address]- Care Team Providers Care Signal Timer Name Role Phone Josh Dodson DO Primary Care Physician [place] [facility] [place](s): 09/10/23 - 10/10/23 [facility] Adult [address] [place] [address]- Attending Physician: Admtr, Ar8 Admitting Physician: Admtr, [...] tetanus/diphtheria/pertussis, acel(Tdap) 11/06/20 Given 1Result Comment: [facility]# ON THE BOX 24617-480-57 Medications Abdominal binder Abdominal binder, See Instructions, [...] asthma Confirmed Active Mixed hyperlipidemia Confirmed Active [place]-Schlatter's disease Confirmed Active Panic attacks Confirmed Active [...] Team Personnel Name: Josh Dodson DO Position: [facility] Physician - Primary Care Member Role: PCP Address: Address: [address] [place] [address]- Care Team Related Persons Name: ROCIO GAINES Address: home [address] [place] [address] Name: RANDALL AHN Address: [place] [address]
--- OUTSIDE RECORDS SUMMARY | 2024-03-20 09:42 | XMS_ITS | Continuity of Care Document ---
Author Organization [facility] Juan lt Address [address] [place] [address]- Care Team Providers Care Stockroom Inventory Clerk Name Role Phone Eleuterio Capellan Primary Care Physi [employer] [place] [facility] [place](s[place] 02/07/23 - 03/09/23 [facility] Adult [address] [place] [address]- Attending Physician: Admtr, Ar8 Admitting Physician: Admtr, [...] tetanus/diphtheria/pertussis, acel(Tdap) 11/06/20 Given 1Result Comment: [facility]# ON THE BOX 32280-591-87 Medications clindamycin topical 2% cream See Instructions, [...] R73.03 TEST BS 1-3 TIMES A WEEK, 12/19/22 15:12:00 EST, Supply, 168, cm, 04/04/22 13:15:00 [...] Care Team Personnel Name: Eleuterio Capellan Position: [facility] PCO Associate Professional Member Role: PCP Address: Address: [address] [place] [address] [place] [address]- Care Team Related Persons Name: ROCIO GAINES Address: home [address] [place] [address] Name: RANDALL AHN Address: [place] [address]
--- OUTSIDE RECORDS SUMMARY | 2024-03-20 09:42 | XMS_ITS | Continuity of Care Document ---
Author Organization [facility] Juan lt Address [address] [place] [address]- Care Team Providers Care Gang Drill Press Operator Name Role Phone Not on Staff, PCP Primary Care Physician Unavail able [facility] Date(s): 04/03/23 - 05/03/23 [facility] Adult [address] [place] [address]- Allergies, Adverse Reactions, Alerts No Known Allergies Immunizations Given and Recorded Vaccine Date Status Refusal Reason influenza virus vaccine, inactivated 04/03/22 Give n influenza virus vaccine, inactivated 1 02/13/21 Gi kriss SARS-CoV-2 (COVID-19) mRNA-1273 vaccine 03/31/21 R ecorded SARS-CoV-2 (COVID-19) mRNA-1273 vaccine 09/24/20 R ecorded SARS-CoV-2 (COVID-19) mRNA-1273 vaccine 08/27/20 R ecorded tetanus/diphtheria/pertussis, acel(Tdap) 11/06/20 Given 1Result Comment: [facility]# ON THE BOX 83927-422-48 Medications clindamycin topical 2% cream See Instructions, [...] 09/11/22 11:57:00 EDT, Route to Pharmacy Electronically, [facility], Partial fill upon [...] Personnel Name: Not on Staff, PCP Position: [facility] Physician (General Medicine) Member Role: PCP Care Team Related Persons Name: ROCIO GAINES Address: home [address] [place] [address] Name: RANDALL AHN Address: [place] [address]
--- OUTSIDE RECORDS SUMMARY | 2024-03-20 09:42 | XMS_ITS | Continuity of Care Document ---
Author Organization [facility] Address [address] [place], [place] [address]memo guardado, [address] [place] [address]- Care Team Providers Care Talent Program Manager Name Role Phone Josh Dodson DO Primary Care Physician [facility]counter [facility] Date(s): 05/23/23 - 06/22/23 [facility] [address] [place] [address], [address] [place], [place] [address] Allergies, Adverse Reactions, Alerts No Known Allergies Immunizations Given and Recorded Vaccine Date Status Refusal Reason influenza virus vaccine, inactivated 04/03/22 Give n influenza virus vaccine, inactivated 1 02/13/21 Gi kriss SARS-CoV-2 (COVID-19) mRNA-1273 vaccine 03/31/21 R ecorded SARS-CoV-2 (COVID-19) mRNA-1273 vaccine 09/24/20 R ecorded SARS-CoV-2 (COVID-19) mRNA-1273 vaccine 08/27/20 R ecorded tetanus/diphtheria/pertussis, acel(Tdap) 11/06/20 Given 1Result Comment: [facility]# ON THE BOX 81842-015-08 Medications Abdominal binder Abdominal binder, See Instructions, [...] Team Personnel Name: Josh Dodson DO Position: [facility] Physician - Primary Care Member Role: PCP Address: Address: [address] [facility] [place] [address]- Care Team Related Persons Name: ROCIO GAINES Address: home [address] [place] [address] Name: RANDALL AHN Address: [place] [address]
--- OUTSIDE RECORDS SUMMARY | 2024-03-20 09:42 | XMS_ITS | Continuity of Care Document ---
Author Organization [facility] Juan Address [address] [place] [address]- Care Team Providers Care Resource Room Teacher Name Role Phone Eleuterio Capellan Primary Care Physi sampson Encounter [facility] [place] Date(s): 12/20/22 - 01/19/23 [facility] Adult [address] [place] [address]- Allergies, Adverse Reactions, Alerts No Known Allergies Immunizations Given and Recorded Vaccine Date Status Refusal Reason influenza virus vaccine, inactivated 04/03/22 Give n influenza virus vaccine, inactivated 1 02/13/21 Gi kriss SARS-CoV-2 (COVID-19) mRNA-1273 vaccine 03/31/21 R ecorded SARS-CoV-2 (COVID-19) mRNA-1273 vaccine 09/24/20 R ecorded SARS-CoV-2 (COVID-19) mRNA-1273 vaccine 08/27/20 R ecorded tetanus/diphtheria/pertussis, acel(Tdap) 11/06/20 Given 1Result Comment: [facility]# ON THE BOX 20307-782-68 Medications clindamycin topical 2% cream See Instructions, [...] Refills, Maintenance, 09/11/22 11:57:00 EDT, [facility], 168, cm, 09/11/22 11:28:00 EDT, [...] Care Team Personnel Name: Eleuterio Capellan Position: [facility] PCO Associate Professional Member Role: PCP Address: Address: [address] [place] [address] [address] Care Team Related Persons Name: ROCIO GAINES Address: home [address] [place] [address] Name: RANDALL AHN Address: [place] [address]
--- OUTSIDE RECORDS SUMMARY | 2024-03-20 09:42 | XMS_ITS | Continuity of Care Document ---
Author Organization [facility] Juan Address [address] [place] [address]- Care Team Providers Care Medical Coding Auditor Name Role Phone Eleuterio Capellan Primary Care Physi sampson Encounter [facility] [place] Date(s): 11/01/22 - 12/01/22 [facility] Adult [address] [place] [address]- Allergies, Adverse Reactions, Alerts No Known Allergies [...] [facility]# ON THE BOX 97710-427-57 Medications clindamycin topical 2% cream See Instructions, [...] Refills, Maintenance, 09/11/22 11:57:00 EDT, [facility], 168, cm, 09/11/22 11:28:00 EDT, [...] class I Confirmed Active Obesity Confirmed Active [place]-Schlatter's disease Confirmed Active Pilonidal cyst Confirmed Active Seizure Confirmed Active Fatty liver Confirmed Active Vertigo Confirmed Active Social History Social History Type Response Smoking Status Former smoker, quit more than 30 days ago entered on: 11/06/20 Sex Patient Care team information Care Team Personnel Name: Eleuterio Capellan Position: [facility] PCO Associate Professional Member Role: PCP Address: Address: [address] [facility] Medicine [place], [place] [address] Care Team Related Persons Name: ROCIO GAINES Address: home [address] [place] [address] Name: RANDALL AHN Address: [place] [address]
--- OUTSIDE RECORDS SUMMARY | 2024-03-20 09:44 | XMS_ITS | Continuity of Care Document ---
Author Organization [facility] Juan lt Address [address] [place] [address]- Care Team Providers Care Senior Ios Developer Name Role Phone Josh Dodson DO Primary Care Physician [facility] Date(s): 06/12/23 - 10/10/23 [facility] Adult [address] [place] [address]- Encounter Diagnosis Migraine headache(Discharge Diagnosis) - 09/08/23 Bronchogenic cyst(Discharge Diagnosis) - 09/08/23 Physical exam(Discharge Diagnosis) - 09/08/23 Seizure(Discharge Diagnosis) - 09/08/23 Severe obesity (BMI 35.0-39.9) with comorbidity(Discharge Diagnosis) - 09/08/23 Mixed hyperlipidemia(Discharge Diagnosis) - 09/08/23 ESTHER (generalized anxiety disorder)(Discharge Diagnosis) - 09/08/23 Panic attacks(Discharge Diagnosis) - 09/08/23 Mild intermittent asthma(Discharge Diagnosis) - 09/08/23 GERD (gastroesophageal reflux disease)(Discharge Diagnosis) - 09/08/23 Attending Physician: Josh Dodson DO Referring Physician: Eleuterio Capellan Allergies, Adverse Reactions, Alerts No Known Allergies Immunizations Given and Recorded Vaccine Date Status Refusal Reason influenza virus vaccine, inactivated 04/03/22 Give n influenza virus vaccine, inactivated 1 02/13/21 Gi kriss SARS-CoV-2 (COVID-19) mRNA-1273 vaccine 03/31/21 R ecorded SARS-CoV-2 (COVID-19) mRNA-1273 vaccine 09/24/20 R ecorded SARS-CoV-2 (COVID-19) mRNA-1273 vaccine 08/27/20 R ecorded tetanus/diphtheria/pertussis, acel(Tdap) 11/06/20 Given 1Result Comment: [facility]# ON THE BOX 22781-979-97 Medications Abdominal binder Abdominal binder, See Instructions, [...] asthma Confirmed Active Mixed hyperlipidemia Confirmed Active [place]-Schlatter's disease Confirmed Active Panic attacks Confirmed Active Physical exam Confirmed Active Pilonidal cyst Confirmed Active Seizure Confirmed Active Severe obesity (BMI 35.0-39.9) with comorbidity Confirmed Active Fatty liver Confirmed Active Vertigo Confirmed Active Diagnosis Diagnosis Type Effective Dates Health Status Clinical Service Informant Bronchogenic cyst 1 Discharge Diagnosis 09/08/23 Non-Specified Physical exam Discharge Diagnosis 09/08/23 Migraine headache Discharge Diagnosis 09/08/23 Seizure Discharge Diagnosis 09/08/23 Severe obesity (BMI 35.0-39.9) with comorbidity Discharge Diagnosis 09/08/23 Mixed hyperlipidemia Discharge Diagnosis 09/08/23 ESTHER (generalized anxiety disorder) Discharge Diagnosis 09/08/23 Panic attacks Discharge Diagnosis 09/08/23 Mild intermittent asthma Discharge Diagnosis 09/08/23 GERD (gastroesophageal reflux disease) Discharge Diagnosis 09/08/23 9:46 EDT - Josh Dodson DO Excised 10/15/2020 Dr. New Social History Social History Type Response Smoking Status Former smoker, quit more than 30 days ago entered on: 11/06/20 Sex Note * Josh Dodson DO: PERFORM Event Display: Patient Education Leaflets Authored Date: [id number] Health Screening Guidelines,??Women Ages 18 to 39 ?? [address] Health Screening Guidelines,??Women Ages 18 to 39 Screening tests and health counseling are a watters part of managing your health. A screening test is done to find disorders or diseases in people who don't have any symptoms. Screening tests are not used to diagnose. They are used to find out if more testing is needed. The goal may be to find a disease early so it can be treated with more success. Or the goal may be to find a disease early so you can make lifestyle changes. You may need regular checkups to help you reduce your risk of disease. Below are guidelines for women ages 18 to 39. Guidelines for some conditions can vary by expert group depending on age, risk, and other factors. Talk with your healthcare provider. Make sure you???[id number] on what you need. ?? Screening Who needs it How often Alcohol misuse All adults age 18 and older At routine exams Blood pressure All adults age 18 and older Once a year if your blood pressure is normal. Normal blood pressure is less than 120/80 mm Hg. If your blood pressure is higher than this, follow the advice of your healthcare provider. Breast cancer All women in this age group should talk with their healthcare provider about a clinical breast exam(CBE) and when to report changes in how your breasts feel or look. This is called breast self-awareness. Clinical breast exam every 3 years, or as advised. Cervical cancer There are 2 screening tests to look for cervical cancer, a Pap test and an HPV test. Guidelines vary depending on expert group. The [place] College [employer] Gynecologists (ACOG) advises starting screeningat age 21. Screening varies depending on your age and risk. Talk with your healthcare provider. ACOG advises women who are 21 to 29 to have a Pap test every 3 years. Women ages 25 to 29 may have only HPV testing, but ACOG prefers Pap tests. [place] Cancer Society advises HPV testing starting at age 25, if you are at average risk. Talk with your provider about your risk. Women ages 30 to 65 have more options. They may have a Pap and HPV test every 5 years. Or they can have only a Pap test every 3 years or only an HPV test every 5 years. Chlamydia Women who are sexually active. This includes those who are or who are: ??? Age 24 or younger ??? Age 25 or older at higher risk for infection ?? At routine yearly exams If , during early care visit. Repeat in third trimester for women at higher risk. Depression All women in this age group Regularly, which may be at routine exams Diabetes mellitus, type 2 Women with no symptoms who are overweight or obese and have 1 or more other risk factors for diabetes At least every 3 years starting at age 35. Testing in after the 24th week unless higher risk factors are present.?? Gonorrhea Women who are sexually active. This includes those who are or who are: ??? Age 24 or younger ??? Age 25 or older at higher risk for infection ?? At routine yearly exams Hepatitis C All adults age 18 and older At least once HIV All women Talk with your healthcare provider. The CDC recommends testing at least once for all people betweenage 13 and 64. For others at risk, testing may be advised yearly. Obesity All women in this age group At routine exams Syphilis Women who are at higher risk for infection. Talk with your healthcare provider. Depends on risk and status. All people will be screened during their first visit. Non- women will be screened if at increased risk. Tuberculosis Women who are at higher risk for infection. Talk with your healthcare provider. Depends on risk. Talk with your healthcare provider. Vision All women in this age group At least every 2 years for those at low risk. Those at increased risk may be advised to be tested yearly. Health counseling Who needs it How often BRCA gene mutation testing for breast and ovarian cancer risk Women at higher risk for a gene mutation When your risk is known Breast cancer and chemoprevention Women at high risk for breast cancer When your risk is known Diet and exercise Women who are overweight or obese When diagnosed, and then at routine exams Intimate partner violence All women in this age group Regularly, which may be at routine exams or by situation Sexually transmitted infection (STI) prevention Women who are sexually active At routine exams Skin cancer Women with pale skin At routine exams Use of tobacco and the health effects it can cause All women in this age group Regularly at routine visits Last Reviewed Date: 2023 ?? 8541-4624 [employer]. All rights reserved. This information is not intended as a substitute for professional medical care. Always follow your healthcare professional's instructions. ?? Patient Care team information Care Team Personnel Name: Josh Dodson DO Position: S Physician - Primary Care Member Role: PCP Address: Address: [address] [place] [address], [place] [address]- [place] Care Team Related Persons Name: ROCIO GAINES Address: home [address] [place] [address] Name: RANDALL AHN Address: [place] [address]
--- OUTSIDE RECORDS SUMMARY | 2024-03-20 09:44 | XMS_ITS | Continuity of Care Document ---
Author Organization [facility] Juan lt Address [address] [place] [address]- Care Team Providers Care Construction Cost Estimator Name Role Phone Josh Dodson DO Primary Care Physician [facility]counter [facility] Date(s): 05/23/23 - 06/22/23 [facility] Adult [address] [place] [address]- Allergies, Adverse Reactions, Alerts No Known Allergies [...] [facility]# ON THE BOX 14361-996-49 Medications Abdominal binder Abdominal binder, See Instructions, [...] Migraine headache Confirmed Active Obesity Confirmed Active [place]-Schlatter's disease Confirmed Active Pilonidal cyst Confirmed Active Seizure Confirmed Active Severe obesity (BMI 35.0-39.9) with comorbidity Confirmed Active Fatty liver Confirmed Active Vertigo Confirmed Active Social History Social History Type Response Smoking Status Former smoker, quit more than 30 days ago entered on: 11/06/20 Sex Patient Care team information Care Team Personnel Name: Josh Dodson DO Position: [facility] Physician - Primary Care Member Role: PCP Address: Address: [address] [place] [address] [place] [address]- Care Team Related Persons Name: ROCIO GAINES Address: home [address] [place] [address] Name: RANDALL AHN Address: [place] [address]
--- OUTSIDE RECORDS SUMMARY | 2024-03-20 09:44 | XMS_ITS | Continuity of Care Document ---
Author Organization [facility] Juan lt Address [address] [place] [address]- Care Team Providers Care Stove Tender Name Role Phone Eleuterio Capellan Primary Care Physi [facility] Encounter [facility] [place] Date(s): 11/08/22 - 12/08/22 [facility] Adult [address] [place] [address]- Attending Physician: Admtr, Ar8 Admitting Physician: Admtr, [...] Comment: [facility]# ON THE BOX 48816-656-07 Medications clindamycin topical 2% cream See Instructions, [...] Care Team Personnel Name: Eleuterio Capellan Position: [facility] Associate Professional Member Role: PCP Address: Address: [address] [place] [address] [place] [address]- Care Team Related Persons Name: ROCIO GAINES Address: home [address] [place] [address] Name: RANDALL AHN Address: [place] [address]
--- OUTSIDE RECORDS SUMMARY | 2024-03-20 09:44 | XMS_ITS | Continuity of Care Document ---
Author Organization [facility] Juan Address [address] [place] [address]- Care Team Providers Care Catheter Finisher And Inspector Name Role Phone Eleuterio Capellan Primary Care Physi [facility] Encounter [facility] Date(s): 02/06/23 - 03/09/23 [facility] Adult [address] [place] [address]- Attending Physician: Not on Staff, Attending MD Allergies, Adverse Reactions, Alerts No Known Allergies Immunizations Given and Recorded Vaccine Date Status Refusal Reason influenza virus vaccine, inactivated 04/03/22 Give n influenza virus vaccine, inactivated 1 02/13/21 Gi kriss SARS-CoV-2 (COVID-19) mRNA-1273 vaccine 03/31/21 R ecorded SARS-CoV-2 (COVID-19) mRNA-1273 vaccine 09/24/20 R ecorded SARS-CoV-2 (COVID-19) mRNA-1273 vaccine 08/27/20 R ecorded tetanus/diphtheria/pertussis, acel(Tdap) 11/06/20 Given 1Result Comment: [facility]# ON THE BOX 25039-581-20 Medications clindamycin topical 2% cream See Instructions, [...] Refills, Maintenance, 04/03/22 16:30:00 EST, [facility], Partial fill upon patient request [...] class I Confirmed Active Obesity Confirmed Active [place]-Schlatter's disease Confirmed Active Pilonidal cyst Confirmed Active Seizure Confirmed Active Fatty liver Confirmed Active Vertigo Confirmed Active Social History Social History Type Response Smoking Status Former smoker, quit more than 30 days ago entered on: 11/06/20 Sex Patient Care team information Care Team Personnel Name: Eleuterio Capellan Position: [facility] Associate Professional Member Role: PCP Address: Address: [address] [place] [address] Adult Medicine [place], [place] [address] Care Team Related Persons Name: ROCIO GAINES Address: home [address] [place] [address] Name: RANDALL AHN Address: [place] [address]
--- OUTSIDE RECORDS SUMMARY | 2024-03-20 09:44 | XMS_ITS | Continuity of Care Document ---
Author Organization [facility] Thoracic [facility] Address [address] [place] [address] Darryn debby, [address] [place] [address]- Care Team Providers Care Aircraft Landing Gear Inspector Name Role Phone Josh Dodson DO Primary Care Physician [phone] Encounter [facility] Date(s): 11/12/23 - 12/12/23 [facility] Thoracic Surgery [address] [place] [address] Drive [address] [place], [place] [address] Attending Physician: Admtr, Ar8 Admitting Physician: Admtr, [...] ecorded tetanus/diphtheria/pertussis, acel(Tdap) 11/06/20 Given 1Result Comment: [facility]# ON THE BOX 75790-859-83 Medications Abdominal binder Abdominal binder, See Instructions, [...] EDT, Route to Pharmacy Electronically, [facility], Partial fill upon patient request [...] Team Personnel Name: Josh Dodson DO Position: [facility] Physician - Primary Care Member Role: PCP Address: Address: [address] [place] [address]- Care Team Related Persons Name: ROCIO GAINES Address: home [address] [place] [address] Name: RANDALL AHN Address: [place] [address]
--- OUTSIDE RECORDS SUMMARY | 2024-03-20 09:44 | XMS_ITS | Continuity of Care Document ---
Author Organization [facility] Edwardo Juan lt Address [address] [place] [address]- Care Team Providers Care Bus Steward Name Role Phone Not on Staff, PCP Primary Care Physician Unavail able [facility]counter [facility] Date(s): 04/02/23 - 05/02/23 [facility] Adult [address] [place] [address]- Allergies, Adverse Reactions, Alerts No Known Allergies Immunizations Given and Recorded Vaccine Date Status Refusal Reason influenza virus vaccine, inactivated 04/03/22 Give n influenza virus vaccine, inactivated 1 02/13/21 Gi kriss SARS-CoV-2 (COVID-19) mRNA-1273 vaccine 03/31/21 R ecorded SARS-CoV-2 (COVID-19) mRNA-1273 vaccine 09/24/20 R ecorded SARS-CoV-2 (COVID-19) mRNA-1273 vaccine 08/27/20 R ecorded tetanus/diphtheria/pertussis, acel(Tdap) 11/06/20 Given 1Result Comment: [facility]# ON THE BOX 18567-597-56 Medications clindamycin topical 2% cream See Instructions, [...] 09/11/22 11:57:00 EDT, Route to Pharmacy Electronically, [facility], Partial fill upon [...] Personnel Name: Not on Staff, PCP Position: [facility] Physician (General Medicine) Member Role: PCP Care Team Related Persons Name: ROCIO GAINES Address: home [address] [place] [address] Name: RANDALL AHN Address: [place] [address]
--- OUTSIDE RECORDS SUMMARY | 2024-03-20 09:44 | XMS_ITS | Continuity of Care Document ---
Author Organization [facility] Juan lt Address [address] [place] [address]- Care Team Providers Care Installations Inspector Name Role Phone Eleuterio Capellan Primary Care Physi sampson Encounter [facility] [place] Date(s): 04/18/23 - 05/18/23 [facility] Adult [address] [place] [address]- Attending Physician: Admtr, Ar8 Admitting Physician: Admtr, [...] 11/06/20 Given 1Result Comment: [facility]# ON THE [address] 56606-345-55 Medications clindamycin topical 2% cream See Instructions, [...] Capellan Position: [facility] PCO Associate Professional Member Role: PCP Address: Address: [address] [place] [address]- Care Team Related Persons Name: ROCIO GAINES Address: home [address] [place] [address] Name: RANDALL AHN Address: [place] [address]
--- OUTSIDE RECORDS SUMMARY | 2024-03-20 09:45 | XMS_ITS | Continuity of Care Document ---
Author Organization [facility] Thoracic Gordon rgbanner Address [address] [place], [place] [address]memo guardado, [address] [place] [address]- Care Team Providers Care Radiologic Therapist Name Role Phone Eleuterio Capellan Primary Care Physi sampson Encounter [facility] Date(s): 04/17/23 - 05/17/23 [facility] Thoracic Surgery [address] [place] [address], [address] [place], [place] [address] Allergies, Adverse Reactions, Alerts No Known Allergies Immunizations Given and Recorded Vaccine Date Status Refusal Reason influenza virus vaccine, inactivated 04/03/22 Give n influenza virus vaccine, inactivated 1 02/13/21 Gi kriss SARS-CoV-2 (COVID-19) mRNA-1273 vaccine 03/31/21 R ecorded SARS-CoV-2 (COVID-19) mRNA-1273 vaccine 09/24/20 R ecorded SARS-CoV-2 (COVID-19) mRNA-1273 vaccine 08/27/20 R ecorded tetanus/diphtheria/pertussis, acel(Tdap) 11/06/20 Given 1Result Comment: [facility]# ON THE BOX 87363-278-23 Medications clindamycin topical 2% cream See Instructions, [...] Care Team Personnel Name: Eleuterio Capellan Position: [facility] PCO Associate Professional Member Role: PCP Address: Address: [address] [facility] Adult Medicine [place], [place] [address] Care Team Related Persons Name: ROCIO GAINES Address: home [address] [place] [address] Name: RANDALL AHN Address: [place] [address]
--- OUTSIDE RECORDS SUMMARY | 2024-03-20 09:45 | XMS_ITS | Continuity of Care Document ---
Author Organization [facility] Thoracic [facility] Address [address] [place] [address] Darryn guardado, [address] [place] [address]- Care Team Providers Care Electric Milkers Installer Name Role Phone Josh Dodson DO Primary Care Physician [facility]counter [facility] Date(s): 05/27/23 - 06/26/23 [facility] Thoracic Surgery [address] [place] [address], [address] [place], [place] [address] Allergies, Adverse Reactions, Alerts No Known Allergies Immunizations Given and Recorded Vaccine Date Status Refusal Reason influenza virus vaccine, inactivated 04/03/22 Give n influenza virus vaccine, inactivated 1 02/13/21 Gi kriss SARS-CoV-2 (COVID-19) mRNA-1273 vaccine 03/31/21 R ecorded SARS-CoV-2 (COVID-19) mRNA-1273 vaccine 09/24/20 R ecorded SARS-CoV-2 (COVID-19) mRNA-1273 vaccine 08/27/20 R ecorded tetanus/diphtheria/pertussis, acel(Tdap) 11/06/20 Given 1Result Comment: [facility]# ON THE BOX 31200-828-44 Medications Abdominal binder Abdominal binder, See Instructions, [...] Team Personnel Name: Josh Dodson DO Position: [facility] Physician - Primary Care Member Role: PCP Address: Address: [address] [facility] [place] [address]- Care Team Related Persons Name: ROCIO GAINES Address: home [address] [place] [address] Name: RANDALL AHN Address: [place] [address]
--- OUTSIDE RECORDS SUMMARY | 2024-03-20 09:45 | XMS_ITS | Continuity of Care Document ---
Author Organization [facility] Edwardo Juan lt Address [address] [place] [address]- Care Team Providers Care Supervisor Carbon Electrodes Name Role Phone Not on Staff, PCP Primary Care Physician Unavail able [facility]counter [facility] Date(s): 04/04/23 - 05/04/23 [facility] Adult [address] [place] [address]- Allergies, Adverse Reactions, Alerts No Known Allergies [...] [facility]# ON THE BOX 36164-825-74 Medications clindamycin topical 2% cream See Instructions, [...] 09/11/22 11:57:00 EDT, Route to Pharmacy Electronically, [facility], Partial fill upon [...] Personnel Name: Not on Staff, PCP Position: [facility] Physician (General Medicine) Member Role: PCP Care Team Related Persons Name: ROCIO GAINES Address: home [address] [place] [address] Name: RANDALL AHN Address: [place] [address]
--- OUTSIDE RECORDS SUMMARY | 2024-03-20 09:45 | XMS_ITS | Continuity of Care Document ---
Author Organization [facility] Juan Address [address] [place] [address]- Care Team Providers Care Corn Husk Baler Name Role Phone Eleuterio Capellan Primary Care Physi sampson En[place] [facility] Date(s): 10/31/22 - 11/30/22 [facility] Adult [address] [place] [address]- Allergies, Adverse Reactions, Alerts No Known Allergies Immunizations Given and Recorded Vaccine Date Status Refusal Reason influenza virus vaccine, inactivated 04/03/22 Give n influenza virus vaccine, inactivated 1 02/13/21 Gi kriss SARS-CoV-2 (COVID-19) mRNA-1273 vaccine 03/31/21 R ecorded SARS-CoV-2 (COVID-19) mRNA-1273 vaccine 09/24/20 R ecorded SARS-CoV-2 (COVID-19) mRNA-1273 vaccine 08/27/20 R ecorded tetanus/diphtheria/pertussis, acel(Tdap) 11/06/20 Given 1Result Comment: [facility]# ON THE BOX 34698-085-98 Medications clindamycin topical 2% cream See Instructions, [...] Refills, Maintenance, 09/11/22 11:57:00 EDT, [facility], 168, cm, 09/11/22 11:28:00 EDT, [...] class I Confirmed Active Obesity Confirmed Active [place]-Schlatter's disease Confirmed Active Pilonidal cyst Confirmed Active Seizure Confirmed Active Fatty liver Confirmed Active Vertigo Confirmed Active Social History Social History Type Response Smoking Status Former smoker, quit more than 30 days ago entered on: 11/06/20 Sex Patient Care team information Care Team Personnel Name: Eleuterio Capellan Position: [facility] PCO Associate Professional Member Role: PCP Address: Address: [address] [facility] Medicine [place], [place] [address] Care Team Related Persons Name: ROCIO GAINES Address: home [address] [place] [address] Name: RANDALL AHN Address: [place] [address]
--- OUTSIDE RECORDS SUMMARY | 2024-03-20 09:45 | XMS_ITS | Continuity of Care Document ---
Author Organization [facility] Edwardo Juan Address [address] [place] [address]- Care Team Providers Care Electrician Front Name Role Phone Josh Dodson DO Primary Care Physician [facility]counter [facility] Date(s): 04/30/23 - 05/30/23 [facility] Adult [address] [place] [address]- Allergies, Adverse Reactions, Alerts No Known Allergies Immunizations Given and Recorded Vaccine Date Status Refusal Reason influenza virus vaccine, inactivated 04/03/22 Give n influenza virus vaccine, inactivated 1 02/13/21 Gi kriss SARS-CoV-2 (COVID-19) mRNA-1273 vaccine 03/31/21 R ecorded SARS-CoV-2 (COVID-19) mRNA-1273 vaccine 09/24/20 R ecorded SARS-CoV-2 (COVID-19) mRNA-1273 vaccine 08/27/20 R ecorded tetanus/diphtheria/pertussis, acel(Tdap) 11/06/20 Given 1Result Comment: [facility]# ON THE BOX 75310-592-07 Medications Abdominal binder Abdominal binder, See Instructions, [...] Primary Care Member Role: PCP Address: Address: [address] [place] [address]- Care Team Related Persons Name: ROCIO GAINES Address: home [address] [place] [address] Name: RANDALL AHN Address: [place] [address]
--- OUTSIDE RECORDS SUMMARY | 2024-03-20 09:45 | XMS_ITS | Continuity of Care Document ---
Author Organization [facility] Edwardo Juan Address [address] [place] [address]- Care Team Providers Care Glassware Verifier Name Role Phone Eleuterio Capellan Primary Care Physi sampson Encounter [facility] [place] Date(s): 04/09/23 - 05/18/23 [facility] Adult [address] [place] [address]- Attending Physician: Eleuterio Capellan Allergies, Adverse Reactions, Alerts No Known Allergies Immunizations Given and Recorded Vaccine Date Status Refusal Reason influenza virus vaccine, inactivated 04/03/22 Give n influenza virus vaccine, inactivated 1 02/13/21 Gi kriss SARS-CoV-2 (COVID-19) mRNA-1273 vaccine 03/31/21 R ecorded SARS-CoV-2 (COVID-19) mRNA-1273 vaccine 09/24/20 R ecorded SARS-CoV-2 (COVID-19) mRNA-1273 vaccine 08/27/20 R ecorded tetanus/diphtheria/pertussis, acel(Tdap) 11/06/20 Given 1Result Comment: [facility]# ON THE BOX 24947-458-04 Medications clindamycin topical 2% cream See Instructions, [...] Care Team Personnel Name: Eleuterio Capellan Position: [facility] PCO Associate Professional Member Role: PCP Address: Address: [address] [place] [address] Care Team Related Persons Name: ROCIO GAINES Address: [address] [place] [address] Name: RANDALL AHN Address: [place] [address]
--- OUTSIDE RECORDS SUMMARY | 2024-03-20 09:45 | XMS_ITS | Continuity of Care Document ---
Author Organization [facility] Thoracic [facility] Address [address] [place] [address] Darryn guardado, [address] [place] [address]- Care Team Providers Care Utility Gelatin Maker Name Role Phone Josh Dodson DO Primary Care Physician [phone] Encounter [facility] Date(s): 05/28/23 - 06/27/23 [facility] Thoracic Surgery [address] [place] [address], [address] [place], [place] [address] Allergies, Adverse Reactions, Alerts No Known Allergies [...] [facility]# ON THE BOX 04239-802-51 Medications Abdominal binder Abdominal binder, See Instructions, [...] Migraine headache Confirmed Active Obesity Confirmed Active [place]-Schlatter's disease Confirmed Active Pilonidal cyst Confirmed Active Seizure Confirmed Active Severe obesity (BMI 35.0-39.9) with comorbidity Confirmed Active Fatty liver Confirmed Active Vertigo Confirmed Active Social History Social History Type Response Smoking Status Former smoker, quit more than 30 days ago entered on: 11/06/20 Sex Patient Care team information Care Team Personnel Name: Josh Dodson DO Position: [facility] Physician - Primary Care Member Role: PCP Address: Address: [address] [facility] [place] [address]- Care Team Related Persons Name: ROCIO GAINES Address: home [address] [place] [address] Name: RANDALL AHN Address: [place] [address]
--- NOTE | 2024-03-20 10:26 | PC.NURSE ---
IVF continue to run slowely as pt had arm bent, pt was educated to try and leave arm straight while fluids infusing. pt still has c/o headache.
--- NOTE | 2024-03-20 12:04 | PC.NURSE ---
iv fluids finished. pt reports that she is feeling better. her headache is minimal
[2024-03-20 12:58] VITALS: BP 104/49; PULSE 69; RESP 18; TEMP 36.9
[2024-03-20 12:59] VITALS: BP 104/49; PULSE 69; RESP 18; TEMP 36.9
[2024-03-24 05:43] LABS: Levetiracetam Keppra 13.7 mcg/mL (6.0-46.0)
== END 2024-03-20 13:00 | disposition home or self-care (01) ==
PROVIDERS: Emergency Provider Emergency Medicine
DX: G44.319 Acute post-traumatic headache, not intractable (principal); G40.909 Epilepsy, unspecified, not intractable, without status epilepticus; Z79.899 Other long term (current) drug therapy
CPT/HCPCS: 36415; 70450; 80053; 80177; 85025; 96361; 96374; 99284; J1885

== ENCOUNTER 2025-01-26 11:03 | Emergency (ER) | payer OTHER, SELFPAY ==
--- NOTE | ~2025-01-26 | XR_ITS ---
EXAMINATION: XR CHEST 2 VIEWS HISTORY: chest pain COMPARISON: Comparison is made with the prior examination dated 01/12/2022. FINDINGS: PA and lateral views of the chest are submitted. The lungs are expanded and clear. There is no pleural effusion, pneumothorax, or pulmonary vascular congestion. The heart is normal in size. The bones are intact. XR/XR chest 2V IMPRESSION: No acute cardiopulmonary abnormality. Electronically signed by: Josh Rubio MD 01/26/2025 01:51 PM EDT
--- NOTE | 2025-01-26 11:03 | ECG_ITS ---
Test Reason : CP Blood Pressure : */* mmHG Vent. Rate : 58 BPM Atrial Rate : 58 BPM P-R Int : 140 ms QRS Dur : 72 ms QT Int : 418 ms P-R-T Axes : 20 37 41 degrees QTcB Int : 410 ms Sinus bradycardia with sinus arrhythmia Low voltage QRS Cannot rule out Anterior infarct , age undetermined Abnormal ECG When compared with ECG of 12-Jan-2022 08:51, No significant change was found Referred By: Bhargavi Arrieta Electronically Signed By: PILAR HANSEN
--- NOTE | 2025-01-26 11:17 | ED_ITS ---
HPI - Chest Pain General Chief Complaint: Chest Pain Stated Complaint: Chest pain, arm pain Time Seen by Provider: 01/26/25 12:23 Source: patient, RN notes reviewed and old records reviewed Mode of arrival: ambulatory Limitations: no limitations History of Present Illness ED Provider: Tejas HPI narrative: Patient is a 39-year-old female with history of seizure disorder, hypertension, anxiety presenting to the emergency department with complaint of left-sided chest pain radiating to left arm, nausea and vomiting prior to arrival. States that she was on the phone with her mother when the pain began. At home she had nausea and dry heaving. Upon arrival to the emergency department she reports vomiting and diaphoresis, associated shortness of breath. States father and brother both of heart attacks, brother at 39 years old. Did not take her Keppra which was due at 10 a.m.. Rating current pain 6/10. Did not take any aspirin prior to arrival. MD complaint: chest pain Related Data Previous Rx's ?Medication ?Instructions ?Recorded hydroxyzine HCl 50 mg tablet 50 mg PO TID PRN anxiety #30 tabs 11/11/20 [id number]-zthbwnqlvujsx-pbaemrls 1 cap PO Q6H PRN hea dache #20 caps 10/31/22 50 mg-300 mg-40 mg capsule (Fioricet) ondansetron 4 mg disintegrating 4 mg PO Q6-8H PRN naus ea and 10/31/22 tablet vomiting #10 tabs sumatriptan succinate 50 mg tablet 50 mg PO Q2H PRN mi graine headache 10/31/22 (Imitrex) #10 tabs amoxicillin 875 mg-potassium 1 tab PO BID 10 days #20 tabs 11/01/22 clavulanate 125 mg tablet morphine 15 mg immediate release 15 mg PO Q6H PRN pain 5 days #10 11/01/22 tablet tabs amoxicillin 875 mg-potassium 1 tab PO BID #14 tabs clavulanate 125 mg tablet fluconazole 150 mg tablet 150 mg PO Q3D 2 doses #2 tab s 11/23/22 (Diflucan) ibuprofen 600 mg tablet 600 mg PO Q8H PRN pain #14 t abs 11/23/22 levetiracetam 1,000 mg tablet 1,000 mg PO BID #60 tabs 03/20/24 (Keppra) Allergies Allergy/AdvReac Type Severity Reaction Status Date / Time No Known Allergies Allergy Verified 01/26/25 11:22 Review of Systems 2 Review of Systems: as per hpi Yes all other systems are reviewed and are negative Constitutional: Constitutional: Reports as per HPI [facility] Past Medical History Medical History Anxiety Hypertension Seizures Social History Social History Unable to assess alcohol history related to: Unknown Alcohol intake: current Alcohol intake frequency: holidays/special occasions only Patient Tobacco Use Status: Never used Tobacco Smoked in Last 30 Days: No Use of substances other than those prescribed or required for medical reasons: Unknown Substance Use Type: Marijuana Advance Directives: No Advance Directives Information Provided: Yes Do you have a plan to hurt others: No Plan Patient : No Physical Exam 2 Vital Signs: Vital Signs: Last Vital Signs Temp 97.5 F 01/26/25 11:19 Pulse 68 01/26/25 18:36 Resp 18 01/26/25 18:36 BP 120/82 01/26/25 18:36 Pulse Ox 100 01/26/25 11:19 O2 Del Method Room Air 01/26/25 18:36 BMI result Body Mass Index 35.8 Vital signs have been reviewed and appear to be correct. Blood pressure elevated. Heart rate normal. Respiratory rate normal. Temperature normal. Oxygen saturation normal. Const: General: cooperative, healthy appearing and no acute distress O rientation/consciousness: oriented to person, oriented to place, oriented to time and patient oriented x3 Limitations: no limitations HEENT: Head: Yes normocephalic and Yes atraumatic Ears: external ears normal General nose exam: Normal external nose present Face and sinus: Yes face symmetric Mouth: oropharynx normal and moist mucous membranes Throat: Yes uvula midline Eyes: Pupils: Equal, round and reactive pupils present Neck: Neck: Yes normal visual inspection and Yes supple Resp: Effort & Inspection: normal respiratory effort and able to speak in complete sentences Auscultation: clear to auscultation bilaterally Cardio: Rate: regular rate Rhythm: regular rhythm Heart sounds: S1 normal heart sound present and S2 normal heart sound present GI: Palpation (GI): Soft to palpation and nontender Auscultation: n ormoactive bowel sounds : General: Yes no CVA tenderness Back/Spine/Pelvis: Back: no CVA tenderness Skin: General skin exam: elasticity normal and turgor normal Neuro: General: oriented to person, oriented to place, oriented to time, patient oriented x3, moves all extremities, no focal motor deficits and CN's II- XI intact bilaterally Cranial nerves: Yes Equal, round and reactive pupils present Cognition (Neuro): normal cognition Extrem: General: Yes full ROM, Yes no pedal edema and Yes no calf tenderness Psych: Mental Status: mental status grossly normal Affect: normal affect Thought process: Normal thought process present Course Course Course Narrative: This is an RME: Additional HPI, ROS, PE not included below will be deferred to primary provider. RME assessment and note performed by: Bhargavi Arrieta PA-C This is a 14-eybb-tem-female, with a hx of HTN and seizure disorder on Keppra, who presents to the ER accompanied by her boyfriend with a complaint of chest pain and left arm pain which started 30 minutes ago.Advised charge nurse to bring pt back emery Plan: Labs, EKG, cxr Reevaluation(s) Reevaluation #1: Patient requesting to eat. Attempted to explain to patient the rationale for remaining NPO as she will likely have cardiac cath once at [facility]. She states that if she cannot eat she wants to leave. Again attempted to discuss with patient the consequences of leaving AMA, encouraged patient to remain in the ED NPO, and offered medication for anxiety. Patient instructed me to leave her room and refuses to speak with me further. Dr. Gooden aware, will speak with patient. Time: 16:00 Reevaluation #2: Dr. Gooden spoke with patient who continues to insist that she will eat, does not care if this delays her cardiac catheterization. Risks of this discussed with patient by Dr. Gooden. Time: 16:21 Reevaluation #3: Transfer team has arrived heparin the patient has a [facility] for cardiac catheterization. No events over the last few hours. Time: 20:24 Medications Administered Generic Name Dose Route Start Last Admin Trade Name Freq PRN Reason Stop Dose Admin Heparin Sodium/Sodium Chloride 25,000 unit in 250 mls @ 0 mls/hr 01/26/25 15:30 01/26/25 15:45 Heparin Sodium,Porcine/1/2ns IVCONT 9.95 units/kg/hr .Q0M QUENTIN 10 mls/hr Protocol Administration Per Protocol Discontinued Medications Generic Name Dose Route Start Last Admin Trade Name Maude PRN Reason Stop Dose Admin Aspirin 324 mg 01/26/25 13:08 01/26/25 13:15 Aspirin 81 Mg Tab.Chew PO 01/26/25 13:09 324 mg ONCE ONE Administration Heparin Sodium (Porcine) 4,000 unit 01/26/25 15:18 01/26/25 15:40 Heparin Sodium,Porcine 5,000 Unit/Ml Vial IVPUSH 01/26/25 15:19 4,000 unit ONCE ONE Administration Sodium Chloride 1,000 mls @ 999 mls/hr 01/26/25 13:15 01/26/25 14:26 Ns IV 01/26/25 14:15 Infused .Q1H1M QUENTIN Infusion Acetaminophen 1,000 mg in 100 mls @ 400 mls/hr 01/26/25 13:08 01/26/25 13:33 Ofirmev IV 01/26/25 13:22 Infused ONCE ONE Infusion Levetiracetam 1,000 mg 01/26/25 13:08 01/26/25 13:16 Levetiracetam 1,000 Mg Tablet PO 01/26/25 13:09 1,000 mg ONCE ONE Administration Metoprolol Tartrate 12.5 mg 01/26/25 15:11 01/26/25 16:21 Metoprolol Tartrate 12.5 Mg Halftab PO 01/26/25 15:12 12.5 mg ONCE ONE Administration Protocol Morphine Sulfate 4 mg 01/26/25 15:04 01/26/25 15:24 Morphine Sulfate 4 Mg/Ml Cartridge IVPUSH 01/26/25 15:05 4 mg ONCE ONE Administration Protocol Morphine Sulfate 4 mg 01/26/25 18:51 01/26/25 19:04 Morphine Sulfate 4 Mg/Ml Cartridge IVPUSH 01/26/25 18:52 4 mg ONCE ONE Administration Protocol Ondansetron HCl 4 mg 01/26/25 13:08 01/26/25 13:18 Ondansetron Hcl 4 Mg/2 Ml Vial IVPUSH 01/26/25 13:09 4 mg ONCE ONE Administration Medical Decision Making Medical Decision Making MDM Narrative: Patient is a 39-year-old female with history of seizure disorder, hypertension, anxiety presenting to the emergency department with complaint of left-sided chest pain radiating to left arm, nausea and vomiting prior to arrival. On exam patient is awake, A+Ox3, hypertensive, VS otherwise WNL, afebrile, normal neurological exam without focal deficits, physical exam findings as above. Given reported symptoms and physical exam findings, initial differential includes but is not limited to ACS, NSTEMI, GERD/PUD, musculoskeletal pain, pleuritis. Do not suspect PE, Wells score 0. EKG shows sinus bradycardia. Labs notable for troponin of 10, otherwise unremarkable. X-ray chest notable for no acute abnormality . My interpretation is in agreement with the radiologist's interpretation. Repeat troponin of 359.7. Will obtain repeat EKG and reach out to cardiology. Dr. Chao recommending herparin drip, PO metoprolol, and transfer to [facility], call out to transfer line. Patient accepted to PCU at [facility], accepting MD is Dr. Mcmahon. No bed available at this time, they will call when bed available, reportedly should be today. Patient signed out to ALECIA Felix pending available bed at [facility]. Differential Diagnosis Differential Diagnoses: The differential diagnosis associated with the presentation includes as per [facility] Admission/Observation Consideration of admission/observation: Escalation of care including admission/observation considered Consult Healthcare Provider Management of the patient was discussed with: Commercial Reporter (Dr. Chao) Lab Data [facility] Lab Attestation statement: I reviewed the patient's lab results. as per [facility] 01/26/25 15:35 01/26/25 11:41 Labs: Lab Results 01/26/25 01/26/25 01/26/25 Range/Units 11:41 13:54 15:35 WBC 11.5 H 16.1 H (4.8-10.8) X10*3/uL RBC 4.78 4.29 (4.20-5.50) X10*6/uL Hgb 15.2 13.9 (12.0-16.0) g/dl Hct 45.6 40.3 (37.0-47.0) % MCV 95.4 93.9 (80.0-98.0) fL MCH 31.8 32.4 (27.0-33.0) pg MCHC 33.3 34.5 (31.0-35.0) g/dl RDW 13.7 13.7 (11.0-16.0) % Plt Count 430 H 381 (160-400) X10*3/uL MPV 9.2 L 9.1 L (9.4-12.3) fL Immature Gran % (Auto) 0.6 H (0.0-0.4) % Neut % (Auto) 62.5 (45-73) % Lymph % (Auto) 28.1 (20-40) % Winn % (Auto) 6.4 (2-11) % Eos % (Auto) 1.7 (0-4) % Baso % (Auto) 0.7 (0-2) % Lymph # (Auto) 3.2 (1.2-4.9) X10*3/uL Winn # (Auto) 0.7 (0.1-1.2) X10*3/uL Eos # (Auto) 0.2 (0.0-0.4) X10*3/uL Baso # (Auto) 0.1 (0.0-0.2) X10*3/uL Abs Immat Gran (auto) 0.07 H (0.00-0.03) X10*3/uL Absolute Neuts (auto) 7.2 (2.0-8.3) x10*3/uL Absolute Nucleated RBC 0.000 0.000 (0.0-0.012) X10*3/uL Nucleated RBC % (auto) 0.0 0.0 (0.0-0.2) /100WBC PT 11.3 (10.9-12.4) SEC INR 1.0 (0.9-1.1) aPTT Heparin Protocol 29.8 L (53-77.9) SEC Sodium 139 (135-145) mmol/L Potassium 3.4 (3.3-5.1) mmol/L Chloride 108 (96-108) mmol/L Carbon Dioxide 21 L (22-29) mmol/L Anion Gap 13 (12-20) BUN 8 L (9-16) mg/dL Creatinine 0.75 (0.5-1.4) mg/dL Estim Creat Clear Calc 114.9 Estimated GFR > 60 Random Glucose 157 H (60-115) mg/dL Calcium 9.3 (8.4-10.2) mg/dL Magnesium 1.6 (1.6-2.6) mg/dL Total Bilirubin 0.7 (0.0-1.0) mg/dL Direct Bilirubin 0.2 (0.0-0.5) mg/dL AST 21 (5-31) U/L ALT 31 (0-31) U/L Alkaline Phosphatase 106 (39-117) U/L Troponin I High Sens 10.0 359.7 H* D (<3.5-17.0) ng/L Total Protein 7.4 (6.5-8.0) g/dL Albumin 4.6 (3.5-5.0) g/dL Beta HCG, Quant < 2 mIU/mL Independent Interpretation I performed an independent interpretation of an: EKG (sinus bradycardia with sinus arrhythmia, rate 58bpm, normal NH interval and QTc) and Plain X-Ray Interpretation: No acute abnormality on chest x-ray. Radiology Impression Discussion of test interpretation with radiology: I have reviewed the radiologist's reading. Radiologist Impression: XR/XR chest 2V IMPRESSION: No acute cardiopulmonary abnormality. External Record Review External record reviewed: Inpatient record, Office record and Outpatient record Critical Care Time Critical Care Time Critical Care Time: Yes Total Critical Care Time: 65 Attestation: I have personally provided critical care time exclusive of time spent on separately billable procedures. Time includes review of lab data, radiology results, discussion with consultants, and monitoring for potential decompensation. Intervention performed as documented. Discharge Plan Discharge Clinical Impression: Acute non-ST elevation myocardial infarction (NSTEMI) Patient Disposition: er [facility] Transfer Details: [facility] Prescriptions: No Action hydroxyzine HCl 50 mg tablet 50 mg PO TID PRN (Reason: anxiety) Qty: 30 0RF sumatriptan succinate [Imitrex] 50 mg tablet 50 mg PO Q2H PRN (Reason: migraine headache) Qty: 10 0RF Rx Instructions: do not exceed 2 doses per 24 hrs ondansetron 4 mg tablet,disintegrating 4 mg PO Q6-8H PRN (Reason: nausea and vomiting) Qty: 10 0RF huiroamllw-skxierghgwvyw-csbt [Fioricet] 50-300-40 mg capsule 1 cap PO Q6H PRN (Reason: headache) Qty: 20 0RF levetiracetam [Keppra] 1,000 mg tablet 1,000 mg PO BID Qty: 60 0RF morphine 15 mg tablet 15 mg PO Q6H PRN (Reason: pain) 5 Days Qty: 10 0RF Rx Instructions: Partial Fill upon patient request. amoxicillin-pot clavulanate 875-125 mg tablet 1 tab PO BID 10 Days Qty: 20 0RF amoxicillin-pot clavulanate 875-125 mg tablet 1 tab PO BID Qty: 14 0RF fluconazole [Diflucan] 150 mg tablet 150 mg PO Q3D Qty: 2 0RF Rx Instructions: Take one tab today. If you still have symptoms in 72 hours, take the second dose. ibuprofen 600 mg tablet 600 mg PO Q8H PRN (Reason: pain) Qty: 14 0RF Print Language: Romansh
[2025-01-26 11:19] VITALS: BP 173/100; PULSE 53; RESP 22; TEMP 36.4; O2SAT 100; BMI 33.3
[2025-01-26 11:47] LABS: Hematocrit 45.6 % (37.0-47.0); Hemoglobin 15.2 g/dl (12.0-16.0); Imm Gran Abs Auto 0.07 X10*3/uL (0.00-0.03); Imm Gran Pct Auto 0.6 % (0.0-0.4); Lymphocytes Absolute Auto 3.2 X10*3/uL (1.2-4.9); MANUAL DIFF FLAG NO; Mean Corpuscular HGB Conc 33.3 g/dl (31.0-35.0); Mean Corpuscular Hemoglobin 31.8 pg (27.0-33.0); Mean Corpuscular Volume 95.4 fL (80.0-98.0); NRBC Abs Auto 0.000 X10*3/uL (0.0-0.012); NRBC Pct Auto 0.0 /100WBC (0.0-0.2); Platelet Count 430 X10*3/uL (160-400); Red Blood Count 4.78 X10*6/uL (4.20-5.50); White Blood Count 11.5 X10*3/uL (4.8-10.8)
[2025-01-26 12:10] LABS: Alanine Aminotransferase 31 U/L (0-31); Albumin Level 4.6 g/dL (3.5-5.0); Alkaline Phosphatase 106 U/L (39-117); Anion Gap 13 (12-20); Aspartate Amino Transferase 21 U/L (5-31); Blood Urea Nitrogen 8 mg/dL (9-16); Calcium 9.3 mg/dL (8.4-10.2); Carbon Dioxide 21 mmol/L (22-29); Chloride 108 mmol/L (96-108); Creatinine Clr Calc Pharmacy 114.9; Estimated Glomerular Filt Rate > 60; Magnesium 1.6 mg/dL (1.6-2.6); Potassium 3.4 mmol/L (3.3-5.1); Sodium 139 mmol/L (135-145); Total Protein 7.4 g/dL (6.5-8.0); Troponin-I High Sensitivity 10.0 ng/L (<3.5-17.0)
--- OUTSIDE RECORDS SUMMARY | 2025-01-26 13:26 | XMS_ITS | Clinical Summary ---
Author Organization [facility] [address] [place] [address] [place] [phone] Phone Care Team Providers Care Literacy Coach Name Role Phone Leroy Potter MD Primary Care Provider Allergies No known active allergies Medications levETIRAcetam (KEPPRA) 1,000 mg tablet Take 1 tablet (1,000 mg total) by mouth 2 (two) times a day. Active doxycycline (VIBRAMYCIN) 100 mg capsule Take 1 capsule (100 mg total) by mouth 2 (two) times a day for 10 days. Take with at least 8 ounces (large glass) of water, do not lie down for 30 minutes after. Administer 2 hours before or after multivitamins, antacids, or other products containing polyvalent cations (i.e., calcium, iron, magnesium, selenium, zinc). 20 each 5 01/17/20 25 fluconazole (DIFLUCAN) 150 mg tablet Take 1 tablet (150 mg total) by mouth 1 (one) time for 1 dose. Can repeat in 3 days if persisting. 2 tablet 5 01/07/20 25 Active Problems Problem Noted Date Diagnosed Date Seizure disorder (CMS/HCC V24, CMS/HCC V28) 12/27 Migraine without status migrainosus, not intract able 01/05/2025 Encounters Date Type Department Care Team Description 01/06/2025 8:41 AM EDT - 01/06/2025 11:59 PM EDT Hospital Encounter [address] [phone] Finger pain, left Discharge Disposition: Home or Self Care 01/06/2025 8:00 AM EDT Office Visit Adult [address] [phone] Salome Bhatia PA Mass of lower outer quadrant of left breast (Primary Dx); Hidradenitis suppurativa; History of candidiasis of vagina; Finger pain, left 01/05/2025 8:00 AM EDT Office Visit [address] [phone] Salome Bhatia PA Onychomycosis (Primary Dx); Lesion of right lower eyelid; Abnormal skin growth; Seizure disorder (CMS/HCC V24, CMS/HCC V28); Other migraine without status migrainosus, not intractable; Encounter for screening involving social determinants of health (SDoH); Screening for depression 01/03/[address] [phone] Leroy Potter MD from Last 3 Months Surgical History Surgery Date Site/Laterality Comments LUNG SURGERY Right removal of r lung mass benign BREAST BIOPSY Left benign per pt Medical History Medical History Date Comments Seizure (CMS/HCC V24, CMS/HCC V28) Migraines Family History Medical History Relation Name Comments Diabetes Brother Heart attack Brother Coronary artery disease Father Diabetes Mother htn Mother Relation Name Status Comments Brother Father Mother Social History Tobacco Use Types Packs/Day Years Used Date Smoking Tobacco: Never Smokeless Tobacco: Never Tobacco Cessation:Counseling Given: Not Answered Alcohol Use Standard Drinks/Week Comments Yes 0 (1 standard drink = 0.6 oz pur e alcohol) less than monthly Housing Instability Answer Date Recorde d Are you worried that in the next 2 months you may not have stable housing? No 01/05/2025 Food Access & Nutrition Answer Date Rec orded Do you have access to a vari ety of food including fruits and vegetables? Yes 01/05/2025 Health Literacy Answer Date Recorded How often do you need to hav e someone help you when you read instructions, pamphlets, or other written material from your doctor or pharmacy? Never 01/05/2025 Caregiver: How often do you need to have someone help you when you read instructions, pamphlets, or other written material from your doctor or pharmacy? Not on file 01/05/2025 Financial Risk Answer Date Recorded How hard is it for you to pa y for the very basics like food, housing, medical care, and air conditioning / heating? Not very hard 01/05/2025 Transportation Answer Date Recorded Has the lack of transportati on kept you from meetings, work, or from getting things needed for daily living? No Has the lack of transportati on kept you from medical appointments or from getting medications? No 01/05/2025 Social Isolation Answer Date Recorded How often do you feel lonely or isolated from th ose around you? Never 01/05/2025 Food Risk Answer Date Recorded Within the past 12 months we worried whether our food would run out before we got money to buy more. Never true 01/05/2025 Within the past 12 months th e food we bought just didn't last and we didn't have money to get more. Never true 01/05/2025 Dependent Care Answer Date Recorded Do you need help finding or paying for care for your loved ones. For example, childbirth educator or elderly care for an older adult? No 01/05/2025 Education Answer Date Recorded Do you think completing more education or training, like finishing a GED, going to college, or learning a trade, would be helpful for you? No 01/05/2025 Employment and Income Answer Date Recor ded During the last four weeks, have you been actively looking for work? No 01/05/2025 Living Situation Answer Date Recorded What is your living situation? Unrecognized valu e 01/05/2025 Comments No Sex and Gender Information Value Date Recorded Sex Assigned at Not on file Legal Sex Female 1:48 PM EST Gender Identity Not on file Sexual Orientation Not on file Obstetrics History Last Filed Vital Signs Vital Sign Reading Time Taken Comments Blood Pressure 102/53 01/06/2025 8:13 AM EDT Pulse 73 01/06/2025 8:13 AM EDT Temperature 36.4 C (97.6 F) 01/06/2025 8:13 AM EDT Respiratory Rate 14 01/06/2025 8:13 AM EDT Oxygen Saturation 98% 01/06/2025 8:13 AM EDT Inhaled Oxygen Concentration - - Weight 94.4 kg (208 lb 3.2 oz) 01/06/2025 8:13 A M EDT Height 167.6 cm (5' 6 ) 01/06/2025 8:13 AM EDT Body Mass Index 33.6 01/06/2025 8:13 AM EDT Plan of Treatment Upcoming Encounters Date Type Department Care Team (Late st Contact Info) Description 01/27/2025 10:00 AM EDT Appointment Radiology Department - [address] [phone] 01/27/2025 10:30 AM EDT Appointment Radiology Department - [address] [phone] 02/21/2025 8:30 AM EDT Consult General Surgery - [address] [place] [phone] Marcos Arauz MD [address] [place] [phone] 06/13/2025 11:30 AM EST Office Visit Adult Medicine [address] [phone] Leroy Potter MD [address] [place] [address] Health Maintenance Due Date Last Done Comments Hepatitis A Vaccines (1 of 2 - Risk 2-dose series) 12/22/2003 Hepatitis B Vaccines (1 of 3 - 19+ 3-dose series) 12/22/2003 Pneumococcal Vaccine: Pediatrics (0 to 5 Years) and At-Risk Patients (6 to 49 Years) (1 of 2 - PCV) 12/22/2003 Cervical Cancer Screening: Pap Smear 2005 HPV Vaccines (1 - 3-dose SCD M series) 12/22/2011 Breast Cancer Screening 03/19/2023 03/19/2021 Cholesterol Screening (Lipid Panel) 10/15/2024 COVID-19 Vaccine (4 - 2024-2 6 season) 2024 03/31/2021, 09/24/2020, 08/27/2020 Influenza Vaccine (#1) 2024 2, 02/13/2021 Social Influencers of Health Screening 01/05/2026 01/05/2025 DTaP,Tdap,and Td Vaccines (2 - Td or Tdap) 11/06/2030 11/06/2020 RSV Immunization Adult Patients (1 - 1-dose 75+ series) 12/22/2059 Depression Screening Completed 01/05/2025 HIB Vaccines Aged Out No longer eligi ble based on patient's age to complete this topic HIV Screening Discontinued Hepatitis C Screening Discontinued IPV Vaccines Aged Out No longer eligi ble based on patient's age to complete this topic MMR Vaccines Aged Out No longer eligi ble based on patient's age to complete this topic Meningococcal ACWY Vaccine Aged Out N o longer eligible based on patient's age to complete this topic Meningococcal B Vaccine Aged Out No l onger eligible based on patient's age to complete this topic RSV Immunization Patients Under 20 months Aged Out No longer eligible based on patient's age to complete this topic Varicella Vaccines Aged Out No longer eligible based on patient's age to complete this topic Procedures Procedure Name Priority Date/Time Associated Diagnosis Comments XR HAND 3+ VIEWS LEFT Routine 01/06/2025 8:51 AM EDT Finger pain, left MG MAMMO DIGITAL DIAGNOSTIC BILAT Routine 03/19/2021 9:41 AM EST from Last 3 Months or Most Recently Relevant to Health Maintenance Results * XR Hand 3+ Views Left (01/06/2025 8:51 AM EDT) Anatomical Region Laterality Modality Upper Extremities, Hand [facility] 01/06/2025 10:5 4 AM EDT Impressions 01/06/2025 10:55 AM EDT No acute fracture or dislocation of the left hand. -------- FINAL REPORT -------- Dictated By: Verito Jamil Dictated Date: 01/06/2025 10:54 ET Assigned Physician: Verito Jamil Reviewed and Electronically Signed By: Verito Jamil Signed Date: 01/06/2025 10:55 ET Workstation ID: [id number] Transcribed By: Self Edit Transcribed Date: 01/06/2025 10:54 ET Narrative 01/06/2025 10:55 AM EDT HISTORY: L 3rd digit pain and stiffness, evaluate DJD TECHNIQUE: AP, lateral, and oblique radiographs of the left hand COMPARISON: None FINDINGS: There is normal mineralization with no evidence of fracture or malalignment. The visualized articulations are normal. No significant soft tissue swelling is identified. Procedure Note Verito Jamil MD - 01/06/2025 HISTORY: L 3rd digit pain and stiffness, evaluate DJD TECHNIQUE: AP, lateral, and oblique radiographs of the left hand COMPARISON: None FINDINGS: There is normal mineralization with no evidence of fracture ormalalignment. The visualized articulations are normal. No significantsoft tissue swelling is identified. IMPRESSION: No acute fracture or dislocation of the left hand. -------- FINAL REPORT -------- Dictated By: Verito Jamil Dictated Date: 01/06/2025 10:54 ET Assigned Physician: Verito Jamil Reviewed and Electronically Signed By: Verito Jamil Signed Date: 01/06/2025 10:55 ET Workstation ID: [id number] Transcribed By: Self Edit Transcribed Date: 01/06/2025 10:54 ET Salome ALSTON IMG XR PROCEDURES Final Result * MG Mammo Digital Diagnostic bilat (03/19/2021 9:41 AM EST) Anatomical Region Laterality Modality Breast Bilateral Mammography Historical Provider IMG BI PROCEDURES Final R esult from Last 3 Months or Most Recently Relevant to Health Maintenance Insurance [employer] Care Teams Literacy Coach Relationship Specialty Start Date End Date Leroy Potter MD [address] [place] [phone] PCP - General Internal Medicine 10/15/24
--- OUTSIDE RECORDS SUMMARY | 2025-01-26 13:26 | XMS_ITS | Clinical Summary ---
Author Organization [employer] Address [address] [place] [address] 7 [place] [address] Care Team Providers Care Computer Systems Software Engineer Name Role Phone Unavailable Primary Care Provider Unavailabl e Allergies No known active allergies Medications No known medications Social History Tobacco Use Types Packs/Day Years Used Date Smoking Tobacco: Never Assessed Comments Unknown Sex and Gender Information Value Date Recorded Sex Assigned at Female 02/25/2022 10:34 AM EDT Legal Sex Female 10:34 AM EDT Gender Identity Female 10/10/2022 11:13 AM EDT Sexual Orientation Straight 10/10/2022 11 :13 AM EDT Plan of Treatment Health Maintenance Due Date Last Done Comments Dental Oral Exam 1984 Dental Prophylaxis 1984 Dental X-Ray: Bitewings 1984 Depression Screening 1984 HIV Screening 1984 SDOH Screening 1984 Disability Screening 1984 Alcohol/Substance Use Screening 1996 Tobacco Screening 1996 Family Planning (PISQ) 12/22/1999 HPV Vaccines (1 - 3-dose series) 12/22/1999 Hepatitis C Screening 2002 Hepatitis B Vaccines (1 of 3 - 19+ 3-dose series) 12/22/2003 Pap Smear 2005 Cervical Cancer Screening 2014 HPV/Cotest 2014 Mammogram 2024 COVID-19 Vaccine ( - 2024-2 6 season) 2024 03/31/2021, 09/24/2020, 08/27/2020 Influenza Vaccine (#1) 2024 , 02/13/2021 Dental X-Ray: Full Mouth 11/05/2025 11/04/2022 DTaP/Tdap/Td Vaccines (2 - T d or Tdap) 11/06/2030 11/06/2020 Zoster Vaccines (1 of 2) 2034 RSV Patients and Patients Aged 60 years or older (1 - 1-dose 75+ series) 12/22/2059 HIB Vaccines Aged Out No longer eligi ble based on patient's age to complete this topic Hepatitis A Vaccines Aged Out No long er eligible based on patient's age to complete this topic IPV Vaccines Aged Out No longer eligi ble based on patient's age to complete this topic Meningococcal B Vaccine Aged Out No l onger eligible based on patient's age to complete this topic Meningococcal Vaccine Aged Out No sherrie keri eligible based on patient's age to complete this topic Pneumococcal Vaccine: Pediatrics (0 to 5 Years) and At-Risk Patients (6 to 49) Years Aged Out No longer eligible b ased on patient's age to complete this topic RSV under 20 months Aged Out No longe r eligible based on patient's age to complete this topic Rotavirus Vaccines Aged Out No longer eligible based on patient's age to complete this topic Procedures Procedure Name Priority Date/Time Associated Diagnosis Comments PANORAMIC RADIOGRAPHIC IMAGE Routine 11/04/2022 1:00 PM EDT from Last 3 Months or Most Recently Relevant to Health Maintenance Insurance [facility] MEDICAID STAND ADULT
--- OUTSIDE RECORDS SUMMARY | 2025-01-26 13:26 | XMS_ITS | Encounter Summary ---
Author Organization [employer] Address [address] [place] [address] 7 [place] [address] Care Team Providers Care Stage Rigger Name Role Phone Connie Rowland MD Primary Care Provide r Encounter Details Date Type Department Care Team (Late st Contact Info) Description 09/10/[address] [facility] [address] [place] [address] Connie Rowland MD [address] [place] [address] Social History Tobacco Use Types Packs/Day Years Used Date Smoking Tobacco: Never Assessed Comments Unknown Sex and Gender Information Value Date Recorded Sex Assigned at Female 02/25/2022 10:34 AM EDT Legal Sex Female 10:34 AM EDT Gender Identity Female 10/10/2022 11:13 AM EDT Sexual Orientation Straight 10/10/2022 11 :13 AM EDT documented as of this encounter Plan of Treatment Not on file documented as of this encounter Visit Diagnoses Not on filedocumented in this encounter Care Teams Stage Rigger Relationship Specialty Start Date End Date Connie Rowland MD [address] [place], [place] [phone] PCP - General Family Medicine 03/26/18 11/26/22 documented as of this encounter
--- NOTE | 2025-01-26 14:33 | ECG_ITS ---
Test Reason : CHEST PAIN (REPEAT) Blood Pressure : */* mmHG Vent. Rate : 52 BPM Atrial Rate : 52 BPM P-R Int : 150 ms QRS Dur : 68 ms QT Int : 454 ms P-R-T Axes : 28 33 32 degrees QTcB Int : 422 ms Sinus bradycardia with sinus arrhythmia Low voltage QRS Borderline ECG When compared with ECG of 26-Jan-2025 11:14, No significant change was found Referred By: Jessica Lazaro Electronically Signed By: PILAR HANSEN
[2025-01-26 14:38] LABS: Troponin-I High Sensitivity 359.7 ng/L (<3.5-17.0)
[2025-01-26 15:01] VITALS: BP 144/89; PULSE 84; RESP 16
[2025-01-26 15:05] VITALS: BMI 35.8
--- NOTE | 2025-01-26 15:05 | PC.NURSE ---
bedscale weight entered for heparin gtt
[2025-01-26] MEDS: Heparin Sodium,Porcine/1/2NS 25,000 UNIT/250 ML IV.SOLN 10 UNIT IVCONT (15:45)
[2025-01-26 15:47] LABS: Hematocrit 40.3 % (37.0-47.0); Hemoglobin 13.9 g/dl (12.0-16.0); Mean Corpuscular HGB Conc 34.5 g/dl (31.0-35.0); Mean Corpuscular Hemoglobin 32.4 pg (27.0-33.0); Mean Corpuscular Volume 93.9 fL (80.0-98.0); NRBC Abs Auto 0.000 X10*3/uL (0.0-0.012); NRBC Pct Auto 0.0 /100WBC (0.0-0.2); Platelet Count 381 X10*3/uL (160-400); Red Blood Count 4.29 X10*6/uL (4.20-5.50); White Blood Count 16.1 X10*3/uL (4.8-10.8)
--- NOTE | 2025-01-26 15:50 | PC.NURSE ---
Heparin drip started. PTT drawn and sent to lab before heparin started. not resulted at time of starting drip
--- NOTE | 2025-01-26 15:56 | PC.NURSE ---
Pt asked to be given food. RN advised pt that she stay NPO pending transfer to [facility] for possible catheterization. pt states that she will leave if she cannot eat and became very upset. DAVID elmore notified.
--- NOTE | 2025-01-26 16:00 | PC.NURSE ---
Dr garcia spoke to patient. advised pt that she could eat but this may delay her catheterization procedure. pt upset, sent family to go get her food.
[2025-01-26 16:06] LABS: INTERNATIONAL NORM RATIO 1.0 (0.9-1.1); Prothrombin Time 11.3 SEC (10.9-12.4)
[2025-01-26 16:08] LABS: PTT Heparin Drip 29.8 SEC (53-77.9)
[2025-01-26] MEDS: Metoprolol Tartrate 12.5 MG HALFTAB PO (16:21)
--- NOTE | 2025-01-26 18:03 | PC.NURSE ---
Pt's family returned. Pt's family did not bring her food and pt is very upset, refusing to take food from RN.
[2025-01-26 18:36] VITALS: BP 120/82; PULSE 68; RESP 18
--- NOTE | 2025-01-26 18:49 | PC.NURSE ---
pt reporting chest pain has returned. pt looks well, smiling, requesting pain medication. ALECIA mcdaniel notified.
--- NOTE | 2025-01-26 20:41 | PC.NURSE ---
nurse to nurse report called to Ellie DALEY at [facility]- M5 unit.
[2025-01-26 21:08] VITALS: BP 120/82; PULSE 68; RESP 18; TEMP 36.7
== END 2025-01-26 21:10 | disposition short-term general hospital (02) ==
PROVIDERS: Physician Assistant Medical; Registered Nurse Emergency; Emergency Provider Emergency Medicine
DX: I21.4 Non-ST elevation (NSTEMI) myocardial infarction (principal); I10 Essential (primary) hypertension; R07.9 Chest pain, unspecified; R11.2 Nausea with vomiting, unspecified; G40.909 Epilepsy, unspecified, not intractable, without status epilepticus; Z79.899 Other long term (current) drug therapy
CPT/HCPCS: 36415; 71046; 80048; 80076; 83735; 84484; 84702; 85025; 85027; 85610; 85730; 93005; 96361; 96365; 96366; 96375; 96376; 99285; 99291; J0131; J1644; J2270; J2405

== ENCOUNTER → 2025-01-26 11:03 | Outpatient (BNV) | payer OTHER, SELFPAY | PROVIDERS: Emergency Provider Emergency Medicine; Visit Provider Internal Medicine | DX: R00.1 Bradycardia, unspecified (principal); I49.9 Cardiac arrhythmia, unspecified | CPT/HCPCS: 93010 ==

== ENCOUNTER → 2025-01-26 13:33 | Outpatient (BNV) | payer OTHER, SELFPAY | PROVIDERS: Emergency Provider Emergency Medicine; Visit Provider Radiology Diagnostic Radiology | DX: R07.89 Other chest pain (principal) | CPT/HCPCS: 71046 ==

== ENCOUNTER 2025-01-31 10:51 | Emergency (ER) | payer OTHER, SELFPAY ==
[2025-01-31] VITALS (7 sets, daily range): BP systolic 121–155; BP diastolic 65–86; PULSE 68–96; RESP 16–20; TEMP 36.8; O2SAT 96–100; BMI 33.8
--- NOTE | 2025-01-31 | ECG_ITS ---
Test Reason : cp Blood Pressure : */* mmHG Vent. Rate : 60 BPM Atrial Rate : 60 BPM P-R Int : 136 ms QRS Dur : 76 ms QT Int : 418 ms P-R-T Axes : 24 48 43 degrees QTcB Int : 418 ms Normal sinus rhythm with sinus arrhythmia Nonspecific ST abnormality Abnormal ECG When compared with ECG of 26-Jan-2025 14:38, No significant change was found Referred By: Generic ED Physician Electronically Signed By: NYDIA WARD MD
--- NOTE | ~2025-01-31 | XR_ITS ---
EXAMINATION: XR CHEST 1 VIEW HISTORY: CP COMPARISON: Comparison is made with the prior examination dated 01/26/2025. FINDINGS: A single AP portable view of the chest performed at 11:14 AM is submitted. The lungs are expanded and clear. There is no pleural effusion, pneumothorax, or pulmonary vascular congestion. The heart is normal in size. The bones are intact. XR/XR chest 1V IMPRESSION: No acute cardiopulmonary abnormality. Electronically signed by: Josh Rubio MD 01/31/2025 11:25 AM EDT
--- NOTE | 2025-01-31 11:18 | ED.CHESTPAIN ---
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 this morning. Patient reports that she was on the phone with her doctor to make a follow-up appointment when suddenly she developed left-sided chest pain. She states that the chest pain has been constant, waxing and waning in severity. She describes the chest pain as a pressure-like sensation that starts in the left side of her chest and radiates across the right side. She called 911 and they advised her to take aspirin 324 mg by mouth - she also took aspirin 81 mg this morning as her daily regimen. She states that she also received nitroglycerin x2 en route, which did not provide her with any relief. She does however state that her pain is better than it was previously, rating it a 7/10. She otherwise denies any palpitations, shortness for breath, abdominal pain. She expresses some nausea. No vomiting. No diarrhea constipation. No other complaints or concerns at this time. MD complaint: chest pain Pertinent past history: prior [place] Onset (ago): hour(s) Timing of current episode: constant Prior episodes: Yes Onset: during rest Pain location: left chest Pain radiation: none Severity: moderate Pain scale (0-10): 7 Quality: aching Relieving factors: nothing Exacerbating factors: nothing Treatment prior to arrival: none Risk Factors Coronary artery disease risk factors: hyperlipidemia and hypertension Related Data Previous Rx's ?Medication ?Instructions ?Recorded hydroxyzine HCl 50 mg tablet 50 mg PO TID PRN anxiety #30 tabs 11/11/20 ufvyymuhdg-emstlrkmoyufk-jhugrxmg 1 cap PO Q6H PRN headache #20 caps 10/31/22 50 mg-300 mg-40 mg capsule (Fioricet) ondansetron 4 mg disintegrating 4 mg PO Q6-8H PRN nausea and 10/31/22 tablet vomiting #10 tabs sumatriptan succinate 50 mg tablet 50 mg PO Q2H PRN migraine headache 10/31/22 (Imitrex) #10 tabs amoxicillin 875 mg-potassium 1 tab PO BID 10 days #20 tabs 11/01/22 clavulanate 125 mg tablet morphine 15 mg immediate release 15 mg PO Q6H PRN pain 5 days #10 11/01/22 tablet tabs amoxicillin 875 mg-potassium 1 tab PO BID #14 tabs 11/23/22 clavulanate 125 mg tablet fluconazole 150 mg tablet 150 mg PO Q3D 2 doses #2 tabs 11/23/22 (Diflucan) ibuprofen 600 mg tablet 600 mg PO Q8H PRN pain #14 tabs 11/23/22 levetiracetam 1,000 mg tablet 1,000 mg PO BID #60 tabs 03/20/24 (Keppra) naproxen 500 mg tablet 500 mg PO BID PRN pain #14 tabs 01/31/25 Allergies Allergy/AdvReac Type Severity Reaction Status Date / Time No Known Allergies Allergy Verified 01/31/25 11:27 Review of Systems Review of Systems: Constitutional : No Fever, No Chills ENT/Mouth : No sore throat, No Rhinorrhea Eyes: No Eye Pain, No Swelling, No Redness Cardiovascular :+ Chest Pain, No SOB Respiratory : No Cough, No Sputum Gastrointestinal : + Nausea, No Vomiting, No Diarrhea, No abdominal Pain Genitourinary : No Dysuria, No Hematuria Musculoskeletal : No joint pain, No Myalgias, No Joint Swelling Skin : No Skin Lesions Neuro : No Weakness, No Numbness, No Headache All other systems reviewed and are negative Yes all other systems are reviewed and are negative Constitutional: Constitutional: Reports as per [facility] Past Medical History Medical History Anxiety Hypertension Seizures Social History Social History Alcohol intake: current Alcohol intake frequency: holidays/special occasions only Patient Tobacco Use Status: Never used Tobacco Substance Use Type: Marijuana Physical Exam Vital Signs: Vital Signs: Last Vital Signs Temp 98.3 F 01/31/25 15:13 Pulse 78 01/31/25 15:13 Resp 20 01/31/25 15:13 BP 121/65 01/31/25 15:13 Pulse Ox 96 01/31/25 15:13 O2 Del Method Room Air 01/31/25 15:13 BMI result Body Mass Index 33.8 Const: General: cooperative, comfortable and no acute distress Orientation/consciousness: patient oriented x3 Limitations: no limitations HEENT: Head: Yes normal to inspection, Yes normocephalic and Yes atraumatic Ears: hearing grossly normal bilaterally General nose exam: Normal external nose present Face and sinus: Yes normal facial exam Mouth: Normal oral and palatal mucosa present, oropharynx normal and moist mucous membranes Throat: Yes posterior oropharynx normal Eyes: General: appearance normal, both eyes and all related structures Eyelids: Yes eyelids normal Conjunctivae: conjunctivae normal Sclerae: sclerae normal Pupils: Equal, round and reactive pupils present EOM: EOMs intact bilaterally Neck: Neck: Yes normal visual inspection, Yes full ROM and Yes no lymphadenopathy Lymphatic: no lymphadenopathy noted Chest: Chest palpation & inspection: normal inspection of the chest Resp: Effort & Inspection: normal respiratory effort and able to speak in complete sentences Auscultation: clear to auscultation bilaterally, no crackles, no rales, no rhonchi and no wheezes Cardio: Rate: regular rate Rhythm: regular rhythm Heart sounds: S1 normal heart sound present and S2 normal heart sound present GI: Inspection: Yes normal to inspection Skin: General skin exam: no rashes or lesions noted Trauma: no lacerations or abrasions Wounds: no wounds Neuro: General: patient oriented x3 and moves all extremities Cranial nerves: Yes Equal, round and reactive pupils present Extrem: General: Yes normal to inspection Right upper extremity: normal to inspection Left upper extremity: normal to inspection Right lower extremity: normal to inspection Left lower extremity: normal to inspection Medications Administered Discontinued Medications Generic Name Dose Route Start Last Admin Trade Name Freq PRN Reason Stop Dose Admin Morphine Sulfate 4 mg 01/31/25 11:23 01/31/25 11:34 Morphine Sulfate 4 Mg/Ml Cartridge IVPUSH 01/31/25 11:24 4 mg ONCE ONE Administration Protocol Nitroglycerin 0.5 inch 01/31/25 11:52 01/31/25 12:05 Nitroglycerin 2 % Oint 1 Gm Packet TRANSDERMA 01/31/25 11:53 0.5 inch ONCE ONE Administration Medical Decision Making Medical Decision Making [facility] Narrative: This is a 39-year-old female, with a past medical history of recent NSTEMI (with recent transferred to [facility] on 01/27, found to have a SCAD), hyperlipidemia, seizure disorder on Keppra, and anxiety, who presents emergency department with acute onset of left-sided chest pain which started at 10:10 a.m. this morning. On arrival, vital signs within normal limits. She is speaking full sentences under no acute distress. Of note, patient was recently transferred to [facility] due to NSTEMI. She had a cardiac heart catheterization which revealed evidence of SCAD. She was told that this tear would heal on its own, and did not require any interventions. They recommended to follow-up with PCP within 1 week, follow-up with the Cardiology, started on aspirin, atorvastatin, and ezetimibe. In route today she already received aspirin 324 mg by mouth, she also received 2 doses of nitroglycerin. She states that she continues to have pain, states that her pain is not as bad as it initially was. Differential diagnoses include NSTEMI, STEMI, ACS. Given recent cardiac event, will reach out to cardiology for input. Pt already took tylenol and aspirin today, will give 1 dose of IV morphine, she states that she was given fentanyl several days ago and did not like the adverse side effects of this medication. Given very recent hx, reached out to Dr. Paiz who states that SCAD pain is limited with management options, recommends nitropastee and repeat trops. Troponin 89.5 > 84.9. Elevated troponins may be secondary to cardiac event several days ago. Given EKG with no acute findings and flat troponins, Dr. Paiz does not believe symptoms are cardiac in nature. Pt re-evaluated and feeling much better and completely asymptomatic. Discussed with patient that her overall workup is reassuring. Given return precautions. She has f/u with cards. No other complaints or concerns. Differential Diagnosis Differential Diagnoses: The differential diagnosis associated with the presentation includes see above Consult Healthcare Provider Management of the patient was discussed with: Nutritional Services Host Dr. Paiz Lab Data [facility] Lab Attestation statement: I reviewed the patient's lab results. Slight leukocytosis at 13.3, no left shift, nonspecific, infection not suspected. 01/31/25 11:17 01/31/25 11:17 Labs: Lab Results 01/31/25 01/31/25 Range/Units 11:17 13:23 WBC 13.3 H (4.8-10.8) X10*3/uL RBC 4.48 (4.20-5.50) X10*6/uL Hgb 14.3 (12.0-16.0) g/dl Hct 42.5 (37.0-47.0) % MCV 94.9 (80.0-98.0) fL MCH 31.9 (27.0-33.0) pg MCHC 33.6 (31.0-35.0) g/dl RDW 14.0 (11.0-16.0) % Plt Count 387 (160-400) X10*3/uL MPV 9.3 L (9.4-12.3) fL Immature Gran % (Auto) 0.5 H (0.0-0.4) % Neut % (Auto) 69.1 (45-73) % Lymph % (Auto) 22.1 (20-40) % [place] % (Auto) 6.4 (2-11) % Eos % (Auto) 1.4 (0-4) % Baso % (Auto) 0.5 (0-2) % Lymph # (Auto) 2.9 (1.2-4.9) X10*3/uL [place] # (Auto) 0.9 (0.1-1.2) X10*3/uL Eos # (Auto) 0.2 (0.0-0.4) X10*3/uL Baso # (Auto) 0.1 (0.0-0.2) X10*3/uL Abs Immat Gran (auto) 0.06 H (0.00-0.03) X10*3/uL Absolute Neuts (auto) 9.2 H (2.0-8.3) x10*3/uL Absolute Nucleated RBC 0.000 (0.0-0.012) X10*3/uL Nucleated RBC % (auto) 0.0 (0.0-0.2) /100WBC PT 11.2 (10.9-12.4) SEC INR 1.0 (0.9-1.1) Sodium 137 (135-145) mmol/L Potassium 4.0 (3.3-5.1) mmol/L Chloride 107 (96-108) mmol/L Carbon Dioxide 22 (22-29) mmol/L Anion Gap 12 (12-20) BUN 14 (9-16) mg/dL Creatinine 0.85 (0.5-1.4) mg/dL Estim Creat Clear Calc 102.2 Estimated GFR > 60 Random Glucose 109 (60-115) mg/dL Calcium 9.3 (8.4-10.2) mg/dL Magnesium 1.7 (1.6-2.6) mg/dL Total Bilirubin 0.4 (0.0-1.0) mg/dL AST 33 H (5-31) U/L ALT 35 H (0-31) U/L Alkaline Phosphatase 92 (39-117) U/L Troponin I High Sens 89.5 H* D 84.9 H* (<3.5-17.0) ng/L NT-Pro-B Natriuret Pep 142.0 (<300) pg/mL Total Protein 7.4 (6.5-8.0) g/dL Albumin 4.3 (3.5-5.0) g/dL COVID-19 (NASH) Negative (Negative) COVID-19 Clin Com See Note Influenza Type A (JACKSON) Negative (Negative) Influenza Type B (JACKSON) Negative (Negative) Influenza A & B Note See Note Independent Interpretation I performed an independent interpretation of an: EKG Interpretation: EKG normal sinus rhythm with sinus arrhythmia at a ventricular rate of 60 beats per minute. AL interval 136, QT QTC 418/418, no acute ischemic changes. Radiology Impression Discussion of test interpretation with radiology: I have reviewed the radiologist's reading. Radiologist Impression: [address] [address] XRay Report Signed Patient: Albania Rivera MR#: [id number] : 1985 Acct:[id number] Age/Sex: 39 / F ADM Date: 01/31/25 Loc: .ED Attending Dr: Ordering Physician: Bhargavi Arrieta Date of Service: 01/31/25 Procedure(s): XR chest 1V Accession Number(s): [id number] cc: Bhargavi Arrieta~ Reason for Exam: CP EXAMINATION: XR CHEST 1 VIEW HISTORY: CP COMPARISON: Comparison is made with the prior examination dated 01/26/2025. FINDINGS: A single AP portable view of the chest performed at 11:14 AM is submitted. The lungs are expanded and clear. There is no pleural effusion, pneumothorax, or pulmonary vascular congestion. The heart is normal in size. The bones are intact. XR/XR chest 1V IMPRESSION: No acute cardiopulmonary abnormality. Electronically signed by: Josh Rubio MD 01/31/2025 11:25 AM EDT RP Dictated By: Josh Rubio MD Discharge Plan Discharge Clinical Impression: Chest pain Patient Disposition: Home, Self-Care Instructions: Chest Pain (ED) Additional Instructions: You were seen in the emergency department after having chest pain. Your overall workup today was reassuring. It is unclear what caused you to have this chest pain however your EKG was normal. Your troponin which is a measure of your cardiac enzyme was slightly elevated however this could be from your cardiac event several days ago. Please continue following up with your metal fabricating inspector, call today to make an appointment. If any new or worsening symptoms occur including but not limited to worsening chest pain, shortness of breath, palpitations, please seek emergent care. You may take naproxen as needed for pain. Do not take any doses today as you already received a large dose of aspirin today. You may also take Tylenol 1000mg every 8 hours as needed for pain. Prescriptions: New naproxen 500 mg tablet 500 mg PO BID PRN (Reason: pain) Qty: 14 0RF No Action hydroxyzine HCl 50 mg tablet 50 mg PO TID PRN (Reason: anxiety) Qty: 30 0RF sumatriptan succinate [Imitrex] 50 mg tablet 50 mg PO Q2H PRN (Reason: migraine headache) Qty: 10 0RF Rx Instructions: do not exceed 2 doses per 24 hrs ondansetron 4 mg tablet,disintegrating 4 mg PO Q6-8H PRN (Reason: nausea and vomiting) Qty: 10 0RF aqlznkshhh-ncrlfftiibdex-amga [Fioricet] 50-300-40 mg capsule 1 cap PO Q6H PRN (Reason: headache) Qty: 20 0RF levetiracetam [Keppra] 1,000 mg tablet 1,000 mg PO BID Qty: 60 0RF morphine 15 mg tablet 15 mg PO Q6H PRN (Reason: pain) 5 Days Qty: 10 0RF Rx Instructions: Partial Fill upon patient request. amoxicillin-pot clavulanate 875-125 mg tablet 1 tab PO BID 10 Days Qty: 20 0RF amoxicillin-pot clavulanate 875-125 mg tablet 1 tab PO BID Qty: 14 0RF fluconazole [Diflucan] 150 mg tablet 150 mg PO Q3D Qty: 2 0RF Rx Instructions: Take one tab today. If you still have symptoms in 72 hours, take the second dose. ibuprofen 600 mg tablet 600 mg PO Q8H PRN (Reason: pain) Qty: 14 0RF Interventions: ED Discharge Assessment Last Done: 01/31/25 15:13 Discharge Date/Time: 01/31/25 15:13 Print Language: Tajik
[2025-01-31 11:22] LABS: MANUAL DIFF FLAG NO
[2025-01-31 11:23] LABS: Hematocrit 42.5 % (37.0-47.0); Hemoglobin 14.3 g/dl (12.0-16.0); Imm Gran Abs Auto 0.06 X10*3/uL (0.00-0.03); Imm Gran Pct Auto 0.5 % (0.0-0.4); Lymphocytes Absolute Auto 2.9 X10*3/uL (1.2-4.9); Mean Corpuscular HGB Conc 33.6 g/dl (31.0-35.0); Mean Corpuscular Hemoglobin 31.9 pg (27.0-33.0); Mean Corpuscular Volume 94.9 fL (80.0-98.0); NRBC Abs Auto 0.000 X10*3/uL (0.0-0.012); NRBC Pct Auto 0.0 /100WBC (0.0-0.2); Platelet Count 387 X10*3/uL (160-400); Red Blood Count 4.48 X10*6/uL (4.20-5.50); White Blood Count 13.3 X10*3/uL (4.8-10.8)
[2025-01-31 11:35] LABS: INTERNATIONAL NORM RATIO 1.0 (0.9-1.1); Prothrombin Time 11.2 SEC (10.9-12.4)
[2025-01-31 11:43] LABS: NT Pro B Type Natriuretic Pept 142.0 pg/mL (<300)
[2025-01-31 11:45] LABS: Alanine Aminotransferase 35 U/L (0-31); Albumin Level 4.3 g/dL (3.5-5.0); Alkaline Phosphatase 92 U/L (39-117); Anion Gap 12 (12-20); Aspartate Amino Transferase 33 U/L (5-31); Blood Urea Nitrogen 14 mg/dL (9-16); Calcium 9.3 mg/dL (8.4-10.2); Carbon Dioxide 22 mmol/L (22-29); Chloride 107 mmol/L (96-108); Creatinine Clr Calc Pharmacy 102.2; Estimated Glomerular Filt Rate > 60; Magnesium 1.7 mg/dL (1.6-2.6); Potassium 4.0 mmol/L (3.3-5.1); Sodium 137 mmol/L (135-145); Total Protein 7.4 g/dL (6.5-8.0)
[2025-01-31 11:47] LABS: Troponin-I High Sensitivity 89.5 ng/L (<3.5-17.0)
[2025-01-31 11:53] LABS: COVID-19 Test Negative (Negative); IDNOW Serial# 152EDE1D; IDNOW Serial# 6674DD1D; Influenza B2 Negative (Negative)
[2025-01-31] MEDS: Nitroglycerin 2 % Oint 1 GM Packet 0.5 INCH TRANSDERMA (12:05)
[2025-01-31 13:59] LABS: Troponin-I High Sensitivity 84.9 ng/L (<3.5-17.0)
--- OUTSIDE RECORDS SUMMARY | 2025-01-31 14:21 | XMS_ITS | Encounter Summary ---
Author Organization [facility] Address [address] [place] [address] Care Team Providers Care Partner Cco Name Role Phone Leroy Potter MD Primary Care Provider Reason for Visit * Reason Onset Date Comments Hospital Follow-up 01/31/2025 Encounter Details Date Type Department Care Team ([facility] Contact Info) Description 01/31/2025 Telephone Adult Medicine [address] [phone] Melissa Javier [place] Social History Tobacco Use Types Packs/Day Years Used Date Smoking Tobacco: Never Smokeless Tobacco: Never Alcohol Use Standard Drinks/Week Comments Yes 0 [...] care for your loved ones. For example, early childhood education specialist or elderly care for an older adult? [...] on file Sexual Orientation Not on file documented as of this encounter Progress Notes * Debra Bunn MA - 01/31/2025 2:17 PM EDT Spoke with patient she states that she already schedule follow up appt * Melissa Javier MA - 01/31/2025 10:14 AM EDT Hospital/ER follow up appointment needed Hospital patient was treated at: [facility], [facility] Was this only an ER visit or was the patient admitted to the hospital? Admitted to the hospital/kept overnight Date of visit if ER visit only: If patient was admitted what was the date of discharge? 01/28/25 Reason/diagnosis for visit or stay: heart attack When was the patient told to follow up? emery Was visit or stay related to an injury? If yes, what was the date of injury (DOI)? No If yes, was the injury due to: Not 3rd constitution party related documented in this encounter Plan of Treatment Upcoming Encounters Date Type Department Care Team (Late st Contact Info) Description 02/21/2025 8:30 AM EDT Consult General Surgery - [place] [address] [facility] [address] [place] [address] Marcos Arauz MD [address] [place] [address] 03/08/2025 1:15 PM EST Office Visit Adult Medicine [address] [phone] Leroy Potter MD [address] [place] [address] 06/13/2025 11:30 AM EST Office Visit Adult Medicine [address] [phone] Leroy Potter MD [address] [place] [address] documented as of this encounter Visit Diagnoses Not on filedocumented in this encounter Additional Health Concerns Assessment Noted Time PHQ-9 Depression Total Score: 0 01/06/20 8:06 AM EDT documented as of this encounter Care Teams Partner Cco Relationship Specialty Start Date End Date Leroy Potter MD [address] [place] [address] PCP - General Internal Medicine 10/15/24 documented as of this encounter
--- OUTSIDE RECORDS SUMMARY | 2025-01-31 14:21 | XMS_ITS | Encounter Summary ---
Author Organization [employer] Address [address] [place] [address] [address] [place] [address] Care Team Providers Care Manager Flight Operations Name Role Phone Connie Rowland MD Primary Care Provide r Encounter Details Date Type Department Care Team (Late st Contact Info) Description 09/10/2022 Abstract [facility] [address] [place] [address] Connie Rowland MD [address] [place] [address] Social History Tobacco Use Types Packs/Day Years [...] on filedocumented in this encounter Care Teams Manager Flight Operations Relationship Specialty Start Date End Date Connie Rowland MD [address] [place], [place] [phone] PCP - General Family Medicine 03/26/18 11/26/22 documented as of this encounter
--- OUTSIDE RECORDS SUMMARY | 2025-01-31 14:21 | XMS_ITS | Clinical Summary ---
Author Organization [employer] Address [address] [place] [address] 7 [place] [address] Care Team Providers Care Bridal Sales Consultant Name Role Phone Unavailable Primary Care Provider [...] Most Recently Relevant to Health Maintenance Insurance [facility] MEDICAID STAND ADULT
--- OUTSIDE RECORDS SUMMARY | 2025-01-31 14:21 | XMS_ITS | Clinical Summary ---
Author Organization [facility] [address] [place] [address] [place] [phone] Phone Care Team Providers Care Senior Director Finance Name Role Phone Leroy Potter MD Primary [...] Encounters Date Type Department Care Team Description 01/31/2025 Telephone Adult Medicine [facility] [address] [place] [address] Melissa Javier [place] 01/06/2025 8:41 AM EDT - 01/06/2025 11:59 PM EDT Hospital Encounter [address] [phone] Finger pain, left Discharge Disposition: Home or Self Care 01/06/2025 8:00 AM EDT Office Visit Adult [address] [phone] Salome Bhatia PA Mass of lower outer quadrant of left breast (Primary Dx); Hidradenitis suppurativa; History of candidiasis of vagina; Finger pain, left 01/05/2025 8:00 AM EDT Office Visit [address] [phone] Salome Bhatia PA Onychomycosis (Primary Dx); Lesion of right lower eyelid; Abnormal skin growth; Seizure disorder (CMS/HCC V24, CMS/HCC V28); Other migraine without status migrainosus, not intractable; Encounter for screening involving social determinants of health (SDoH); Screening for depression 01/03/2025 Telephone Adult [address] [phone] Leroy Potter MD from Last 3 Months [...] care for your loved ones. For example, childcare attendant or elderly care for an older adult? [...] 8:30 AM EDT Consult General Surgery - [address] [place] [phone] Marcos Arauz MD [address] [place] [phone] 03/08/2025 1:15 PM EST Office Visit Adult Medicine [address] [phone] Leroy Potter MD [address] [place] [address] 06/13/2025 11:30 AM EST Office Visit Adult Medicine [address] [phone] Leroy Potter MD [address] [place] [phone] Health Maintenance Due Date Last Done Comments [...] 08/27/2020 Influenza Vaccine (#1) 2024 , 02/13/2021 Social Influencers of Health Screening 01/05/2026 [...] Laterality Modality Upper Extremities, Hand Left Radiogra phic Imaging 01/06/2025 10:5 4 AM EDT Impressions 01/06/2025 10:55 AM EDT No acute fracture or dislocation of the left hand. -------- FINAL REPORT -------- Dictated By: Verito Jamil Dictated Date: 01/06/2025 10:54 ET Assigned Physician: Verito Jamil Reviewed and Electronically Signed By: Verito Jamil Signed Date: 01/06/2025 10:55 ET Workstation ID: [id number] Transcribed By: Self Edit Transcribed Date: 01/06/2025 [...] Signed Date: 01/06/2025 10:55 ET Workstation ID: [id number] Transcribed By: Self Edit Transcribed Date: 01/06/2025 10:54 ET Salome ALSTON IMSulma XR PROCEDURES Final Result * MG Mammo Digital Diagnostic bilat (03/19/2021 9:41 AM EST) Anatomical Region Laterality Modality Breast Bilateral Mammography Historical Provider MD CHRISTY BI PROCEDURES Final R esult from Last 3 Months or Most Recently Relevant to Health Maintenance Insurance [facility] [place] [address] Care Teams Senior Director Finance Relationship Specialty Start Date End Date Leroy Potter MD [address] [place] [phone] PCP - General Internal Medicine 10/15/24
== END 2025-01-31 15:13 | disposition home or self-care (01) ==
PROVIDERS: Physician Assistant Medical; Emergency Provider Emergency Medicine; PCP Internal Medicine
DX: R07.9 Chest pain, unspecified (principal); I25.2 Old myocardial infarction; I10 Essential (primary) hypertension; E78.5 Hyperlipidemia, unspecified; Z03.818 Encounter for observation for suspected exposure to other biological agents ruled out
CPT/HCPCS: 36415; 71045; 80053; 83735; 83880; 84484; 85025; 85610; 87502; 87635; 93005; 96374; 99285; J2270

== ENCOUNTER → 2025-01-31 11:03 | Outpatient (BNV) | payer OTHER, SELFPAY | PROVIDERS: Emergency Provider Emergency Medicine; PCP Internal Medicine; Visit Provider Internal Medicine Cardiovascular Disease | DX: I49.8 Other specified cardiac arrhythmias (principal) | CPT/HCPCS: 93010 ==

== ENCOUNTER → 2025-01-31 11:09 | Outpatient (BNV) | payer OTHER, SELFPAY | PROVIDERS: Emergency Provider Emergency Medicine; PCP Internal Medicine; Visit Provider Radiology Diagnostic Radiology | DX: R07.89 Other chest pain (principal) | CPT/HCPCS: 71045 ==

== ENCOUNTER 2025-04-14 14:31 | Outpatient (AMB) | payer OTHER, SELFPAY ==
--- NOTE | 2025-04-14 14:41 | MHC.OFFVIS ---
Intake Visit Reasons: 6M SZ Allergies No Known Allergies Allergy (Verified 04/14/25 14:46) Medication List - Last Reconciled 04/14/25 by Caroline Downey CNP aspirin 81 mg PO DAILY atorvastatin 80 mg PO BEDTIME nvulapbwvp-hiebfrmeewfna-fhyv 50-300-40 mg (Fioricet) 1 cap PO Q6H PRN ezetimibe 10 mg PO DAILY hydroxyzine HCl 50 mg PO TID PRN ibuprofen 600 mg PO Q8H PRN levetiracetam (Keppra) 1,000 mg PO BID naproxen 500 mg PO BID PRN ondansetron 4 mg PO Q6-8H PRN pramipexole 0.25 mg PO QPM sumatriptan succinate 100 mg PO tirzepatide (weight loss) (Zepbound) 5 mg subcut QWEEK HPI Comments Details: 39-year-old woman with h/o seizure disorder, migraines,?and RLS. She had CA in 01/2025. She was taking levetiracetam twice a day, no missed doses. No seizures. Stress was better and headaches were happening infrequently. She tried sumatriptan, but it made headaches worse. RLS symptoms wered controlled with medication. She had a probable Sz in 08/2024 around 5 am where she was incontinent and confused for 2 days. Had reduced her keppra to 1gm qd? as she was afarid of running out of her meds and was on reduced meds for a month . She was also sleep deprived . Legs jumping around. at night. Not been able to fall asleep and stay asleep. Before that she had no sz since 07/07/18 when she woke up not feeling right and was tired and emotional, but with no incontinence or tongue biting. On 02/05/18, she had an unwitnessed seizure in bed where she was incontinent followed by a second one where she fell on the floor in her bedroom and was incontinent and bit her tongue. Her mother heard her fall. Afterwards, she was confused, amnesic and very angry. She was taken to the [facility] emergency room where she had a CAT scan and was discharged without any medications. Later that night she had a third seizure and was brought to the [facility] emergency room and was started on Keppra 500 mg twice a day. A week later she had missed a dose and had a minor seizure but none since then. She's also been having a lot of headaches since then almost on a daily basis. She gets blurred vision and floaters followed by a bad headache with nausea and some photophobia and sonophobia, which responds to sumatriptan and naproxen. At age 2, she had 2 convulsions about 6 months apart and was treated with phenobarbital for one year. She's not known to have any other seizures besides that. Reecntly getting daily headaches and may last all day. Gets sick to her stomach and some photophobia. [facility] Medical History (Updated 04/14/25 @ 14:45 by Caroline Downey CNP) Insomnia Anxiety Hypertension Seizures Social History Alcohol intake: current Alcohol intake frequency: holidays/special occasions only Patient Tobacco Use Status: Never used Tobacco Substance Use Type: Marijuana Review of Systems Const Denies chills, Denies daytime sleepiness, Denies difficulty sleeping, Denies fatigue, Denies fever(s), Denies frequent falls, Reports headache(s), Denies increased appetite, Denies poor appetite, Denies snoring, Denies weakness, Denies weight gain and Denies weight loss Eyes Denies loss of vision ENT Denies vertigo, Denies dizziness, Reports headache(s) and Denies neck pain Card Denies chest pain at rest, Denies chest pain with activity, Denies syncope, Denies leg edema, Denies palpitations, Denies dyspnea and Denies dyspnea on exertion Resp Denies cough, Denies dyspnea, Denies dyspnea on exertion and Denies snoring GI Denies abdominal pain, Denies constipation, Denies heartburn, Denies diarrhea and Denies nausea Denies urinary frequency, Denies urinary incontinence and Denies urinary urgency Musc Denies abnormal gait, Denies back pain, Denies myalgias, Denies arthralgias, Denies neck pain, Denies numbness and Denies tingling Neuro Denies abnormal gait, Denies vertigo, Denies dizziness, Denies syncope, Denies frequent falls, Reports headache(s), Denies lack of coordination, Denies loss of vision, Denies memory loss, Denies numbness, Denies Other visual disturbances, Reports restless legs, Denies seizure-like activity, Denies tingling, Denies paresthesias, Denies tremor(s) and Denies weakness Psych Denies anxiety, Denies depression, Denies auditory hallucinations, Denies memory loss and Denies visual hallucinations Endo Denies fatigue and Denies palpitations Physical Exam Const Other: General Appearance:? normal, in no acute distress. Heart:? S1, S2 normal, no murmurs. Lungs:? clear anteriorly and posteriorly. Musculoskeletal:? normal. Extremities:? no edema. Psych:? alert, oriented, cognitive function intact, cooperative with exam. Neuro Other: Abnormal Neurological Findings:?none.? Mental Status: alert and oriented X 3. Normal attention, orientation, memory, and affect. Cranial Nerves: Pupils are equal, round, and reactive to light. External ocular muscles are intact. Visual valero are full, no ptosis. Face is symmetrical, no facial weakness or droop. Facial sensations are normal. Tongue protrudes in midline. Palate elevates symmetrically. Shoulder shrugging is normal Motor Examination: Normal muscle tone, bulk and strength. No atrophy or fasciculations. No drift of the extended upper extremities. DTR 2+. Plantars are flexor. Sensory Exam: Normal light touch, temperature, pinprick, vibration, and joint-position sensations. Rhomberg sign is absent. Coordination: No ataxia. No titubation. Gait Exam: Within normal limits. Cerebellar Signs: Ahynbj-ez-dnnt is okay. Extrapyramidal System: No tremor, rigidity with normal facial expressions. No bradykinesia. No bradyphrenia. Normal arm swing and posture. No propulsion or retropulsion. Speech: Normal. Results Reviewed Results Reviewed: 24hr ambulatory EEG 06/16/2023: WNL Assessment & Plan Assessment & Plan (1) Seizure disorder: Code(s): G40.909 - Epilepsy, unspecified, not intractable, without status epilepticus Category: Medical Plan: Continue levetiracetam 1000mg 1 tablet twice a day. (2) Migraine: Code(s): G43.909 - Migraine, unspecified, not intractable, without status migrainosus Category: Medical Qualifiers: Intractability: not intractable Migraine type: unspecified Status migrainosus presence: without status migrainosus Qualified Code(s): G43.909 - Migraine, unspecified, not intractable, without status migrainosus Plan: Stop sumatriptan - triptans contraindicated due to history of CA. Start cgntbdwvwn-TWAI-tpge 50-325-40mg 1 tablet as needed for headache #10 for 30 days, use/side effects reviewed. (3) Restless leg syndrome: Code(s): G25.81 - Restless legs syndrome Category: Medical Plan: Continue pramipexole 0.25mg 1 tablet daily in the evening. Follow up in 6 months or sooner as needed. Plan Meds tried: sumatriptan Medications: New pajgsvzbvk-nrhfduucvxlgt-yuyk 50-325-40 mg 1 tab PO DAILY PRN 10 tabs 2RF headache 30 days pramipexole 0.25 mg PO QPM 90 tabs 1RF 90 days Changed From levetiracetam (Keppra) 1,000 mg PO BID 60 tabs 0RF To levetiracetam (Keppra) 1,000 mg PO BID 180 tabs 1RF 90 days Discontinued ifwiygyjvx-frrcfyishgkqa-hrew 50-300-40 mg (Fioricet) Discontinued Reason: Order 1 cap PO Q6H PRN 20 caps 0RF headache Coding Level of Care Code Est Pt Level 4 (87688) Diagnoses Seizure disorder G40.909 Migraine without status migrainosus, not intractable, unspecified migraine type G43.909 Intractability: not intractable Migraine type: unspecified Status migrainosus presence: without status migrainosus Restless leg syndrome G25.81
--- OUTSIDE RECORDS SUMMARY | 2025-04-14 18:43 | XMS_ITS | Encounter Summary ---
Author Organization [employer] Address [address] [place] [address] [address] [place] [address] Care Team Providers Care Wheel Polisher Name Role Phone Connie Rowland MD Primary Care Provide r Encounter Details Date Type Department Care Team (Late st Contact Info) Description 09/10/2022 Abstract [facility] [address] [place] [address] Connie Rowland MD [address] [place] [address] Social History Tobacco Use Types Packs/Day Years [...] on filedocumented in this encounter Care Teams Wheel Polisher Relationship Specialty Start Date End Date Connie Rowland MD [address] [place], [place] [phone] PCP - General Family Medicine 03/26/18 11/26/22 documented as of this encounter
--- OUTSIDE RECORDS SUMMARY | 2025-04-14 18:43 | XMS_ITS | Encounter Summary ---
Author Organization [facility] [place] [address] Care Team Providers Care Bakery Clerk Name Role Phone Leroy Potter MD Primary Care Provider Encounter Details Date Type Department Care Team (Late st Contact Info) Description 03/01/2025 Results Follow-Up Adult Medicine [facility] [address] [place], [place] [phone] Leroy Potter MD [address] [place], [place] Social History Tobacco Use Types Packs/Day Years Used Date Smoking Tobacco: Never Smokeless Tobacco: Never Alcohol Use Standard Drinks/Week Comments Yes 0 (1 standard drink = 0.6 oz pur e alcohol) less than monthly Housing Instability Answer Date Recorde d Are you worried that in the next 2 months you may not have stable housing? No 02/21/2025 Food Access & Nutrition Answer Date Rec orded Do you have access to a vari ety of food including fruits and vegetables? No 02/21/2025 Access to Healthcare Answer Date Record ed Within the last 3 months, ho w many times did you visit the emergency department for your medical care? 2 02/21/2025 Health Literacy Answer Date Recorded How often do you need to hav e someone help you when you read instructions, pamphlets, or other written material from your doctor or pharmacy? Rarely 02/21/2025 Caregiver: How often do you need to have someone help you when you read instructions, pamphlets, or other written material from your doctor or pharmacy? Not on file 02/21/2025 Financial Risk Answer Date Recorded How hard is it for you to pa y for the very basics like food, housing, medical care, and air conditioning / heating? Somewhat hard 02/21/2025 Transportation Answer Date Recorded Has the lack of transportati on kept you from meetings, work, or from getting things needed for daily living? No Has the lack of transportati on kept you from medical appointments or from getting medications? No 02/21/2025 Social Isolation Answer Date Recorded How often do you feel lonely or isolated from those around you? Sometimes 02/21/2025 Food Risk Answer Date Recorded Within the past 12 months we worried whether our food would run out before we got money to buy more. Sometimes true 025 Within the past 12 months th e food we bought just didn't last and we didn't have money to get more. Often true 02/21/2025 Dependent Care Answer Date Recorded Do you need help finding or paying for care for your loved ones. For example, children's ministries director or elderly care for an older adult? No 02/21/2025 Education Answer Date Recorded Do you think completing more education or training, like finishing a GED, going to college, or learning a trade, would be helpful for you? No 02/21/2025 Employment and Income Answer Date Recor ded During the last four weeks, have you been actively looking for work? No 02/21/2025 Living Situation Answer Date Recorded What is your living situation? Unrecognized valu e 02/21/2025 Comments No Sex and Gender Information Value Date Recorded Sex Assigned at Not on file Legal Sex Female 1:48 PM EST Gender Identity Not on file Sexual Orientation Not on file documented as of this encounter Plan of Treatment Upcoming Encounters Date Type Department Care Team (Late st Contact Info) Description 05/17/2025 2:30 PM EST Office Visit Orthopedic Surgery - [place] [address] [phone] Neil Dutta, DPM [address] [phone] Scheduled Orders Name Type Priority Associated Diagnoses Orde r Schedule Hepatic function panel Lab Routine History of non-ST elevation myocardial infarction (NSTEMI) Spontaneous dissection of coronary artery LFT elevation 1 Occurrences starting 03/01/2025 until 03/01/2026 Lipid panel with reflex to direct LDL Lab Routine History of non-ST elevation myocardial infarction (NSTEMI) Spontaneous dissection of coronary artery LFT elevation 1 Occurrences starting 03/01/2025 until 03/01/2026 documented as of this encounter Visit Diagnoses Diagnosis History of non-ST elevation myocardial infarction (NSTEMI)- Primary Spontaneous dissection of coronary artery LFT elevation documented in this encounter Additional Health Concerns Assessment Noted Time PHQ-9 Depression Total Score: 0 02/25/20 4:11 PM EDT documented as of this encounter Care Teams Bakery Clerk Relationship Specialty Start Date End Date Leroy oPtter MD [address] [place] [phone] PCP - General Internal Medicine 10/15/24 documented as of this encounter
--- OUTSIDE RECORDS SUMMARY | 2025-04-14 18:43 | XMS_ITS | Clinical Summary ---
Author Organization [facility] [employer] Address [address] [place] [address] [address] [place] [address] Care Team Providers Care Fruit Coordinator Name Role Phone Unavailable Primary Care Provider [...] Most Recently Relevant to Health Maintenance Insurance [facility] MEDICAID STAND ADULT
--- OUTSIDE RECORDS SUMMARY | 2025-04-14 18:43 | XMS_ITS | Clinical Summary ---
Author Organization [address] Address [address] [place] [phone] Phone Care Team Providers Care Senior Landscape Architect Name Role Phone Leroy Potter MD Primary Care Provider Allergies Active Allergy Reactions Criticality Noted Date Comments Sumatriptan 02/24/2025 Medications levETIRAcetam (KEPPRA) 1,000 mg tablet Take 1 tablet (1,000 mg total) by mouth 2 (two) times a day. Active pramipexole (MIRAPEX) 0.25 mg tablet Take 1 tablet (0.25 mg total) by mouth 1 (one) time each day. 01/27/20 25 Active aspirin 81 mg EC tablet Take 1 tablet (81 mg total) by mouth 1 (one) time each day. 90 each 3 02/25/20 25 Active atorvastatin (LIPITOR) 80 mg tablet Take 1 tablet (80 mg total) by mouth at bedtime. 90 each 3 02/25/20 25 Active ezetimibe (ZETIA) 10 mg tablet Take 1 tablet (10 mg total) by mouth 1 (one) time each day. 90 each 3 02/25/20 25 Active Zepbound 7.5 mg/0.5 mL injectionIndica tions:Class 1 obesity due to excess calories with serious comorbidity and body mass index (BMI) of 32.0 to 32.9 in adult Inject 0.5 mL (7.5 mg total) under the skin every 7 (seven) days. 2 mL 12/17/20 25 Active Zepbound 2.5 mg/0.5 mL injectionIndica tions:Class 1 obesity due to excess calories with serious comorbidity and body mass index (BMI) of 32.0 to 32.9 in adult Inject 0.5 mL (2.5 mg total) under the skin every 7 (seven) days. 2 mL 02/29/20 25 025 Discontinued(Do se adjustment) tirzepatide, weight loss, (Zepbound) 5 mg/0.5 mL injection Inject 0.5 mL (5 mg total) under the skin every 7 (seven) days. 025 Discontinued(Re order) Zepbound 5 mg/0.5 mL injectionIndica tions:Class 1 obesity due to excess calories with serious comorbidity and body mass index (BMI) of 32.0 to 32.9 in adult Inject 0.5 mL (5 mg total) under the skin every 7 (seven) days. 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 Pilonidal cyst 02/24/2025 Fatty liver 02/24/2025 ESTHER (generalized anxiety disorder) 02/24/2025 GERD (gastroesophageal reflux disease) Hidradenitis suppurativa 02/24/2025 Insomnia 02/24/2025 Mild intermittent asthma 02/24/2025 Mixed hyperlipidemia 02/24/2025 Vanleer-Schlatter's disease 02/24/2025 Panic attacks 02/24/2025 Severe obesity 02/24/2025 Vertigo 02/24/2025 History of non-ST elevation myocardial infarctio n (NSTEMI) 02/24/2025 Spontaneous dissection of coronary artery 2024 Seizure disorder 01/05/2025 Migraine without status migrainosus, not intract able 01/05/2025 Resolved Problems Problem Noted Date Diagnosed Date Resolved Date Follow-up of heart attack 01/26/2025 Encounters Date Type Department Care Team Description 03/01/2025 Results Follow-Up Adult Medicine [address] [phone] Leroy Potter MD 02/28/2025 10:35 AM EST Lab Draw [address] Class 1 obesity due to excess calories with serious comorbidity and body mass index (BMI) of 32.0 to 32.9 in adult; Spontaneous dissection of coronary artery; Mixed hyperlipidemia; Hospital discharge follow-up; Seizure disorder ([facility] V24, [facility] V28); History of non-ST elevation myocardial infarction (NSTEMI); Hypomagnesemia 02/24/2025 4:00 PM EDT Office Visit Adult Medicine [address] [phone] Leroy Potter MD Hospital discharge follow-up (Primary Dx); Seizure disorder ([facility], [facility] V[facility]); Spontaneous dissection of coronary artery; History of non-ST elevation myocardial infarction (NSTEMI); Hypokalemia; Hypomagnesemia; Mixed hyperlipidemia; Class 1 obesity due to excess calories with serious comorbidity and body mass index (BMI) of 32.0 to 32.9 in adult 01/31/2025 Telephone Adult [address] [phone] Melissa Javier MA from Last 3 Months Immunizations Immunization Administration Dates Next Due Influenza trivalent, 0.5mL, preservative free (Fluarix; FluLaval; Fluzone) ages 6mo and older (Afluria) 3 years and older 04/03/2022,02/13/2021 PPD Test 05/17/2021 Tdap Tetanus diptheria acell ular pertussis (Boostrix; Adacel) 7yo and older 11/06/2020 Surgical History Surgery Date Site/Laterality Comments LUNG SURGERY Right removal of r lung mass benign BREAST BIOPSY Left benign per pt Medical History Medical History Date Comments Seizure ([facility], [facility] V[facility]) Migraines Follow-up of heart attack 01/26/2025 Family History Medical History Relation Name Comments [...] care for your loved ones. For example, attendant children's institution or elderly care for an older adult? [...] on file Sexual Orientation Not on file Last Filed Vital Signs Vital Sign Reading Time Taken Comments Blood Pressure 96/68 02/24/2025 4:11 PM EDT Pulse 101 02/24/2025 4:11 PM EDT Temperature 36.6 C (97.8 F) 02/24/2025 4:11 PM EDT Respiratory Rate 15 02/24/2025 4:11 PM EDT Oxygen Saturation 94% 02/24/2025 4:11 PM EDT Inhaled Oxygen Concentration - - Weight 92.5 kg (204 lb) 02/24/2025 4:11 PM EDT Height 167.6 cm (5' 6 ) 02/24/2025 4:11 PM EDT Body Mass Index 32.93 02/24/2025 4:11 PM EDT Plan of Treatment Upcoming Encounters Date Type Department Care Team (Late st Contact Info) Description 05/17/2025 2:30 PM EST Office Visit Orthopedic Surgery - [place] [facility] [address] [phone] Neil Dutta, DPM [address] [phone] Health Maintenance Due Date Last Done Comments Hepatitis B Vaccines (1 of 3 - 19+ 3-dose series) 12/22/2003 Pneumococcal Vaccine: Pediatrics (0 to 5 Years) and At-Risk Patients (6 to 49 Years) (1 of 2 - PCV) 12/22/2003 Cervical Cancer Screening: Pap Smear 2005 HPV Vaccines (1 - 3-dose SCD M series) 12/22/2011 Breast Cancer Screening 03/19/2023 03/19/2021 COVID-19 Vaccine (4 - 2024-2 6 season) 2024 03/31/2021, 09/24/2020, 08/27/2020 Influenza Vaccine (#1) 2024 2, 02/13/2021 Social Influencers of Health Screening 02/21/2026 02/21/2025, 01/05/2025 Cholesterol Screening (Lipid Panel) 02/28/2030 02/28/2025 DTaP,Tdap,and Td Vaccines (2 - Td or Tdap) 11/06/2030 11/06/2020 RSV Immunization Adult Patients (1 - 1-dose 75+ series) 12/22/2059 Depression Screening Completed 02/24/2025 HIB Vaccines Aged Out No longer eligi ble based on patient's age to complete this topic HIV Screening Discontinued Hepatitis A Vaccines Aged Out No long er eligible based on patient's age to complete this topic Hepatitis C Screening Discontinued IPV Vaccines Aged [...] Procedure Name Priority Date/Time Associated Diagnosis Comments BASIC METABOLIC PANEL Routine 02/28/2025 10:37 AM EST Hospital discharge follow-up Seizure disorder (CMS/HCC V24, CMS/HCC V28) Spontaneous dissection of coronary artery History of non-ST elevation myocardial infarction (NSTEMI) Mixed hyperlipidemia HEPATIC FUNCTION PANEL Routine 02/28/2025 10:37 AM EST Hospital discharge follow-up Seizure disorder (CMS/HCC V24, CMS/HCC V28) Spontaneous dissection of coronary artery History of non-ST elevation myocardial infarction (NSTEMI) Mixed hyperlipidemia MAGNESIUM Routine 02/28/2025 10:37 AM EST Hospital discharge follow-up Seizure disorder (CMS/HCC V24, CMS/HCC V28) Spontaneous dissection of coronary artery History of non-ST elevation myocardial infarction (NSTEMI) Hypomagnesemia LIPID PANEL WITH REFLEX TO DIRECT LDL Routine 02/28/2025 10:37 AM EST Spontaneous dissection of coronary artery Mixed hyperlipidemia HEMOGLOBIN A1C Routine 02/28/2025 10:37 AM EST Class 1 obesity due to excess calories with serious comorbidity and body mass index (BMI) of 32.0 to 32.9 in adult MG MAMMO DIGITAL DIAGNOSTIC BILAT Routine 03/19/2021 9:41 AM EST from Last 3 Months or Most Recently Relevant to Health Maintenance Results * (ABNORMAL) Lipid panel with reflex to direct LDL (02/28/2025 10:37 AM EST) Cholesterol 152 0 - 200 mg/dL LAB CHEMISTRY METHOD 02/28/2025 1:14 PM [facility] Triglycerides 89 0 - 150 mg/dL LAB CHEMISTRY METHOD 02/28/2025 1:14 PM [facility] HDL 33(L) >=40 mg/dL LAB CHEMISTRY METHOD 02/28/2025 1:14 PM [facility] LDL Calculated 101(H) 0 - 100 mg/dL LAB CHEMISTRY METHOD 02/28/2025 1:14 PM [facility] Comment:Estimated LDL Calcul ated using equation: Total cholesterol - HDL cholesterol - (Triglycerides/5) VLDL Cholesterol Isreal 17.8 mg/dL LAB CHEMISTRY METHOD 02/28/2025 1:14 PM [facility] Non HDL Chol. (LDL+VLDL) 119 <145 mg/dL LAB CHEMISTRY METHOD 02/28/2025 1:14 PM [facility] Chol/HDL Ratio 4.6(H) 0.0 - 4.4 LAB CHEMISTRY METHOD 02/28/2025 1:14 PM [facility] Blood Venous blood specimen / Unknown Venipuncture / Unknown 02/28/2025 10:37 AM EST 02/28/2025 10:37 AM EST us Leroy Potter MD LAB BLOOD ORDERABLES F inal Result Performing Organization Address City/[facility]/ZIP Co de Phone Number [facility] [address] [place] [address], [place] [phone] * Magnesium (02/28/2025 10:37 AM EST) [facility] Magnesium 1.9 1.9 - 2.6 mg/dL LAB CHEMISTRY METHOD 02/28/2025 1:00 PM EST [facility] Blood Venous blood specimen / Unknown Venipuncture / Unknown 02/28/2025 10:37 AM EST 02/28/2025 10:37 AM EST us Leroy Potter MD LAB BLOOD ORDERABLES F inal Result Performing Organization Address [facility] Co de Phone Number [facility] [address] [place] [address], [place] [phone] * Hemoglobin A1c (02/28/2025 10:37 AM EST) [facility] Hemoglobin A1C 5.7 <6.5 % LAB CHEMISTRY METHOD 02/28/2025 4:25 PM EST [facility] Mean Bld Glu Estim. 117 mg/dL LAB CHEMISTRY METHOD 02/28/2025 4:25 PM EST [facility] Blood Venous blood specimen / Unknown Venipuncture / Unknown 02/28/2025 10:37 AM EST 02/28/2025 10:37 AM EST us Leroy Potter MD LAB BLOOD ORDERABLES F inal Result Performing Organization Address City/[facility]/ZIP Co de Phone Number [facility] [address] [place] [address], [place] [phone] * (ABNORMAL) Hepatic function panel (02/28/2025 10:37 AM EST) [facility] Total Protein 7.0 6.0 - 8.0 g/dL LAB CHEMISTRY METHOD 02/28/2025 1:14 PM [facility] Albumin 3.6 3.2 - 5.0 g/dL LAB CHEMISTRY METHOD 02/28/2025 1:14 PM [facility] Total Bilirubin 0.5 0.0 - 1.4 mg/dL LAB CHEMISTRY METHOD 02/28/2025 1:14 PM [facility] Bilirubin, Direct 0.2 0.0 - 0.3 mg/dL LAB CHEMISTRY METHOD 02/28/2025 1:14 PM [facility] Bilirubin, Indirect 0.3 0.0 - 1.1 mg/dL LAB CHEMISTRY METHOD 02/28/2025 1:14 PM [facility] ALT (SGPT) 109(H) 10 - 60 unit/L LAB CHEMISTRY METHOD 02/28/2025 1:14 PM [facility] AST (SGOT) 35 10 - 42 unit/L LAB CHEMISTRY METHOD 02/28/2025 1:14 PM [facility] Alkaline Phosphatase 161(H) 42 - 121 unit/L LAB CHEMISTRY METHOD 02/28/2025 1:14 PM [facility] Blood Venous blood specimen / Unknown Venipuncture / Unknown 02/28/2025 10:37 AM EST 02/28/2025 10:37 AM EST us Leroy Potter MD LAB BLOOD ORDERABLES F inal Result [facility] [address] [place] [address], * (ABNORMAL) Basic metabolic panel (02/28/2025 10:37 AM EST) Sodium 136 133 - 145 mmol/L LAB CHEMISTRY METHOD 02/28/2025 1:14 PM [facility] Potassium 3.9 3.5 - 5.5 mmol/L LAB CHEMISTRY METHOD 02/28/2025 1:14 PM [facility] Chloride 106 96 - 110 mmol/L LAB CHEMISTRY METHOD 02/28/2025 1:14 PM [facility] CO2 24 21 - 32 mmol/L LAB CHEMISTRY METHOD 02/28/2025 1:14 PM [facility] Anion Gap 6 3 - 11 LAB CHEMISTRY METHOD 02/28/2025 1:14 PM [facility] Glucose 102(H) 70 - 100 mg/dL LAB CHEMISTRY METHOD 02/28/2025 1:14 PM [facility] BUN 9 5 - 25 mg/dL LAB CHEMISTRY METHOD 02/28/2025 1:14 PM [facility] Creatinine 0.77 0.50 - 1.10 mg/dL LAB CHEMISTRY METHOD 02/28/2025 1:14 PM [facility] eGFR 100 >=60 mL/min/1. 73m2 LAB CHEMISTRY METHOD 02/28/2025 1:14 PM [facility] Comment:Calculation based on the Chronic Kidney Disease Epidemiology Collaboration (CKD-EPI) equation refit without adjustment for race. BUN/Creatinine Ratio 11.7 LAB CHEMISTRY METHOD 02/28/2025 1:14 PM [facility] Calcium 8.8 8.5 - 10.5 mg/dL LAB CHEMISTRY METHOD 02/28/2025 1:14 PM [facility] Blood Venous blood specimen / Unknown Venipuncture / Unknown 02/28/2025 10:37 AM EST 02/28/2025 10:37 AM EST us Leroy Potter MD LAB BLOOD ORDERABLES F inal Result [facility] [address] [place] [address], [place] [phone] * MG Mammo Digital Diagnostic bilat (03/19/2021 9:41 AM EST) Anatomical Region Laterality Modality Breast Bilateral Mammography us Historical Provider MD CHRISTY BI PROCEDURES Final R esult from Last 3 Months or Most Recently Relevant to Health Maintenance Insurance [facility] Care Teams Senior Landscape Architect Relationship Specialty Start Date End Date Leroy Potter MD [address] [place], [place] PCP - General Internal Medicine 10/15/24
== END 2025-04-14 14:59 | disposition home or self-care (01) ==
LOC: HO.HSM 14:32
PROVIDERS: PCP Internal Medicine; Referring Provider Internal Medicine; Visit Provider Registered Nurse
DX: G40.909 Epilepsy, unspecified, not intractable, without status epilepticus (principal); G43.909 Migraine, unspecified, not intractable, without status migrainosus; G25.81 Restless legs syndrome
CPT/HCPCS: 99214

== ENCOUNTER → 2025-04-14 14:31 | Outpatient (BNVA) | payer OTHER, SELFPAY | PROVIDERS: PCP Internal Medicine; Referring Provider Internal Medicine; Visit Provider Registered Nurse | DX: G40.909 Epilepsy, unspecified, not intractable, without status epilepticus (principal); G43.909 Migraine, unspecified, not intractable, without status migrainosus; G25.81 Restless legs syndrome; I25.2 Old myocardial infarction; Z79.899 Other long term (current) drug therapy | CPT/HCPCS: 99212 ==

== ENCOUNTER 2025-04-25 08:10 | Outpatient (AMB) | payer OTHER, SELFPAY ==
--- OUTSIDE RECORDS SUMMARY | 2025-04-25 08:13 | XMS_ITS | Encounter Summary ---
Author Organization [facility] [place] [address] Care Team Providers Care Gauger Chief Delivery Name Role Phone Leroy Potter MD Primary Care Provider Encounter Details Date Type Department Care Team (Late st Contact Info) Description 03/01/2025 Results Follow-Up Adult Medicine [facility] [address] [place], [place] [phone] Leroy Potter MD [address] [place], [place] Social History Tobacco Use Types Packs/Day [...] care for your loved ones. For example, children teacher or elderly care for an older adult? [...] PM EST Office Visit Orthopedic Surgery - [place] [address] [phone] Neil Dutta, DPM [address] [phone] 05/26/2025 3:00 PM EST Office Visit Adult Medicine [facility] [address] [place], [place] [phone] Leroy Potter MD [address] [place], [place] Scheduled Orders Name Type Priority Associated Diagnoses [...] documented as of this encounter Care Teams Gauger Chief Delivery Relationship Specialty Start Date End Date Leroy Potter MD [address] [place], [place] PCP - General Internal Medicine 10/15/24 documented as of this encounter
--- OUTSIDE RECORDS SUMMARY | 2025-04-25 08:13 | XMS_ITS | Encounter Summary ---
Author Organization [facility] Address [address] [place] [address] Care Team Providers Care Ammonia Solution Preparer Name Role Phone Leroy Potter MD Primary Care Provider Reason for Visit * Reason Onset Date Comments [employer] 04/18/2025 Encounter Details Date Type Department Care Team ([facility] st Contact Info) Description 04/18/2025 Telephone Adult Medicine [facility] [address] [place], [place] [phone] Leroy Potter MD [address] [place], [place] Social History Tobacco Use Types Packs/Day [...] care for your loved ones. For example, rn maternal child or elderly care for an older adult? [...] as of this encounter Progress Notes * Kath Peck MA - 04/20/2025 9:54 AM EST Patient scheduled for 05/26/25 at 3 pm * Leroy Potter MD - 04/19/2025 2:35 PM EST Please schedule office visit for next year * Carito Varner MA - 04/19/2025 1:58 PM EST Per Jessica from [facility] stated that zepbound and other GLP-1 is not longer going to be covered for next year for weight loss The formulary one is phentermine. .Please Reply Back to [facility] Name Carito Varner [facility] Prior Ext: [phone] * Rowena Lira - 04/18/2025 1:51 PM EST Lula from [facility] is calling stating patient is calling insurance for prior authorization for Zepbound, patient stated there are other health concerns and can qualify for rx, [facility] will need proof patient has other health issues to be approved for rx. documented in this encounter Plan of Treatment Upcoming Encounters Date Type Department Care Team (Late st Contact Info) Description 05/17/2025 2:30 PM EST Office Visit Orthopedic Surgery [facility] [address] [phone] Neil Dutta DPAtul [address] [phone] 05/26/2025 3:00 PM EST Office Visit Adult Medicine [facility] [address] [place], [place] [phone] Leroy Potter MD [address] [place], [place] documented as of this encounter Visit Diagnoses Not on filedocumented in this encounter Additional Health Concerns Assessment Noted Time PHQ-9 Depression Total Score: 0 02/25/20 4:11 PM EDT documented as of this encounter Care Teams Ammonia Solution Preparer Relationship Specialty Start Date End Date Leroy Potter MD [address] [place] [phone] PCP - General Internal Medicine 10/15/24 documented as of this encounter
--- OUTSIDE RECORDS SUMMARY | 2025-04-25 08:13 | XMS_ITS | Clinical Summary ---
Author Organization [employer] Address [address] [place] [address] [address] [place] [address] Care Team Providers Care Wild Life Manager Name Role Phone Unavailable Primary Care Provider [...] Most Recently Relevant to Health Maintenance Insurance [facility] [employer]ICA[employer] STAND ADULT
--- OUTSIDE RECORDS SUMMARY | 2025-04-25 08:13 | XMS_ITS | Clinical Summary ---
Author Organization [address] Address [address] [place] [phone] Phone Care Team Providers Care Educational Program Assistant Name Role Phone Leroy Potter MD Primary Care Provider Allergies Active Allergy Reactions Criticality Noted Date Comments Sumatriptan 02/24/2025 Medications levETIRAcetam (KEPPRA) 1,000 mg tablet Take 1 tablet (1,000 mg total) by mouth 2 (two) times a day. Active pramipexole (MIRAPEX) 0.25 mg tablet Take 1 tablet (0.25 mg total) by mouth 1 (one) time each day. 5 Active aspirin 81 mg EC tablet Take 1 tablet (81 mg total) by mouth 1 (one) time each day. 90 each 3 5 Active atorvastatin (LIPITOR) 80 mg tablet Take 1 tablet (80 mg total) by mouth at bedtime. 90 each 3 5 Active ezetimibe (ZETIA) 10 mg tablet Take 1 tablet (10 mg total) by mouth 1 (one) time each day. 90 each 3 5 Active Zepbound 7.5 mg/0.5 mL injectionIndica tions:Class 1 obesity due to excess calories with serious comorbidity and body mass index (BMI) of 32.0 to 32.9 in adult Inject 0.5 mL (7.5 mg total) under the skin every 7 (seven) days. 2 mL 5 Active Zepbound 10 mg/0.5 mL injectionIndica tions:Class 1 obesity due to excess calories with serious comorbidity and body mass index (BMI) of 32.0 to 32.9 in adult Inject 0.5 mL (10 mg total) under the skin every 7 (seven) days. 2 mL 6 Active Zepbound 5 mg/0.5 mL injectionIndica tions:Class 1 obesity due to excess calories with serious comorbidity and body mass index (BMI) of 32.0 to 32.9 in adult Inject 0.5 mL (5 mg total) under the skin every 7 (seven) days. 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 Pilonidal cyst 02/24/2025 Fatty liver 02/24/2025 ESTHER (generalized anxiety disorder) 02/24/2025 GERD (gastroesophageal reflux disease) Hidradenitis suppurativa 02/24/2025 Insomnia 02/24/2025 Mild intermittent asthma 02/24/2025 Mixed hyperlipidemia 02/24/2025 Carlos-Schlatter's disease 02/24/2025 Panic attacks 02/24/2025 Severe obesity 02/24/2025 Vertigo 02/24/2025 History of non-ST elevation myocardial infarctio n (NSTEMI) 02/24/2025 Spontaneous dissection of coronary artery 2024 Seizure disorder 01/05/2025 Migraine without status migrainosus, not intract able 01/05/2025 Resolved Problems Problem Noted Date Diagnosed Date Resolved Date Follow-up of heart attack 01/26/2025 Encounters Date Type Department Care Team Description 04/18/2025 Telephone Adult Medicine [address] [phone] Leroy Potter MD 03/01/2025 Results Follow-Up Adult Medicine [address] [phone] Leroy Potter MD 02/28/2025 10:35 AM EST Lab Draw [address] Class 1 obesity due to excess calories with serious comorbidity and body mass index (BMI) of 32.0 to 32.9 in adult; Spontaneous dissection of coronary artery; Mixed hyperlipidemia; Hospital discharge follow-up; [place] disorder [place] [place] [facility] [place] History of non-ST elevation myocardial infarction (NSTEMI); Hypomagnesemia 02/24/2025 4:00 PM EDT Office Visit Adult Medicine [address] [phone] Leroy Potter MD Hospital discharge follow-up (Primary Dx); Seizure disorder [place] [place] [facility] [place] Spontaneous dissection of coronary artery; History of non-ST elevation myocardial infarction (NSTEMI); Hypokalemia; Hypomagnesemia; Mixed hyperlipidemia; Class 1 obesity due to excess calories with serious comorbidity and body mass index (BMI) of 32.0 to 32.9 in adult 01/31/2025 Telephone Adult [address] [phone] Melissa Javier MA from Last 3 Months [...] Medical History Medical History Date Comments Seizure ([facility] [place] [facility] [place] Migraines Follow-up of heart attack 01/26/2025 [...] care for your loved ones. For example, summer child caregiver or elderly care for an older adult? [...] PM EST Office Visit Orthopedic Surgery - [place] [address] [phone] Neil Dutta, DPM [address] [phone] 05/26/2025 3:00 PM EST Office Visit Adult Medicine [facility] [address] [place], [place] [phone] Leroy Potter MD [address] [place], [place] Health Maintenance Due Date Last Done Comments [...] AM EST Hospital discharge follow-up Seizure disorder ([facility] V24, [facility] V28) Spontaneous dissection of coronary artery History [...] mg/dL LAB CHEMISTRY METHOD 02/28/2025 1:14 PM [facility] Triglycerides 89 0 - 150 mg/dL LAB CHEMISTRY METHOD 02/28/2025 1:14 PM [facility] HDL 33(L) >=40 mg/dL LAB CHEMISTRY METHOD 02/28/2025 1:14 PM [facility] LDL Calculated 101(H) 0 - 100 mg/dL LAB CHEMISTRY METHOD 02/28/2025 1:14 PM [facility] Comment:Estimated LDL Calcul ated using equation: Total cholesterol - HDL cholesterol - (Triglycerides/5) VLDL Cholesterol Isreal 17.8 mg/dL LAB CHEMISTRY METHOD 02/28/2025 1:14 PM [facility] Non HDL Chol. (LDL+VLDL) 119 <145 mg/dL LAB CHEMISTRY METHOD 02/28/2025 1:14 PM [facility] Chol/HDL Ratio 4.6(H) 0.0 - 4.4 LAB CHEMISTRY METHOD 02/28/2025 1:14 PM [facility] Blood Venous blood specimen / Unknown Venipuncture / Unknown 02/28/2025 10:37 AM EST 02/28/2025 10:37 AM EST us Leroy Potter MD LAB BLOOD ORDERABLES F inal Result [facility] [address] [place] [address], [place] [phone] * Magnesium (02/28/2025 10:37 AM EST) Magnesium 1.9 1.9 - 2.6 mg/dL LAB CHEMISTRY METHOD 02/28/2025 1:00 PM EST [facility] Blood Venous blood specimen / Unknown Venipuncture / Unknown 02/28/2025 10:37 AM EST 02/28/2025 10:37 AM EST Leroy Potter MD LAB BLOOD ORDERABLES F inal Result Performing Organization Address City/[facility]/ZIP Co de Phone Number [facility] [address] [place] [address], [place] [phone] * Hemoglobin A1c (02/28/2025 10:37 AM EST) Hemoglobin A1C 5.7 <6.5 % LAB CHEMISTRY METHOD 02/28/2025 4:25 PM EST [facility] Mean Bld Glu Estim. 117 mg/dL LAB CHEMISTRY METHOD 02/28/2025 4:25 PM EST [facility] Blood Venous blood specimen / Unknown Venipuncture / Unknown 02/28/2025 10:37 AM EST 02/28/2025 10:37 AM EST us Leroy Potter MD LAB BLOOD ORDERABLES F inal Result [facility] [address] [place] [address], [place] [phone] * (ABNORMAL) Hepatic function panel (02/28/2025 10:37 AM EST) Total Protein 7.0 6.0 - 8.0 g/dL LAB CHEMISTRY METHOD 02/28/2025 1:14 PM EST [facility] Albumin 3.6 3.2 - 5.0 g/dL LAB CHEMISTRY METHOD 02/28/2025 1:14 PM EST [facility] Total Bilirubin 0.5 0.0 - 1.4 mg/dL LAB CHEMISTRY METHOD 02/28/2025 1:14 PM [facility] Bilirubin, Direct 0.2 0.0 - 0.3 mg/dL LAB CHEMISTRY METHOD 02/28/2025 1:14 PM [facility] Bilirubin, Indirect 0.3 0.0 - 1.1 mg/dL LAB CHEMISTRY METHOD 02/28/2025 1:14 PM EST [facility] ALT (SGPT) 109(H) 10 - 60 unit/L LAB CHEMISTRY METHOD 02/28/2025 1:14 PM [facility] AST (SGOT) 35 10 - 42 unit/L LAB CHEMISTRY METHOD 02/28/2025 1:14 PM [facility] Alkaline Phosphatase 161(H) 42 - 121 unit/L LAB CHEMISTRY METHOD 02/28/2025 1:14 PM [facility] Blood Venous blood specimen / Unknown Venipuncture / Unknown 02/28/2025 10:37 AM EST 02/28/2025 10:37 AM EST us Leroy Potter MD LAB BLOOD ORDERABLES F inal Result [facility] [address] [place] [address], [place] [phone] * (ABNORMAL) Basic metabolic panel (02/28/2025 10:37 AM EST) Sodium 136 133 - 145 mmol/L LAB CHEMISTRY METHOD 02/28/2025 1:14 PM [facility] Potassium 3.9 3.5 - 5.5 mmol/L LAB CHEMISTRY METHOD 02/28/2025 1:14 PM [facility] Chloride 106 96 - 110 mmol/L LAB CHEMISTRY METHOD 02/28/2025 1:14 PM [facility] CO2 24 21 - 32 mmol/L LAB CHEMISTRY METHOD 02/28/2025 1:14 PM [facility] Anion Gap 6 3 - 11 LAB CHEMISTRY METHOD 02/28/2025 1:14 PM [facility] Glucose 102(H) 70 - 100 mg/dL LAB CHEMISTRY METHOD 02/28/2025 1:14 PM [facility] BUN 9 5 - 25 mg/dL LAB CHEMISTRY METHOD 02/28/2025 1:14 PM [facility] Creatinine 0.77 0.50 - 1.10 mg/dL LAB CHEMISTRY METHOD 02/28/2025 1:14 PM [facility] eGFR 100 >=60 mL/min/1. 73m2 LAB CHEMISTRY METHOD 02/28/2025 1:14 PM [facility] Comment:Calculation based on the Chronic Kidney Disease Epidemiology Collaboration (CKD-EPI) equation refit without adjustment for race. BUN/Creatinine Ratio 11.7 LAB CHEMISTRY METHOD 02/28/2025 1:14 PM [facility] Calcium 8.8 8.5 - 10.5 mg/dL LAB CHEMISTRY METHOD 02/28/2025 1:14 PM [facility] Blood Venous blood specimen / Unknown Venipuncture / Unknown 02/28/2025 10:37 AM EST 02/28/2025 10:37 AM EST us Leroy Potter MD LAB BLOOD ORDERABLES F inal Result [facility] [address] [place] [address], * MG Mammo Digital Diagnostic bilat (03/19/2021 9:41 AM EST) Anatomical Region Laterality Modality Breast Bilateral Mammography us Historical Provider MD CHRISTY BI PROCEDURES Final R esult from Last 3 Months or Most Recently Relevant to Health Maintenance Insurance [facility] [employer] PL[employer] Care Teams Educational Program Assistant Relationship Specialty Start Date End Date Leroy Potter MD [address] [place] [phone] PCP - General Internal Medicine 10/15/24
--- OUTSIDE RECORDS SUMMARY | 2025-04-25 08:13 | XMS_ITS | Encounter Summary ---
Author Organization [employer] Address [address] [place] [address] 7 [place] [address] Care Team Providers Care Ledger Poster Name Role Phone Connie Rowland MD Primary Care Provide r Encounter Details Date Type Department Care Team (Late st Contact Info) Description 09/10/2022 Abstract [facility] [address] [place] [address] Connie Rowland MD [address] [place] [address] Social History Tobacco Use Types Packs/Day Years [...] on filedocumented in this encounter Care Teams Ledger Poster Relationship Specialty Start Date End Date Connie Rowland MD [address] [place], [place] [id number] PCP - General Family Medicine 03/26/18 11/26/22 documented as of this encounter
--- NOTE | 2025-04-25 08:14 | A.OFFVIS_ITS ---
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/[facility] DC/CP Intake Note: ARCHITECTURAL ADMINISTRATIVE ASSISTANT/[facility] dc/CP Retail Advertising Sales Manager Required: No Accompanied by: Self / Same As Patient Allergies No Known Allergies Allergy (Verified 04/14/25 14:46) Medication List - Last Reconciled 04/25/25 by JACQUES Suarez aspirin 81 mg PO DAILY atorvastatin 80 mg PO BEDTIME [id number]-[id number]-btur 50-325-40 mg 1 tab PO DAILY PRN 30 days ezetimibe 10 mg PO DAILY ibuprofen 600 mg PO Q8H PRN levetiracetam (Keppra) 1,000 mg PO BID 90 days pramipexole 0.25 mg PO QPM 90 days tirzepatide (weight loss) (Zepbound) 5 mg subcut QWEEK HPI Comments Details: History of Present Illness The patient is a 39 year old female presenting for a cardiology follow up for NSTEMI, SCAD. She was seen in the emergency room on 01/26/2025 for left-sided chest pain that radiated to her left arm, which was associated with nausea and vomiting. In the emergency department, her EKG showed sinus bradycardia, and her troponin levels tia from an initial 10 to 359.7, leading to a diagnosis of NSTEMI. She was transferred to [facility], where a cardiac catheterization revealed a 99% stenosis in the first obtuse marginal branch of the left circumflex artery, which was determined to be a spontaneous coronary artery dissection (SCAD). As she was pain-free and without EKG abnormalities at the time of catheterization, PCI was not indicated, and she was started on aspirin. An echocardiogram on 01/27/2025 showed an ejection fraction of 55-60% with no wall motion or significant valve abnormalities. She returned to the emergency room on 01/31/2025 with left-sided chest discomfort, for which nitroglycerin provided no relief. Her troponin levels were flat, the EKG showed no acute findings, and the symptoms were considered non-cardiac. Since her hospitalization, she has experienced occasional, brief, stabbing chest pains but nothing similar to what led to her admission. She reports feeling easily fatigued and winded with exercise and also experiences heart palpitations described as her heart racing. Her past medical history includes obesity, hyperlipidemia since childhood, migraines, a controlled seizure disorder, prediabetes, and exertional asthma. Her family history is significant for premature coronary artery disease; her father had three heart attacks starting in his 40s and underwent open-heart surgery, and her brother from a massive heart attack at age 39. She is a former smoker and does not currently drink alcohol. Current medications include aspirin, atorvastatin, and Zetia. She was recently started on Zepbound by her primary care provider and has since lost over 30 pounds with improvement in her sleep quality. [facility] Medical History (Updated 04/25/25 @ 12:35 by JACQUES Suarez) Insomnia Anxiety Hypertension Seizures Surgical History (Updated 04/25/25 @ 12:36 by Beverly Morin NP-C) Hx of cardiac cath Family History Father H/O heart surgery Right coronary artery occlusion Heart murmur Social History Alcohol intake: current Alcohol intake frequency: holidays/special occasions only Patient Tobacco Use Status: Never used Tobacco Substance Use Type: Marijuana Review of Systems Const All systems reviewed & are unremarkable except as noted in HPI and below Denies chills, Reports fatigue, Denies fever(s), Denies frequent falls, Reports weakness, Denies weight gain and Denies weight loss ENT Denies dizziness Card Denies chest pain, Denies leg edema, Reports lightheadedness, Denies palpitations, Denies dyspnea, Denies dyspnea on exertion and Denies orthopnea Resp Denies cough, Denies dyspnea and Denies dyspnea on exertion GI Denies bloating and Denies change in bowel habits Musc Denies muscle weakness, Denies numbness and Denies tingling Neuro Denies dizziness, Denies frequent falls, Denies numbness, Denies tingling and Reports weakness Endo Reports fatigue and Denies palpitations Physical Exam Vital Signs: Last Vital Signs Pulse 85 04/25/25 08:17 BP 120/64 04/25/25 08:17 BMI result Body Mass Index 30.2 Const General: cooperative, healthy appearing, comfortable and no acute distress Orientation/consciousness: patient oriented x3 Eyes Sclerae: sclerae normal Neck Neck: Yes normal visual inspection Resp Effort & Inspection: normal respiratory effort Auscultation: clear to auscultation bilaterally, no rales, no rhonchi and no wheezes Cardio Rate: regular rate Rhythm: regular rhythm Heart sounds: S1 normal heart sound present, S2 normal heart sound present, no gallops, no murmurs and no rubs Neuro General: patient oriented x3 Extrem General: Yes normal to inspection, No no pedal edema and No calf tenderness Psych Appearance: grossly normal Mental Status: mental status grossly normal Speech and movement: Normal speech and movement present Office Procedures EKG Details: Today, read by me, sinus rhythm with sinus arrhythmia, rate 85, QTC 399 milliseconds [id number], Complete Assessment & Plan Assessment & Plan (1) Spontaneous dissection of coronary artery: Code(s): I25.42 - Coronary artery dissection Category: Medical (2) NSTEMI (non-ST elevated myocardial infarction): Code(s): I21.4 - Non-ST elevation (NSTEMI) myocardial infarction Category: Medical (3) Hyperlipidemia: Code(s): E78.5 - Hyperlipidemia, unspecified Category: Medical (4) Hx of cardiac cath: Comment: 01/27/2025 coronaries angiographically normal except a subbranch of obtuse marginal with diffuse 99% stenosis, felt to be spontaneous coronary artery dissection no indication for PCI Code(s): Z98.890 - Other specified postprocedural states Category: Surgical (5) Hospital discharge follow-up: Code(s): Z51.89 - Encounter for other specified aftercare Category: Medical Plan Plan 1. Spontaneous Coronary Artery Dissection The patient's NSTEMI was caused by a spontaneous coronary artery dissection (SCAD) rather than traditional atherosclerotic disease. Currently no anginal symptoms. A referral will be placed for cardiac rehabilitation to provide a structured and supervised exercise program. Continue her current regimen of aspirin, atorvastatin, and ezetimibe. For her report of heart palpitations and for post NSTEMi care, will start on Metoprolol xl 25mg daily. Cardiology follow up in 3 months, sooner if needed.. 2. Hyperlipidemia The patient has a longstanding history of hyperlipidemia and is being treated with atorvastatin and ezetimibe. [place] LDL goal is < 70. She has upcoming labs being drawn for PCP and will request that they be sent to our office. 3. Obesity The patient has a history of obesity and recently achieved significant weight loss of over 30 pounds with Zepbound, which also improved her sleep. Given her concern that insurance may no longer cover the medication, the importance of maintaining dietary habits and physical activity was discussed. Her participation in cardiac rehab will further support her exercise goals. Discussion Notes I explained to the patient that her heart attack resulted from a spontaneous coronary artery dissection (SCAD), which involves a tear in the artery wall, as opposed to a blockage from cholesterol buildup. We discussed her recent presentation to the ED was non-cardiac, and that her current occasional symptoms are atypical and not consistent with the pain that led to her hospitalization. To address her reports of a racing heart, I recommended initiating a low dose of metoprolol. I clarified that while her heart rate was slow initially, her current rate is in the normal range, making it safe to try the medication, and instructed her to stop it if she experiences any dizziness or lightheadedness. I recommended she participate in cardiac rehabilitation, explaining it is a supervised exercise program to help her increase activity safely. She agreed this would be helpful for guidance on her physical limitations. We discussed continuing her current medications, including aspirin, atorvastatin, and ezetimibe. I informed her that we would obtain her recent lipid panel from her primary care doctor to ensure her cholesterol is well- managed. I will have her follow up in my clinic in three months. Patient Instructions - Start taking the new medication, metoprolol, as prescribed. This is to help with the feeling of a racing heart. If you feel dizzy or lightheaded while taking it, stop the medication and let our office know. - Continue taking your aspirin, atorvastatin, and Zetia for cholesterol. - We have ordered cardiac rehab for you. This is a physical therapy program supervised by healthcare professionals to help you exercise safely. They will contact you to schedule your sessions. - Please be sure to get your cholesterol bloodwork done for your primary care doctor. Ask their office to send a copy of the results to us at [facility]. - We will see you back in our office for a follow-up appointment in about 3 months. Patient was informed and verbally consented to the use of an ambient scribe for clinic note documentation during this visit. Visit time spent on chart review, interview, assessment, orders, documentation. Orders: Orders Cardiac Rehab Today I21.4 - Non-ST elevation (NSTEMI) myocardial infarction, I25.42 - Coronary artery dissection, Z98.890 - Other specified postprocedural states Medications: New metoprolol succinate ER 25 mg PO DAILY 30 tabs 5RF Coding Level of Care Code Est Pt Level 4 (93562) Add On Problem Visit Only Diagnoses Spontaneous dissection of coronary artery I25.42 NSTEMI (non-ST elevated myocardial infarction) I21.4 Hyperlipidemia E78.5 Hx of cardiac cath Z98.890 Hospital discharge follow-up Z51.89 CPT Codes EKG - CPT: 04791-[id number], Complete ([id number]) Time Spent (min) 28
[2025-04-25 08:17] VITALS: BP 120/64; PULSE 85; BMI 30.2
== END 2025-04-25 08:51 | disposition home or self-care (01) ==
LOC: HO.HCS 08:11
PROVIDERS: PCP Internal Medicine; Visit Provider Nurse Practitioner Family
DX: I25.42 Coronary artery dissection (principal); I21.4 Non-ST elevation (NSTEMI) myocardial infarction; E78.5 Hyperlipidemia, unspecified; Z98.890 Other specified postprocedural states; Z51.89 Encounter for other specified aftercare
CPT/HCPCS: 93010; 99214

== ENCOUNTER → 2025-04-25 08:10 | Outpatient (BNVA) | payer OTHER, SELFPAY | PROVIDERS: PCP Internal Medicine; Visit Provider Nurse Practitioner Family | DX: I25.42 Coronary artery dissection (principal); I21.4 Non-ST elevation (NSTEMI) myocardial infarction; Z87.891 Personal history of nicotine dependence; E78.5 Hyperlipidemia, unspecified; Z79.82 Long term (current) use of aspirin; I11.9 Hypertensive heart disease without heart failure; Z98.890 Other specified postprocedural states; Z51.89 Encounter for other specified aftercare; Z79.85 Long-term (current) use of injectable non-insulin antidiabetic drugs | CPT/HCPCS: 93005; 99212 ==